=== PATIENT | male | born 1980 | race Caucasian/White ===

== ENCOUNTER 2023-08-31 09:04 | Outpatient (AMB) | payer BC, SELFPAY ==
--- NOTE | 2023-08-31 09:06 | MHC.OFFVIS ---
Intake Vital Signs 08/31/23 09:09 Height 5 ft 5 in Weight 132 lb 4.438 oz BMI 22.0 BP 125/64 Blood Pressure Location Lt brachial Position Sitting Pulse 102 H Intake Visit Reasons: Crohn's Disease Intake Note: Talon presents in the office as a new patient for Crohn's Disease. CC: He states that he is anemic - his crohns is getting worse. Bloating, Diarrhea - Everyday. he takes the Humira every 2 weeks - he was late with the last dose. He states the last few months he has been losing weight and he is not trying too. 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 Reports getting diagnosed at 19y.o when he was having a lot of abdominal pain in RLQ with nausea, diarrhea, blood in stool and weight loss. Was under care of Dr Alvaro Cristina ([facility]) for most of the duration of the disease and briefly by Dr Barber ([facility]) around pandemic years and then when he moved to [facility], he was being followed by [place] Licona ([facility] Unfortunately missed follow ups and when he called to book an appointment, not able to get in for a few months and therefore switching providers again. When he started seeing Dr Barber he was taken off the Humira and started on Naltrexone. His symptoms got significantly worse and also required a prolonged course of steroids that year. When he established care with Dr Licona he was then re-inducted with Humira in early 2020. From the notes, appears that he was checked for Ada drug and Ab post induction but we do not have those records. Assuming that he did not have antibodies as he was continued on Humira and still is on it. He does report initial improvement when he was started back on Humira, however, now for the past 7 months sx seem to be progressing with worsening of RLQ pain with bloating/distention - postprandial around 2 hours. Has also been noticing more loose BMs, used to have formed BM once a day without blood but now having [place] stool scale 5 almost 5-6 times a day. Night time sx +. No blood in stool that is noticeable to him. No tenesmus. + Urgency. Per his report when labs were checked by PCP earlier this year he was noted to have severe LUIS and Vit D deficiency. Does not smoke. Used to drink heavily in 20s now socially. Does take NSAIDs frequently, suffered a back injury recently and has been taking ibuprofen frequently for the past few weeks as tylenol not helpful and wants to avoid opiates. Last Humira dose was this morning. IBD history: Type: Crohns disease, stricturing type Location: Small intestine (jejunum, ileum) Age/year of diagnosis: 19 y.o / 1998 Previous medications: 6-MP (x8 years), Naltrexone x 1 year Steroids: Entocort EC on and off x years for flares. Most recent use was earlier this year. Current medications: Humira 40mg s/c q2w Prev surgeries: None Recent endoscopy: Colonoscopy 2020: active crohns in T.I. No CD in colon. Colonoscopy 2016: Normal T.I. Normal colon including rectum. VCE 2016: Jejunal and ileal ulcers with erythema. EIM: Joint pains primarily in small joints of the hands Radiology: 2013 DEXA: normal 2016 MRE: Distal small bowel stricture of 3 cm. [facility] Surgical History (Updated 08/31/23 @ 09:09 by RAINE Jean) History of esophagogastroduodenoscopy (EGD) Hx of colonoscopy Social History (Updated 08/31/23 @ 09:10 by RAINE Jean) Household Members: Family Alcohol intake: former Patient Tobacco Use Status: Never used Tobacco Use of substances other than those prescribed or required for medical reasons: No Review of Systems Const All systems reviewed & are unremarkable except as noted in HPI and below Physical Exam Vital Signs: Last Vital Signs Pulse 102 H 08/31/23 09:09 BP 125/64 08/31/23 09:09 BMI result Body Mass Index 22.0 Gen appear: NAD, thin appearing HEENT: nonicteric, no cervical lymphadenopathy Chest: CTA CVS: Regular S1/S2 Abd: soft, tenderness in RLQ, nondistended Ext: no peripheral edema, no obv joint deformities (? R third digit with some bowing) Neuro: A/Ox3, noted to move all extremities spontaneously Psych: interacting appropriately Assessment & Plan Assessment & Plan (1) Crohn's disease: Code(s): K50.90 - Crohn's disease, unspecified, without complications (2) Small bowel stricture: Code(s): K56.699 - Other intestinal obstruction unspecified as to partial versus complete obstruction (3) Anemia: Code(s): D64.9 - Anemia, unspecified (4) Vitamin D deficiency: Code(s): E55.9 - Vitamin D deficiency, unspecified (5) History of recent steroid use: Code(s): Z92.241 - Personal history of systemic steroid therapy Plan Reviewed with the pt that although clinically disease appears to be active despite Humira, will need biochemical and endoscopic evaluation. This will be set up today. A push enteroscopy will be set up in addition to colo given small bowel disease hx. We will also check ADA drug and Ab levels to guide the next step if indeed has active crohns still i.e dose escalation vs med switch in or out of class depending on results. Since he has had shelter exposure to steroids, we will also get a dexa scan. - Disease and therapy: Active based on clinical assessment. In clinical/biochemical/endoscopic remission. - Check CRP and Fecal calpro - Check CBC, LFTs, renal function. - Check drug and Ab level. This is to be drawn at trough i.e before next dose on 09/13. - In the meantime, cont Humira 40 q2w. - Push enteroscopy and colonoscopy to be set up in the next few weeks. Msg sent. Split PEG prep reviewed. - If inflammatory markers up and push/colo normal, low threshold to proceed with CTE as he has known small bowel disease. - Nutrition: Has evidence of ileal disease. Iron and B12 to be checked today. If low, will favor parenteral replacement. - Immunization: Encouraged to stay up to date to all immunizations EXCEPT live vaccines. - Bone Health: Check Vit D levels, will replete if low. Also overdue for DEXA scan. Orders placed. - Cancer prevention: IBD dysplasia: colonoscopy due, and to be scheduled as above. Sun safety discussed. ? - Med management: Counseled to AVOID nsaids for back pain. Tylenol up to 3g/day. Celecoxib 200 Rxed, which can be used for short term. Follow up after scopes. Pt was informed will likely be seen by different MD for follow up. ? Orders: Orders Comprehensive Met. Panel Today K50.90 - Crohn's disease, unspecified, without complications Hepatitis B Surface Antibody Today K5 - Crohn's disease, unspecified, without complications Hepatitis B Surface Antigen Today K5 - Crohn's disease, unspecified, without complications Hepatitis C Antibody Reflex Today K5 - Crohn's disease, unspecified, without complications, K74.60 - Unspecified cirrhosis of liver IRON PROFILE Today K5 - Crohn's disease, unspecified, without complications Thiopurine Methyltransferase Today K5 - Crohn's disease, unspecified, without complications T Spot TB Today K5 - Crohn's disease, unspecified, without complications TSH reflex Free T4 Today K5 - Crohn's disease, unspecified, without complications Vitamin D 25-OH Total Today K5 - Crohn's disease, unspecified, without complications HIV Ab/Ag Today K5 - Crohn's disease, unspecified, without complications Immunoglobulin A Today - Crohn's disease, unspecified, without complications Adalimumab+Ab Today K5 - Crohn's disease, unspecified, without complications Complete Blood Count no Diff Today K5 - Crohn's disease, unspecified, without complications Calprotectin, Fecal Today K5 - Crohn's disease, unspecified, without complications Ferritin Today K5 - Crohn's disease, unspecified, without complications C Reactive Protein Today K5 - Crohn's disease, unspecified, without complications Hepatitis A IgG Today - Crohn's disease, unspecified, without complications Hepatitis B Core Antibody Today K5 - Crohn's disease, unspecified, without complications Transglutaminase IgA Today K5 - Crohn's disease, unspecified, without complications Vitamin A Today - Crohn's disease, unspecified, without complications Vitamin B12 and Folate Today K5 - Crohn's disease, unspecified, without complications GI Panel Today K5 - Crohn's disease, unspecified, without complications CDiff Gene PCR Today K5 - Crohn's disease, unspecified, without complications XR DEXA axial skeleton Today K5 - Crohn's disease, unspecified, without complications Medications: New celecoxib (Celebrex) 200 mg PO DAILY PRN 30 caps 0RF pain peg 3350-electrolytes 236-22.74-6.74 -5.86 gram ([place]ol[place]) as per split prep instructions, until fecal effluent is clear 240 mL PO Q10M 4,000 mL 0RF colonoscopy Coding Level of Care Code New Pt Level 5 (27946) Diagnoses Crohn's disease K50.90 Small bowel stricture K56.699 Anemia D64.9 Vitamin D deficiency E55.9 History of recent steroid use Z92.213
[2023-08-31 09:09] VITALS: BP 125/64; PULSE 102; BMI 22.0
== END 2023-08-31 10:00 | disposition home or self-care (01) ==
PROVIDERS: PCP Hospitalist; Visit Provider Internal Medicine
DX: K50.90 Crohn's disease, unspecified, without complications (principal); K56.699 Other intestinal obstruction unspecified as to partial versus complete obstruction; D64.9 Anemia, unspecified; E55.9 Vitamin D deficiency, unspecified; Z92.241 Personal history of systemic steroid therapy
CPT/HCPCS: 99204

== ENCOUNTER → 2023-08-31 09:04 | Outpatient (BNVA) | payer BC, SELFPAY | PROVIDERS: PCP Hospitalist; Visit Provider Internal Medicine ==

== ENCOUNTER 2023-09-14 06:28 | Outpatient (REF) | payer BC, SELFPAY ==
[2023-09-14 11:17] LABS: Hematocrit 33.1 % (42.0-52.0); Hemoglobin 9.9 g/dl (14.0-18.0); Mean Corpuscular HGB Conc 29.9 g/dl (31.0-36.0); Mean Corpuscular Hemoglobin 19.7 pg (27.0-33.0); Mean Corpuscular Volume 65.9 fL (80.0-98.0); Mean Platelet Volume 9.9 fL (9.4-12.4); Platelet Count 634 X10*3/uL (160-400); Red Blood Count 5.02 X10*6/uL (4.60-5.80); Red Cell Distribution Width 16.8 % (11.0-16.0)
[2023-09-14 11:48] LABS: HBS Num1 0.99 mIU/mL (0-7.99); HBsAGNum1 0.34 S/CO (0.00-0.99); HIV AB/AG Nonreactive (Nonreactive); HIV Num 1 0.07 S/CO (0.00-0.99); Hepatitis A Antibody IgG REACTIVE (Nonreactive); Hepatitis B Core Antibody Nonreactive (Nonreactive); Hepatitis B Surface Antigen Negative (Negative); ~HepC Num1 0.12 S/CO (0.00-0.79); ~Hepatitis A Antibody IgG 1.25 S/CO (0.00-0.99); ~Hepatitis B Surface Antibody NONREACTIVE (Nonreactive); ~Hepatitis C Antibody Nonreactive (Nonreactive)
[2023-09-14 11:52] LABS: Alanine Aminotransferase 17 U/L (0-40); Albumin Level 2.2 g/dL (3.5-5.0); Alkaline Phosphatase 49 U/L (39-117); Anion Gap 12 (12-20); Aspartate Amino Transferase 21 U/L (5-37); Bilirubin Total 0.2 mg/dL (0.0-1.0); Blood Urea Nitrogen 10 mg/dL (9-16); Calcium 7.8 mg/dL (8.4-10.2); Carbon Dioxide 24 mmol/L (22-29); Chloride 104 mmol/L (96-108); Estimated Glomerular Filt Rate > 60; Glucose Random 84 mg/dL (60-115); Iron 13 mcg/dL (45-160); Percent Iron Saturation 8 % (15-50); Potassium 3.5 mmol/L (3.3-5.1); Sodium 136 mmol/L (135-145); Total Iron Binding Capacity 157 mcg/dL (228-428); Total Protein 5.1 g/dL (6.5-8.0); Unsaturated Iron Binding 144 ug/dL
[2023-09-14 11:56] LABS: Ferritin 104 ng/mL (20-250); TSH reflex Free T4 1.04 uIU/mL (0.32-4.0); Vitamin D 25-OH Total 28.9 ng/mL (>30)
[2023-09-14 11:58] LABS: Folate 15.2 ng/mL (> or = 4.0); Vitamin B12 397 pg/mL (200-900)
[2023-09-14 13:17] LABS: CDiff Gene PCR NEGATIVE (Negative)
[2023-09-16 16:08] LABS: Immunoglobulin A 356 mg/dL (47-310)
[2023-09-16 22:54] LABS: TS Negative Control Passed; TS Panel A 0; TS Panel B 1; TS Positive Control Passed; TSpotTB Negative (Negative)
[2023-09-17 23:12] LABS: Transglutaminase IgA 5.5 U/mL
[2023-09-18 21:59] LABS: Calprotectin, Fecal 6320 mcg/g
[2023-09-20 16:18] LABS: Vitamin A 29 mcg/dL (38-98)
[2023-09-21 22:54] LABS: Adalimumab Drug Level 1.1 mcg/mL; Anti-Adalimumab Antibody <10 AU (<10)
[2023-09-25 23:49] LABS: TPMT Activity 15
== END 2023-09-14 06:29 | disposition home or self-care (01) ==
LOC: HO.HMGCLDS 06:28
PROVIDERS: PCP Hospitalist; Visit Provider Internal Medicine
DX: Z11.4 Encounter for screening for human immunodeficiency virus [HIV] (principal); Z11.1 Encounter for screening for respiratory tuberculosis; K50.90 Crohn's disease, unspecified, without complications; K74.60 Unspecified cirrhosis of liver
CPT/HCPCS: 36415; 80053; 80145; 82306; 82607; 82728; 82746; 82784; 83520; 83540; 83993; 84433; 84443; 84590; 85027; 86140; 86364; 86481; 86704; 86706; 86708; 86803; 87340; 87389; 87493

== ENCOUNTER 2023-09-23 10:09 | Outpatient (REF) | payer BC, SELFPAY ==
--- NOTE | ~2023-09-23 | MM_ITS ---
EXAMINATION: BONE DENSITOMETRY CLINICAL INDICATION: Crohn's disease, unspecified, without complications. COMPARISON: This is the patient's baseline examination. TECHNIQUE: Using a [employer] DXA System (software version: 13.1) manufactured by [employer], dual-energy x-ray absorptiometry was performed of the lumbar spine and left hip. The images are of good technical quality. Based on ISCD (International Society for Clinical Densitometry) standards of reporting, Z-scores instead of T-scores are reported in this male patient younger than age 50. Summary results are attached. FINDINGS: AP SPINE L1-L4: BMD 1.186 g/cm2, T-score -0.3, Z-score 0.3, Z-score within expected range for age. LEFT FEMUR, NECK: BMD 0.957 g/cm2, T-score -0.9, Z-score -0.1, Z-score within expected range for age. LEFT FEMUR, TOTAL: BMD 0.960 g/cm2, T-score -1.0, Z-score -0.4, Z-score within expected range for age. IDENTIFIED RISK FACTORS: Secondary osteoporosis (intestinal or bowel disease). HISTORY OF FRACTURE: None listed. MEDICATIONS: Vitamin D. MM/XR DEXA axial skeleton IMPRESSION: 1. DIAGNOSIS: Based on the lowest Z-score value of -0.4 in the total femur, the patient's bone density is within the expected range for age. 2. 10-YEAR FRACTURE RISK PREDICTION, FRAX: Not performed in this patient outside the age range of 50-90 years. 3. Treatment Recommendations: NOF guidelines recommend consideration for treatment in postmenopausal women and men age 50 and older presenting with the following: -A hip or vertebral (clinical or morphometric) fracture. -T-score less than or equal to -2.5 at the femoral neck or spine after appropriate evaluation to exclude secondary causes. -Low bone mass at the hip or spine and a 10-year fracture probability by FRAX of greater than or equal to 3% for hip fracture or greater than or equal to 20% for major osteoporotic fracture based on the [place] adapted WHO algorithm. 4. Other Recommendations: All treatment decisions require clinical judgment and consideration of individual patient factors, including patient preferences, comorbidities, previous drug use, risk factors not captured in the FRAX model (e.g. frailty, falls, vitamin D deficiency, increased bone turnover, interval significant decline in bone density) and possible under or overestimation of fracture risk by FRAX. FUTURE SCAN RECOMMENDATION: People with diagnosed cases of osteoporosis or at high risk for fracture should have regular bone mineral density tests. For patients eligible for Medicare, routine testing is allowed once every 2 years. The testing frequency can be increased to one year for patients who have rapidly progressing disease, those who are receiving or discontinuing medical therapy to restore bone mass, or have additional risk factors.
== END 2023-09-23 10:10 | disposition home or self-care (01) ==
LOC: HO.MAMMO 10:09
PROVIDERS: PCP Hospitalist; Visit Provider Internal Medicine
DX: Z13.820 Encounter for screening for osteoporosis (principal); M81.0 Age-related osteoporosis without current pathological fracture; K50.90 Crohn's disease, unspecified, without complications; Z92.241 Personal history of systemic steroid therapy
CPT/HCPCS: 77080

== ENCOUNTER 2023-12-22 12:33 | Outpatient (REF) | payer BC, SELFPAY ==
[2023-12-22 16:05] LABS: Hematocrit 28.7 % (42.0-52.0); Hemoglobin 8.6 g/dl (14.0-18.0); Mean Corpuscular Hemoglobin 19.3 pg (27.0-33.0); Platelet Count 714 X10*3/uL (160-400); Red Blood Count 4.45 X10*6/uL (4.60-5.80); Red Cell Distribution Width 17.8 % (11.0-16.0); White Blood Count 8.3 X10*3/uL (4.8-10.8)
[2023-12-22 16:07] LABS: Mean Corpuscular Volume 64.5 fL (80.0-98.0)
[2023-12-22 16:17] LABS: Alanine Aminotransferase 16 U/L (0-40); Albumin Level 1.9 g/dL (3.5-5.0); Alkaline Phosphatase 51 U/L (39-117); Anion Gap 9 (12-20); Aspartate Amino Transferase 17 U/L (5-37); Bilirubin Total 0.1 mg/dL (0.0-1.0); Blood Urea Nitrogen 12 mg/dL (9-16); C Reactive Protein 4.82 mg/dL (< or = 0.50); Calcium 7.3 mg/dL (8.4-10.2); Carbon Dioxide 27 mmol/L (22-29); Chloride 104 mmol/L (96-108); Estimated Glomerular Filt Rate > 60; Glucose Random 91 mg/dL (60-115); Potassium 3.9 mmol/L (3.3-5.1); Sodium 136 mmol/L (135-145); Total Protein 4.9 g/dL (6.5-8.0)
[2023-12-28 08:28] LABS: Adalimumab Drug Level 7.3 mcg/mL; Anti-Adalimumab Antibody <10 AU (<10)
== END 2023-12-22 12:34 | disposition home or self-care (01) ==
LOC: HO.HMGCLDS 12:33
PROVIDERS: PCP Hospitalist; Visit Provider Internal Medicine
DX: K50.90 Crohn's disease, unspecified, without complications (principal)
CPT/HCPCS: 36415; 80053; 80145; 83520; 85027; 86140

== ENCOUNTER 2023-12-28 09:10 | Day surgery (SDC) | payer BC, SELFPAY ==
--- NOTE | 2023-12-27 10:35 | HO.ANESPROP2 ---
Documented by User: Amanda Roy NP 12/27/23 10:36 HPI - Anesthesia Eval Consult details Narrative: 43yo M for Colonoscopy push entero PMFSH Active Problems Active Problems: All Active Problems (Updated 08/31/23 @ 10:49 by Rea Neumann MD) History of recent steroid use (Acute) Vitamin D deficiency (Acute) Anemia (Acute) Small bowel stricture (Acute) Crohn's disease (Acute) Past Medical History Medical History (Updated 12/27/23 @ 10:35 by Amanda Roy NP) Crohn's disease Surgical History Surgical History (Updated 08/31/23 @ 09:09 by RAINE Jean) History of esophagogastroduodenoscopy (EGD) Hx of colonoscopy Social History Social History (Updated 08/31/23 @ 09:10 by RAINE Jean) Household Members: Family Alcohol intake: former Patient Tobacco Use Status: Never used Tobacco Meds Allergies Allergy/AdvReac Type Severity Reaction Status Date / Time No Known Allergies Allergy Verified 08/31/23 09:09 Home Medications Medication Instructions Recorded Confirmed Last Taken Type ferrous sulfate 15 mg iron (75 1 ml PO QDAY 08/31/23 Unknown History mg)/mL oral drops Exam Pertinent Lab Results Pertinent Lab Results: Laboratory Tests 12/22/23 13:02 WBC 8.3 Hgb 8.6 L Hct 28.7 L Plt Count 714 H Sodium 136 Potassium 3.9 Chloride 104 Carbon Dioxide 27 BUN 12 Creatinine 0.73 Assessment and Plan Assessment Anesthesia Assessment: Chart Reviewed Documented by User: Lio Chew MD 12/28/23 09:30 PMFSH Past Medical History Medical History (Updated 12/27/23 @ 10:35 by Amanda Roy NP) Crohn's disease Family History Family history of problems with anesthesia: No Surgical History Surgical History (Updated 08/31/23 @ 09:09 by RAINE Jean) History of esophagogastroduodenoscopy (EGD) Hx of colonoscopy History of Problems with Anesthesia: No Social History Social History (Updated 08/31/23 @ 09:10 by RAINE Jean) Household Members: Family Alcohol intake: former Patient Tobacco Use Status: Never used Tobacco Meds Allergies Allergy/AdvReac Type Severity Reaction Status Date / Time No Known Allergies Allergy Verified 08/31/23 09:09 Home Medications Medication Instructions Recorded Confirmed Last Taken Type ferrous sulfate 15 mg iron (75 1 ml PO QDAY 08/31/23 Unknown History mg)/mL oral drops Exam Airway Mallampati Class: I TM Dist: >3cm Neck ROM: Full Loose/Missing/Broken Teeth: No Heart: rrr Lungs: cta b/l Assessment and Plan Final Anesthetic Review Family History of Problems with Anesthesia: No History of Problems with Anesthesia: No NPO: Yes ASA Class: II Final Preanesthetic Review: No Changes in Pt Med Stat, Meds/Allgs Chart Reviewed, Consent Obtained/Reviewed and Anes Risks/Benef Reviewed Patient Risk: Intermediate Procedure Risk: Low Anesthetic Plan Anesthetic Plan: MAC: Disposition: Standard PACU
--- NOTE | ~2023-12-28 | XR_ITS ---
EXAMINATION: XR ABDOMEN KUB CLINICAL INDICATION: Location of endometrial clips. COMPARISON: None available. TECHNIQUE: AP view of the abdomen. FINDINGS: Bowel pattern is nonspecific with a few prominent left mid/upper small bowel loops. Endo clip is identified in the left upper quadrant at the 11th-12th rib interspace. Subcentimeter calcification identified in the right upper quadrant. Solid visceral outlines are obscured. Bony structures are intact. XR/XR KUB IMPRESSION: Endo clip in left upper quadrant.
[2023-12-28 09:18] VITALS: BMI 22.1
[2023-12-28] MEDS: Lactated Ringers 1,000 ML 100 ML IVCONT (09:23)
[2023-12-28 09:25] VITALS: BP 115/73; PULSE 95; RESP 18; TEMP 36.7; O2SAT 100
--- NOTE | 2023-12-28 09:48 | MHC.SHP ---
Pre-Procedural Eval Section A - 24 Hr Update-Section A only Date of Service: 12/28/23 Section B - Complete if H&P > 30 days Chief Complaint: Crohn's disease, unspecified, without complication Relevant Family History (Specify if Yes): No Relevant Social History: None Present Medications: see Short Stay Collaborative assessment Medical History: Significant History History of Previous Operations: Relevant previous surgery/procedure and date(s) Allergies: Allergies Allergy/AdvReac Type Severity Reaction Status Date / Time No Known Allergies Allergy Verified 12/28/23 09:33 Review of Systems Review of Systems Comment: 10 point ROS negative Exam Exam Comment: Gen appear: No acute distress, under nourished HEENT: no icterus, pale appearing Chest: No overt resp distress Abd: soft, nontender, nondistended Psych: Stable affect, answering questions appropriately Neuro: A/Ox3 noted to move all extremities spontaneously Ext: no peripheral edema Plan Diagnosis/Plan: Unchanged I have reviewed the history and physical and performed a pertinent physical examination on my patient. No changes have occurred unless specified. Charli for push enteroscopy with colonoscopy. Started on pred 60 on 12/21 and reports symptoms significantly better - BMs decreased from 5/day to 1-2/day and now formed. No blood. Time Spent With Patient Time: Total time managing care of this patient today ____ minutes.
--- NOTE | 2023-12-28 09:50 | P.OP_ITS ---
Operative Note Operative Note Date of Service: 12/28/23 Narrative: Procedure: Push enteroscopy and colonoscopy Indication: Crohns of small and large bowel Endoscopist: Rea Neumann MD Anesthesia Provider: Dr Lio Chew Anesthesia type: MAC Instrument: Olympus [id number] ?? Enteroscopy Procedure:?? The procedure, indications, preparation and potential complications were reviewed with the patient, who indicated understanding and gave written informed consent to proceed. A physical exam was performed. A distal attachment cap was affixed to the pediatric colonoscope which was then introduced through the mouth, and advanced to distal jejunum. The mucosa was carefully examined on slow withdrawal of the endoscope. The patient tolerated the procedure well. There were no immediate complications.? ? Enteroscopy Findings:? * Esophagus:? Normal mucosa noted in the entire esophagus. The Z line was at 38 cm. Cold forceps biopsies were taken from middle and lower esophagus. * Stomach:? Normal gastric mucosa. Random cold forceps biopsies were taken. * Duodenum:? Normal mucosa was noted in the whole of the examined duodenum. Cold forceps biopsies were taken histology. * Jejunum: A few scattered ulcers were noted the jejunum with clean white base, all measuring 5 mm or less. Cold forceps biopsies were taken for histology. An Endoclip was placed at the distal most extent of the jejunum reached by the scope as a radio-opaque marker. Colonoscopy Procedure: The patient was then turned for the colonoscopy. A digital rectal exam was performed which was annormal for hemorrhoids. The colonoscope was then inserted through the anus and advanced through the colon to the cecum at 75 cm. Appendiceal orifice and ileocecal valve were identified. Mucosa was carefully examined under high definition white light as the instrument was slowly withdrawn in a retrograde panoramic fashion. Retroflexion was performed in rectum. The procedure was not difficult. There were no immediate obvious compl ications. The quality of the prep was BBPS: 2+2+2 = adequate Withdrawal time 23 minutes. Limitations: No limitations. Colonoscopy Findings: Mucosa: The ileocecal valve was ulcerated and stenosed. The scope could not intubate the terminal ileum. Cold forceps biopsies were taken from the valve as well as from inside the valve. At least 3 small erosions were noted in the rectum. Remaining mucosa was noted to be normal. Forceps biopsies were taken every 10 cm for dysplasia screening. Protruding lesions: * Medium internal hemorrhoids without stigmata of recent bleeding. Impressions:? * Normal esophagus (biopsy) * Normal gastric mucosa ( biopsy) * Normal duodenal mucosa (biopsy) * Jejunal ulcers (biopsy) * Stenosed and ulcerated IC valve (biopsy) * Terminal ileum could not be examined * Scattered ulcers in rectum * Hemorrhoids Recommendations: - Follow path results. - Based on endoscopic evaluation and TDM, pt has non-immune mediated loss of response. Will need to switch out of class, preferably [facility]. Will request staff nuclear weapons officer to work on PA. - In the meantime, continue prednisone 60mg PO for total of 2 weeks followed by a taper of 10mg per week. - CT enterography to evaluate small bowel and ? stricture. - Office follow up within 2 weeks
[2023-12-28 11:14] VITALS: BP 94/55; PULSE 77; RESP 15; TEMP 36.6; O2SAT 100
[2023-12-28 11:29] VITALS: BP 111/76; PULSE 89; RESP 16; O2SAT 99
[2023-12-28 11:44] VITALS: BP 116/71; PULSE 87; RESP 14; O2SAT 100
[2023-12-28 11:49] VITALS: BP 118/60; PULSE 80; RESP 16; TEMP 36.3; O2SAT 100
== END 2023-12-28 12:43 | disposition home or self-care (01) ==
PROVIDERS: PCP Hospitalist; Visit Provider Internal Medicine
PROC: 0DJD8ZZ Inspection of Lower Intestinal Tract, Via Natural or Artificial Opening Endoscopic (ICD-10-PCS; CPT 45378; principal; 2023-12-28 11:10)
DX: K28.9 Gastrojejunal ulcer, unspecified as acute or chronic, without hemorrhage or perforation (principal); K50.112 Crohn's disease of large intestine with intestinal obstruction; K62.6 Ulcer of anus and rectum; K64.8 Other hemorrhoids; D64.9 Anemia, unspecified; E55.9 Vitamin D deficiency, unspecified; Z79.899 Other long term (current) drug therapy; Z92.241 Personal history of systemic steroid therapy
CPT/HCPCS: 43239; 45380; 74018; 88305; 88313; 88342; J2250; J2704

== ENCOUNTER → 2023-12-28 09:10 | Outpatient (BNV) | payer BC, SELFPAY | PROVIDERS: PCP Hospitalist; Visit Provider Internal Medicine | DX: K28.9 Gastrojejunal ulcer, unspecified as acute or chronic, without hemorrhage or perforation (principal); K50.112 Crohn's disease of large intestine with intestinal obstruction; K62.6 Ulcer of anus and rectum | CPT/HCPCS: 43239; 45380 ==

== ENCOUNTER 2024-01-10 11:40 | Outpatient (AMB) | payer BC, SELFPAY ==
--- NOTE | 2024-01-10 11:47 | A.OFFVIS_ITS ---
Intake Vital Signs 01/10/24 11:49 Height 5 ft 5.5 in Weight 126 lb BMI 20.6 BP 131/79 Blood Pressure Location Lt brachial Position Sitting Pulse 105 H Intake Visit Reasons: s/p colon/push entero Intake Note: Talon presents in the office CC: consistent abdominal pains and he is unable to eat or drink without triggering the pains. Over the last 9 months he is getting severely tired to the point where he is passing out. He states that he does not check BP at home but it is usually pretty good. Allergies No Known Allergies Allergy (Verified 01/10/24 11:49) HPI HPI Comments History of Present Illness Details This is a 43y.o M with PMH of crohns disease of small intestine that was diagnosed in his late teens in [facility] currently on Humira who is transferring care from [facility]. Reports getting diagnosed at 19y.o when he was having a lot of abdominal pain in RLQ with nausea, diarrhea, blood in stool and weight loss. Was under care of Dr Alvaro Cristina ([facility]) for most of the duration of the disease and briefly by Dr Barber ([facility]) around pandemic years and then when he moved to [facility], he was being followed by Dr Licona ([facility] Unfortunately missed follow ups and when he called to book an appointment, not able to get in for a few months and therefore switching providers again. When he started seeing Dr Barber he was taken off the Humira and started on Naltrexone. His symptoms got significantly worse and also required a prolonged course of steroids that year. When he established care with Dr Licona he was then re-inducted with Humira in early 2020. From the notes, appears that he was checked for Ada drug and Ab post induction but we do not have those records. Assuming that he did not have antibodies as he was continued on Humira and still is on it. He does report initial improvement when he was started back on Humira, however, now for the past 7 months sx seem to be progressing with worsening of RLQ pain with bloating/distention - postprandial around 2 hours. Has also been noticing more loose BMs, used to have formed BM once a day without blood but now having [place] stool scale 5 almost 5-6 times a day. Night time sx +. No blood in stool that is noticeable to him. No tenesmus. + Urgency. Per his report when labs were checked by PCP earlier this year he was noted to have severe LUIS and Vit D deficiency. Does not smoke. Used to drink heavily in 20s now socially. Does take NSAIDs frequently, suffered a back injury recently and has been taking ibuprofen frequently for the past few weeks as tylenol not helpful and wants to avoid opiates. Last Humira dose was this morning. IBD history: Type: Crohns disease, stricturing type Location: Small intestine (jejunum, ileum) Age/year of diagnosis: 19 y.o / 1998 Previous medications: 6-MP (x8 years), Naltrexone x 1 year Steroids: Entocort EC on and off x years for flares. Most recent use was earlier this year. Current medications: Humira 40mg s/c q2w Prev surgeries: None Recent endoscopy: Colonoscopy 2020: active crohns in T.I. No CD in colon. Colonoscopy 2016: Normal T.I. Normal colon including rectum. VCE 2016: Jejunal and ileal ulcers with erythema. EIM: Joint pains primarily in small joints of the hands Radiology: 2013 DEXA: normal 2016 MRE: Distal small bowel stricture o f 3 cm. 12/28/23: EGD/colo * Normal esophagus (biopsy) * Normal gastric mucosa ( biopsy) * Normal duodenal mucosa (biopsy) * Jejunal ulcers (biopsy) * Stenosed and ulcerated IC valve (biopsy) * Terminal ileum could not be examined * Scattered ulcers in rectum * Hemorrhoids A. Jejunum, biopsy: Small bowel mucosa with preserved villi and few focal neutrophils which may be from mucosa adjacent to ulcer, otherwise no specific change; no granulomas or dy splasia. B. Duodenum, biopsy: Duodenal mucosa with preserved villi and reactive lymphoid aggregates, otherwise no specific change; no granulomas or dysplasia. C. Stomach, random, biopsy: Chronic gastritis with minimal activity; negative for H pylori, intestinal metaplasia, granulomas and dysplasia. D. Esophagus, lower, biopsy: Squamous mucosa with hyperplasia, spongiosis, many intraepithelial lymphocytes, focal intraepithelial neutrophils, and few intraepithelial eosinophils (up to 2 per high-power field) consistent with esophagitis; no columnar mucosa present. E. Esophagus, middle, biopsy: Squamous mucosa with hyperplasia, spongiosis, intraepithelial lymphocytes, and rare intraepithelial neutrophils consistent with esophagitis, and detached fragment of intestinal type epithelium (? contaminant, endoscopic correlation is necessary). F. Ileocecal valve, biopsy: Chronic ileitis with moderate-severe activity and ulcer; no granulomas or dysplasia. G. Colon, at 75 cm, biopsy: Colonic mucosa with no specific change; no colitis, granulomas or dysplasia. H. Colon, at 65 cm, biopsy: Colonic mucosa with lymphoid aggregate and no specific change; no colitis, granulomas or dysplasia. I. Colon, at 55 cm, biopsy: Colonic mucosa with lymphoid aggregate and minor crypt distortion, otherwise no specific change; no colitis, granulomas or dysplasia. J. Colon, at 45 cm, biopsy: Colonic mucosa with minor crypt distortion, otherwise no specific change; no colitis, granulomas or dysplasia. K. Colon, at 35 cm, biopsy: Colonic mucosa with lymphoid aggregate and minor crypt distortion, otherwise no specific change; no colitis, granulomas or dysplasia. L. Colon, at 25 cm, biopsy: Colonic mucosa with lymphoid aggregate and minor crypt distortion, otherwise no specific change; no colitis, granulomas or dysplasia. M. Colon, at 15 cm, biopsy: Chronic colitis with mild to severe activity and focal ulcer; no granulomas or dysplasia. 01/10/24: Comes in today, accompanied by his Leona. Reports that while he initially felt much better with the prednisone, the effect has decreased over time. Thinks that symptoms returned even before he decreased the dose to 50 mg for taper. Reports significant abdominal discomfort and feeling of tension in his right lower quadrant extending to left lower quadrant, with prominent borborygmi, bloating and loss of appetite. Has had gradual weight loss with this as well. For the past 6 months, has also been noticing increased swelling in his legs, especially on standing for long hours. Also reports fatigue, and shortness of breath. Results of EGD and colonoscopy reviewed with the patient. Consistent with active Crohn's disease with possible T.I and/or ICV stenosis. No evidence of obstruction clinically. CT enterography was ordered at the time of endoscopy visit, and is pending. Currently scheduled for February at [facility]. [facility] Medical History Crohn's disease Surgical History History of esophagogastroduodenoscopy (EGD) Hx of colonoscopy Social History Household Members: Family Alcohol intake: former Patient Tobacco Use Status: Never used Tobacco Review of Systems Const All systems reviewed & are unremarkable except as noted in HPI and below Physical Exam Vital Signs: Last Vital Signs Pulse 105 H 01/10/24 11:49 BP 131/79 01/10/24 11:49 BMI result Body Mass Index 20.6 Const General: no acute distress and tired appearing Orientation/consciousness: patient oriented x3 Resp Effort & Inspection: normal respiratory effort Skin General skin exam: no rashes or lesions noted Neuro General: patient oriented x3 and gait normal Extrem General: Yes pedal edema Psych Appearance: grossly normal Assessment & Plan Assessment & Plan (1) Crohn's disease: Code(s): K50.90 - Crohn's disease, unspecified, without complications (2) Small bowel stricture: Code(s): K56.699 - Other intestinal obstruction unspecified as to partial versus complete obstruction (3) Anemia: Code(s): D64.9 - Anemia, unspecified (4) Vitamin D deficiency: Code(s): E55.9 - Vitamin D deficiency, unspecified (5) History of recent steroid use: Code(s): Z92.241 - Personal history of systemic steroid therapy (6) Malnutrition: Code(s): E46 - Unspecified protein-calorie malnutrition (7) Edema due to hypoalbuminemia: Code(s): E88.09 - Other disorders of plasma-protein metabolism, not elsewhere classified (8) Iron deficiency: Code(s): E61.1 - Iron deficiency Plan Endoscopic evaluation confirms active Crohn's disease of the small bowel, as well as rectum. Appears to have IC valve stenosis with or without TI stricture. Needs CT enterography for complete evaluation which is pending. In the meantime, since symptoms have recurred, will increase prednisone back to 60 mg once daily to be continued for another week, before tapering. PA for Stelara to be initiated. Patient aware that he will need 1 dose i nduction infusion, before injections. He is also very symptomatic from iron deficiency anemia, likely due to malabsorption from Crohn's, as well as some component of bleeding from ulcerated gut. We will prescribe IV iron at least 4 doses. Peripheral edema is likely secondary to hypoalbuminemia, again from active inflammation as well as malnutrition. High-protein shakes recommended. - Disease and therapy: Active - Fecal calpro 6320 (08/2023) - Prednisone 60mg x 1 more week (already completed x 2 weeks), followed by taper of 10mg/week - Humira and Azathioprine stopped. - Stelara to be initiated - PA awaited. Counseling for stelara including hypersensitivity reactions, risk of infections, skin cancer reviewed. - Will need levels checked 4 weeks after 1st maintenance dose along with repeat CRP and fecal calpro (reminder set) - CT enterography pending - pt encouraged to check with other hosp such as [facility] if have sooner availability. - Nutrition: Has evidence of ileal disease with severe LUIS. Venofer 200mg x 4 doses. To be rechecked February 2024. Also with severe protein malnutrition with weight loss and edema. Alb 1.9. Boost high protein Rxed. - Immunization: Encouraged to stay up to date to all immunizations EXCEPT live vaccines. - Bone Health: DEXA scan normal 2022. On Vit D supplementation for Vit D defi ciency. To be rechecked February 2024 - Cancer prevention: IBD dysplasia: None on colo 12/2023. Next colo due 2025. Sun safety discussed. Also encouraged to see Derm for yearly skin checks on UST. Follow up 4 weeks ? Medications: New prednisone 60 mg (3 x 20 mg) PO DAILY 7 days 21 tabs 0RF food supplemt, lactose-reduced (Boost High Protein) 1 ea PO BID 30 days 14,220 mL 1RF prednisone take 50mg x 1 week, then 40mg x 1 week, 30 mg x 1 week, 20 mg x 1 week and 10 mg x 1 week 10 mg PO DIRECTED 90 tabs 0RF Coding Level of Care Code Est Pt Level 5 (44395) Diagnoses Crohn's disease K50.90 Small bowel stricture K56.699 Anemia D64.9 Vitamin D deficiency E55.9 History of recent steroid use Z92.241 Malnutrition E46 Edema due to hypoalbuminemia E88.09 Iron deficiency E61.1
[2024-01-10 11:49] VITALS: BP 131/79; PULSE 105; BMI 20.6
== END 2024-01-10 13:12 | disposition home or self-care (01) ==
PROVIDERS: PCP Hospitalist; Visit Provider Internal Medicine
DX: K50.90 Crohn's disease, unspecified, without complications (principal); K56.699 Other intestinal obstruction unspecified as to partial versus complete obstruction; D64.9 Anemia, unspecified; E55.9 Vitamin D deficiency, unspecified; Z92.241 Personal history of systemic steroid therapy; E46 Unspecified protein-calorie malnutrition; E88.09 Other disorders of plasma-protein metabolism, not elsewhere classified; E61.1 Iron deficiency
CPT/HCPCS: 99214

== ENCOUNTER → 2024-01-10 11:40 | Outpatient (BNVA) | payer BC, SELFPAY | PROVIDERS: PCP Hospitalist; Visit Provider Internal Medicine ==

== ENCOUNTER 2024-02-03 07:27 | Outpatient (REF) | payer BC, SELFPAY ==
[2024-02-03 07:30] VITALS: BP 123/77; PULSE 98; RESP 20; TEMP 37.2; O2SAT 100
--- NOTE | 2024-02-03 07:30 | PC.NURSE ---
pharmacy called for guerda
[2024-02-03] MEDS: Iron Sucrose Complex 200 MG in 0.9 % Sodium Chloride 100 ML 440 MG IV (07:38)
[2024-02-03 07:55] LABS: MANUAL DIFF FLAG NO
[2024-02-03 07:59] LABS: Basophils Percent Auto 0.3 % (0-2); Eosinophils Percent Auto 0.3 % (0-4); Hematocrit 30.5 % (42.0-52.0); Imm Gran Abs Auto 0.08 X10*3/uL (0.00-0.03); Imm Gran Pct Auto 0.7 % (0.0-0.4); Lymphocytes Absolute Auto 1.5 X10*3/uL (1.2-4.9); Lymphocytes Percent Auto 12.4 % (20-40); Mean Corpuscular HGB Conc 29.5 g/dl (31.0-36.0); Mean Corpuscular Volume 67.9 fL (80.0-98.0); Mean Platelet Volume 8.3 fL (9.4-12.4); Monocytes Absolute Auto 0.8 X10*3/uL (0.1-1.2); Monocytes Percent Auto 6.9 % (2-11); Neutrophils Absolute Auto 9.5 x10*3/uL (2.0-8.3); Neutrophils Percent Auto 79.4 % (45-73); Platelet Count 569 X10*3/uL (160-400); Red Blood Count 4.49 X10*6/uL (4.60-5.80); Red Cell Distribution Width 18.9 % (11.0-16.0)
[2024-02-03 08:16] LABS: Anion Gap 10 (12-20); Blood Urea Nitrogen 14 mg/dL (9-16); C Reactive Protein 1.32 mg/dL (< or = 0.50); Calcium 8.1 mg/dL (8.4-10.2); Carbon Dioxide 26 mmol/L (22-29); Chloride 106 mmol/L (96-108); Estimated Glomerular Filt Rate > 60; Glucose Random 104 mg/dL (60-115); Potassium 4.3 mmol/L (3.3-5.1); Sodium 138 mmol/L (135-145)
[2024-02-03 08:30] VITALS: BP 120/73; PULSE 85; RESP 16
[2024-02-03 09:04] VITALS: BP 128/76; PULSE 82; RESP 18
[2024-02-03 09:31] VITALS: BP 121/75; PULSE 87; RESP 16
== END 2024-02-03 07:28 | disposition home or self-care (01) ==
LOC: HO.MDS 07:27
PROVIDERS: Visit Provider Internal Medicine
DX: K50.90 Crohn's disease, unspecified, without complications (principal); E61.1 Iron deficiency
CPT/HCPCS: 36415; 80048; 85025; 86140; 96365; 96366; J1756; J3358

== ENCOUNTER 2024-02-10 07:49 | Outpatient (REF) | payer BC, SELFPAY ==
[2024-02-10 07:51] VITALS: BP 112/65; PULSE 99; RESP 16; TEMP 37.1; O2SAT 98
[2024-02-10] MEDS: Iron Sucrose Complex 200 MG in 0.9 % Sodium Chloride 100 ML 440 MG IV (08:01)
== END 2024-02-10 07:50 | disposition home or self-care (01) ==
LOC: HO.MDS 07:49
PROVIDERS: Visit Provider Internal Medicine
DX: E61.1 Iron deficiency (principal)
CPT/HCPCS: 96365; J1756

== ENCOUNTER 2024-02-17 | Outpatient (REF) | payer BC, SELFPAY ==
--- NOTE | ~2024-02-17 | CT_ITS ---
EXAMINATION: CT ENTEROGRAPHY ABDOMEN AND PELVIS WITH CONTRAST CLINICAL INFORMATION: Rule out small bowel strictures COMPARISON: None available. TECHNIQUE: Study performed with oral VoLumen (1350 mL) and 480 mL of water to distend the abdomen. The patient was injected with 85 mL Omnipaque 350 intravenous contrast which was administered without adverse effect. Coronal and sagittal reformatted images were obtained at the technologist's workstation. This CT examination was performed using dose optimization techniques as appropriate, variously including the following: *Automated exposure control *Adjustment of mA and/or kV according to patient size (this includes techniques or standardized protocols for targeted exams where dose is matched to indication/reason for exam; i.e. extremities or head) *Use of iterative reconstruction technique DLP: 343 mGy-cm FINDINGS: GASTROINTESTINAL FINDINGS: Stomach: Well-distended and normal in appearance. Small intestine: There is circumferential thickening of small bowel loop on the right, better visualized on coronal and sagittal reconstruction, see image [id number] series 5 and another segment with circumferential wall thickening seen in the right centimeters of small bowel seen on image [id number]. There is thickening of the wall of the terminal ileum, visualized on image [id number] series 4. Large intestine: Well-distended and normal in appearance. No perirectal changes demonstrated. The appendix is normal. Additional findings: No abnormal enhancement of the vasa recta or significant mesenteric or retroperitoneal lymphadenopathy is seen. No abdominal abscess or fistulous tract demonstrated. ABDOMINAL AND PELVIC CT FINDINGS: Liver, gallbladder, biliary tract: There is cholelithiasis without cholecystitis Pancreas: Normal Spleen: Normal Adrenal glands and kidneys: Adrenal glands and kidneys are unremarkable Ureters and bladder: Ureters are not dilated. Urinary bladder is well distended without stones or masses. Lymphovascular structures: There is no lymphadenopathy. Abdominal aorta is nondilated Bones: There are no lytic or blastic lesions. Lung bases: Clear CT/CT enterography IMPRESSION: 1. Multiple segments of small bowel wall thickening and thickening of the terminal ileum. No evidence of bowel obstruction. 2. Cholelithiasis without cholecystitis.
[2024-02-17] MEDS: iohexoL 350 MG/ML 100 ML INFUS..BTL IV (10:18)
[2024-02-17] MEDS: Sorbitol/Mannit/Xanth Imaging 500 ML LIQUID 1500 ML PO (10:25)
== END 2024-02-17 00:01 | disposition home or self-care (01) ==
LOC: HO.CT
PROVIDERS: PCP Hospitalist; Visit Provider Internal Medicine
DX: K50.90 Crohn's disease, unspecified, without complications (principal)
CPT/HCPCS: 74177; Q9967

== ENCOUNTER 2024-03-15 09:07 | Outpatient (AMB) | payer BC, SELFPAY ==
--- NOTE | 2024-03-15 09:08 | A.OFFVIS_ITS ---
Vital Signs 03/15/24 09:10 Height 5 ft 5.5 in Weight 127 lb 13.89 oz BMI 21.0 BP 115/77 Blood Pressure Location Lt brachial Position Sitting Pulse 97 Intake Visit Reasons: follow up after CT Intake Note: Talon presents in the office as a follow up CT. CC: Since prednisone ran out he states he has gotten worse. He has to load himself with imodium to get through his day. He is having stomach pains and severe diarrhea. HEre today for the results. Pains in the right side of his abdomen that goes across to the left until he has a BM. 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 He had to call out of work yesterday. Wednesday he had baked chicken and it was so severe he was on the floor. Allergies No Known Allergies Allergy (Verified 03/15/24 09:11) HPI Comments Details: This is a 43y.o M with PMH of crohns disease of small intestine that was diagnosed in his late teens in [facility] currently on Humira who is transferring care from [facility]. Reports getting diagnosed at 19y.o when he was having a lot of abdominal pain in RLQ with nausea, diarrhea, blood in stool and weight loss. Was under care of Dr Alvaro Cristina ([facility]) for most of the duration of the disease and briefly by Dr Barber ([facility]) around pandemic years and then when he moved to [facility], he was being followed by Dr Licona ([facility]). Unfortunately missed follow ups and when he called to book an appointment, not able to get in for a few months and therefore switching providers again. When he started seeing Dr Barber he was taken off the Humira and started on Naltrexone. His symptoms got significantly worse and also required a prolonged course of steroids that year. When he established care with Dr Licona he was then re-inducted with Humira in early 2020. From the notes, appears that he was checked for Ada drug and Ab post induction but we do not have those records. Assuming that he did not have antibodies as he was continued on Humira and still is on it. He does report initial improvement when he was started back on Humira, however, now for the past 7 months sx seem to be progressing with worsening of RLQ pain with bloating/distention - postprandial around 2 hours. Has also been noticing more loose BMs, used to have formed BM once a day without blood but now having [place] stool scale 5 almost 5-6 times a day. Night time sx +. No blood in stool that is noticeable to him. No tenesmus. + Urgency. Per his report when labs were checked by PCP earlier this year he was noted to have severe LUIS and Vit D deficiency. Does not smoke. Used to drink heavily in 20s now socially. Does take NSAIDs frequently, suffered a back injury recently and has been taking ibuprofen frequently for the past few weeks as tylenol not helpful and wants to avoid opiates. Last Humira dose was this morning. IBD history: Type: Crohns disease, stricturing type Location: Small intestine (jejunum, ileum) Age/year of diagnosis: 19 y.o / 1997 Previous medications: 6-MP (x8 years), Naltrexone x 1 year Steroids: Entocort EC on and off x years for flares. Most recent use was earlier this year. Current medications: Humira 40mg s/c q2w Prev surgeries: None Recent endoscopy: Colonoscopy 2020: active crohns in T.I. No CD in colon. Colonoscopy 2016: Normal T.I. Normal colon including rectum. VCE 2016: Jejunal and ileal ulcers with erythema. EIM: Joint pains primarily in small joints of the hands Radiology: 2013 DEXA: normal 2016 MRE: Distal small bowel stricture of 3 cm. 12/28/23: EGD/colo * Normal esophagus (biopsy) * Normal gastric mucosa ( biopsy) * Normal duodenal mucosa (biopsy) * Jejunal ulcers (biopsy) * Stenosed and ulcerated IC valve (biopsy) * Terminal ileum could not be examined * Scattered ulcers in rectum * Hemorrhoids A. Jejunum, biopsy: Small bowel mucosa with preserved villi and few focal neutrophils which may be from mucosa adjacent to ulcer, otherwise no specific change; no granulomas or dysplasia. B. Duodenum, biopsy: Duodenal mucosa with preserved villi and reactive lymphoid aggregates, otherwise no specific change; no granulomas or dysplasia. C. Stomach, random, biopsy: Chronic gastritis with minimal activity; negative for H pylori, intestinal metaplasia, granulomas and dysplasia. D. Esophagus, lower, biopsy: Squamous mucosa with hyperplasia, spongiosis, many intraepithelial lymphocytes, focal intraepithelial neutrophils, and few intraepithelial eosinophils (up to 2 per high-power field) consistent with esophagitis; no columnar mucosa present. E. Esophagus, middle, biopsy: Squamous mucosa with hyperplasia, spongiosis, intraepithelial lymphocytes, and rare intraepithelial neutrophils consistent with esophagitis, and detached fragment of intestinal type epithelium (? contaminant, endoscopic correlation is necessary). F. Ileocecal valve, biopsy: Chronic ileitis with moderate-severe activity and ulcer; no granulomas or dysplasia. G. Colon, at 75 cm, biopsy: Colonic mucosa with no specific change; no colitis, granulomas or dysplasia. H. Colon, at 65 cm, biopsy: Colonic mucosa with lymphoid aggregate and no specific change; no colitis, granulomas or dysplasia. I. Colon, at 55 cm, biopsy: Colonic mucosa with lymphoid aggregate and minor crypt distortion, otherwise no specific change; no colitis, granulomas or dysplasia. J. Colon, at 45 cm, biopsy: Colonic mucosa with minor crypt distortion, otherwise no specific change; no colitis, granulomas or dysplasia. K. Colon, at 35 cm, biopsy: Colonic mucosa with lymphoid aggregate and minor crypt distortion, otherwise no specific change; no colitis, granulomas or dysplasia. L. Colon, at 25 cm, biopsy: Colonic mucosa with lymphoid aggregate and minor crypt distortion, otherwise no specific change; no colitis, granulomas or dysplasia. M. Colon, at 15 cm, biopsy: Chronic colitis with mild to severe activity and focal ulcer; no granulomas or dysplasia. 01/10/24: Comes in today, accompanied by his Leona. Reports that while he initially felt much better with the prednisone, the effect has decreased over time. Thinks that symptoms returned even before he decreased the dose to 50 mg for taper. Reports significant abdominal discomfort and feeling of tension in his right lower quadrant extending to left lower quadrant, with prominent borborygmi, bloating and loss of appetite. Has had gradual weight loss with this as well. For the past 6 months, has also been noticing increased swelling in his legs, especially on standing for long hours. Also reports fatigue, and shortness of breath. Results of EGD and colonoscopy reviewed with the patient. Consistent with active Crohn's disease with possible T.I and/or ICV stenosis. No evidence of obstruction clinically. CT enterography was ordered at the time of endoscopy visit, and is pending. Currently scheduled for February at [facility]. 03/15/24: Here for follow up. Received UST infusion on 02/02. Has first maintenance dose due on March 30 but has not received the inj yet. Reports sx returned as soon as decreased dose to 10mg which was around 2 weeks ago. Sx are abd pain and discomfort in RLQ which goes across to LLQ. With occ nausea and vomiting. Has 7-8 watery BMs per day. Also has to wake up at night to defecate. No overt blood but has occ noticed dark BMs. With pred was having 3 BMs per day. BMs were also formed at that time. Cont with fatigue and joint pains. Completed x3 iron infusions, missed the 4th one. In terms of nutrition, has good appetite, especially with prednisone use. However, has not been able to gain much weight due to frequent diarrhea. Does take boost shakes, but pays out of pocket, as high-protein shakes on back order. [facility] Medical History Crohn's disease Surgical History History of esophagogastroduodenoscopy (EGD) Hx of colonoscopy Social History Household Members: Family Alcohol intake: former Patient Tobacco Use Status: Never used Tobacco Review of Systems Const All systems reviewed & are unremarkable except as noted in HPI and below Physical Exam Vital Signs: Last Vital Signs Pulse 97 03/15/24 09:10 BP 115/77 03/15/24 09:10 BMI result Body Mass Index 21.0 No acute distress, thin-appearing Nonicteric No overt respiratory distress Abdomen soft, nondistended No lower extremity edema Results Reviewed Results Reviewed: CT enterography: Small intestine: There is circumferential thickening of small bowel loop on the right, better visualized on coronal and sagittal reconstruction, see image [id number] series 5 and another segment with circumferential wall thickening seen in the right centimeters of small bowel seen on image [id number]. There is thickening of the wall of the terminal ileum, visualized on image [id number] series 4. Large intestine: Well-distended and normal in appearance. No perirectal changes demonstrated. The appendix is normal. Additional findings: No abnormal enhancement of the vasa recta or significant mesenteric or retroperitoneal lymphadenopathy is seen. No abdominal abscess or fistulous tract demonstrated. Assessment & Plan Assessment & Plan (1) Crohn's disease: Code(s): K50.90 - Crohn's disease, unspecified, without complications Category: Medical (2) Anemia: Code(s): D64.9 - Anemia, unspecified Category: Medical (3) Vitamin D deficiency: Code(s): E55.9 - Vitamin D deficiency, unspecified Category: Medical (4) History of recent steroid use: Code(s): Z92.241 - Personal history of systemic steroid therapy Category: Medical (5) Malnutrition: Code(s): E46 - Unspecified protein-calorie malnutrition Category: Medical (6) Iron deficiency: Code(s): E61.1 - Iron deficiency Category: Medical Plan Endoscopic evaluation confirms active Crohn's disease of the small bowel, as well as rectum. Reviewed enterography findings with the patient that no distinct stricture noted in the terminal ileum, likely has stenosis due to inflammatory wall thickening of the small bowel. Stelara started 02/03/24. Due to return of symptoms upon prednisone taper, we will reinitiate steroids, to avoid long-term prednisone use, will prefer Entocort. Iron infusions completed, we will recheck CBC and ferritin. Also has previous history of vitamin-D deficiency, so that will be rechecked as well. We will also resend script for boost shakes to be covered by insurance. - Disease and therapy: Active - Fecal calpro 6320 (08/2023) - start Entocort 9 mg x 8 weeks, followed by 6 mg x 4 weeks and then 3 mg x 4 weeks. - Stelara initiated 02/02. Counseling for stelara including hypersensitivity reactions, risk of infections, skin cancer reviewed. - Will need levels checked 4 weeks after 1st maintenance dose along with repeat CRP and fecal calpro (reminder set) - No distinct stricture noted on CTE, likely has inflammatory bowel wall thickening. Can consider repeat CTE in 3 months. - Nutrition: Has evidence of ileal disease with severe LUIS. Venofer 200mg x 3 doses completed. Check CBC and ferritin. Also with severe protein malnutrition with weight loss. Alb 1.9. Boost Rxed. - Immunization: Encouraged to stay up to date to all immunizations EXCEPT live vaccines. - Bone Health: DEXA scan normal 2022. On Vit D supplementation for Vit D deficiency. Recheck ordered. - Cancer prevention: IBD dysplasia: None on colo 12/2023. Next colo due 2025. Sun safety discussed. Also encouraged to see Derm for yearly skin checks on UST. Follow up 6 weeks ? Orders: Orders Complete Blood Count no Diff Today E61.1 - Iron deficiency Ferritin Today E61.1 - Iron deficiency Vitamin D 25-OH Total Today E55.9 - Vitamin D deficiency, unspecified, E61.1 - Iron deficiency Medications: New budesonide DR-ER Take 9mg once daily for 8 weeks and then a taper will be Rxed. 9 mg (3 x 3 mg) PO DAILY 8 weeks 168 ea 0RF food supplemt, lactose-reduced (Boost) 1 ea PO BID 30 days 14,220 mL 2RF ustekinumab (Stelara) 90 mg subcut Q8W 2 mL 1RF K50.90 - Crohn's disease, unspecified, without complications Discontinued azathioprine Discontinued Reason: Patient no longer taking 50 mg PO DAILY 90 tabs 0RF Coding Level of Care Code Est Pt Level 5 (24227) Diagnoses Crohn's disease K50.90 Anemia D64.9 Vitamin D deficiency E55.9 History of recent steroid use Z92.241 Malnutrition E46 Iron deficiency E61.1
[2024-03-15 09:10] VITALS: BP 115/77; PULSE 97; BMI 21.0
== END 2024-03-15 10:11 | disposition home or self-care (01) ==
PROVIDERS: PCP Hospitalist; Visit Provider Internal Medicine
DX: K50.90 Crohn's disease, unspecified, without complications (principal); D64.9 Anemia, unspecified; E55.9 Vitamin D deficiency, unspecified; Z92.241 Personal history of systemic steroid therapy; E46 Unspecified protein-calorie malnutrition; E61.1 Iron deficiency
CPT/HCPCS: 99214

== ENCOUNTER → 2024-03-15 09:07 | Outpatient (BNVA) | payer BC, SELFPAY | PROVIDERS: PCP Hospitalist; Visit Provider Internal Medicine ==

== ENCOUNTER 2024-08-02 09:03 | Outpatient (REF) | payer BC, SELFPAY ==
[2024-08-02 10:24] LABS: Hematocrit 35.5 % (42.0-52.0); Hemoglobin 10.7 g/dl (14.0-18.0); Mean Corpuscular HGB Conc 30.1 g/dl (31.0-36.0); Mean Corpuscular Hemoglobin 19.9 pg (27.0-33.0); Mean Platelet Volume 9.4 fL (9.4-12.4); Platelet Count 518 X10*3/uL (160-400); Red Blood Count 5.38 X10*6/uL (4.60-5.80); Red Cell Distribution Width 16.6 % (11.0-16.0)
[2024-08-02 11:08] LABS: Alanine Aminotransferase 19 U/L (0-40); Albumin Level 2.8 g/dL (3.5-5.0); Alkaline Phosphatase 40 U/L (39-117); Anion Gap 8 (12-20); Aspartate Amino Transferase 20 U/L (5-37); Bilirubin Total 0.2 mg/dL (0.0-1.0); Blood Urea Nitrogen 11 mg/dL (9-16); Calcium 8.6 mg/dL (8.4-10.2); Carbon Dioxide 29 mmol/L (22-29); Chloride 108 mmol/L (96-108); Estimated Glomerular Filt Rate > 60; Ferritin 43 ng/mL (20-250); Glucose Random 94 mg/dL (60-115); Potassium 4.6 mmol/L (3.3-5.1); Sodium 140 mmol/L (135-145); Total Protein 5.7 g/dL (6.5-8.0); Vitamin D 25-OH Total 33.4 ng/mL (>30)
== END 2024-08-02 09:04 | disposition home or self-care (01) ==
LOC: HO.HMGCLDS 09:03
PROVIDERS: PCP Hospitalist; Visit Provider Internal Medicine
DX: K50.90 Crohn's disease, unspecified, without complications (principal); E61.1 Iron deficiency; E55.9 Vitamin D deficiency, unspecified
CPT/HCPCS: 36415; 80053; 80299; 82306; 82542; 82728; 85027; 86140

== ENCOUNTER 2025-01-22 09:12 | Outpatient (AMB) | payer BC, SELFPAY ==
[2025-01-22 09:33] VITALS: BP 120/77; PULSE 90; BMI 22.0
--- NOTE | 2025-01-22 09:33 | MHC.OFFVIS ---
Vital Signs 01/22/25 09:33 Height 5 ft 5.5 in Weight 134 lb 7.712 oz BMI 22.0 BP 120/77 Blood Pressure Location Lt brachial Position Sitting Pulse 90 Intake Visit Reasons: Chrohs disease f/u Intake Note: Talon presents in the office as a follow up for Crohns disease. CC: HE states he is going for blood after this appt - he was having an issue with insurance and missed his infusion for almost 2 weeks. He is having issues with stomach pains and gas. Pains are random - he states that he is having a lot of stress and has made it a lot worse but wants to know if there is something that can be given short term to help with the crohns pains. Insurance is taken care of now. Baggage Checker Required: No Allergies No Known Allergies Allergy (Verified 01/22/25 09:39) HPI Comments Details: This is a 43y.o M with PMH of crohns disease of small intestine that was diagnosed in his late teens in [facility] currently on Humira who is transferring care from [facility]. Reports getting diagnosed at 19y.o when he was having a lot of abdominal pain in RLQ with nausea, diarrhea, blood in stool and weight loss. Was under care of Dr Alvaro Cristina ([facility]) for most of the duration of the disease and briefly by Dr Barber ([facility]) around pandemic years and then when he moved to [facility], he was being followed by Dr Licona ([facility]). Unfortunately missed follow ups and when he called to book an appointment, not able to get in for a few months and therefore switching providers again. When he started seeing Dr Barber he was taken off the Humira and started on Naltrexone. His symptoms got significantly worse and also required a prolonged course of steroids that year. When he established care with Dr Licona he was then re-inducted with Humira in early 2020. From the notes, appears that he was checked for Ada drug and Ab post induction but we do not have those records. Assuming that he did not have antibodies as he was continued on Humira and still is on it. He does report initial improvement when he was started back on Humira, however, now for the past 7 months sx seem to be progressing with worsening of RLQ pain with bloating/distention - postprandial around 2 hours. Has also been noticing more loose BMs, used to have formed BM once a day without blood but now having [place] stool scale 5 almost 5-6 times a day. Night time sx +. No blood in stool that is noticeable to him. No tenesmus. + Urgency. Per his report when labs were checked by PCP earlier this year he was noted to have severe LUIS and Vit D deficiency. Does not smoke. Used to drink heavily in 20s now socially. Does take NSAIDs frequently, suffered a back injury recently and has been taking ibuprofen frequently for the past few weeks as tylenol not helpful and wants to avoid opiates. Last Humira dose was this morning. IBD history: Type: Crohns disease, stricturing type Location: Small intestine (jejunum, ileum) Age/year of diagnosis: 19 y.o / 1997 Previous medications: 6-MP (x8 years), Naltrexone x 1 year Steroids: Entocort EC on and off x years for flares. Most recent use was earlier this year. Current medications: Humira 40mg s/c q2w Prev surgeries: None Recent endoscopy: Colonoscopy 2020: active crohns in T.I. No CD in colon. Colonoscopy 2016: Normal T.I. Normal colon including rectum. VCE 2016: Jejunal and ileal ulcers with erythema. EIM: Joint pains primarily in small joints of the hands Radiology: 2013 DEXA: normal 2016 MRE: Distal small bowel stricture of 3 cm. 12/28/23: EGD/colo Normal esophagus (biopsy) Normal gastric mucosa ( biopsy) Normal duodenal mucosa (biopsy) Jejunal ulcers (biopsy) Stenosed and ulcerated IC valve (biopsy) Terminal ileum could not be examined Scattered ulcers in rectum Hemorrhoids A. Jejunum, biopsy: Small bowel mucosa with preserved villi and few focal neutrophils which may be from mucosa adjacent to ulcer, otherwise no specific change; no granulomas or dysplasia. B. Duodenum, biopsy: Duodenal mucosa with preserved villi and reactive lymphoid aggregates, otherwise no specific change; no granulomas or dysplasia. C. Stomach, random, biopsy: Chronic gastritis with minimal activity; negative for H pylori, intestinal metaplasia, granulomas and dysplasia. D. Esophagus, lower, biopsy: Squamous mucosa with hyperplasia, spongiosis, many intraepithelial lymphocytes, focal intraepithelial neutrophils, and few intraepithelial eosinophils (up to 2 per high-power field) consistent with esophagitis; no columnar mucosa present. E. Esophagus, middle, biopsy: Squamous mucosa with hyperplasia, spongiosis, intraepithelial lymphocytes, and rare intraepithelial neutrophils consistent with esophagitis, and detached fragment of intestinal type epithelium (? contaminant, endoscopic correlation is necessary). F. Ileocecal valve, biopsy: Chronic ileitis with moderate-severe activity and ulcer; no granulomas or dysplasia. G. Colon, at 75 cm, biopsy: Colonic mucosa with no specific change; no colitis, granulomas or dysplasia. H. Colon, at 65 cm, biopsy: Colonic mucosa with lymphoid aggregate and no specific change; no colitis, granulomas or dysplasia. I. Colon, at 55 cm, biopsy: Colonic mucosa with lymphoid aggregate and minor crypt distortion, otherwise no specific change; no colitis, granulomas or dysplasia. J. Colon, at 45 cm, biopsy: Colonic mucosa with minor crypt distortion, otherwise no specific change; no colitis, granulomas or dysplasia. K. Colon, at 35 cm, biopsy: Colonic mucosa with lymphoid aggregate and minor crypt distortion, otherwise no specific change; no colitis, granulomas or dysplasia. L. Colon, at 25 cm, biopsy: Colonic mucosa with lymphoid aggregate and minor crypt distortion, otherwise no specific change; no colitis, granulomas or dysplasia. M. Colon, at 15 cm, biopsy: Chronic colitis with mild to severe activity and focal ulcer; no granulomas or dysplasia. 01/10/24: Comes in today, accompanied by his Leona. Reports that while he initially felt much better with the prednisone, the effect has decreased over time. Thinks that symptoms returned even before he decreased the dose to 50 mg for taper. Reports significant abdominal discomfort and feeling of tension in his right lower quadrant extending to left lower quadrant, with prominent borborygmi, bloating and loss of appetite. Has had gradual weight loss with this as well. For the past 6 months, has also been noticing increased swelling in his legs, especially on standing for long hours. Also reports fatigue, and shortness of breath. Results of EGD and colonoscopy reviewed with the patient. Consistent with active Crohn's disease with possible T.I and/or ICV stenosis. No evidence of obstruction clinically. CT enterography was ordered at the time of endoscopy visit, and is pending. Currently scheduled for February at [facility]. 03/15/24: Here for follow up. Received UST infusion on 02/02. Has first maintenance dose due on March 30 but has not received the inj yet. Reports sx returned as soon as decreased dose to 10mg which was around 2 weeks ago. Sx are abd pain and discomfort in RLQ which goes across to LLQ. With occ nausea and vomiting. Has 7-8 watery BMs per day. Also has to wake up at night to defecate. No overt blood but has occ noticed dark BMs. With pred was having 3 BMs per day. BMs were also formed at that time. Cont with fatigue and joint pains. Completed x3 iron infusions, missed the 4th one. In terms of nutrition, has good appetite, especially with prednisone use. However, has not been able to gain much weight due to frequent diarrhea. Does take boost shakes, but pays out of pocket, as high-protein shakes on back order. 01/22/25: On q4w inj x August due to low drug levels. Had good response to increasing Stelara however recently has been going through a lot issues at home which are causing him to be more symptomatic than usual .Has RLQ pain which gets worse while defecating. Also more bloated these days. Avoids eating in AM so he can avoid morning diarrhea. Has 2-3 BMs per day. No blood. [place] colored and consistency. Gained 8 lbs since last year. [facility] Medical History Crohn's disease Surgical History History of esophagogastroduodenoscopy (EGD) Hx of colonoscopy Social History Household Members: Family Alcohol intake: former Patient Tobacco Use Status: Never used Tobacco Review of Systems Const All systems reviewed & are unremarkable except as noted in HPI and below Physical Exam Vital Signs: Last Vital Signs Pulse 90 01/22/25 09:33 BP 120/77 01/22/25 09:33 BMI result Body Mass Index 22.0 No apparent distress Nonicteric Abdomen soft, nondistended Alert and oriented x3, normal gait Results Reviewed Results Reviewed: Laboratory Tests 08/02/24 09:10 WBC 12.0 H Hgb 10.7 L Hct 35.5 L Plt Count 518 H Sodium 140 Potassium 4.6 Chloride 108 Carbon Dioxide 29 BUN 11 Creatinine 0.75 Random Glucose 94 Calcium 8.6 D Total Bilirubin 0.2 AST 20 ALT 19 Alkaline Phosphatase 40 C-Reactive Protein 1.80 H Total Protein 5.7 L Albumin 2.8 L Assessment & Plan Assessment & Plan (1) Crohn's disease: Code(s): K50.90 - Crohn's disease, unspecified, without complications Category: Medical (2) Anemia: Code(s): D64.9 - Anemia, unspecified Category: Medical (3) Iron deficiency: Code(s): E61.1 - Iron deficiency Category: Medical Plan Endoscopic evaluation confirms active Crohn's disease of the small bowel, as well as rectum. Stelara started 02/03/24 q8w - INCREASED to q4w in Aug 2024. Currently symptomatic but unclear if underlying IBS vs crohns flare. - Disease and therapy: Active - CBC CBC, CMP - Check CRP and Fecal calpro was 6320 (08/2023) - Start pred 40 once labs submitted. x2 weeks followed by taper. - Stelara levels to be checked before next dose (02/12) - Nutrition: Iron repleted with venofer. recheck CBC - Immunization: Encouraged to stay up to date to all immunizations EXCEPT live vaccines. - Bone Health: DEXA scan normal 2022. Most recent Vit D normal. - Cancer prevention: IBD dysplasia: None on colo 12/2023. Next colo due 2025. Follow up 3 months Medications: New prednisone 40 mg (2 x 20 mg) PO DAILY 14 days 28 tabs 0RF Coding Level of Care Code Est Pt Level 5 (79576) Complex EM visit Add On G2211 Diagnoses Crohn's disease K50.90 Anemia D64.9 Iron deficiency E61.1
--- OUTSIDE RECORDS SUMMARY | 2025-01-22 09:48 | XMS_ITS | Clinical Summary ---
Author Organization [facility] Address [address] [place] [address] Care Team Providers Care Agronomy Research Manager Name Role Phone Kendall Shoemaker MD Primary Care Provider [phone] Surgical History Surgery Date Site/Laterality Comments COLONOSCOPY PROCEDURE:COLONOSCOPY UPPER GASTROINTESTINAL ENDOSCOPY PROCEDURE:UPPER GASTROINTESTINAL ENDOSCOPY UPPER GASTROINTESTINAL ENDOSCOPY 06/05/2020 N/A PROCEDURE:UPPER GASTROINTESTINAL ENDOSCOPY;COMMENT:Procedure: UPPER ENDOSCOPY-EGD/Biopsy; Surgeon: Robert Barber MD; Location: [facility] END[facility]COPY; Service: Gastroenterology; Laterality: N/A; COLONOSCOPY 06/05/2020 N/A PROCEDURE:COLONOSCOPY;COMMENT :Procedure: COLONOSCOPY? BSF(to the terminal ileum)/Biopsy and polypectomy; Surgeon: Robert Barber MD; Location: [facility] END[facility]; Service: Gastroenterology; Laterality: N/A; Medical History Medical History Date Comments Crohn disease (CMS/HCC) DX:Crohn disease (HCC) Raynaud disease DX:Raynaud disea se Family History Medical History Relation Name Comments Heart disease Mother Suicidality Sister Relation Name Status Comments Mother Sister Social History Tobacco Use Types Packs/Day Years Used Date Smoking Tobacco: Never Smokeless Tobacco: Never Alcohol Use Standard Drinks/Week Comments Yes 5 (1 standard drink = 0.6 oz pur e alcohol) Sex and Gender Information Value Date Recorded Sex Assigned at Not on file Legal Sex Male 11:01 AM EST Gender Identity Not on file Sexual Orientation Not on file Obstetrics History Plan of Treatment Health Maintenance Due Date Last Done Comments DTaP,Tdap,and Td Vaccines (1 - Tdap) 2001 Hepatitis B Vaccines (1 of 3 - 19+ 3-dose series) 2001 COVID-19 Vaccine (2023-2 5 season) 2024 Influenza Vaccine (#1) 2024 HIB Vaccines Aged Out No longer eligi ble based on patient's age to complete this topic HPV Vaccines Aged Out No longer eligi ble based on patient's age to complete this topic Hepatitis A Vaccines Aged Out No long er eligible based on patient's age to complete this topic IPV Vaccines Aged Out No longer eligi ble based on patient's age to complete this topic MMR Vaccines Aged Out No longer eligi ble based on patient's age to complete this topic Meningococcal ACWY Vaccine Aged Out N o longer eligible based on patient's age to complete this topic Meningococcal B Vacine Aged Out No lo nger eligible based on patient's age to complete this topic Pneumococcal Vaccine: Pediat rics (0 to 5 Years) and At-Risk Patients (6 to 64 Years) Aged Out No longer eligible b ased on patient's age to complete this topic RSV Immunization Patients Un courtney 20 months Aged Out No longer eligible b ased on patient's age to complete this topic Varicella Vaccines Aged Out No longer eligible based on patient's age to complete this topic Care Teams Agronomy Research Manager Relationship Specialty Start Date End Date Kendall Shoemaker MD [address] [place] [id number] PCP - General 08/12/23
--- OUTSIDE RECORDS SUMMARY | 2025-01-22 09:48 | XMS_ITS | Clinical Summary ---
Author Organization [address] Address [address] [place] [phone] Phone Care Team Providers Care Supervisor Inventory Merchandising Name Role Phone Unavailable Primary Care Provider Unavailabl e Allergies No known active allergies Social History Tobacco Use Types Packs/Day Years Used Date Smoking Tobacco: Never Assessed Sex and Gender Information Value Date Recorded Sex Assigned at Not on file Legal Sex Male 4:38 PM EDT Gender Identity Not on file Sexual Orientation Not on file Plan of Treatment Health Maintenance Due Date Last Done Comments HIV screening 1995 Hepatitis C screening 2000 Tetanus adult (Td q 10,TDAP once) 2002 Lipid disorder screening 2022 Influenza vaccine 06/15/2024 Covid-19 vaccine series ( - 2023-25 season) 2024 RSV Discussion (1 - 1-dose 7 5+ series) 2057 Meningococcal Vaccine Aged Out No keren jesus eligible based on patient's age to complete this topic Pneumococcal Vaccine (2 - 49 years) Aged Out No longer eligible based on patient's age to complete this topic
--- OUTSIDE RECORDS SUMMARY | 2025-01-22 09:49 | XMS_ITS ---
Author Organization [facility] Address [address] [facility] [address] [place] [address] Care Team Providers Care Acquisition Associate Name Role Phone VEE KONG Primary Care Provider REASON FOR VISIT CPE Encounters Encounter Location Date Provider Diagnosis [facility] [address] [facility] [address] [place] [address] 02/02/2024 VEE KONG Plan Of Treatment No Information Progress Notes * Talon RUFFINDOB:[birth year] (44 yo M)Acc No.[id number]:02/02/2024 Progress Notes Patient:?Talon RUFFIN Provider:?VEE KONG MD :1980???Age:43 Y???Sex:Male Herbie e:02/02/2024 Address: [address] [facility] Subjective: * Chief Complaints: * ???1. CPE. * Medical History:? Objective: * Vitals:? Assessment: Plan: * Treatment: * Procedure Codes:?NOSHO NO SH OW FEE * * Electronic signature of TELLY KONG MD on 01/22/2025 at 09:49 AM EDT Sign off status: Pending * Provider:?VEE KONG MD Date:?02/01 Generated for Nicola castillo/Jose/eTransmitting on:?01/22/2025 09:49 AM EDT
--- OUTSIDE RECORDS SUMMARY | 2025-01-22 09:49 | XMS_ITS ---
Author Name [facility] Organization Unknown History of Medication Use Medication Directions Dispensed Refills Start Date End Date Stat Humira Pen 40 MG/0.4ML pen-injector kit CITRATE FREE 08/18/2023 active Problems Problem Status Onset Date Problem Type Date of Resoluti on Source Acute pain of right shoulder [facility]
--- OUTSIDE RECORDS SUMMARY | 2025-01-22 09:49 | XMS_ITS ---
Author Organization [facility] Address [address] [address] Care Team Providers Care Senior Ux Developer Name Role Phone VEE KONG Primary Care Provider REASON FOR VISIT edema Medications Medication SIG (Take, Route, Frequency, Duration) Notes Start Date End Date Status Ferrous Sulfate 325 (65 Fe) MG 1 tablet Orally Once a day 07/28/2023 A ctive Humira Pen 40 MG/0.4ML one pen Subcutane ous every 14 days for 28 days 08/16/2023 Active NIFEdipine ER 30 MG 1 tablet on an empty stomach Orally Once a day for 30 day(s) Active Humira 40 MG/0.8ML 0.8 mL Subcutaneous every two weeks for 30 days Active Encounters Encounter Location Date Provider Diagnosis [facility] [address] [address] 12/03/2023 VEE KONG Plan Of Treatment No Information Progress Notes * CAROLINATalon STAFUFERDOB:[birth year] (44 yo M)Acc No.[id number]:12/03/2023 Patient:?Talon RUFFIN Provider:?VEE KONG MD :1980???Age:43 Y???Sex:Male Herbie e:12/03/2023 Address:[address] [facility] Subjective: * Chief Complaints: * ???1. Edema. * Medical History:? * Medications:?Taking Ferrous Sulfate 325 (65 Fe) MG Tablet 1 tablet Orally Once a day , Taking NIFEdipine ER 30 MG Tablet Extended Release 24 Hour 1 tablet on an empty stomach Orally Once a day , Taking Humira 40 MG/0.8ML Prefilled Syringe Kit 0.8 mL Subcutaneous every two weeks , Taking Humira Pen 40 MG/0.4ML Pen-injector Kit one pen Subcutaneous every 14 days Objective: * Vitals:? Assessment: Plan: * Treatment: * * Electronic signature of TELLY KONG MD on 01/22/2025 at 09:49 AM EDT Sign off status: Pending * Provider:?VEE KONG MD Date:?12/03 Generated for Nicola castillo/Jose/Kurtsmlizeth on:?01/22/2025 09:49 AM EDT
--- OUTSIDE RECORDS SUMMARY | 2025-01-22 09:49 | XMS_ITS | Clinical Summary ---
Author Organization [facility] Address [address] [place], [place] [id number] Care Team Providers Care Funeral Planning Counselor Name Role Phone eKndall Shoemaker MD Primary Care Provider [phone] Allergies No known active allergies Medications Medication Sig Dispensed Refills Start Date End Date Status NIFEDIPINE PO Take by mouth daily. 0 Active MULTIPLE VITAMINS/IRON PO Take 1 tablet by mouth daily. 0 Active Naltrexone POWD Take 4.5 mg by mouth every night at bedtime. 0 Active Turmeric (CURCUMIN 95 PO) Take 400 mg by mouth 2 (two) times a day. 0 Active Niacinamide 500 MG TBCR Take 500 mg by mouth 3 (three) times a day. 0 Active Active Problems Problem Noted Date Diagnosed Date Crohn's disease of both small and large intestin e 06/05/2020 Rectal polyp 06/05/2020 Internal hemorrhoids without complication 2019 Hiatal hernia with gastroeso phageal reflux disease without esophagitis 06/05/2020 Gastric erythema 06/05/2020 Duodenal erythema 06/05/2020 Family History Medical History Relation Name Comments Heart disease Mother Suicidality Sister Relation Name Status Comments Mother Sister Social History Tobacco Use Types Packs/Day Years Used Date Smoking Tobacco: Never Smokeless Tobacco: Never Alcohol Use Standard Drinks/Week Comments Yes 5 (1 standard drink = 0.6 oz pur e alcohol) Sex and Gender Information Value Date Recorded Sex Assigned at Male 05/16/2020 10:44 AM EDT Gender Identity Not on file Sexual Orientation Not on file Job Start Date Occupation Industry Not on file Not on file Not on file Last Filed Vital Signs Vital Sign Reading Time Taken Comments Blood Pressure 139/76 06/05/2020 2:10 PM EDT Pulse 77 06/05/2020 2:10 PM EDT Temperature 36.4 ??C (97.6 ??F) 06/05/2020 2:10 PM ED T Respiratory Rate 18 06/05/2020 2:10 PM EDT Oxygen Saturation 100% 06/05/2020 2:10 PM EDT Inhaled Oxygen Concentration - - Weight 71.7 kg (158 lb) 06/05/2020 10:53 AM EDT Height 167.6 cm (5' 6 ) 06/05/2020 10:53 AM EDT Body Mass Index 25.5 06/05/2020 10:53 AM EDT Plan of Treatment Health Maintenance Due Date Last Done Comments Hepatitis B Vaccines (1 of 3 - 3-dose series) 1982 Hepatitis C Screening 1982 COVID-19 Vaccine (#1) 02/01/1983 Depression Screening 1994 BMI Counseling 2000 Preventative Health Evaluation 2000 DTap / Tdap / Td (1 - Tdap) 2001 Influenza Vaccine (#1) 2024 Pneumococcal Vaccine Aged Out No long er eligible based on patient's age to complete this topic RSV Ped < 20 months Aged Out No longe r eligible based on patient's age to complete this topic Advance Directives For more information, please contact: [phone] Latest Code Status on File Code Status Date Activated Date Inactivated Comments Full Code 06/05/2020 1:41 PM 06/05/2020 8:31 PM This code status was ascertained in the following way: discussion with patient . Care Teams Funeral Planning Counselor Relationship Specialty Start Date End Date Kendall Shoemaker MD [address] [place] [address] PCP - General Internal Medicine 08/12/23
--- OUTSIDE RECORDS SUMMARY | 2025-01-22 09:49 | XMS_ITS ---
Author Organization [facility] Address [address] [facility] [address] [place] [address] Care Team Providers Care Mud Trucker Name Role Phone VEE KONG Primary Care Provider REASON FOR VISIT callback request Medications Medication SIG (Take, Route, Fr equency, Duration) Notes Start Date End Date Status Humira Pen 40 MG/0.4ML one pen Subcutane ous every 14 days for 28 days 08/16/2023 Active Encounters Encounter Location Date Provider Diagnosis [address] [place] [address] 08/16/2023 VEE KONG Plan Of Treatment Medication Medication Name Sig Start Date Stop Date Notes Humira Pen 40 MG/0.4ML one pen Subcutane ous every 14 days for 28 days 08/16/2023 Progress Notes * Talon JENKINSDOB:[birth year] (43 yo M)Acc No.[id number]:08/16/2023 Patient:?Talon [address] :1980???Age:43 Y???Sex:Male Address:[place] [address] * Refills? Start Humira Pen Pen-injector Kit, 40 MG/0.4ML, Subcutaneous, 1, one pen, every 14 days, 28 days, Refills=3 * true * Date:? Generated for Printi ng/Faxing/eTransmitting on:?01/22/2025 09:48 AM EDT
--- OUTSIDE RECORDS SUMMARY | 2025-01-22 09:49 | XMS_ITS | Encounter Summary ---
Author Organization [facility] Address [address] [place] [address] Care Team Providers Care Narcotics Detective Name Role Phone Pcp, No Primary Care Provider Unavailabl e Encounter Details Date Type Department Care Team (Late st Contact Info) Description 05/13/2020 Scanned Document [address] [address] Gastroenterology, Scan Social History Tobacco Use Types Packs/Day Years Used Date Smoking Tobacco: Never Assessed Sex and Gender Information Value Date Recorded Sex Assigned at Not on file Gender Identity Not on file Sexual Orientation Not on file documented as of this encounter Plan of Treatment Upcoming Encounters Date Type Department Care Team (Late st Contact Info) Description 01/26/2025 9:45 AM EDT [facility] Visit [facility] [address] [place] [phone] Juan Bustamante MD [address] [facility] [address] [place] [address] documented as of this encounter Procedures Procedure Name Priority Date/Time Associated Diagnosis Comments PATHOLOGY GENERAL 06/05/2020 documented in this encounter Results * PATHOLOGY GENERAL (06/05/2020) 06/05/2020 Scan Gastroenterology [facility] HX PATH PROCED URES documented in this encounter Visit Diagnoses Not on filedocumented in this encounter Care Teams Narcotics Detective Relationship Specialty Start Date End Date Pcp, No PCP - General General Medicine 06/12/20 documented as of this encounter
--- OUTSIDE RECORDS SUMMARY | 2025-01-22 09:49 | XMS_ITS | Clinical Summary ---
Author Organization [facility] Address [address] [place] [address] Care Team Providers Care Machine Coil Assembler Name Role Phone Pcp, No Primary Care Provider Unavailabl e Allergies No known active allergies Medications Medication Sig Dispensed Refills Start Date End Date Status Humira Pen 40 MG/0.4ML pen-injector kit CITRATE FREE 08/18/2023 Active ferrous sulfate 325 (65 FE) MG tablet Take 1 tablet by mouth daily. 06/21/2023 Active lidocaine (LIDODERM) 5 % patchIndications:Thor acic myofascial strain, initial encounter Place 1 patch on the skin daily. Apply patch and leave on for 12 hours then remove. Patch may remain on skin for 12 hours per day. 10 patch 08/26/2023 Active methocarbamol (ROBAXIN) 500 MG tabletIndications:Tho racic myofascial strain, initial encounter Take 1 tablet (500 mg total) by mouth 3 (three) times a day as needed for muscle spasms. 21 tablet 08/26/2023 Active Encounters Date Type Department Care Team Description 12/14/2024 Scanned Document [facility] [address] [phone] Juan Bustamante MD 11/10/2024 Orders Only [facility] [address] [phone] Yomi Anthony MD Cervical radiculitis (Primary Dx) from Last 3 Months Social History Tobacco Use Types Packs/Day Years Used Date Smoking Tobacco: Never Assessed Sex and Gender Information Value Date Recorded Sex Assigned at Not on file Gender Identity Not on file Sexual Orientation Not on file Last Filed Vital Signs Vital Sign Reading Time Taken Comments Blood Pressure 100/68 09/07/2023 9:46 AM EDT Pulse 78 09/07/2023 9:46 AM EDT unable to read Temperature 36.8 ??C (98.2 ??F) 09/07/2023 9 :46 AM EDT Respiratory Rate - - Oxygen Saturation 98% 09/07/2023 9:4 6 AM EDT Inhaled Oxygen Concentration - - Weight 60.4 kg (133 lb 3.2 oz) 08/26/2023 9:11 AM EDT Height 152.4 cm (5') 08/26/2023 9:11 AM EDT Body Mass Index 26.01 08/26/2023 9:11 AM EDT Plan of Treatment Upcoming Encounters Date Type Department Care Team (Late st Contact Info) Description 01/26/2025 9:45 AM EDT [facility] [address] [place] [address] Juan Bustamante MD [address] [facility] [address] [place] [address] Health Maintenance Due Date Last Done Comments Hepatitis C Virus Screening 1982 COVID-19 Vaccine (#1) 1987 Quantiferon Gold TB 1992 HIV Screening 1995 DTaP/Tdap/Td Vaccines (1 - Tdap) 2001 Hepatitis B Vaccines (1 of 3 - 19+ 3-dose series) 2001 Pneumococcal Vaccine: Pediat saurav (0-5 Years) and At-Risk Patients (6 to 49 Years) (1 of 2 - PCV) 2001 Influenza Vaccine 06/15/2024 HPV Vaccines Aged Out No longer eligi ble based on patient's age to complete this topic Procedures Procedure Name Priority Date/Time Associated Diagnosis Comments MRI CERVICAL SPINE W/O CONTRAST Routine 01/19/2025 10:08 AM EST Cervical radiculitis from Last 3 Months Results * MRI Cervical spine w/o contrast (01/19/2025 10:08 AM EST) Anatomical Region Laterality Modality C-spine Magnetic Resonan ce 01/19/2025 9:45 AM EST 01/19/2025 9:45 AM EST Impressions 01/19/2025 2:27 PM EST Very mild multilevel degenerative changes. ??There is no central canal stenosis or evidence of nerve root compression. Electronically signed by: ??Justin Edwards MD ??01/19/2025 02:27 PM EST RP Thank you for referring your patient to us, Justin Edwards MD [id number] (Electronically Signed - 01/19/2025 14:27) Copy: PATIENT , ?? Narrative 01/19/2025 2:27 PM EST CLINICAL INFORMATION: ??Neck pain and right shoulder pain with weakness TECHNIQUE: MRI Cervical Spine without contrast. ?? Protocol: Routine. COMPARISON: ??X-ray October 05, 2024 FINDINGS: Alignment: ??Unremarkable. Vertebrae/Marrow: ??Benign marrow signal. Disc Spaces: ?? C2-3: ??Unremarkable. C3-4: ??Unremarkable. C4-5: ??Very mild bulge/spondylotic ridge without central canal stenosis or foraminal stenosis. C5-6: ??Very mild disc bulge/spondylotic ridge without central canal stenosis or foraminal stenosis. C6-7: ??Very mild disc bulge/spondylotic ridge without central canal stenosis or foraminal stenosis. C7-T1: ??Unremarkable Spinal Canal Contents/Cord: ??Unremarkable. ? Additional Comments: None. Procedure Note Justin Edwards MD - 01/19/2025 CLINICAL INFORMATION: Neck pain and right shoulder pain with weakness TECHNIQUE: MRI Cervical Spine without contrast. Protocol: Routine. COMPARISON: X-ray October 05, 2024 FINDINGS: Alignment: Unremarkable. Vertebrae/Marrow: Benign marrow signal. Disc Spaces: C2-3: Unremarkable. C3-4: Unremarkable. C4-5: Very mild bulge/spondylotic ridge without central canal stenosis orforaminal stenosis. C5-6: Very mild disc bulge/spondylotic ridge without central canalstenosis or foraminal stenosis. C6-7: Very mild disc bulge/spondylotic ridge without central canalstenosis or foraminal stenosis. C7-T1: Unremarkable Spinal Canal Contents/Cord: Unremarkable. Additional Comments: None. IMPRESSION: Very mild multilevel degenerative changes. There is no central canalstenosis or evidence of nerve root compression. Electronically signed by: Justin Edwards MD 01/19/2025 02:27 PM EST RPWorkstation: [id number] Thank you for referring your patient to us, Justin Edwards MD [id number] (Electronically Signed - 01/19/2025 14:27) Copy: PATIENT , Yomi Anthony MD IMG MRI ORDERABLES from Last 3 Months Care Teams Machine Coil Assembler Relationship Specialty Start Date End Date Pcp, No PCP - General General Medicine 06/12/20
--- OUTSIDE RECORDS SUMMARY | 2025-01-22 09:49 | XMS_ITS | Encounter Summary ---
Author Organization [facility] Address [address] [place] [address] Care Team Providers Care Social Media Content Specialist Name Role Phone Pcp, No Primary Care Provider Unavailabl e Encounter Details Date Type Department Care Team (Late st Contact Info) Description 12/14/2024 Scanned Document [facility] [address] [phone] Juan Bustamante MD [address] [place] [address] Social History Tobacco Use Types Packs/Day Years Used Date Smoking Tobacco: Never Assessed Sex and Gender Information Value Date Recorded Sex Assigned at Not on file Gender Identity Not on file Sexual Orientation Not on file documented as of this encounter Plan of Treatment Upcoming Encounters Date Type Department Care Team (Late st Contact Info) Description 01/26/2025 9:45 AM EDT Office Visit Orth[facility] [address] [phone] Juan Bustamante MD [address] [facility] [address] [place] [address] documented as of this encounter Visit Diagnoses Not on filedocumented in this encounter Care Teams Social Media Content Specialist Relationship Specialty Start Date End Date Pcp, No PCP - General General Medicine 06/12/20 documented as of this encounter
== END 2025-01-22 10:47 | disposition home or self-care (01) ==
PROVIDERS: PCP Hospitalist; Visit Provider Internal Medicine
DX: K50.90 Crohn's disease, unspecified, without complications (principal); D64.9 Anemia, unspecified; E61.1 Iron deficiency
CPT/HCPCS: 99214

== ENCOUNTER 2025-01-29 09:18 | Outpatient (REF) | payer BC, SELFPAY ==
--- OUTSIDE RECORDS SUMMARY | 2025-01-29 10:01 | XMS_ITS | Patient Health Record ---
Author Organization [facility] Address [address] [address] Care Team Providers Care Computer Compositor Name Role Phone VEE KONG Primary Care Provider [phone] Allergies No Known Allergies Reason For Referral No Information Medications Medication SIG (Take, Route, Frequency, Duration) [...] every two weeks for 30 days Active Immunizations Vaccine Route Administration Date Status Comme nts COVID 19 Pfizer Unknown 03/19/2021 Administered COVID 19 Pfizer Unknown 04/11/2021 Administered Social History Tobacco Use: Social History Observation Description Date Details (start date - stop date) Never Smoker NA - NA Tobacco Use/Smoking Question Answer Notes Are you a nonsmoker Alcohol Screen (Audit-C) Question Answer Notes Did you have a drink contain ing alcohol in the past year? Yes How often did you have a dri nk containing alcohol in the past year? Monthly or less (1 point) Points 1 Interpretation Negative Problems Problem Type SNOMED Code ICD Code Onset Dates Problem Status W/U Status Risk Notes Problem Crohn's disease (19047362) Crohn's disease, unspecified, with other complication (K50.918) Active confirmed Problem Anemia (022447317) Anemia, unspecified type (D64.9) Active confirmed Encounters Encounter Location Date Provider Diagnosis [facility] [address] [facility] [address] [place] [address] 02/02/2024 VEE KONG Plan Of Treatment Pending Test Test Name Order Date CBC (COMPLETE BLOOD COUNT) WITH DIFF Future Test Test Name Order Date CBC (COMPLETE BLOOD COUNT) 05/06/2022 COMPREHENSIVE METABOLIC PANEL 05/06/2022 LIPID PANEL 05/06/2022 LYME C6 ANTIBODY 07/28/2023 URIC ACID 07/28/2023 Insurance Providers Payer Name Payer Address Payer Phone Subscriber Number Group Number Insured Name Patient Relationship to Insured Coverage Start Date Coverage End Date [facility] [address] [place] [address] [phone] [id number] Talon Lazaro Self - patient is the insured Medical (General) History Medical History History ICD Code Raynaud's disease Crohn's disease and follows up with Dr. Licona Iron deficiency anemia
--- OUTSIDE RECORDS SUMMARY | 2025-01-29 10:01 | XMS_ITS | Clinical Summary ---
[facility] Address [address] [place] [address] Care Team Providers Care Cane Piler Name Role Phone Kendall Shoemaker MD Primary Care Provider [phone] Surgical History Surgery Date Site/Laterality Comments COLONOSCOPY PROCEDURE:COLONOSCOPY UPPER GASTROINTESTINAL ENDOSCOPY PROCEDURE:UPPER GASTROINTESTINAL ENDOSCOPY UPPER GASTROINTESTINAL ENDOSCOPY 06/05/2020 N/A PROCEDURE:UPPER GASTROINTESTINAL ENDOSCOPY;COMMENT:Procedure: UPPER ENDOSCOPY-EGD/Biopsy; Surgeon: Robert Barber MD; Location: [facility]; Service: Gastroenterology; Laterality: N/A; COLONOSCOPY 06/05/2020 N/A PROCEDURE:COLONOSCOPY;COMMENT :Procedure: COLONOSCOPY? BSF(to the terminal ileum)/Biopsy and polypectomy; Surgeon: Robert Barber MD; Location: [facility]; Service: Gastroenterology; Laterality: N/A; Medical History [...] age to complete this topic Care Teams Cane Piler Relationship Specialty Start Date End Date Kendall Shoemaker MD [address] [place] [phone] PCP - General 08/12/23
--- OUTSIDE RECORDS SUMMARY | 2025-01-29 10:01 | XMS_ITS ---
Author Organization [facility] Address [address] [place] [address] Care Team Providers Care Pole Truck Driver Name Role Phone VEE KONG Primary Care Provider REASON FOR VISIT callback request Medications Medication SIG (Take, Route, Fr equency, Duration) Notes Start Date End Date Status Humira Pen 40 MG/0.4ML one pen Subcutane ous every 14 days for 28 days 08/16/2023 Active Encounters Encounter Location Date Provider Diagnosis [address] [place] [address] 08/16/2023 VEE KONG Plan Of Treatment Medication Medication Name Sig Start Date Stop Date Notes Humira Pen 40 MG/0.4ML one pen Subcutane ous every 14 days for 28 days 08/16/2023 Progress Notes * Talon JENKINSDOB:[birth year] (43 yo M)Acc No.[id number]:08/16/2023 Patient:?Talon Jenkins :1980???Age:43 Y???Sex:Male Address:[place] [address] * Refills? Start Humira Pen Pen-injector Kit, 40 MG/0.4ML, Subcutaneous, 1, one pen, every 14 days, 28 days, Refills=3 * true * Date:? Generated for Printi ng/Faxing/eTransmitting on:?01/29/2025 10:01 AM EDT
--- OUTSIDE RECORDS SUMMARY | 2025-01-29 10:01 | XMS_ITS | Encounter Summary ---
Author Organization [facility] Address [address] [place] [id number] Care Team Providers Care Chocolate Molder Name Role Phone Pcp, No Primary Care Provider Unavailabl e Encounter Details Date Type Department Care Team (Late st Contact Info) Description 05/13/2020 Scanned Document [address] [place] [address] Gastroenterology, Scan Social History Tobacco Use Types Packs/Day Years Used Date Smoking Tobacco: Never Assessed Sex and Gender Information Value Date Recorded Sex Assigned at Not on file Gender Identity Not on file Sexual Orientation Not on file documented as of this encounter Plan of Treatment Upcoming Encounters Date Type Department Care Team (Late st Contact Info) Description 01/31/2025 9:30 AM EDT [facility] Visit [facility] [address] [phone] Juan Bustamante MD [address] [facility] [place] [address] documented as of this encounter Procedures Procedure Name Priority Date/Time Associated Diagnosis Comments PATHOLOGY GENERAL 06/05/2020 documented in this encounter Results * PATHOLOGY GENERAL (06/05/2020) 06/05/2020 Scan Gastroenterology [facility] HX PATH PROCED URES documented in this encounter Visit Diagnoses Not on filedocumented in this encounter Care Teams Chocolate Molder Relationship Specialty Start Date End Date Pcp, No PCP - General General Medicine 06/12/20 documented as of this encounter
--- OUTSIDE RECORDS SUMMARY | 2025-01-29 10:02 | XMS_ITS ---
Author Organization [facility] Address [address] [facility] [address] [facility] [address] [place] [address] Care Team Providers Care Office Administration Instructor Name Role Phone VEE KONG Primary Care Provider REASON FOR VISIT CPE Encounters Encounter Location Date Provider Diagnosis [facility] [address] [facility] [address] [place] [address] 02/02/2024 VEE KONG Plan Of Treatment No Information Progress Notes * Talon RUFFINDOB:[birth year] (44 yo M)Acc No.[id number]:02/02/2024 Progress Notes Patient:?Talon RUFFIN Provider:?VEE KONG MD :1980???Age:43 Y???Sex:Male Herbie e:02/02/2024 Address: [address] [facility] Subjective: * Chief Complaints: * ???1. CPE. * Medical History:? Objective: * Vitals:? Assessment: Plan: * Treatment: * Procedure Codes:?NOSHO NO SH OW FEE * * Electronic signature of TELLY KONG MD on 01/29/2025 at 10:01 AM EDT Sign off status: Pending * Provider:?VEE KONG MD Date:?02/01 Generated for Nicola castillo/Jose/eTransmitting on:?01/29/2025 10:01 AM EDT
--- OUTSIDE RECORDS SUMMARY | 2025-01-29 10:02 | XMS_ITS | Clinical Summary ---
Author Organization [facility] Address [address] [place] [address] Care Team Providers Care Lime Supervisor Name Role Phone Pcp, No Primary Care [...] Team Description 12/14/2024 Scanned Document [facility] [address] [phone] Juan Bustamante MD 11/10/2024 Orders Only [facility] [address] [phone] Yomi Anthony MD Cervical radiculitis (Primary Dx) [...] AM EDT [facility] [address] [phone] Juan Bustamante MD [address] [facility] [address] [place] [phone] Health Maintenance Due Date Last Done Comments [...] your patient to us, Justin Edwards MD [id number] (Electronically Signed - 01/19/2025 14:27) Copy: PATIENT [...] Edwards MD 01/19/2025 02:27 PM EST RPWorkstation: [id number] Thank you for referring your patient to us, Justin Edwards MD [id number] (Electronically Signed - 01/19/2025 14:27) Copy: PATIENT , Yomi Anthony MD IMG MRI ORDERABLES from Last 3 Months Care Teams Lime Supervisor Relationship Specialty Start Date End Date Pcp, No PCP - General General Medicine 06/12/20
--- OUTSIDE RECORDS SUMMARY | 2025-01-29 10:02 | XMS_ITS | Clinical Summary ---
Author Organization [facility] Address [address] [place], [place] [id number] Care Team Providers Care C.O.D. Audit Clerk Name Role Phone Kendall Shoemaker MD Primary Care Provider [phone] Allergies No known active allergies Medications Medication [...] Advance Directives For more information, please contact: [phone] Latest Code Status on File Code Status Date Activated Date Inactivated Comments Full Code 06/05/2020 1:41 PM 06/05/2020 8:31 PM This code status was ascertained in the following way: discussion with patient . Care Teams C.O.D. Audit Clerk Relationship Specialty Start Date End Date Kendall Shoemaker MD [address] [place] [address] PCP - General Internal Medicine 08/12/23
--- OUTSIDE RECORDS SUMMARY | 2025-01-29 10:02 | XMS_ITS | Encounter Summary ---
Author Organization [facility] Address [address] [place] [address] Care Team Providers Care Wall Taper Name Role Phone Pcp, No Primary Care Provider Unavailabl e Encounter Details Date Type Department Care Team (Late st Contact Info) Description 12/14/2024 Scanned Document Orth[facility] [address] [phone] Juan Bustamante MD [address] [place] [address] Social History Tobacco Use Types Packs/Day Years Used Date Smoking Tobacco: Never Assessed Sex and Gender Information Value Date Recorded Sex Assigned at Not on file Gender Identity Not on file Sexual Orientation Not on file documented as of this encounter Plan of Treatment Upcoming Encounters Date Type Department Care Team (Late st Contact Info) Description 01/31/2025 9:30 AM EDT Office Visit [facility] [address] [phone] Juan Bustamante MD [address] [place] [address] documented as of this encounter Visit Diagnoses Not on filedocumented in this encounter Care Teams Wall Taper Relationship Specialty Start Date End Date Pcp, No PCP - General General Medicine 06/12/20 documented as of this encounter
--- OUTSIDE RECORDS SUMMARY | 2025-01-29 10:02 | XMS_ITS ---
Author Organization [facility] Address [address] [address] Care Team Providers Care Packing Line Worker Name Role Phone VEE KONG Primary Care Provider [phone] REASON FOR VISIT edema Medications Medication SIG [...] Active Encounters Encounter Location Date Provider Diagnosis [facility] [address] [phone] 12/03/2023 VEE KONG Plan Of Treatment No Information Progress Notes * CAROLINATalon STAUFFERDOB:[birth year] (44 yo M)Acc No.[id number]:12/03/2023 Patient:?Talon JENKINS Provider:?VEE KONG MD :1980???Age:43 Y???Sex:Male Herbie e:12/03/2023 Address:[address] [facility] Subjective: * Chief Complaints: * ???1. Edema. [...] KONG MD Date:?12/03 Generated for Nicola castillo/Jose/Kurtsmlizeth on:?01/29/2025 10:01 AM EDT
[2025-01-29 10:37] LABS: Hemoglobin 10.2 g/dl (14.0-18.0); Mean Corpuscular Hemoglobin 19.7 pg (27.0-33.0); Mean Corpuscular Volume 65.6 fL (80.0-98.0); Mean Platelet Volume 9.5 fL (9.4-12.4); Platelet Count 546 X10*3/uL (160-400); Red Blood Count 5.18 X10*6/uL (4.60-5.80); Red Cell Distribution Width 17.9 % (11.0-16.0); White Blood Count 10.6 X10*3/uL (4.8-10.8)
[2025-01-29 12:30] LABS: Alanine Aminotransferase 16 U/L (0-40); Albumin Level 2.6 g/dL (3.5-5.0); Alkaline Phosphatase 44 U/L (39-117); Anion Gap 9 (12-20); Aspartate Amino Transferase 20 U/L (5-37); Bilirubin Total 0.2 mg/dL (0.0-1.0); Blood Urea Nitrogen 14 mg/dL (9-16); C Reactive Protein 2.04 mg/dL (< or = 0.50); Calcium 7.9 mg/dL (8.4-10.2); Carbon Dioxide 25 mmol/L (22-29); Chloride 110 mmol/L (96-108); Cholesterol 105 mg/dL (<200); Estimated Glomerular Filt Rate > 60; Glucose Random 82 mg/dL (60-115); HDL Cholesterol 29 mg/dL (>40); LDL Cholesterol Calculated 59 mg/dL (<100); Potassium 4.1 mmol/L (3.3-5.1); Sodium 140 mmol/L (135-145); Total Protein 5.8 g/dL (6.5-8.0); Triglycerides 85 mg/dL (<150)
[2025-02-03 04:18] LABS: Calprotectin, Fecal 4800 mcg/g
== END 2025-01-29 09:19 | disposition home or self-care (01) ==
LOC: HO.HMGCLDS 09:18
PROVIDERS: PCP Hospitalist; Visit Provider Internal Medicine
DX: Z13.6 Encounter for screening for cardiovascular disorders (principal); K50.90 Crohn's disease, unspecified, without complications
CPT/HCPCS: 36415; 80053; 80061; 80299; 82542; 83993; 85027; 86140

== ENCOUNTER 2025-02-23 12:24 | Outpatient (AMB) | payer BC, SELFPAY ==
--- NOTE | 2025-02-23 12:24 | A.OFFVIS_ITS ---
Intake Visit Reasons: labs [phone] Intake Note: Patient was added on due to being asked per Dr. Neumann. States that he had labs done and video is okay! No other concerns at this time. Resizer Operator Required: No Allergies No Known Allergies Allergy (Verified 02/23/25 12:24) HPI Comments Details: This is a 43y.o M with PMH of crohns disease of small intestine that was diagnosed in his late teens in [facility] currently on Humira who is transferring care from [facility]. Reports getting diagnosed at 19y.o when he was having a lot of abdominal pain in RLQ with nausea, diarrhea, blood in stool and weight loss. Was under care of Dr Alvaro Cristina ([facility]) for most of the duration of the disease and briefly by Dr Barber ([facility]) around pandemic years and then when he moved to [facility], he was being [place] Unfortunately missed follow ups and when he called to book an appointment, not able to get in for a few months and therefore switching providers again. When he started seeing Dr Barber he was taken off the Humira and started on Naltrexone. His symptoms got significantly worse and also required a prolonged course of steroids that year. When he established care with Dr Licona he was then re-inducted with Humira in early 2020. From the notes, appears that he was checked for Ada drug and Ab post induction but we do not have those records. Assuming that he did not have antibodies as he was continued on Humira and still is on it. He does report initial improvement when he was started back on Humira, however, now for the past 7 months sx seem to be progressing with worsening of RLQ pain with bloating/distention - postprandial around 2 hours. Has also been noticing more loose BMs, used to have formed BM once a day without blood but now having E[place]ka stool scale 5 almost 5-6 times a day. Night time sx +. No blood in stool that is noticeable to him. No tenesmus. + Urgency. Per his report when labs were checked by PCP earlier this year he was noted to have severe LUIS and Vit D deficiency. Does not smoke. Used to drink heavily in 20s now socially. Does take NSAIDs frequently, suffered a back injury recently and has been taking ibuprofen frequently for the past few weeks as tylenol not helpful and wants to avoid opiates. Last Humira dose was this morning. IBD history: Type: Crohns disease, stricturing type Location: Small intestine (jejunum, ileum) Age/year of diagnosis: 19 y.o / 1998 Previous medications: 6-MP (x8 years), Naltrexone x 1 year Steroids: Entocort EC on and off x years for flares. Most recent use was earlier this year. Current medications: Humira 40mg s/c q2w Prev surgeries: None Recent endoscopy: Colonoscopy 2020: active crohns in T.I. No CD in colon. Colonoscopy 2015: Normal T.I. Normal colon including rectum. VCE 2016: Jejunal and ileal ulcers with erythema. EIM: Joint pains primarily in small joints of the hands Radiology: 2013 DEXA: normal 2016 MRE: Distal small bowel stricture of 3 cm. 12/28/23: EGD/colo * Normal esophagus (biopsy) * Normal gastric mucosa ( biopsy) * Normal duodenal mucosa (biopsy) * Jejunal ulcers (biopsy) * Stenosed and ulcerated IC valve (biopsy) * Terminal ileum could not be examined * Scattered ulcers in rectum * Hemorrhoids A. Jejunum, biopsy: Small bowel mucosa with preserved villi and few focal neutrophils which may be from mucosa adjacent to ulcer, otherwise no specific change; no granulomas or dysplasia. B. Duodenum, biopsy: Duodenal mucosa with preserved villi and reactive lymphoid aggregates, otherwise no specific change; no granulomas or dysplasia. C. Stomach, random, biopsy: Chronic gastritis with minimal activity; negative for H pylori, intestinal metaplasia, granulomas and dysplasia. D. Esophagus, lower, biopsy: Squamous mucosa with hyperplasia, spongiosis, many intraepithelial lymphocytes, focal intraepithelial neutrophils, and few intraepithelial eosinophils (up to 2 per high-power field) consistent with esophagitis; no columnar mucosa present. E. Esophagus, middle, biopsy: Squamous mucosa with hyperplasia, spongiosis, intraepithelial lymphocytes, and rare intraepithelial neutrophils consistent with esophagitis, and detached fragment of intestinal type epithelium (? contaminant, endoscopic correlation is necessary). F. Ileocecal valve, biopsy: Chronic ileitis with moderate-severe activity and ulcer; no granulomas or dysplasia. G. Colon, at 75 cm, biopsy: Colonic mucosa with no specific change; no colitis, granulomas or dysplasia. H. Colon, at 65 cm, biopsy: Colonic mucosa with lymphoid aggregate and no specific change; no colitis, granulomas or dysplasia. I. Colon, at 55 cm, biopsy: Colonic mucosa with lymphoid aggregate and minor crypt distortion, otherwise no specific change; no colitis, granulomas or dysplasia. J. Colon, at 45 cm, biopsy: Colonic mucosa with minor crypt distortion, otherwise no specific change; no colitis, granulomas or dysplasia. K. Colon, at 35 cm, biopsy: Colonic mucosa with lymphoid aggregate and minor crypt distortion, otherwise no specific change; no colitis, granulomas or dysplasia. L. Colon, at 25 cm, biopsy: Colonic mucosa with lymphoid aggregate and minor crypt distortion, otherwise no specific change; no colitis, granulomas or dysplasia. M. Colon, at 15 cm, biopsy: Chronic colitis with mild to severe activity and focal ulcer; no granulomas or dysplasia. 01/10/24: Comes in today, accompanied by his Leona. Reports that while he initially felt much better with the prednisone, the effect has decreased over time. Thinks that symptoms returned even before he decreased the dose to 50 mg for taper. Reports significant abdominal discomfort and feeling of tension in his right lower quadrant extending to left lower quadrant, with prominent borborygmi, bloating and loss of appetite. Has had gradual weight loss with this as well. For the past 6 months, has also been noticing increased swelling in his legs, especially on standing for long hours. Also reports fatigue, and shortness of breath. Results of EGD and colonoscopy reviewed with the patient. Consistent with active Crohn's disease with possible T.I and/or ICV stenosis. No evidence of obstruction clinically. CT enterography was ordered at the time of endoscopy visit, and is pending. Currently scheduled for February at [facility]. 03/15/24: Here for follow up. Received UST infusion on 02/02. Has first maintenance dose due on March 30 but has not received the inj yet. Reports sx returned as soon as decreased dose to 10mg which was around 2 weeks ago. Sx are abd pain and discomfort in RLQ which goes across to LLQ. With occ nausea and vomiting. Has 7-8 watery BMs per day. Also has to wake up at night to defecate. No overt blood but has occ noticed dark BMs. With pred was having 3 BMs per day. BMs were also formed at that time. Cont with fatigue and joint pains. Completed x3 iron infusions, missed the 4th one. In terms of nutrition, has good appetite, especially with prednisone use. However, has not been able to gain much weight due to frequent diarrhea. Does take boost shakes, but pays out of pocket, as high-protein shakes on back order. 01/22/25: On q4w inj x August due to low drug levels. Had good response to increasing Stelara however recently has been going through a lot issues at home which are causing him to be more symptomatic than usual .Has RLQ pain which gets worse while defecating. Also more bloated these days. Avoids eating in AM so he can avoid morning diarrhea. Has 2-3 BMs per day. No blood. Yossi colored and consistency. Gained 8 lbs since last year. 02/23/25: Booked for urgent tele health visit due to recent results from TDM. See below. Patient reports improvement in right lower quadrant pain but continues to have 2 bowel movements every day. So formed but soft. No blood. On prednisolone 20 mg dosing. Labs also with severe anemia which is unchanged. Albumin and protein noted to be low. [facility] Medical History Crohn's disease Surgical History History of esophagogastroduodenoscopy (EGD) Hx of colonoscopy Social History Household Members: Family Alcohol intake: former Patient Tobacco Use Status: Never used Tobacco Review of Systems Const All systems reviewed & are unremarkable except as noted in HPI and below Physical Exam Vital Signs: Video visit: No acute distress No icterus noted No facial asymmetry Speaking in full sentences Telehealth Telehealth Telehealth Platform: [facility] Location of provider rendering services: practice address Location of patient: address on file Patient Identification confirmed using: Name, : Yes Telehealth method: video Patient verbally consented to treatment: Yes Patient verbally consented to billing insurance company: Yes Patient informed of any privacy concerns related to visit: Yes Minutes spent on Phone/Video with Pt.: 20 Assessment & Plan Assessment & Plan (1) Crohn's disease: Code(s): K50.90 - Crohn's disease, unspecified, without complications Category: Medical (2) Iron deficiency: Code(s): E61.1 - Iron deficiency Category: Medical (3) Anemia: Code(s): D64.9 - Anemia, unspecified Category: Medical Plan Endoscopic evaluation confirms active Crohn's disease of the small bowel, as well as rectum. Stelara started 02/03/24 q8w - INCREASED to q4w in Aug 2024. However based on TDM above, does not appear to be effective. Reviewed switching to Skyrizi, given no drug Ab. Pt agreeable. Biologic discussion done - essentially similar risk factor profile to Stelara. Patient also requests switching prednisone to Entocort, which is reasonable. - Disease and therapy: Active - start Entocort 9 mg once daily x 4weeks, followed by 6 x 4w and then 3 x 4w. - Taper off pred - reviewed will be important to taper this off t avoid sudden corticosteroid withdrawal as entocort NOT systemic - STOP stelara. Last dose 02/16. - START Skyrizi, to start 5/2 - 4w after last stelara dose. Pt aware will need x 3 IV induction doses and then injectable. - Will need Skyrizi levels checked BEFORE 2nd maintenance dose - Nutrition: LUIS - venofer 200mg x 4 doses ordered through infusion suite - Immunization: Encouraged to stay up to date to all immunizations EXCEPT live vaccines. - Bone Health: DEXA scan normal 2022. Most recent Vit D normal. - Cancer prevention: IBD dysplasia: None on colo 12/2023. Next colo due 2025. Follow up 3 months Orders: Referrals 2 Infusion Center Notification E61.1 - Iron deficiency Infusion Center Notification K50.90 - Crohn's disease, unspecified, without complications Medications: New [address]-ER 9 mg (3 x 3 mg) PO DAILY 4 weeks 84 ea 0RF Coding Level of Care Code Tele Est Pt Level 5 (00503) Complex EM visit Add On G2211 Diagnoses Crohn's disease K50.90 Iron deficiency E61.1 Anemia D64.9
--- OUTSIDE RECORDS SUMMARY | 2025-02-23 13:05 | XMS_ITS | Continuity of Care Document ---
Author Organization [facility] Address [address] [place] [address]- Care Team Providers Care Campus Coordinator Name Role Phone Kendall Shoemaker MD [id number] - 02/22/25 [facility] [address] [place] [address] Discharge Disposition: A-D/C Home Attending Physician: Twin Pérez MD Admitting Physician: Twin Pérez MD Referring Physician: Kendall Shoemaker MD Encounter Type: Disch Recurring OP Allergies, Adverse Reactions, Alerts No Known Allergies Medications Entocort EC 3 mg oral delayed release capsule 3 capsule = 9 mg, By Mouth, Daily in AM, 0 Refills, Maintenance, 09/22/21 9:26:00 AM EST, Partial fill upon patient request if the prescription is for a schedule II opioid drug. Start Date: 09/22/21 Status: Ordered Repeat number: 1 ferrous sulfate 325 mg oral tablet 1 tablet, By Mouth, Daily, # 90 tablet, 0 Refills, Maintenance, 12/12/23 12:49:00 PM EST, [id number] Start Date: 12/12/23 Status: Ordered Quantity: 90.0 Unit: tablet Repeat number: 1 Humira Pen 40 mg/0.4 mL subcutaneous kit = 40 mg, Subcutaneous Injection, Every 14 days, # 2 each, 1 Refills, Maintenance, 09/24/23 10:03:00AM EST, [facility]/pharmacy #[id number], Partial fill upon patient request if the prescription is for a scheduleII opioid drug. Start Date: 09/24/23 Status: Ordered Quantity: 2.0 Unit: each Repeat number: 2 Multivitamin Daily, 0 Refills, Maintenance, 06/20/21 10:27:00 AM EDT, Partial fill upon patient request if the prescription is for a schedule II opioid drug. Start Date: 06/20/21 Status: Ordered Repeat number: 1 NIFEdipine By Mouth, 0 Refills, Maintenance, 05/21/20 7:37:00 PM EDT Start Date: 05/21/20 Status: Ordered Repeat number: 1 NIFEdipine 30 mg oral tablet, extended release 30 mg, 1, tablet, By Mouth, Daily, # 30 tablet, Refills 2, Tot. Refills 2, Maintenance, 09/22/21 9:52:00 AM EST, Route to Pharmacy Electronically, [facility]/pharmacy #[id number], Partial fill upon patient requestif the prescription is for a schedule II opioid drug., 167.6, cm, 09/22/21 9:25:00 EST, Height, 60.7, kg, 07/14/21 14:02:00 EDT, Dry Weight Start Date: 09/22/21 Status: Ordered Quantity: 30.0 Unit: tablet Repeat number: 3 Patient Care team information Care Team Personnel Name: Kendall Shoemaker MD Position: [facility] Physician - Primary Care Member Role: PCP Address: [address] [place] [address] [address] Telecom: Care Team Related Persons Name: YASEMIN JENKINS Insurance Providers Guarantor name: AMANUEL JENKINS Health Plan Information #: 1 Payer: [employer] Member Number: [id number] Policy Number: NA Group Number: [id number] Health Plan Information #: 2 Payer: [employer] Member Number: [id number] Policy Number: NA Group Number: [id number]
--- OUTSIDE RECORDS SUMMARY | 2025-02-23 13:05 | XMS_ITS | Clinical Summary ---
Author Organization [address] Address [address] [place] [phone] Phone Care Team Providers Care Rn Hematology Name Role Phone Unavailable Primary Care Provider [...] series ( - 2023-25 season) 2024 RSV Immunization (1 - 1-dose 75+ series) 2057 Meningococcal Vaccine Aged Out No keren jesus eligible based on patient's age to complete this topic Pneumococcal Vaccine (2 - 49 years) Aged Out No longer eligible based on patient's age to complete this topic
--- OUTSIDE RECORDS SUMMARY | 2025-02-23 13:05 | XMS_ITS | Clinical Summary ---
Author Organization [facility] Address [address] [place] [address] Care Team Providers Care Chief Digital Officer Name Role Phone Kendall Shoemaker MD Primary Care Provider [phone] Surgical History Surgery Date Site/Laterality Comments COLONOSCOPY PROCEDURE:COLONOSCOPY UPPER GASTROINTESTINAL ENDOSCOPY PROCEDURE:UPPER GASTROINTESTINAL ENDOSCOPY UPPER GASTROINTESTINAL ENDOSCOPY 06/05/2020 N/A PROCEDURE:UPPER GASTROINTESTINAL ENDOSCOPY;COMMENT:Procedure: UPPER ENDOSCOPY-EGD/Biopsy; Surgeon: Robert Barber MD; Location: [facility]; Service: Gastroenterology; Laterality: N/A; COLONOSCOPY 06/05/2020 N/A PROCEDURE:COLONOSCOPY;COMMENT :Procedure: COLONOSCOPY? BSF(to the terminal ileum)/Biopsy and polypectomy; Surgeon: Robert Barber MD; Location: [facility]; Service: Gastroenterology; Laterality: N/A; Medical History Medical History Date Comments Crohn disease (CMS/HCC V24, CMS/HCC V28) DX:Crohn disease (HCC) Raynaud disease DX:Raynaud disea [...] - 19+ 3-dose series) 2001 COVID-19 Vaccine (1 - 2024-2 5 season) 2024 Influenza Vaccine (Season Ended) 2025 HIB Vaccines Aged Out No longer eligi [...] age to complete this topic Meningococcal B Vaccine Aged Out No l onger eligible based on patient's age to complete [...] age to complete this topic Care Teams Chief Digital Officer Relationship Specialty Start Date End Date Kendall Shoemaker MD [address] [place] [phone] PCP - General 08/12/23
--- OUTSIDE RECORDS SUMMARY | 2025-02-23 13:06 | XMS_ITS ---
Author Organization [facility] Address [address] [facility] [address] [place] [address] Care Team Providers Care Briquetter Operator Name Role Phone VEE KONG Primary Care Provider [phone] REASON FOR VISIT CPE Encounters Encounter Location Date Provider Diagnosis [facility] [address] [facility] [address] [place] [address] 02/02/2024 VEE KONG Plan Of Treatment No Information Progress Notes * Talon JENKINSDOB:[birth year] (44 yo M)Acc No.[id number]:02/02/2024 Progress Notes Patient:?Talon JENKINS Provider:?VEE KONG MD :1980???Age:43 Y???Sex:Male Herbie e:02/02/2024 Address:[address] [place] [address] [facility] Subjective: * Chief Complaints: * ???1. CPE. * Medical History:? Objective: * Vitals:? Assessment: Plan: * Treatment: * Procedure Codes:?NOSHO NO SH OW FEE * Images: * Electronic signature of TELLY KONG MD on 02/23/2025 at 01:05 PM EDT Sign off status: Pending * Provider:?VEE KONG MD Date:?02/01 Generated for Nicola castillo/Jose/eTransmitting on:?02/23/2025 01:05 PM EDT
--- OUTSIDE RECORDS SUMMARY | 2025-02-23 13:06 | XMS_ITS | Clinical Summary ---
Author Organization [facility] Address [address] [place], [place] [phone] Care Team Providers Care Silk Crepe Machine Operator Name Role Phone Kendall Shoemaker MD Primary Care Provider [phone] Allergies No known active allergies Medications Medication [...] Advance Directives For more information, please contact: [phone] Latest Code Status on File Code Status Date Activated Date Inactivated Comments Full Code 06/05/2020 1:41 PM 06/05/2020 8:31 PM This code status was ascertained in the following way: discussion with patient . Care Teams Silk Crepe Machine Operator Relationship Specialty Start Date End Date Kendall Shoemaker MD [address] [place] [address] PCP - General Internal Medicine 08/12/23
--- OUTSIDE RECORDS SUMMARY | 2025-02-23 13:06 | XMS_ITS | Encounter Summary ---
Author Organization [facility] Address [address] [place] [address] Care Team Providers Care Molded Grid And Parts Inspector Name Role Phone Pcp, No Primary Care Provider Unavailabl e Encounter Details Date Type Department Care Team (Late st Contact Info) Description 12/14/2024 Scanned Document [facility] [address] [phone] Juan Bustamante MD [address] [facility] [address] [place] [address] Social History Tobacco Use Types Packs/Day Years Used Date Smoking Tobacco: Never Assessed Sex and Gender Information Value Date Recorded Sex Assigned at Not on file Gender Identity Not on file Sexual Orientation Not on file documented as of this encounter Plan of Treatment Not on file documented as of this encounter Visit Diagnoses Not on filedocumented in this encounter Care Teams Molded Grid And Parts Inspector Relationship Specialty Start Date End Date Pcp, No PCP - General General Medicine 06/12/20 documented as of this encounter
--- OUTSIDE RECORDS SUMMARY | 2025-02-23 13:06 | XMS_ITS ---
Author Organization [facility] Address [address] [address] Care Team Providers Care Garland Machine Operator Name Role Phone VEE KONG Primary Care Provider [phone] REASON FOR VISIT edema Medications Medication SIG [...] Active Encounters Encounter Location Date Provider Diagnosis [facility] [address] [address] 12/03/2023 VEE KONG Plan Of Treatment No Information Progress Notes * CAROLINATalon STAUFFERDOB:[birth year] (44 yo M)Acc No.[id number]:12/03/2023 Patient:?Talon JENKINS Provider:?VEE KONG MD :1980???Age:43 Y???Sex:Male Herbie e:12/03/2023 Address:[facility] Subjective: * Chief Complaints: * ???1. [...] * Vitals:? Assessment: Plan: * Treatment: * Images: * Electronic signature of TELLY KONG MD on 02/23/2025 at 01:05 PM EDT Sign off status: Pending * Provider:?VEE KONG MD Date:?12/03 Generated for Nicola castillo/Jose/Aimeitting on:?02/23/2025 01:05 PM EDT
--- OUTSIDE RECORDS SUMMARY | 2025-02-23 13:06 | XMS_ITS | Encounter Summary ---
Author Organization [address] [address] Care Team Providers Care Project Surveyor Name Role Phone Pcp, No Primary Care Provider Unavailabl e Encounter Details Date Type Department Care Team (Late st Contact Info) Description 05/13/2020 Scanned Document [address] [place] [phone] Gastroenterology, Scan Social History Tobacco Use Types Packs/Day Years Used Date Smoking Tobacco: Never Assessed Sex and Gender Information Value Date Recorded Sex Assigned at Not on file Gender Identity Not on file Sexual Orientation Not on file documented as of this encounter Plan of Treatment Not on file documented as of this encounter Procedures Procedure Name Priority Date/Time Associated Diagnosis Comments PATHOLOGY GENERAL 06/05/2020 documented in this encounter Results * PATHOLOGY GENERAL (06/05/2020) 06/05/2020 Scan Gastroenterology [facility] HX PATH PROCED URES documented in this encounter Visit Diagnoses Not on filedocumented in this encounter Care Teams Project Surveyor Relationship Specialty Start Date End Date Pcp, No PCP - General General Medicine 06/12/20 documented as of this encounter
--- OUTSIDE RECORDS SUMMARY | 2025-02-23 13:06 | XMS_ITS | Clinical Summary ---
Author Organization [facility] Address [address] [place] [address] Care Team Providers Care Respiratory Support Technician Name Role Phone Pcp, No Primary Care [...] Team Description 12/14/2024 Scanned Document [facility] [address] [phone] Juan Bustamante MD from Last 3 Months Social History Tobacco [...] 08/26/2023 9:11 AM EDT Plan of Treatment Health Maintenance [...] ??Justin Edwards MD ??01/19/2025 02:27 PM EST Thank you for referring your patient to us, Justin Edwards MD [phone] (Electronically Signed - 01/19/2025 14:27) Copy: PATIENT [...] Edwards MD 01/19/2025 02:27 PM EST RPWorkstation: [id number] Thank you for referring your patient to us, Justin Edwards MD [phone] (Electronically Signed - 01/19/2025 14:27) Copy: PATIENT , Yomi Anthony MD IMG MRI ORDERABLES from Last 3 Months Care Teams Respiratory Support Technician Relationship Specialty Start Date End Date Pcp, No PCP - General General Medicine 06/12/20
--- OUTSIDE RECORDS SUMMARY | 2025-02-23 13:06 | XMS_ITS | Patient Health Record ---
Author Organization [facility] Address [address] [facility] [address] [place] [address] Care Team Providers Care Forge Hand Name Role Phone VEE KONG Primary Care Provider [phone] Allergies No Known Allergies Reason For [...] W/U Status Risk Notes Problem Crohn's disease (77702179) Crohn's disease, unspecified, with other complication (K50.918) Active confirmed Problem Anemia (429654463) Anemia, unspecified type (D64.9) Active confirmed Plan Of Treatment Pending Test Test Name [...] Insured Coverage Start Date Coverage End Date [facility] [address] [place] [address] [id number] Talon Lazaro Self - patient is the insured Medical (General) History Medical History History ICD Code Raynaud's disease Crohn's disease and follows up with Dr. Licona Iron deficiency anemia
== END 2025-02-23 13:40 | disposition home or self-care (01) ==
LOC: HO.HGI 12:24
PROVIDERS: PCP Hospitalist; Visit Provider Internal Medicine
DX: K50.90 Crohn's disease, unspecified, without complications (principal); E61.1 Iron deficiency; D64.9 Anemia, unspecified
CPT/HCPCS: 99214

== ENCOUNTER → 2025-03-15 11:35 | Outpatient (RCR) | payer BC, SELFPAY ==
[2024-02-17] MEDS: Iron Sucrose Complex 200 MG in 0.9 % Sodium Chloride 100 ML 440 MG IV (08:35)
[2024-02-17 08:36] VITALS: BP 112/65; PULSE 89; RESP 16; TEMP 36.6; O2SAT 99
== END | disposition home or self-care (01) ==
LOC: HO.INF 02-17 08:25
PROVIDERS: Visit Provider Internal Medicine
DX: E61.1 Iron deficiency (principal)
CPT/HCPCS: 96374; J1756

== ENCOUNTER 2025-06-04 07:45 | Outpatient (RCR) | payer BC, SELFPAY ==
[2025-03-28 11:20] VITALS: BP 111/63; PULSE 79; RESP 16; TEMP 37.1; O2SAT 98
[2025-03-28] MEDS: Risankizumab-rzaa 600 MG in Dextrose 5 % 250 ML 260 MG IV (11:56)
[2025-03-28 12:54] VITALS: BP 108/63; PULSE 98
[2025-04-25 08:44] VITALS: BP 119/71; PULSE 82; RESP 16; TEMP 37; O2SAT 98
[2025-04-25] MEDS: Risankizumab-rzaa 600 MG in Dextrose 5 % 250 ML 260 MG IV (09:29)
[2025-04-25] MEDS: 0.9 % Sodium Chloride Flush 10 ML SYRINGE 5 ML IVFLUSH (10:34)
[2025-06-04 08:02] VITALS: BP 137/77; PULSE 80; RESP 16; TEMP 36.6; O2SAT 100
[2025-06-04] MEDS: Risankizumab-rzaa 600 MG in Dextrose 5 % 250 ML 260 MG IV (08:51)
== END 2025-06-04 09:54 | disposition home or self-care (01) ==
LOC: HO.INF 07:45
PROVIDERS: Visit Provider Internal Medicine
DX: K50.90 Crohn's disease, unspecified, without complications (principal)
CPT/HCPCS: 96365; J2327

== ENCOUNTER 2025-07-05 11:07 | Outpatient (AMB) | payer BC, SELFPAY ==
--- NOTE | 2025-07-05 11:08 | A.OFFVIS_ITS ---
Vital Signs 3 07/05/25 11:11 Height 5 ft 5 in Weight 136 lb BMI 22.6 Intake Visit Reasons: f/u skyrizi / diarrhea Intake Note: Est pt for mgmt of chronic fecal abn CC; C.O. persistence of abd pain. Pt is concerned about possible constipation now. Pt had been previously experiencing frequent diarrhea and is now having more frequent constipation since having the skyrizi. Pt states that he took miralax and dulcolax overnight and has had a BM since then and is feeling a fair bit better. Purification Director Required: No Accompanied by: Self / Same As Patient Allergies No Known Allergies Allergy (Verified 02/23/25 12:24) HPI Comments Details: This is a 43y.o M with PMH of crohns disease of small intestine that was diagnosed in his late teens in [facility] currently on Humira who is transferring care from [facility]. Reports getting diagnosed at 19y.o when he was having a lot of abdominal pain in RLQ with nausea, diarrhea, blood in stool and weight loss. Was under care of Dr Alvaro Cristina ([facility]) for most of the duration of the disease and briefly by Dr Barber ([facility]) around pandemic years and then when he moved to [facility], he was being followed by Dr Licona ([facility]). Unfortunately missed follow ups and when he called to book an appointment, not able to get in for a few months and therefore switching providers again. When he started seeing Dr Barber he was taken off the Humira and started on Naltrexone. His symptoms got significantly worse and also required a prolonged course of steroids that year. When he established care with Dr Licona he was then re-inducted with Humira in early 2020. From the notes, appears that he was checked for Ada drug and Ab post induction but we do not have those records. Assuming that he did not have antibodies as he was continued on Humira and still is on it. He does report initial improvement when he was started back on Humira, however, now for the past 7 months sx seem to be progressing with worsening of RLQ pain with bloating/distention - postprandial around 2 hours. Has also been noticing more loose BMs, used to have formed BM once a day without blood but now having [place] stool scale 5 almost 5-6 times a day. Night time sx +. No blood in stool that is noticeable to him. No tenesmus. + Urgency. Per his report when labs were checked by PCP earlier this year he was noted to have severe LUIS and Vit D deficiency. Does not smoke. Used to drink heavily in 20s now socially. Does take NSAIDs frequently, suffered a back injury recently and has been taking ibuprofen frequently for the past few weeks as tylenol not helpful and wants to avoid opiates. Last Humira dose was this morning. IBD history: Type: Crohns disease, stricturing type Location: Small intestine (jejunum, ileum) Age/year of diagnosis: 19 y.o / 1998 Previous medications: 6-MP (x8 years), Naltrexone x 1 year, Humira 40mg s/c q2w Steroids: Entocort EC on and off x years for flares. Most recent use was earlier this year. Current medications: Skyrizi started 03/28 Prev surgeries: None Recent endoscopy: Colonoscopy 2020: active crohns in T.I. No CD in colon. Colonoscopy 2016: Normal T.I. Normal colon including rectum. VCE 2016: Jejunal and ileal ulcers with erythema. EIM: Joint pains primarily in small joints of the hands Radiology: 2013 DEXA: normal 2016 MRE: Distal small bowel stricture of 3 cm. 12/28/23: EGD/colo * Normal esophagus (biopsy) * Normal gastric mucosa ( biopsy) * Normal duodenal mucosa (biopsy) * Jejunal ulcers (biopsy) * Stenosed and ulcerated IC valve (biopsy) * Terminal ileum could not be examined * Scattered ulcers in rectum * Hemorrhoids A. Jejunum, biopsy: Small bowel mucosa with preserved villi and few focal neutrophils which may be from mucosa adjacent to ulcer, otherwise no specific change; no granulomas or dysplasia. B. Duodenum, biopsy: Duodenal mucosa with preserved villi and reactive lymphoid aggregates, otherwise no specific change; no granulomas or dysplasia. C. Stomach, random, biopsy: Chronic gastritis with minimal activity; negative for H pylori, intestinal metaplasia, granulomas and dysplasia. D. Esophagus, lower, biopsy: Squamous mucosa with hyperplasia, spongiosis, many intraepithelial lymphocytes, focal intraepithelial neutrophils, and few intraepithelial eosinophils (up to 2 per high-power field) consistent with esophagitis; no columnar mucosa present. E. Esophagus, middle, biopsy: Squamous mucosa with hyperplasia, spongiosis, intraepithelial lymphocytes, and rare intraepithelial neutrophils consistent with esophagitis, and detached fragment of intestinal type epithelium (? contaminant, endoscopic correlation is necessary). F. Ileocecal valve, biopsy: Chronic ileitis with moderate-severe activity and ulcer; no granulomas or dysplasia. G. Colon, at 75 cm, biopsy: Colonic mucosa with no specific change; no colitis, granulomas or dysplasia. H. Colon, at 65 cm, biopsy: Colonic mucosa with lymphoid aggregate and no specific change; no colitis, granulomas or dysplasia. I. Colon, at 55 cm, biopsy: Colonic mucosa with lymphoid aggregate and minor crypt distortion, otherwise no specific change; no colitis, granulomas or dysplasia. J. Colon, at 45 cm, biopsy: Colonic mucosa with minor crypt distortion, otherwise no specific change; no colitis, granulomas or dysplasia. K. Colon, at 35 cm, biopsy: Colonic mucosa with lymphoid aggregate and minor crypt distortion, otherwise no specific change; no colitis, granulomas or dysplasia. L. Colon, at 25 cm, biopsy: Colonic mucosa with lymphoid aggregate and minor crypt distortion, otherwise no specific change; no colitis, granulomas or dysplasia. M. Colon, at 15 cm, biopsy: Chronic colitis with mild to severe activity and focal ulcer; no granulomas or dysplasia. 01/10/24: Comes in today, accompanied by his Leona. Reports that while he initially felt much better with the prednisone, the effect has decreased over time. Thinks that symptoms returned even before he decreased the dose to 50 mg for taper. Reports significant abdominal discomfort and feeling of tension in his right lower quadrant extending to left lower quadrant, with prominent borborygmi, bloating and loss of appetite. Has had gradual weight loss with this as well. For the past 6 months, has also been noticing increased swelling in his legs, especially on standing for long hours. Also reports fatigue, and shortness of breath. Results of EGD and colonoscopy reviewed with the patient. Consistent with active Crohn's disease with possible T.I and/or ICV stenosis. No evidence of obstruction clinically. CT enterography was ordered at the time of endoscopy visit, and is pending. Currently scheduled for February at [facility]. 03/15/24: Here for follow up. Received UST infusion on 02/02. Has first maintenance dose due on March 30 but has not received the inj yet. Reports sx returned as soon as decreased dose to 10mg which was around 2 weeks ago. Sx are abd pain and discomfort in RLQ which goes across to LLQ. With occ nausea and vomiting. Has 7-8 watery BMs per day. Also has to wake up at night to defecate. No overt blood but has occ noticed dark BMs. With pred was having 3 BMs per day. BMs were also formed at that time. Cont with fatigue and joint pains. Completed x3 iron infusions, missed the 4th one. In terms of nutrition, has good appetite, especially with prednisone use. However, has not been able to gain much weight due to frequent diarrhea. Does take boost shakes, but pays out of pocket, as high-protein shakes on back order. 01/22/25: On q4w inj x August due to low drug levels. Had good response to increasing Stelara however recently has been going through a lot issues at home which are causing him to be more symptomatic than usual .Has RLQ pain which gets worse while defecating. Also more bloated these days. Avoids eating in AM so he can avoid morning diarrhea. Has 2-3 BMs per day. No blood. Yossi colored and consistency. Gained 8 lbs since last year. 02/23/25: Booked for urgent tele health visit due to recent results from TDM. See below. Patient reports improvement in right lower quadrant pain but continues to have 2 bowel movements every day. So formed but soft. No blood. On prednisolone 20 mg dosing. Labs also with severe anemia which is unchanged. Albumin and protein noted to be low. 07/05/25 Here for televisit. Skyrizi induction first dose 03/28. Skyrizi maintenance first dose 07/02. Reports character and location of abd pain has changed - more lower abd. Has formed infrequent stools with this 2-3 times a week. Stool passage is good but has to strain. No blood. No bloating. Cramping gets better with passing BM. Wonders if the pain is from constipation. Takes MiraLax occasionally which helps. Appetite is better. Energy levels are better. Weight curve is stable. [facility] Medical History Crohn's disease Surgical History History of esophagogastroduodenoscopy (EGD) Hx of colonoscopy Social History Household Members: Family Alcohol intake: former Patient Tobacco Use Status: Never used Tobacco Review of Systems Const All systems reviewed & are unremarkable except as noted in HPI and below Physical Exam Exam Exam: Video visit: No acute distress No icterus noted No facial asymmetry Speaking in full sentences Vital Signs: BMI result Body Mass Index 22.6 Telehealth Telehealth Telehealth Platform: [employer] Location of provider rendering services: practice address Location of patient: address on file Patient Identification confirmed using: Name, : Yes Telehealth method: video Patient verbally consented to treatment: Yes Patient verbally consented to billing insurance company: Yes Patient informed of any privacy concerns related to visit: Yes Minutes spent on Phone/Video with Pt.: 16 Assessment & Plan Assessment & Plan (1) Crohn's disease: Code(s): K50.90 - Crohn's disease, unspecified, without complications Category: Medical (2) Iron deficiency: Code(s): E61.1 - Iron deficiency Category: Medical (3) Anemia: Code(s): D64.9 - Anemia, unspecified Category: Medical (4) Small bowel disease: Code(s): K63.9 - Disease of intestine, unspecified Category: Medical (5) Small bowel stricture: Code(s): K56.699 - Other intestinal obstruction unspecified as to partial versus complete obstruction Category: Medical Plan Endoscopic evaluation confirms active Crohn's disease of the small bowel, as well as rectum. Stelara started 02/03/24 q8w - INCREASED to q4w in Aug 2024. However based on TDM above, does not appear to be effective. Reviewed switching to Skyrizi, given no drug Ab. Pt agreeable. Biologic discussion done - essentially similar risk factor profile to Stelara. Reviewed with the patient that current symptoms may be secondary to mild constipation. However, given known small-bowel wall thickening and narrowing, CTE has already been ordered ruled out worsening stricturing disease. - Disease and therapy: Active - Pt has been started on rizankizumab. TDM due 07/30. Reminder set. - CTE ordered to r.o further stricturing given change in bowel habits - Labs ordered. Pt plans to get these done 07/10 when he'll be in hosp to get CTE done. - Nutrition: LUIS - patient is taking multivitamin. Recommend adding a separate iron supplement as well. Ferritin ordered, and pending. - Immunization: Encouraged to stay up to date to all immunizations EXCEPT live vaccines. - Bone Health: DEXA scan normal 2022. Most recent Vit D normal. Recheck ordered. - Cancer prevention: IBD dysplasia: None on colo 12/2023. Next colo due 2025. Follow up 6 weeks Coding Level of Care Code Tele Est Pt Level 5 (22693) Complex EM visit Add On G2211 Diagnoses Crohn's disease K50.90 Iron deficiency E61.1 Anemia D64.9 Small bowel disease K63.9 Small bowel stricture K56.699
[2025-07-05 11:11] VITALS: BMI 22.6
--- OUTSIDE RECORDS SUMMARY | 2025-07-05 12:47 | XMS_ITS | Clinical Summary ---
Author Organization [address] Address [address] [place] [phone] Phone Care Team Providers Care Chimney Repairer Name Role Phone Unavailable Primary Care Provider [...] 10,TDAP once) 2002 Lipid disorder screening 2022 Covid-19 vaccine series ( - 2023-25 season) 2024 Influenza vaccine 07/16/2025 RSV Immunization (1 - 1-dose 75+ series) 2057 Meningococcal Vaccine Aged Out No keren jesus eligible based on patient's age to complete this topic Pneumococcal Vaccine (2 - 49 years) Aged Out No longer eligible based on patient's age to complete this topic
--- OUTSIDE RECORDS SUMMARY | 2025-07-05 12:47 | XMS_ITS | Clinical Summary ---
Author Organization [facility] Address [address] [place], [place] [id number] Care Team Providers Care Principal System Software Engineer Name Role Phone Kendall Shoemaker MD Primary Care Provider [phone] Allergies No known active allergies Medications Medication [...] 77 06/05/2020 2:10 PM EDT Temperature 36.4 C (97.6 F) 06/05/2020 2:10 PM EDT Respiratory Rate 18 06/05/2020 2:10 PM EDT [...] (1 - Tdap) 2001 Influenza Vaccine (#1) 2025 Pneumococcal Vaccine Aged Out No long er eligible based on patient's age to complete this topic RSV Ped < 20 months Aged Out No longe r eligible based on patient's age to complete this topic Advance Directives For more information, please contact: [phone] Latest Code Status on File Code Status Date Activated Date Inactivated Comments Full Code 06/05/2020 1:41 PM 06/05/2020 8:31 PM This code status was ascertained in the following way: discussion with patient . Care Teams Principal System Software Engineer Relationship Specialty Start Date End Date Kendall Shoemaker MD [address] [place] [address] PCP - General Internal Medicine 08/12/23
--- OUTSIDE RECORDS SUMMARY | 2025-07-05 12:47 | XMS_ITS | Encounter Summary ---
Author Organization [facility] Address [address] [place] [address] Care Team Providers Care Customer Contact Specialist Name Role Phone Pcp, No Primary Care Provider Unavailabl e Encounter Details Date Type Department Care Team (Late st Contact Info) Description 05/13/2020 Scanned Document [address] [phone] Gastroenterology, Scan Social History Tobacco Use Types Packs/Day Years Used Date Smoking Tobacco: Never Assessed Sex and Gender Information Value Date Recorded Sex Assigned at Not on file Legal Sex Male 4:58 PM EDT Gender Identity Not on file Sexual Orientation Not on file documented as of this encounter Plan of Treatment Upcoming Encounters Date Type Department Care Team (Late st Contact Info) Description 07/13/2025 9:30 AM EDT Office Visit Orthopedic [address] [address] Juan Bustamante MD [address] [place] [phone] 07/19/2025 9:15 AM EDT Office Visit Orthopedic [facility] [address] [address] Yomi Anthony MD [address] [place] [address] [phone] documented as of this encounter Procedures Procedure Name Priority Date/Time Associated Diagnosis Comments PATHOLOGY GENERAL 06/05/2020 documented in this encounter Results * PATHOLOGY GENERAL (06/05/2020) 06/05/2020 us Scan Gastroenterology [facility] HX PATH PROCEDURES Mook tank Result - Final documented in this encounter Visit Diagnoses Not on filedocumented in this encounter Care Teams Customer Contact Specialist Relationship Specialty Start Date End Date Pcp, No PCP - General General Medicine 06/12/20 documented as of this encounter
--- OUTSIDE RECORDS SUMMARY | 2025-07-05 12:47 | XMS_ITS | Clinical Summary ---
Author Organization [facility] Address [address] [place] [address] Care Team Providers Care Carpenter Repair Name Role Phone Kendall Shoemaker MD Primary Care Provider [phone] Surgical History Surgery Date Site/Laterality Comments COLONOSCOPY PROCEDURE:COLONOSCOPY UPPER GASTROINTESTINAL ENDOSCOPY PROCEDURE:UPPER GASTROINTESTINAL ENDOSCOPY UPPER GASTROINTESTINAL ENDOSCOPY 06/05/2020 N/A PROCEDURE:UPPER GASTROINTESTINAL ENDOSCOPY;COMMENT:Procedure: UPPER ENDOSCOPY-EGD/Biopsy; Surgeon: Robert Barber MD; Location: [facility] END[facility]COPY; Service: Gastroenterology; Laterality: N/A; COLONOSCOPY 06/05/2020 N/A PROCEDURE:COLONOSCOPY;COMMENT :Procedure: COLONOSCOPY B SF(to the terminal ileum)/Biopsy and polypectomy; Surgeon: Robert Barber MD; Location: [facility]; Service: Gastroenterology; Laterality: N/A; Medical History [...] - 19+ 3-dose series) 2001 COVID-19 Vaccine ( - 2023-2 5 season) 2024 Depression Screening 11/15/2024 Influenza Vaccine (#1) 2025 HIB Vaccines Aged Out No longer [...] 5 Years) and At-Risk Patients (6 to 49 Years) Aged Out No longer eligible b ased on patient's age to complete this topic RSV Immunization Patients Un courtney 20 months Aged Out No longer eligible b ased on patient's age to complete this topic Varicella Vaccines Aged Out No longer eligible based on patient's age to complete this topic Care Teams Carpenter Repair Relationship Specialty Start Date End Date Kendall Shoemaker MD [address] [place] [phone] PCP - General 08/12/23
--- OUTSIDE RECORDS SUMMARY | 2025-07-05 12:47 | XMS_ITS ---
Author Name [facility] Organization Unknown History of Medication Use Medication Directions Dispensed Refills Start Date End Date Stat us Humira Pen 40 MG/0.4ML pen-injector kit CITRATE FREE 08/18/2023 active Problems Problem Status Onset Date Problem Type Date of Resoluti on Source Acute pain of right shoulder active EncounterDiagnosisAct HHCCT Encounters Encounter Type Encounter Reason Primary Diagnosis Location Date Ambulatory [facility] 10/05/2024 Ambulatory Pain in right shoulder Pain in right shoulder [facility] 10/05/2024 Ambulatory Pain Pain [facility] 09/21/2024 Ambulatory [facility] 09/12/2024 Ambulatory Strain of muscle and tendon of unspecified wall of thorax, subsequent encounter Strain of muscle and tendon of unspecified wall of thorax, subsequent encounter [facility] 09/07/2023 Ambulatory Strain of muscle and tendon of unspecified wall of thorax, subsequent encounter Strain of muscle and tendon of unspecified wall of thorax, subsequent encounter [facility] 08/31/2023 Ambulatory Strain of muscle and tendon of unspecified wall of thorax, initial encounter Strain of muscle and tendon of unspecified wall of thorax, initial encounter [facility] 08/26/2023 Ambulatory Pain in thoracic spine Pain in thoracic spine [facility] 08/24/2023 Care Team Organization Name Specialty Phone Email Start Date End Da te [facility] 06/19/2025 [facility] 03/10/2025 [facility] Kendall Shoemaker Primary Care 06/01/2024 [facility] PCP,No Primary Care 08/26/2023 01/31/2025 [facility] NO PCP Primary Care 08/24/2023 08/26/2023 [facility] Kendall Shoemaker Primary Care 11/23/2022
--- OUTSIDE RECORDS SUMMARY | 2025-07-05 12:47 | XMS_ITS | Patient Health Record ---
Author Organization [facility] Address [address] [facility] [address] [place] [address] Care Team Providers Care Cured Meat Packing Supervisor Name Role Phone VEE KONG Primary Care Provider [phone] Allergies No Known Allergies Reason For Referral No Information Medications Medication SIG (Take, Route, Frequency, Duration) Notes Start Date End Date Status Ferrous Sulfate 325 (65 Fe) MG 1 tablet Orally Once a day 07/28/2023 A ctive Humira Pen 40 MG/0.4ML one pen Subcutane ous every 14 days; Duration: 28 days 08/16/2023 Activ e NIFEdipine ER 30 MG 1 tablet on an empty stomach Orally Once a day; Duration: 30 day(s) Active Humira 40 MG/0.8ML 0.8 mL Subcutaneous every two weeks; Duration: 30 days Active Immunizations Vaccine Route Administration [...] W/U Status Risk Notes Problem Crohn's disease (57566848) Crohn's disease, unspecified, with other complication (K50.918) Active confirmed Problem Anemia (879281083) Anemia, unspecified type (D64.9) Active confirmed Plan [...] Insured Coverage Start Date Coverage End Date [facility] [address] [place] [address] [phone] [id number] Talon Lazaro Self - patient is the insured Medical (General) History Medical History History ICD Code Raynaud's disease Crohn's disease and follows up with Dr. Licona Iron deficiency anemia
== END 2025-07-05 16:23 | disposition home or self-care (01) ==
LOC: HO.HGI 11:07
PROVIDERS: PCP Hospitalist; Visit Provider Internal Medicine
DX: K50.90 Crohn's disease, unspecified, without complications (principal); E61.1 Iron deficiency; D64.9 Anemia, unspecified; K63.9 Disease of intestine, unspecified; K56.699 Other intestinal obstruction unspecified as to partial versus complete obstruction
CPT/HCPCS: 99214

== ENCOUNTER 2025-07-10 12:32 | Outpatient (REF) | payer BC, SELFPAY ==
--- NOTE | ~2025-07-10 | CT_ITS ---
EXAMINATION: CT ABDOMEN PELVIS ENTEROGRAPHY WITHOUT IV CONTRAST HISTORY: K50.90 - Crohn's disease, unspecified, without complications COMPARISON: Comparison is made with the prior examination dated 02/17/2024. TECHNIQUE: CT scan of the abdomen and pelvis was performed following administration of 85 mL Omnipaque 350 using standard departmental protocol. Coronal and sagittal reformatted images were generated and reviewed. The patient received low-density oral contrast material for CT enterography. This CT exam was performed with one or more of the following dose reduction techniques: automated exposure control, adjustment of the mA and/or kV according to patient size, use of iterative reconstruction technique. DLP: 245 mGy-cm FINDINGS: LOWER CHEST: The visualized lung bases are clear. There is no pleural effusion. CARDIOVASCULATURE: The heart is normal in size. There is no pericardial effusion. LIVER: The liver is normal in size and contour. No liver mass is identified. The hepatic and portal veins are patent. GALLBLADDER / BILE DUCTS: There is a calculus in the gallbladder.. There is no intra or extrahepatic biliary ductal dilatation. SPLEEN: The spleen is normal in size. No focal splenic lesion is identified. PANCREAS: The pancreas is unremarkable in appearance. ADRENAL GLANDS: Within normal limits. KIDNEYS/RETROPERITONEUM: No renal calculi are identified. There is no hydronephrosis. No renal masses are identified. LYMPH NODES: There are multiple prominent lymph nodes in the mesentery which are more notable for number than size. VASCULATURE: The abdominal aorta is normal in caliber. MESENTERY/PERITONEUM: No free fluid. No masses. There is no free intraperitoneal gas. STOMACH: The stomach is unremarkable. SMALL BOWEL: There are multiple loops of abnormal small bowel in the left midabdomen and in the pelvis. These demonstrate mucosal hyperemia, wall thickening, and areas of sacculation, and are compatible with active Crohn's disease. There is tethering of small bowel loops in the left midabdomen which may indicate a fistula. There is a 1.7 x 0.9 x 1.6 cm fluid collection adjacent to an inflamed small bowel loop in the left midabdomen which may represent a small abscess (series 4, images 51-53). COLON: The colon is unremarkable. APPENDIX: The appendix is not seen, however no inflammatory changes are seen adjacent to the cecum. URINARY BLADDER/PELVIC ORGANS: The urinary bladder is unremarkable. The prostate is normal in size. BONES / SOFT TISSUES: No suspicious bony or soft tissue abnormalities. CT/CT enterography IMPRESSION: 1. Findings consistent with active Crohn's disease involving multiple small bowel loops in the pelvis and left midabdomen. There is tethering of small bowel loops in the left midabdomen and a fistula cannot be excluded. 2. 1.7 x 0.9 x 1.6 cm fluid collection in the left midabdomen adjacent tethered small bowel loops which may represent a tiny abscess. 3. Findings were communicated to Dr. Neumann by secure text message on 07/10/2025 at 3:18 PM and acknowledged at 3:19 PM. Electronically signed by: Cliff Buck MD 07/10/2025 03:20 PM EDT
--- OUTSIDE RECORDS SUMMARY | 2025-07-10 13:18 | XMS_ITS | Clinical Summary ---
Author Organization [facility] Address [address] [place] [address] Care Team Providers Care Binder And Wrapper Packer Name Role Phone Kendall Shoemaker MD Primary Care Provider [phone] Surgical History Surgery Date Site/Laterality Comments COLONOSCOPY PROCEDURE:COLONOSCOPY UPPER GASTROINTESTINAL ENDOSCOPY PROCEDURE:UPPER GASTROINTESTINAL ENDOSCOPY UPPER GASTROINTESTINAL ENDOSCOPY 06/05/2020 N/A PROCEDURE:UPPER GASTROINTESTINAL ENDOSCOPY;COMMENT:Procedure: UPPER ENDOSCOPY-EGD/Biopsy; Surgeon: Robert Barber MD; Location: [facility]; Service: Gastroenterology; Laterality: N/A; COLONOSCOPY 06/05/2020 N/A PROCEDURE:COLONOSCOPY;COMMENT :Procedure: COLONOSCOPY B SF(to the terminal ileum)/Biopsy and polypectomy; Surgeon: Robert Barber MD; Location: [facility]; Service: Gastroenterology; Laterality: N/A; Medical History [...] age to complete this topic Care Teams Binder And Wrapper Packer Relationship Specialty Start Date End Date Kendall Shoemaker MD [address] [place] [phone] PCP - General 08/12/23
--- OUTSIDE RECORDS SUMMARY | 2025-07-10 13:18 | XMS_ITS | Clinical Summary ---
Author Organization [address] Address [address] [place] [phone] Phone Care Team Providers Care Incident Response Consultant Name Role Phone Unavailable Primary Care Provider [...] (1 - 1-dose 75+ series) 2057 Meningococcal B Vaccine Aged Out No l onger eligible based on patient's age to complete this topic Meningococcal Vaccine Aged Out No keren jesus eligible based on patient's age to complete this topic Pneumococcal Vaccine (2 - 49 years) Aged Out No longer eligible based on patient's age to complete this topic
--- OUTSIDE RECORDS SUMMARY | 2025-07-10 13:18 | XMS_ITS | Encounter Summary ---
Author Organization [facility] Address [address] [place] [address] Care Team Providers Care Plastic Products Sales Representative Name Role Phone Pcp, No Primary Care Provider Unavailabl e Encounter Details Date Type Department Care Team (Late st Contact Info) Description 05/13/2020 Scanned Document [address] [phone] Gastroenterology, Scan Social History Tobacco Use Types [...] 07/13/2025 9:30 AM EDT Office Visit Orthopedic [address] [address] Juan Bustamante MD [address] [place] [phone] 07/19/2025 9:15 AM EDT Office Visit Orthopedic [facility] [address], [place] [address] Yomi Anthony MD [address] [place] [phone] documented as of this encounter Procedures Procedure Name Priority Date/Time Associated Diagnosis Comments PATHOLOGY GENERAL 06/05/2020 documented in this encounter Results * PATHOLOGY GENERAL (06/05/2020) 06/05/2020 us Scan Gastroenterology [facility] HX PATH PROCEDURES Mook tank Result - Final documented in this encounter Visit Diagnoses Not on filedocumented in this encounter Care Teams Plastic Products Sales Representative Relationship Specialty Start Date End Date Pcp, No PCP - General General Medicine 06/12/20 documented as of this encounter
--- OUTSIDE RECORDS SUMMARY | 2025-07-10 13:19 | XMS_ITS | Patient Health Record ---
Author Organization [facility] Address [address] [facility] [address] [place] [address] Care Team Providers Care Line Maintenance Supervisor Name Role Phone VEE KONG Primary Care Provider Allergies No Known Allergies Reason For Referral [...] W/U Status Risk Notes Problem Crohn's disease (21519516) Crohn's disease, unspecified, with other complication (K50.918) Active confirmed Problem Anemia ([id number]) Anemia, unspecified type (D64.9) Active confirmed Plan [...] Insured Coverage Start Date Coverage End Date [facility] [address] [place] [address] [id number] Talon Lazaro Self - patient is the insured Medical (General) History Medical History History ICD Code Raynaud's disease Crohn's disease and follows up with Dr. Licona Iron deficiency anemia
--- OUTSIDE RECORDS SUMMARY | 2025-07-10 13:19 | XMS_ITS | Encounter Summary ---
Author Organization [facility] Address [address] [place] [address] Care Team Providers Care Kitchen Clerk Name Role Phone Pcp, No Primary Care Provider Unavailabl e Encounter Details Date Type Department Care Team (Late st Contact Info) Description 12/14/2024 Scanned Document Orthopedic [address] [phone] Juan Bustamante MD [address] [phone] Social History Tobacco Use Types Packs/Day Years [...] 07/13/2025 9:30 AM EDT Office Visit Orthopedic [address] [address] Juan Bustamante MD [address] [facility] [address] [place] [phone] 07/19/2025 9:15 AM EDT Office Visit Orthopedic [address] [address] Yomi Anthony MD [address] [place] [phone] documented as of this encounter Visit Diagnoses Not on filedocumented in this encounter Care Teams Kitchen Clerk Relationship Specialty Start Date End Date Pcp, No PCP - General General Medicine 06/12/20 documented as of this encounter
--- OUTSIDE RECORDS SUMMARY | 2025-07-10 13:19 | XMS_ITS | Clinical Summary ---
Author Organization [facility] Address [address] [place], [place] [id number] Care Team Providers Care Rough Rice Grader Name Role Phone Kendall Shoemaker MD Primary Care Provider Allergies No known active allergies Medications Medication [...] Advance Directives For more information, please contact: [phone] Latest Code Status on File Code Status Date Activated Date Inactivated Comments Full Code 06/05/2020 1:41 PM 06/05/2020 8:31 PM This code status was ascertained in the following way: discussion with patient . Care Teams Rough Rice Grader Relationship Specialty Start Date End Date Kendall Shoemaker MD [address] [place] [address] PCP - General Internal Medicine 08/12/23
--- OUTSIDE RECORDS SUMMARY | 2025-07-10 13:19 | XMS_ITS | Clinical Summary ---
Author Organization [facility] Address [address] [place] [address] Care Team Providers Care Prison Guard Supervisor Name Role Phone Pcp, No Primary Care Provider Unavailabl e Allergies No known active allergies Medications Humira Pen 40 MG/0.4ML pen-injector kit CITRATE FREE 08/18/2023 Active ferrous sulfate 325 (65 FE) MG tablet Take 1 tablet by mouth daily. 06/21/2023 Active lidocaine (LIDODERM) 5 % patchIndications :Thoracic myofascial strain, initial encounter Place 1 patch on the skin daily. Apply patch and leave on for 12 hours then remove. Patch may remain on skin for 12 hours per day. 10 patch 08/26/2023 Active methocarbamol (ROBAXIN) 500 MG tabletIndication s:Thoracic myofascial strain, initial encounter Take 1 tablet (500 mg total) by mouth 3 (three) times a day as needed for muscle spasms. 21 tablet 08/26/2023 Active Social History Tobacco Use Types Packs/Day Years [...] AM EDT unable to read Temperature 36.8 C (98.2 F) 09/07/2023 9:46 AM EDT Respiratory Rate - - Oxygen [...] 07/13/2025 9:30 AM EDT Office Visit [facility] [address] [facility] [address] [place] [address] Juan Bustamante MD [address] [facility] [address] [place], [place] [phone] 07/19/2025 9:15 AM EDT Office Visit [facility] [address], [place] [phone] Yomi Anthony MD [address] [place] [phone] Health Maintenance Due Date Last Done Comments Hepatitis C Virus Screening 1982 COVID-19 Vaccine (#1) 1987 Quantiferon Gold TB 1992 HIV Screening 1995 DTaP/Tdap/Td Vaccines (1 - Tdap) 2001 Hepatitis B Vaccines (1 of 3 - 19+ 3-dose series) 07/17 Pneumococcal Vaccine: Pediat saurav (0-5 Years) and At-Risk Patients (6 to 49 Years) (1 of 2 - PCV) 2001 HPV Vaccines (1 - 3-dose SCDM series) 2009 Influenza Vaccine 06/15/2025 Insurance [facility] [employer] [address] [place] [address] [address] [place] [address] [employer] NA Care Teams Prison Guard Supervisor Relationship Specialty Start Date End Date Pcp, No PCP - General General Medicine 06/12/20
[2025-07-10 14:29] LABS: Hematocrit 36.6 % (42.0-52.0); Hemoglobin 11.0 g/dl (14.0-18.0); Mean Corpuscular HGB Conc 30.1 g/dl (31.0-36.0); Mean Corpuscular Hemoglobin 19.7 pg (27.0-33.0); Mean Corpuscular Volume 65.5 fL (80.0-98.0); NRBC Abs Auto 0.000 X10*3/uL (0.0-0.012); NRBC Pct Auto 0.0 /100WBC (0.0-0.2); Platelet Count 570 X10*3/uL (160-400); Red Blood Count 5.59 X10*6/uL (4.60-5.80); White Blood Count 11.4 X10*3/uL (4.8-10.8)
[2025-07-10] MEDS: iohexoL 350 MG/ML 100 ML INFUS..BTL IV (14:43)
[2025-07-10] MEDS: Sorbitol/Mannit/Xanth Imaging 500 ML LIQUID 1500 ML PO (14:44)
[2025-07-10 15:16] LABS: Alanine Aminotransferase 24 U/L (0-40); Albumin Level 3.4 g/dL (3.5-5.0); Alkaline Phosphatase 52 U/L (39-117); Anion Gap 9 (12-20); Aspartate Amino Transferase 22 U/L (5-37); Blood Urea Nitrogen 10 mg/dL (9-16); Calcium 8.9 mg/dL (8.4-10.2); Carbon Dioxide 29 mmol/L (22-29); Chloride 106 mmol/L (96-108); Estimated Glomerular Filt Rate > 60; Iron 13 mcg/dL (45-160); Percent Iron Saturation 6 % (15-50); Potassium 3.7 mmol/L (3.3-5.1); Sodium 140 mmol/L (135-145); Total Iron Binding Capacity 210 mcg/dL (228-428); Total Protein 6.2 g/dL (6.5-8.0); Unsaturated Iron Binding 197 ug/dL
== END 2025-07-10 12:33 | disposition home or self-care (01) ==
LOC: HO.CT 12:32
PROVIDERS: PCP Hospitalist; Visit Provider Internal Medicine
DX: K50.90 Crohn's disease, unspecified, without complications (principal)
CPT/HCPCS: 36415; 74177; 80053; 82306; 83540; 85027; 86140; Q9967

== ENCOUNTER → 2025-07-10 13:00 | Outpatient (BNV) | payer BC, SELFPAY | PROVIDERS: PCP Hospitalist; Visit Provider Radiology Diagnostic Radiology | DX: K63.0 Abscess of intestine (principal) | CPT/HCPCS: 74177 ==

== ENCOUNTER 2025-07-30 08:27 | Outpatient (REF) | payer BC, SELFPAY ==
--- OUTSIDE RECORDS SUMMARY | 2025-07-27 09:45 | XMS_ITS | Encounter Summary ---
Author Organization [facility] Address [address] [place] [address] Care Team Providers Care Avionic Technician Name Role Phone Pcp, No Primary Care Provider Unavailabl e Reason for Visit * Reason Comments Pain Encounter Details Date Type Department Care Team (Late st Contact Info) Description 07/27/2025 9:45 AM EDT [facility] [address] [phone] Juan Bustamante MD [address] [place] [address] [place] [address] 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); Occipital neuralgia of right side Social History Tobacco Use Types Packs/Day Years Used Date Smoking Tobacco: Never Assessed Comments Unknown Sex and Gender Information Value Date Recorded Sex Assigned at Choose not to disclose 10/2025 4:59 AM EDT Legal Sex Male 4:58 PM EDT Gender Identity Male 07/27/2025 4:59 AM EDT Sexual Orientation Heterosexual (straight) 07/27 4:59 AM EDT documented as of this encounter Progress Notes * Juan Bustamante MD - 07/27/2025 9:45 AM EDT Images from the original note were not included. [address] [facility] [address] [phone] Encounter Date: 07/27/2025 Assessment & Plan 1. Spondylosis of cervical region without myelopathy or radiculopathy 2. Occipital neuralgia of right side Clinically I suspect this gentleman has a greater and lesser occipital neuralgia. He may have uppercervical facet mediated pain. He had a work-related injury that occurred in August 2023. I have no medical records to attest forwhat was discussed in my office today. Based strictly on what the patient tells me, clinically I suspect mechanical neck pain. For this I have recommended a right greater and lesser occipital nerve block that can be performed here in the office. It will be both diagnostic and potentially therapeutic. Work status for cervical spine is full duty no restriction Greater than 40 minutes was spent reviewing the patient's EMR, independently reviewing outside and/or internal imaging, conducting today's history and physical exam, discussing the diagnosis and treatment options with the patient, and coordinating their follow-up care. History of Present Illness: Talon Ruffin is a 44 y.o. adult who presents today for an evaluation. Patient presents in office today for a work-related injury that occurred in August 2023. I do not have any medical records. He presents to my office today with pain along his right occipital area that extends to the posterior auricular area to his eye orbit. He works at [employer]. 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 He denies any prior injury. He indicates that in or about August 2023, he was using a drill and drilling into a brick. The drill got caught, and it forcibly jerked his right shoulder and arm forward. He has been under the care of Dr. Anthony for his right shoulder. He reinjured himself in 2023. He was out of work for a few months. He has had no therapy for cervical spine. He is working full duty. He denies upper extremity numbness or tingling or weakness. Vital Signs There were no vitals taken for this visit. Physical Exam Physical Examination of the patient reveals the following: Patient is well appearing, A&Ox3, not in acute distress. Inspection reveals no atrophy of the cervical paraspinals or upper extremity musculature. Range of Motion is restricted. Cervical paraspinals are tender to palpation. Spurling maneuver: Negative Thacker test: Negative Cervical Facet loading: Positive Motor testing: Deltoid, Biceps, Triceps, Wrist extension, Hand grasp 5/5 Sensory testing-intact Spinal reflexes- 2/2 biceps, triceps and brachioradialis. Carpal compression and Phalen testing: Negative Tinnel's sign: Negative Adson's test: Negative Right greater and lesser occipital nerve area is tender. Cervical facet loading is positive. Imaging/Data Review Pain Management PAIN: Please rate your current pain or pain with activity 0-10. 10 is pain so severe you cannot do any activity.: (Patient-Rptd) (P) 8 Improvement from Injection (if appropriate):: (Patient-Rptd) (P) NA What activities or functions have improved since treatment?: (Patient-Rptd) (P) NA What activities or functions are limited by your pain?: (Patient-Rptd) (P) Lifting, Driving Have you had any conservative treatment at least 6 weeks within the last 6 months?: (Patient-Rptd) (P) No Imaging was independently reviewed and interpreted by me. Imaging Impression: Films cervical spine including AP and lateral images obtained by Dr. Anthony on 10/05/2024 demonstrated mild scoliotic curvature otherwise normal Review of Systems Patient denies fever, unintentional weight loss. Remainder of a 10 point review of systems is otherwise negative except for pertinent positives listed above in the HPI. Past Medical History No past medical history on file. No past surgical history on file. No family history on file. Medication List Current Outpatient Medications: ??? ferrous sulfate 325 (65 FE) MG tablet, Take 1 tablet by mouth daily., Disp: , Rfl: ??? Humira Pen 40 MG/0.4ML pen-injector kit CITRATE FREE, , Disp: , Rfl: ??? lidocaine (LIDODERM) 5 % patch, Place 1 patch on the skin daily. Apply patch and leave on for 12 hours then remove. Patch may remain on skin for 12 hours per day., Disp: 10 patch, Rfl: 0 ??? methocarbamol (ROBAXIN) 500 MG tablet, Take 1 tablet (500 mg total) by mouth 3 (three) times a day as needed for muscle spasms., Disp: 21 tablet, Rfl: 0 Allergies No Known Allergies Visit Orders. No orders of the defined types were placed in this encounter. No orders of the defined types were placed in this encounter. Juan Bustamante MD documented in this encounter Plan of Treatment Upcoming Encounters Date Type Department Care Team (Late st Contact Info) Description 08/17/2025 9:30 AM EDT Office Visit [facility] [address] [facility] [address] [place] [address] Juan Bustamante MD [address] [facility] [address] [place] [address] documented as of this encounter Visit Diagnoses Diagnosis Spondylosis of cervical region without myelopathy or radiculopathy- Primary Occipital neuralgia of right side documented in this encounter Care Teams Avionic Technician Relationship Specialty Start Date End Date Pcp, No PCP - General General Medicine 06/12/20 documented as of this encounter
--- OUTSIDE RECORDS SUMMARY | 2025-07-30 09:29 | XMS_ITS | Encounter Summary ---
Author Organization [facility] Address [address] [place] [address] Care Team Providers Care Network Contract Manager Name Role Phone Pcp, No Primary Care Provider Unavailabl e Encounter Details Date Type Department Care Team (Late st Contact Info) Description 05/13/2020 Scanned Document [address] [phone] Gastroenterology, Scan Social History Tobacco Use Types Packs/Day Years Used Date Smoking Tobacco: Never Assessed Comments Unknown Sex and Gender Information Value Date Recorded Sex Assigned at Choose not to disclose 10/2025 4:59 AM EDT Legal Sex Male 4:58 PM EDT Gender Identity Male 07/27/2025 4:59 AM EDT Sexual Orientation Heterosexual (straight) 07/27 4:59 AM EDT documented as of this encounter Plan of Treatment Upcoming Encounters Date Type Department Care Team (Late st Contact Info) Description 08/17/2025 9:30 AM EDT [facility] Visit [facility] [address] [place] [phone] Juan Bustamante MD [address] [facility] [address] [place] [address] documented as of this encounter Procedures Procedure Name Priority Date/Time Associated Diagnosis Comments PATHOLOGY GENERAL 06/05/2020 documented in this encounter Results * PATHOLOGY GENERAL (06/05/2020) 06/05/2020 us Scan Gastroenterology [facility] HX PATH PROCEDURES Mook tank Result - Final documented in this encounter Visit Diagnoses Not on filedocumented in this encounter Care Teams Network Contract Manager Relationship Specialty Start Date End Date Pcp, No PCP - General General Medicine 06/12/20 documented as of this encounter
--- OUTSIDE RECORDS SUMMARY | 2025-07-30 09:29 | XMS_ITS | Clinical Summary ---
Author Organization [facility] Address [address] [place] [address] Care Team Providers Care Electronics Engineering Technician Name Role Phone Kendall Shoemaker MD Primary Care Provider [phone] Surgical History Surgery Date Site/Laterality Comments COLONOSCOPY PROCEDURE:COLONOSCOPY UPPER GASTROINTESTINAL ENDOSCOPY PROCEDURE:UPPER GASTROINTESTINAL ENDOSCOPY UPPER GASTROINTESTINAL ENDOSCOPY 06/05/2020 N/A PROCEDURE:UPPER GASTROINTESTINAL ENDOSCOPY;COMMENT:Procedure: UPPER ENDOSCOPY-EGD/Biopsy; Surgeon: Robert Barber MD; Location: [facility]; Service: Gastroenterology; Laterality: N/A; COLONOSCOPY 06/05/2020 N/A PROCEDURE:COLONOSCOPY;COMMENT :Procedure: COLONOSCOPY B SF(to the terminal ileum)/Biopsy and polypectomy; Surgeon: Robert Barber MD; Location: [facility]; Service: Gastroenterology; Laterality: N/A; Medical History [...] of 3 - 19+ 3-dose series) 2001 Depression Screening 11/15/2024 COVID-19 Vaccine (2023-2 5 season) 2025 Influenza Vaccine (#1) 2025 HIB Vaccines Aged [...] age to complete this topic Care Teams Electronics Engineering Technician Relationship Specialty Start Date End Date Kendall Shoemaker MD [address] [place] [id number] PCP - General 08/12/23
--- OUTSIDE RECORDS SUMMARY | 2025-07-30 09:29 | XMS_ITS | Clinical Summary ---
Author Organization [address] Address [address] [place] [phone] Phone Care Team Providers Care Foaming Machine Operator Name Role Phone Unavailable Primary Care Provider [...] Lipid disorder screening 2022 Covid-19 vaccine series (2023- season) 2025 Influenza vaccine 07/16/2025 RSV Immunization (1 - [...]
--- OUTSIDE RECORDS SUMMARY | 2025-07-30 09:30 | XMS_ITS | Encounter Summary ---
Author Organization [facility] Address [address] [place] [address] Care Team Providers Care Taping Foreman Name Role Phone Pcp, No Primary Care Provider Unavailabl e Encounter Details Date Type Department Care Team (Late st Contact Info) Description 12/14/2024 Scanned Document [facility] [address] [phone] Juan Bustamante MD [address] [id number] Social History Tobacco Use Types Packs/Day Years [...] 9:30 AM EDT [facility] Visit [facility] [address] [facility] [address] [place] [address] Juan Bustamante MD [address] [facility] [address] [place] [id number] documented as of this encounter Visit Diagnoses Not on filedocumented in this encounter Care Teams Taping Foreman Relationship Specialty Start Date End Date Pcp, No PCP - General General Medicine 06/12/20 documented as of this encounter
--- OUTSIDE RECORDS SUMMARY | 2025-07-30 09:30 | XMS_ITS | Clinical Summary ---
Author Organization [facility] Address [address] [place] [address] Care Team Providers Care Ice House Supervisor Name Role Phone Pcp, No Primary [...] Encounters Date Type Department Care Team Description 07/27/2025 9:45 AM EDT Office Visit [facility] [address] [phone] Juan Bustamante MD 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); Occipital neuralgia of right side 07/19/2025 9:15 AM EDT Office Visit [facility] [address] [address] Yomi Anthony MD Cervical neuralgia (Primary Dx); Crohn's disease of colon with complication (HCC) from Last 3 Months Social History Tobacco Use Types Packs/Day Years Used Date Smoking Tobacco: Never Assessed Comments Unknown Sex and Gender Information Value Date Recorded Sex Assigned at Choose not to disclose 10/2025 4:59 AM EDT Legal Sex Male 4:58 PM EDT Gender Identity Male 07/27/2025 4:59 AM EDT Sexual Orientation Heterosexual (straight) 07/27 4:59 AM EDT Last Filed Vital Signs Vital Sign Reading [...] AM EDT [facility] Visit [facility] [address] [place] [address] Juan Bustamante MD [address] [facility] [address] [place] [address] Health Maintenance Due Date Last Done Comments [...] SCDM series) 2009 Influenza Vaccine 06/15/2025 Insurance WORKER'S COMP WORKER'S COMP WORKER'S COMP GURMEETKALANI JUAN M Care Teams Ice House Supervisor Relationship Specialty Start Date End Date Pcp, No PCP - General General Medicine 06/12/20
--- OUTSIDE RECORDS SUMMARY | 2025-07-30 09:30 | XMS_ITS | Patient Health Record ---
Author Organization [facility] Address [address] [facility] [address] [place] [address] Care Team Providers Care Rehab Director Name Role Phone VEE KONG Primary Care [...] W/U Status Risk Notes Problem Crohn's disease (21500055) Crohn's disease, unspecified, with other complication (K50.918) Active confirmed Problem Anemia (211332703) Anemia, unspecified type (D64.9) Active confirmed Plan [...] Insured Coverage Start Date Coverage End Date [facility] [id number] [place] [address] [phone] [id number] Talon Lazaro Self - patient is the insured Medical (General) History Medical History History ICD Code Raynaud's disease Crohn's disease and follows up with Dr. Licona Iron deficiency anemia
--- OUTSIDE RECORDS SUMMARY | 2025-07-30 09:30 | XMS_ITS | Clinical Summary ---
Author Organization [facility] Address [address] [place], [place] [id number] Care Team Providers Care House Visitor Name Role Phone Kendall Shoemaker MD Primary Care Provider [phone] Allergies No known active allergies Medications Medication [...] Advance Directives For more information, please contact: [phone] Latest Code Status on File Code Status Date Activated Date Inactivated Comments Full Code 06/05/2020 1:41 PM 06/05/2020 8:31 PM This code status was ascertained in the following way: discussion with patient . Care Teams House Visitor Relationship Specialty Start Date End Date Kendall Shoemaker MD [address] [place] [address] PCP - General Internal Medicine 08/12/23
== END 2025-07-30 08:28 | disposition home or self-care (01) ==
LOC: HO.LAB 08:27
PROVIDERS: PCP Hospitalist; Visit Provider Internal Medicine
DX: K50.90 Crohn's disease, unspecified, without complications (principal)
CPT/HCPCS: 36415

== ENCOUNTER 2025-08-20 09:16 | Inpatient (IN) | payer BC, SELFPAY ==
--- OUTSIDE RECORDS SUMMARY | 2025-08-17 09:30 | XMS_ITS | Encounter Summary ---
Author Organization [facility] Address [address] [place] [address] Care Team Providers Care Grape Picker Name Role Phone Kendall Shoemaker MD Primary Care Provider [phone] Reason for Visit * Reason Comments Pain Encounter Details Date Type Department Care Team ([facility] st Contact Info) Description 08/17/2025 9:30 AM EDT [facility] [address] [phone] Juan Bustamante MD [address] [place] [address] [place] [address] Occipital neuralgia of right side (Primary Dx); Spondylosis of cervical region without myelopathy or radiculopathy Social History Tobacco Use Types Packs/Day Years [...] Progress Notes * Juan Bustamante MD - 08/17/2025 9:30 AM EDT Images from the original note were not included. [address] [facility] [address] [address] Encounter Date: 08/17/2025 Assessment & Plan 1. Occipital neuralgia of right side 2. Spondylosis of cervical region without myelopathy or radiculopathy Patient has right greater and lesser occipital neuralgia. Plan Procedure note: Right greater and lesser occipital nerve block. After discussing risks and benefits this procedure, verbal consent was obtained. One third the distance was measured from his mastoid process to his nuchal ridge, an additional one third a distance was measured from there to the nuchal ridge. A 27-gauge 1/2 inch needle was used to inject a total volume of 1 cc of 0.25% preservative-free Marcaine into the two areas described above. He reported 100% resolution of his pain. Coagulation achieved. No complications. Patient will follow-up for repeat greater and lesser occipital nerve block. Work status: Full duty no restriction History of Present Illness: Talon Ruffin is a 45 y.o. adult who presents today for an evaluation. Ongoing pain along his right occipital area that goes to his right eye orbit. It has not improved. Physical Exam Physical Examination of the patient reveals the following: Patient is well appearing, A&Ox3, not in acute distress. Extremity Testing; Motor testin/5 Sensory testing is intact Spinal reflexes are symmetrical With the exception of abnormal findings listed below... Pain noted along his right occipital area. Cervical facet loading is positive in the right. Imaging/Data Review Imaging was independently reviewed and interpreted by me within the boundaries of my professional education. Imaging results are reviewed and compared with radiologist professional readings. Questions or concerns regarding such imaging will be deferred to the expertise of the reading radiologist orother qualified professional. Visit Orders. No orders of the defined types were placed in this encounter. No orders of the defined types were placed in this encounter. Juan Bustamante MD documented in this encounter Plan of Treatment Upcoming Encounters Date Type Department Care Team (Late st Contact Info) Description 09/07/2025 9:30 AM EDT [facility] Visit [facility] [address] [place] [address] Juan Bustamante MD [address] [facility] [address] [place] [address] documented as of this encounter Visit Diagnoses Diagnosis Occipital neuralgia of right side- Primary Spondylosis of cervical region without myelopathy or radiculopathy documented in this encounter Care Teams Grape Picker Relationship Specialty Start Date End Date Kendall Shoemaker MD [address] [place] [address] PCP - General Internal Medicine 08/17/25 documented as of this encounter
--- NOTE | ~2025-08-20 | CT_ITS ---
EXAMINATION: CT ABDOMEN AND PELVIS WITH CONTRAST CLINICAL INFORMATION: Crohn's disease, severe left lower quadrant. COMPARISON: July 10, 2025 TECHNIQUE: Multidetector volumetric images were obtained from the superior aspect of the liver through the pubic symphysis following administration 85 mL of Omnipaque 350 intravenous contrast. Sagittal and coronal reformatted images were obtained on the technologist's workstation. Oral contrast: No This CT examination was performed using dose optimization techniques as appropriate, variously including the following: *Automated exposure control *Adjustment of mA and/or kV according to patient size (this includes techniques or standardized protocols for targeted exams where dose is matched to indication/reason for exam; i.e. extremities or head) *Use of iterative reconstruction technique FINDINGS: LUNG BASES: The visualized lung bases are unremarkable. LIVER, GALLBLADDER, AND BILIARY TREE: The liver is normal in size, shape, and attenuation. No focal hepatic lesion or biliary ductal dilatation is present. There is a calcific stone in the gallbladder. There is no gallbladder wall thickening or biliary ductal dilation. PANCREAS: Unremarkable. SPLEEN: Unremarkable. ADRENAL GLANDS: Unremarkable. KIDNEYS AND URETERS: The kidneys are normal in size, shape, and attenuation. No hydronephrosis, hydroureter, or calculi seen. No perinephric stranding. BLADDER: Unremarkable. GASTROINTESTINAL TRACT: Again seen are areas segments of small bowel wall thickening and pseudosacculations consistent with history of Crohn's disease. Area previously described as concerning for a small abscess is no longer identified and probably represented a small focal area of hyperemic bowel near short stricture. There is focally dilated 8 cm length of small bowel with an air-fluid level just cephalad to the bladder with narrowing of the lumen both distal and proximal. Mesenteric vascularity is mildly prominent and there is groundglass density in the mesentery. The terminal ileum appears to be within normal limits. There is moderate stool throughout colon. The appendix is not clearly identified. ABDOMINAL WALL: No significant hernia is appreciated. LYMPH NODES: Normal. VASCULAR: Unremarkable. PELVIC VISCERA: Unremarkable. OSSEOUS STRUCTURES: There is no sign of sacroiliitis. Bony structures are unremarkable. CT/CT abdomen pelvis w IV con IMPRESSION: Active Crohn's disease: There are short segments of small bowel wall thickening with hyperemia with probable pseudosacculations. There is an 8 cm segment of small bowel cephalad to the bladder with an air-fluid level and early signs of fecalized content raising question of the low-grade partial small bowel obstruction. Area in the mid abdomen described on the prior is a possible abscess is no longer evident. Segments of small bowel wall thickening appears more prominent on the current study suggesting progression of disease. Cholelithiasis. Fleischner guidelines were followed. Electronically signed by: Raza Driscoll MD 08/20/2025 11:14 AM EDT
[2025-08-20 09:31] VITALS: BP 125/74; PULSE 76; RESP 18; TEMP 36.7; O2SAT 100; BMI 20.4
[2025-08-20 10:13] VITALS: RESP 16
[2025-08-20 10:13] LABS: Hematocrit 34.5 % (42.0-52.0); Imm Gran Abs Auto 0.18 X10*3/uL (0.00-0.03); Imm Gran Pct Auto 1.0 % (0.0-0.4); Lymphocytes Absolute Auto 0.8 X10*3/uL (1.2-4.9); MANUAL DIFF FLAG SCAN; Mean Corpuscular HGB Conc 30.7 g/dl (31.0-36.0); Mean Corpuscular Hemoglobin 20.0 pg (27.0-33.0); Mean Corpuscular Volume 65.2 fL (80.0-98.0); NRBC Abs Auto 0.000 X10*3/uL (0.0-0.012); NRBC Pct Auto 0.0 /100WBC (0.0-0.2); Platelet Count 515 X10*3/uL (160-400); Red Blood Count 5.29 X10*6/uL (4.60-5.80); SCAN SMEAR FLAG 1; White Blood Count 18.7 X10*3/uL (4.8-10.8)
[2025-08-20] MEDS: Lactated Ringers 1,000 ML 999 ML IV (10:13)
--- NOTE | 2025-08-20 10:13 | ED_ITS ---
HPI - Abdominal Pain General Chief Complaint: Abdominal Pain Stated Complaint: severe abd pain, intestinal blockage? Time Seen by Provider: 08/20/25 09:43 Source: patient and old records reviewed Mode of arrival: ambulatory Limitations: no limitations History of Present Illness ED Provider: DONTA LY narrative: 45 yo male with PMH of anemia, Crohns no surgery in past but on current prednisone taper at 15mg daily now through Dr. Neumann. Has been having increasing abdominal pains and was admitted to [facility] a few weeks ago for possible abscess but then told his CT scan was not an abscess. He is currently working on getting his intestinal inflammation down so that he can possibly have surgery. He is not on antibiotics now. He is having worsening pain and difficulty having BM though is having 2 stools a day. No fevers, no vomiting. MD elicited complaint: abdominal pain Pertinent past history: other Onset (ago): week(s) Pain Consistency: intermittent Location: RLQ, LLQ and suprapubic Severity: severe Quality: stabbing Radiation: back Migration to: LLQ Exacerbating factors: movement Relieving factors: nothing Context: history of similar episodes Associated symptoms: nausea and constipation Related Data Previous Rx's ?Medication ?Instructions ?Recorded food supplemt, lactose-reduced 1 ea PO BID 30 days #14 ,220 mL 03/15/24 0.04 gram-1 kcal/mL oral liquid (Boost) Skyrizi 360 mg/2.4 mL (150 mg/mL) 360 mg (2.4 mL) subc ut Q8W 112 06/15/25 subcutaneous wearable injector days #4.8 mL (risankizumab-rzaa) Allergies Allergy/AdvReac Type Severity Reaction Status Date / Time No Known Allergies Allergy Verified 08/20/25 09:37 Review of Systems Review of Systems Constitutional : No Weight loss, No Fever, No Chills ENT/Mouth : No sore throat, No Rhinorrhea Eyes: No Swelling, No Redness Cardiovascular : No Chest Pain, No SOB, NoEdema Respiratory : No Cough, No Sputum, No Wheezing Gastrointestinal : Positive Nausea, Positive Vomiting, no Diarrhea, positive abdominal Pain, No Hematochezia, No Melena Genitourinary : No Dysuria, No Urinary Frequency, No Hematuria, No Urgency Musculoskeletal : No joint pain, No Myalgias, No Joint Swelling Skin : No Skin Lesions, No rash Neuro : No Weakness, No Numbness, No Dizziness, No Headache All other systems reviewed and are negative. [facility] Past Medical History Attestation statement: The following information was validated with the patient. Source: old records reviewed Medical History Crohn's disease Surgical History History of esophagogastroduodenoscopy (EGD) Hx of colonoscopy Social History Social History Household Members: Family Alcohol intake: former Patient Tobacco Use Status: Never used Tobacco Advance Directives: No Advance Directives Information Provided: Yes Physical Exam ED Vital Signs: Vital Signs - 24 hr 08/20/25 09:31 08/20/25 10:13 Temperature 98.0 F Pulse Rate 76 Respiratory Rate 18 16 Blood Pressure 125/74 Pulse Oximetry 100 Oxygen Delivery Method Room Air BMI result Body Mass Index 20.4 Appearance: Alert. Oriented X3. No acute distress. Eyes: Pupils equal, round and reactive to light. ENT: Pharynx normal. Neck: Normal inspection. Neck supple. CVS: Normal heart rate and rhythm. Pulses normal. Respiratory: No respiratory distress. Breath sounds normal. Abdomen: Soft and moderate ttp in LLQ with some guarding and mild rebound Skin: Skin warm and dry. Normal skin color. Normal skin turgor. Extremities: No lower extremity edema. No calf ttp Neuro: Oriented X 3. No motor deficit. No sensory deficit. CN2-12 intact Course Course Course Narrative: infection suspected at 1035am given WBC count of 18 DONTA 08/20/25 Medical Decision Making Medical Decision Making [facility] Narrative: 45 yo male with PMH of anemia, Crohns no surgery in past but on current prednisone taper at 15mg daily now here with worsening pain - at this time will need labs, cultures, lactic acid, CT scan for stricture, inflammation, Crohns flare, SBO Differential Diagnosis Differential Diagnoses: The differential diagnosis associated with the presentation includes Crohns Admission/Observation Consideration of admission/observation: Escalation of care including admission/observation considered admit for IVF, pain control Consult Healthcare Provider Management of the patient was discussed with: Hospitalist (will admit) and [employer] notified Dr. Neumann 1123am IV steroids, surgery consult while admitted Lab Data [facility] Lab Attestation statement: I reviewed the patient's lab results. 08/20/25 10:07 08/20/25 10:07 Labs: Lab Results 08/20/25 08/20/25 08/20/25 Range/Units 10:07 10:07 10:07 WBC Cancelled 18.7 H RBC Cancelled 5.29 Hgb Cancelled Hct MCV MCH MCHC RDW Plt Count MPV Immature Gran % (Auto) Neut % (Auto) Lymph % (Auto) [place] % (Auto) Eos % (Auto) Baso % (Auto) Lymph # (Auto) [place] # (Auto) Eos # (Auto) Baso # (Auto) Abs Immat Gran (auto) Absolute Neuts (auto) Absolute Nucleated RBC Nucleated RBC % (auto) Smear Tech's Comments Sodium (135-145) mmol/L Potassium (3.3-5.1) mmol/L Chloride (96-108) mmol/L Carbon Dioxide (22-29) mmol/L Anion Gap (12-20) BUN (9-16) mg/dL Creatinine (0.5-1.4) mg/dL Estim Creat Clear Calc Estimated GFR Random Glucose (60-115) mg/dL Lactic Acid (0.5-2.0) mmol/L Calcium (8.4-10.2) mg/dL Magnesium (1.6-2.6) mg/dL Total Bilirubin (0.0-1.0) mg/dL Direct Bilirubin (0.0-0.5) mg/dL AST (5-37) U/L ALT (0-40) U/L Alkaline Phosphatase (39-117) U/L C-Reactive Protein (< or = 0.50) mg/dL Total Protein (6.5-8.0) g/dL Albumin (3.5-5.0) g/dL Lipase (8-78) U/L 08/20/25 08/20/25 08/20/25 Range/Units 10:07 10:07 10:07 WBC RBC Hgb 10.6 L Hct Cancelled 34.5 L MCV Cancelled 65.2 L MCH Cancelled MCHC RDW Plt Count MPV Immature Gran % (Auto) Neut % (Auto) Lymph % (Auto) [place] % (Auto) Eos % (Auto) Baso % (Auto) Lymph # (Auto) [place] # (Auto) Eos # (Auto) Baso # (Auto) Abs Immat Gran (auto) Absolute Neuts (auto) Absolute Nucleated RBC Nucleated RBC % (auto) Smear Tech's Comments Sodium (135-145) mmol/L Potassium (3.3-5.1) mmol/L Chloride (96-108) mmol/L Carbon Dioxide (22-29) mmol/L Anion Gap (12-20) BUN (9-16) mg/dL Creatinine (0.5-1.4) mg/dL Estim Creat Clear Calc Estimated GFR Random Glucose (60-115) mg/dL Lactic Acid (0.5-2.0) mmol/L Calcium (8.4-10.2) mg/dL Magnesium (1.6-2.6) mg/dL Total Bilirubin (0.0-1.0) mg/dL Direct Bilirubin (0.0-0.5) mg/dL AST (5-37) U/L ALT (0-40) U/L Alkaline Phosphatase (39-117) U/L C-Reactive Protein (< or = 0.50) mg/dL Total Protein (6.5-8.0) g/dL Albumin (3.5-5.0) g/dL Lipase (8-78) U/L 08/20/25 08/20/25 08/20/25 Range/Units 10:07 10:07 10:07 WBC RBC Hgb Hct MCV MCH 20.0 L MCHC Cancelled 30.7 L RDW Cancelled 18.6 H Plt Count Cancelled MPV Immature Gran % (Auto) Neut % (Auto) Lymph % (Auto) [place] % (Auto) Eos % (Auto) Baso % (Auto) Lymph # (Auto) [place] # (Auto) Eos # (Auto) Baso # (Auto) Abs Immat Gran (auto) Absolute Neuts (auto) Absolute Nucleated RBC Nucleated RBC % (auto) Smear Tech's Comments Sodium (135-145) mmol/L Potassium (3.3-5.1) mmol/L Chloride (96-108) mmol/L Carbon Dioxide (22-29) mmol/L Anion Gap (12-20) BUN (9-16) mg/dL Creatinine (0.5-1.4) mg/dL Estim Creat Clear Calc Estimated GFR Random Glucose (60-115) mg/dL Lactic Acid (0.5-2.0) mmol/L Calcium (8.4-10.2) mg/dL Magnesium (1.6-2.6) mg/dL Total Bilirubin (0.0-1.0) mg/dL Direct Bilirubin (0.0-0.5) mg/dL AST (5-37) U/L ALT (0-40) U/L Alkaline Phosphatase (39-117) U/L C-Reactive Protein (< or = 0.50) mg/dL Total Protein (6.5-8.0) g/dL Albumin (3.5-5.0) g/dL Lipase (8-78) U/L 08/20/25 08/20/25 08/20/25 Range/Units 10:07 10:07 10:07 WBC RBC Hgb Hct MCV MCH MCHC RDW Plt Count 515 H MPV Cancelled 8.7 L Immature Gran % (Auto) Cancelled 1.0 H Neut % (Auto) Cancelled Lymph % (Auto) [place] % (Auto) Eos % (Auto) Baso % (Auto) Lymph # (Auto) [place] # (Auto) Eos # (Auto) Baso # (Auto) Abs Immat Gran (auto) Absolute Neuts (auto) Absolute Nucleated RBC Nucleated RBC % (auto) Smear Tech's Comments Sodium (135-145) mmol/L Potassium (3.3-5.1) mmol/L Chloride (96-108) mmol/L Carbon Dioxide (22-29) mmol/L Anion Gap (12-20) BUN (9-16) mg/dL Creatinine (0.5-1.4) mg/dL Estim Creat Clear Calc Estimated GFR Random Glucose (60-115) mg/dL Lactic Acid (0.5-2.0) mmol/L Calcium (8.4-10.2) mg/dL Magnesium (1.6-2.6) mg/dL Total Bilirubin (0.0-1.0) mg/dL Direct Bilirubin (0.0-0.5) mg/dL AST (5-37) U/L ALT (0-40) U/L Alkaline Phosphatase (39-117) U/L C-Reactive Protein (< or = 0.50) mg/dL Total Protein (6.5-8.0) g/dL Albumin (3.5-5.0) g/dL Lipase (8-78) U/L 08/20/25 08/20/25 08/20/25 Range/Units 10:07 10: 10:07 WBC RBC Hgb Hct MCV MCH MCHC RDW Plt Count MPV Immature Gran % (Auto) Neut % (Auto) 92.7 H Lymph % (Auto) Cancelled 4.4 L [place] % (Auto) Cancelled 1.7 L Eos % (Auto) Cancelled Baso % (Auto) Lymph # (Auto) [place] # (Auto) Eos # (Auto) Baso # (Auto) Abs Immat Gran (auto) Absolute Neuts (auto) Absolute Nucleated RBC Nucleated RBC % (auto) Smear Tech's Comments Sodium (135-145) mmol/L Potassium (3.3-5.1) mmol/L Chloride (96-108) mmol/L Carbon Dioxide (22-29) mmol/L Anion Gap (12-20) BUN (9-16) mg/dL Creatinine (0.5-1.4) mg/dL Estim Creat Clear Calc Estimated GFR Random Glucose (60-115) mg/dL Lactic Acid (0.5-2.0) mmol/L Calcium (8.4-10.2) mg/dL Magnesium (1.6-2.6) mg/dL Total Bilirubin (0.0-1.0) mg/dL Direct Bilirubin (0.0-0.5) mg/dL AST (5-37) U/L ALT (0-40) U/L Alkaline Phosphatase (39-117) U/L C-Reactive Protein (< or = 0.50) mg/dL Total Protein (6.5-8.0) g/dL Albumin (3.5-5.0) g/dL Lipase (8-78) U/L 08/20/25 08/20/25 08/20/25 Range/Units 10: 10: 10:07 WBC RBC Hgb Hct MCV MCH MCHC RDW Plt Count MPV Immature Gran % (Auto) Neut % (Auto) Lymph % (Auto) [place] % (Auto) Eos % (Auto) 0.0 Baso % (Auto) Cancelled 0.2 Lymph # (Auto) Cancelled 0.8 L [place] # (Auto) Cancelled Eos # (Auto) Baso # (Auto) Abs Immat Gran (auto) Absolute Neuts (auto) Absolute Nucleated RBC Nucleated RBC % (auto) Smear Tech's Comments Sodium (135-145) mmol/L Potassium (3.3-5.1) mmol/L Chloride (96-108) mmol/L Carbon Dioxide (22-29) mmol/L Anion Gap (12-20) BUN (9-16) mg/dL Creatinine (0.5-1.4) mg/dL Estim Creat Clear Calc Estimated GFR Random Glucose (60-115) mg/dL Lactic Acid (0.5-2.0) mmol/L Calcium (8.4-10.2) mg/dL Magnesium (1.6-2.6) mg/dL Total Bilirubin (0.0-1.0) mg/dL Direct Bilirubin (0.0-0.5) mg/dL AST (5-37) U/L ALT (0-40) U/L Alkaline Phosphatase (39-117) U/L C-Reactive Protein (< or = 0.50) mg/dL Total Protein (6.5-8.0) g/dL Albumin (3.5-5.0) g/dL Lipase (8-78) U/L 08/20/25 08/20/25 08/20/25 Range/Units 10:07 10:07 10:07 WBC RBC Hgb Hct MCV MCH MCHC RDW Plt Count MPV Immature Gran % (Auto) Neut % (Auto) Lymph % (Auto) [place] % (Auto) Eos % (Auto) Baso % (Auto) Lymph # (Auto) [place] # (Auto) 0.3 Eos # (Auto) Cancelled 0.0 Baso # (Auto) Cancelled 0.0 Abs Immat Gran (auto) Cancelled Absolute Neuts (auto) Absolute Nucleated RBC Nucleated RBC % (auto) Smear Tech's Comments Sodium (135-145) mmol/L Potassium (3.3-5.1) mmol/L Chloride (96-108) mmol/L Carbon Dioxide (22-29) mmol/L Anion Gap (12-20) BUN (9-16) mg/dL Creatinine (0.5-1.4) mg/dL Estim Creat Clear Calc Estimated GFR Random Glucose (60-115) mg/dL Lactic Acid (0.5-2.0) mmol/L Calcium (8.4-10.2) mg/dL Magnesium (1.6-2.6) mg/dL Total Bilirubin (0.0-1.0) mg/dL Direct Bilirubin (0.0-0.5) mg/dL AST (5-37) U/L ALT (0-40) U/L Alkaline Phosphatase (39-117) U/L C-Reactive Protein (< or = 0.50) mg/dL Total Protein (6.5-8.0) g/dL Albumin (3.5-5.0) g/dL Lipase (8-78) U/L 08/20/25 08/20/25 08/20/25 Range/Units 10:07 10: 10:07 WBC RBC Hgb Hct MCV MCH MCHC RDW Plt Count MPV Immature Gran % (Auto) Neut % (Auto) Lymph % (Auto) [place] % (Auto) Eos % (Auto) Baso % (Auto) Lymph # (Auto) [place] # (Auto) Eos # (Auto) Baso # (Auto) Abs Immat Gran (auto) 0.18 H Absolute Neuts (auto) Cancelled 17.3 H Absolute Nucleated RBC Cancelled 0.000 Nucleated RBC % (auto) Cancelled Smear Tech's Comments Sodium (135-145) mmol/L Potassium (3.3-5.1) mmol/L Chloride (96-108) mmol/L Carbon Dioxide (22-29) mmol/L Anion Gap (12-20) BUN (9-16) mg/dL Creatinine (0.5-1.4) mg/dL Estim Creat Clear Calc Estimated GFR Random Glucose (60-115) mg/dL Lactic Acid (0.5-2.0) mmol/L Calcium (8.4-10.2) mg/dL Magnesium (1.6-2.6) mg/dL Total Bilirubin (0.0-1.0) mg/dL Direct Bilirubin (0.0-0.5) mg/dL AST (5-37) U/L ALT (0-40) U/L Alkaline Phosphatase (39-117) U/L C-Reactive Protein (< or = 0.50) mg/dL Total Protein (6.5-8.0) g/dL Albumin (3.5-5.0) g/dL Lipase (8-78) U/L 08/20/25 08/20/25 08/20/25 Range/Units 10:07 10:07 10:07 WBC RBC Hgb Hct MCV MCH MCHC RDW Plt Count MPV Immature Gran % (Auto) Neut % (Auto) Lymph % (Auto) [place] % (Auto) Eos % (Auto) Baso % (Auto) Lymph # (Auto) [place] # (Auto) Eos # (Auto) Baso # (Auto) Abs Immat Gran (auto) Absolute Neuts (auto) Absolute Nucleated RBC Nucleated RBC % (auto) 0.0 Smear Tech's Comments VERIFIED Sodium 140 139 (135-145) mmol/L Potassium 4.5 D 4.5 (3.3-5.1) mmol/L Chloride 106 (96-108) mmol/L Carbon Dioxide (22-29) mmol/L Anion Gap (12-20) BUN (9-16) mg/dL Creatinine (0.5-1.4) mg/dL Estim Creat Clear Calc Estimated GFR Random Glucose (60-115) mg/dL Lactic Acid (0.5-2.0) mmol/L Calcium (8.4-10.2) mg/dL Magnesium (1.6-2.6) mg/dL Total Bilirubin (0.0-1.0) mg/dL Direct Bilirubin (0.0-0.5) mg/dL AST (5-37) U/L ALT (0-40) U/L Alkaline Phosphatase (39-117) U/L C-Reactive Protein (< or = 0.50) mg/dL Total Protein (6.5-8.0) g/dL Albumin (3.5-5.0) g/dL Lipase (8-78) U/L 08/20/25 08/20/25 08/20/25 Range/Units 10: 10:07 10:07 WBC RBC Hgb Hct MCV MCH MCHC RDW Plt Count MPV Immature Gran % (Auto) Neut % (Auto) Lymph % (Auto) [place] % (Auto) Eos % (Auto) Baso % (Auto) Lymph # (Auto) [place] # (Auto) Eos # (Auto) Baso # (Auto) Abs Immat Gran (auto) Absolute Neuts (auto) Absolute Nucleated RBC Nucleated RBC % (auto) Smear Tech's Comments Sodium (135-145) mmol/L Potassium (3.3-5.1) mmol/L Chloride 105 (96-108) mmol/L Carbon Dioxide 28 27 (22-29) mmol/L Anion Gap 11 L 12 (12-20) BUN 11 (9-16) mg/dL Creatinine (0.5-1.4) mg/dL Estim Creat Clear Calc Estimated GFR Random Glucose (60-115) mg/dL Lactic Acid (0.5-2.0) mmol/L Calcium (8.4-10.2) mg/dL Magnesium (1.6-2.6) mg/dL Total Bilirubin (0.0-1.0) mg/dL Direct Bilirubin (0.0-0.5) mg/dL AST (5-37) U/L ALT (0-40) U/L Alkaline Phosphatase (39-117) U/L C-Reactive Protein (< or = 0.50) mg/dL Total Protein (6.5-8.0) g/dL Albumin (3.5-5.0) g/dL Lipase (8-78) U/L 08/20/25 08/20/25 08/20/25 Range/Units 10:07 10:07 10:07 WBC RBC Hgb Hct MCV MCH MCHC RDW Plt Count MPV Immature Gran % (Auto) Neut % (Auto) Lymph % (Auto) [place] % (Auto) Eos % (Auto) Baso % (Auto) Lymph # (Auto) [place] # (Auto) Eos # (Auto) Baso # (Auto) Abs Immat Gran (auto) Absolute Neuts (auto) Absolute Nucleated RBC Nucleated RBC % (auto) Smear Tech's Comments Sodium (135-145) mmol/L Potassium (3.3-5.1) mmol/L Chloride (96-108) mmol/L Carbon Dioxide (22-29) mmol/L Anion Gap (12-20) BUN 11 (9-16) mg/dL Creatinine 0.79 0.77 (0.5-1.4) mg/dL Estim Creat Clear Calc 97.8 100.4 Estimated GFR > 60 Random Glucose (60-115) mg/dL Lactic Acid (0.5-2.0) mmol/L Calcium (8.4-10.2) mg/dL Magnesium (1.6-2.6) mg/dL Total Bilirubin (0.0-1.0) mg/dL Direct Bilirubin (0.0-0.5) mg/dL AST (5-37) U/L ALT (0-40) U/L Alkaline Phosphatase (39-117) U/L C-Reactive Protein (< or = 0.50) mg/dL Total Protein (6.5-8.0) g/dL Albumin (3.5-5.0) g/dL Lipase (8-78) U/L 08/20/25 08/20/25 08/20/25 Range/Units 10:07 10: 10:07 WBC RBC Hgb Hct MCV MCH MCHC RDW Plt Count MPV Immature Gran % (Auto) Neut % (Auto) Lymph % (Auto) [place] % (Auto) Eos % (Auto) Baso % (Auto) Lymph # (Auto) [place] # (Auto) Eos # (Auto) Baso # (Auto) Abs Immat Gran (auto) Absolute Neuts (auto) Absolute Nucleated RBC Nucleated RBC % (auto) Smear Tech's Comments Sodium (135-145) mmol/L Potassium (3.3-5.1) mmol/L Chloride (96-108) mmol/L Carbon Dioxide (22-29) mmol/L Anion Gap (12-20) BUN (9-16) mg/dL Creatinine (0.5-1.4) mg/dL Estim Creat Clear Calc Estimated GFR > 60 Random Glucose 125 H 124 H (60-115) mg/dL Lactic Acid 0.7 (0.5-2.0) mmol/L Calcium 9.1 9.0 (8.4-10.2) mg/dL Magnesium 2.2 (1.6-2.6) mg/dL Total Bilirubin 0.4 (0.0-1.0) mg/dL Direct Bilirubin (0.0-0.5) mg/dL AST (5-37) U/L ALT (0-40) U/L Alkaline Phosphatase (39-117) U/L C-Reactive Protein (< or = 0.50) mg/dL Total Protein (6.5-8.0) g/dL Albumin (3.5-5.0) g/dL Lipase (8-78) U/L 08/20/25 08/20/25 08/20/25 Range/Units 10:07 10:07 10:07 WBC RBC Hgb Hct MCV MCH MCHC RDW Plt Count MPV Immature Gran % (Auto) Neut % (Auto) Lymph % (Auto) [place] % (Auto) Eos % (Auto) Baso % (Auto) Lymph # (Auto) [place] # (Auto) Eos # (Auto) Baso # (Auto) Abs Immat Gran (auto) Absolute Neuts (auto) Absolute Nucleated RBC Nucleated RBC % (auto) Smear Tech's Comments Sodium (135-145) mmol/L Potassium (3.3-5.1) mmol/L Chloride (96-108) mmol/L Carbon Dioxide (22-29) mmol/L Anion Gap (12-20) BUN (9-16) mg/dL Creatinine (0.5-1.4) mg/dL Estim Creat Clear Calc Estimated GFR Random Glucose (60-115) mg/dL Lactic Acid (0.5-2.0) mmol/L Calcium (8.4-10.2) mg/dL Magnesium (1.6-2.6) mg/dL Total Bilirubin 0.4 (0.0-1.0) mg/dL Direct Bilirubin 0.2 (0.0-0.5) mg/dL AST 25 19 (5-37) U/L ALT 42 H 42 H (0-40) U/L Alkaline Phosphatase 71 (39-117) U/L C-Reactive Protein (< or = 0.50) mg/dL Total Protein (6.5-8.0) g/dL Albumin (3.5-5.0) g/dL Lipase (8-78) U/L 08/20/25 08/20/25 08/20/25 Range/Units 10:07 10:07 10:07 WBC RBC Hgb Hct MCV MCH MCHC RDW Plt Count MPV Immature Gran % (Auto) Neut % (Auto) Lymph % (Auto) [place] % (Auto) Eos % (Auto) Baso % (Auto) Lymph # (Auto) [place] # (Auto) Eos # (Auto) Baso # (Auto) Abs Immat Gran (auto) Absolute Neuts (auto) Absolute Nucleated RBC Nucleated RBC % (auto) Smear Tech's Comments Sodium (135-145) mmol/L Potassium (3.3-5.1) mmol/L Chloride (96-108) mmol/L Carbon Dioxide (22-29) mmol/L Anion Gap (12-20) BUN (9-16) mg/dL Creatinine (0.5-1.4) mg/dL Estim Creat Clear Calc Estimated GFR Random Glucose (60-115) mg/dL Lactic Acid (0.5-2.0) mmol/L Calcium (8.4-10.2) mg/dL Magnesium (1.6-2.6) mg/dL Total Bilirubin (0.0-1.0) mg/dL Direct Bilirubin (0.0-0.5) mg/dL AST (5-37) U/L ALT (0-40) U/L Alkaline Phosphatase 72 (39-117) U/L C-Reactive Protein 5.67 H (< or = 0.50) mg/dL Total Protein 7.0 6.9 (6.5-8.0) g/dL Albumin 3.7 3.7 (3.5-5.0) g/dL Lipase 33 (8-78) U/L Independent Interpretation I performed an independent interpretation of an: CT Scan (PSBO, crohns) Radiology Impression Discussion of test interpretation with radiology: I have reviewed the radiologist's reading. External Record Review External record reviewed: Outpatient record Medications Administered Discontinued Medications Generic Name Dose Route Start Last Admin Trade Name Freq PRN Reason Stop Dose Admin Hydromorphone HCl 1 mg 08/20/25 09:56 08/20/25 10:13 Hydromorphone Hcl 1 Mg/Ml Syringe IVPUSH 08/20/25 09:57 1 mg ONCE ONE Administration Protocol Lactated Ringer's 1,000 mls @ 999 mls/hr 08/20/25 09:56 08/20/25 10:13 Lr IV 08/20/25 10:56 999 mls/hr .Q1H1M ONE Administration Piperacillin Sod/Tazobactam 50 mls @ 100 mls/hr 08/20/25 10:24 08/20/25 11:24 Sod 3.375 gm/ Sodium Chloride IV 08/20/25 10:53 Infused ONCE ONE Infusion Iohexol 100 ml 08/20/25 10:38 08/20/25 10:39 Iohexol 350 Mg/Ml 100 Ml Infus..Btl IV 08/20/25 10:39 85 ml ONCE ONE Administration Ondansetron HCl 4 mg 08/20/25 09:56 08/20/25 10:12 Ondansetron Hcl 4 Mg/2 Ml Vial IVPUSH 08/20/25 09:57 4 mg ONCE ONE Administration Discharge Plan Discharge Clinical Impression: Partial obstruction of small intestine Crohn's disease Qualifiers: Gastrointestinal tract location: small intestine Digestive disease complication type: unspecified complication Qualified Code(s): K50.019 - Crohn's disease of small intestine with unspecified complications Elevated WBC count Qualifiers: Leukocytosis type: unspecified Qualified Code(s): D72.829 - Elevated white blood cell count, unspecified Patient Disposition: Admitted As Inpatient Print Language: Somali
[2025-08-20 10:15] LABS: Hemoglobin 10.6 g/dl (14.0-18.0)
[2025-08-20 10:29] LABS: Alanine Aminotransferase 42 U/L (0-40); Albumin Level 3.7 g/dL (3.5-5.0); Alkaline Phosphatase 72 U/L (39-117); Anion Gap 12 (12-20); Aspartate Amino Transferase 19 U/L (5-37); Blood Urea Nitrogen 11 mg/dL (9-16); Calcium 9.0 mg/dL (8.4-10.2); Carbon Dioxide 27 mmol/L (22-29); Chloride 105 mmol/L (96-108); Creatinine Clr Calc Pharmacy 100.4; Estimated Glomerular Filt Rate > 60; Lipase 33 U/L (8-78); Magnesium 2.2 mg/dL (1.6-2.6); Potassium 4.5 mmol/L (3.3-5.1); Sodium 139 mmol/L (135-145); Total Protein 6.9 g/dL (6.5-8.0)
[2025-08-20 10:30] LABS: Alanine Aminotransferase 42 U/L (0-40); Albumin Level 3.7 g/dL (3.5-5.0); Alkaline Phosphatase 71 U/L (39-117); Anion Gap 11 (12-20); Aspartate Amino Transferase 25 U/L (5-37); Blood Urea Nitrogen 11 mg/dL (9-16); Calcium 9.1 mg/dL (8.4-10.2); Carbon Dioxide 28 mmol/L (22-29); Chloride 106 mmol/L (96-108); Creatinine Clr Calc Pharmacy 97.8; Estimated Glomerular Filt Rate > 60; Potassium 4.5 mmol/L (3.3-5.1); Sodium 140 mmol/L (135-145); Total Protein 7.0 g/dL (6.5-8.0)
[2025-08-20] MEDS: iohexoL 350 MG/ML 100 ML INFUS..BTL IV (10:39)
--- OUTSIDE RECORDS SUMMARY | 2025-08-20 11:44 | XMS_ITS | Clinical Summary ---
[facility] Organization [facility] Address [address] [place] [address] Care Team Providers Care Set Making Machine Operator Name Role Phone Kendall Shoemaker MD Primary Care Provider [phone] Surgical History Surgery Date Site/Laterality Comments COLONOSCOPY PROCEDURE:COLONOSCOPY UPPER GASTROINTESTINAL ENDOSCOPY PROCEDURE:UPPER GASTROINTESTINAL ENDOSCOPY UPPER GASTROINTESTINAL ENDOSCOPY 06/05/2020 N/A PROCEDURE:UPPER GASTROINTESTINAL ENDOSCOPY;COMMENT:Procedure: UPPER ENDOSCOPY-EGD/Biopsy; Surgeon: Robert Barber MD; Location: [facility]; Service: Gastroenterology; Laterality: N/A; COLONOSCOPY 06/05/2020 N/A PROCEDURE:COLONOSCOPY;COMMENT :Procedure: COLONOSCOPY B SF(to the terminal ileum)/Biopsy and polypectomy; Surgeon: Robert Barber MD; Location: [facility]; Service: Gastroenterology; Laterality: N/A; [...] of 3 - 19+ 3-dose series) 2001 HPV Vaccines (1 - 3-dose SCD M series) 2009 Depression Screening 11/15/2024 COVID-19 Vaccine (1 - 2023-2 5 season) 2025 Influenza Vaccine (#1) 2025 RSV Immunization Adult Patie nts (1 - 1-dose 75+ series) 2057 HIB Vaccines Aged Out No longer eligi [...] age to complete this topic Care Teams Set Making Machine Operator Relationship Specialty Start Date End Date Kendall Shoemaker MD [address] [place] [id number] PCP - General 08/12/23
--- OUTSIDE RECORDS SUMMARY | 2025-08-20 11:44 | XMS_ITS | Clinical Summary ---
Author Organization [address] Address [address] [place] [phone] Phone Care Team Providers Care Spot Man Name Role Phone Unavailable Primary Care Provider [...] 2002 Lipid disorder screening 2022 Influenza vaccine 06/15/2025 Covid-19 vaccine series ( - 2023- season) 2025 RSV Immunization (1 - 1-dose 75+ series) [...]
--- OUTSIDE RECORDS SUMMARY | 2025-08-20 11:44 | XMS_ITS | Clinical Summary ---
Author Organization [facility] Address [address] [place] [address] Care Team Providers Care Warp Knitter Helper Name Role Phone Kendall Shoemaker MD Primary Care Provider [phone] Allergies No known active allergies Medications Humira [...] Encounters Date Type Department Care Team Description 08/17/2025 9:30 AM EDT Office Visit Orthopedic [address] [phone] Juan Bustamante MD Occipital neuralgia of right side (Primary Dx); Spondylosis of cervical region without myelopathy or radiculopathy 07/27/2025 9:45 AM EDT Office Visit [facility] [address] [phone] Juan Bustamante MD 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); Occipital neuralgia of right side 07/19/2025 9:15 AM EDT [facility] [address] [phone] Yomi Anthony MD Cervical neuralgia (Primary Dx); [...] 9:30 AM EDT [facility] [address] [place] [address] Juan Bustamante MD [address] [place] [address] [address] [place] [address] Health Maintenance Due Date Last Done Comments Hepatitis C Virus Screening 1982 COVID-19 Vaccine (#1) 1987 Quantiferon Gold TB 1992 HIV Screening 1995 DTaP/Tdap/Td Vaccines (1 - Tdap) 2001 Hepatitis B Vaccines (1 of 3 - 19+ 3-dose series) 07/17 Pneumococcal Vaccine: Pediat saurav (0-5 Years) and At-Risk Patients (6 to 49 Years) (1 of 2 - PCV) 2001 Pap Smear (Ages 21-65) 2003 Influenza Vaccine 06/15/2025 HPV Vaccines (No Doses Required) Completed 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
--- OUTSIDE RECORDS SUMMARY | 2025-08-20 11:44 | XMS_ITS | Patient Health Record ---
Author Organization [facility] Address [address] [facility] [address] [place] [address] Care Team Providers Care Act Tutor Name Role Phone VEE KONG Primary Care Provider [phone] Allergies No Known Allergies Reason For [...] W/U Status Risk Notes Problem Crohn's disease (33717290) Crohn's disease, unspecified, with other complication (K50.918) Active confirmed Problem Anemia (158660969) Anemia, unspecified type (D64.9) Active confirmed Plan [...] Insured Coverage Start Date Coverage End Date [facility] [address] [place] [phone] [id number] Talon Lazaro Self - patient is the insured Medical (General) History Medical History History ICD Code Raynaud's disease Crohn's disease and follows up with Dr. Licona Iron deficiency anemia
--- OUTSIDE RECORDS SUMMARY | 2025-08-20 11:44 | XMS_ITS | Encounter Summary ---
Author Organization [facility] Address [address] [place] [address] Care Team Providers Care Mental Health Consultant Name Role Phone Pcp, No Primary Care Provider Kendall Navas MD Primary Care Provider Encounter Details Date Type Department Care Team (Late st Contact Info) Description 12/14/2024 Scanned Document Orthopedic [address] [phone] Juan Bustamante MD [address] [facility] [address] [place] [address] Social History Tobacco Use Types Packs/Day Years [...] 09/07/2025 9:30 AM EDT Office Visit Orthopedic [facility] [address] [facility] [address] [place] [phone] Juan Bustamante MD [address] [facility] [address] [place] [phone] documented as of this encounter Visit Diagnoses Not on filedocumented in this encounter Care Teams Mental Health Consultant Relationship Specialty Start Date End Date Pcp, No PCP - General General Medicine 06/12/20 08/16/25 Kendall Shoemaker MD [address] [place] [address] PCP - General Internal Medicine 08/17/25 documented as of this encounter
--- OUTSIDE RECORDS SUMMARY | 2025-08-20 11:44 | XMS_ITS | Clinical Summary ---
Author Organization [facility] Address [address] [place], [place] [id number] Care Team Providers Care Undraped Artist Model Name Role Phone Kendall Shoemaker MD Primary Care Provider [phone] Allergies No known active allergies Medications Medication [...] Advance Directives For more information, please contact: [phone] Latest Code Status on File Code Status Date Activated Date Inactivated Comments Full Code 06/05/2020 1:41 PM 06/05/2020 8:31 PM This code status was ascertained in the following way: discussion with patient . Care Teams Undraped Artist Model Relationship Specialty Start Date End Date Kendall Shoemaker MD [address] [place] [address] PCP - General Internal Medicine 08/12/23
--- OUTSIDE RECORDS SUMMARY | 2025-08-20 11:44 | XMS_ITS | Encounter Summary ---
Author Organization [facility] Address [address] [place] [address] Care Team Providers Care Stone Repairer Name Role Phone Pcp, No Primary Care Provider Kendall Navas MD Primary Care Provider [phone] Encounter Details Date Type Department Care Team (Late st Contact Info) Description 05/13/2020 Scanned Document [address] [phone] Gastroenterology, Scan Social History Tobacco Use Types [...] EDT [facility] Visit [facility] [address] [place] [phone] Juan Bustamante MD [address] [facility] [address] [place] [address] documented as of this encounter Procedures Procedure Name Priority Date/Time Associated Diagnosis Comments PATHOLOGY GENERAL 06/05/2020 documented in this encounter Results * PATHOLOGY GENERAL (06/05/2020) 06/05/2020 us Scan Gastroenterology [facility] HX PATH PROCEDURES Mook tank Result - Final documented in this encounter Visit Diagnoses Not on filedocumented in this encounter Care Teams Stone Repairer Relationship Specialty Start Date End Date Pcp, No PCP - General General Medicine 06/12/20 08/16/25 Kendall Shoemaker MD [address] [place] [address] PCP - General Internal Medicine 08/17/25 documented as of this encounter
[2025-08-20] MEDS: Lactated Ringers 1,000 ML 100 ML IVCONT ×2 (11:55→23:28)
--- NOTE | 2025-08-20 12:09 | PM.IMHP ---
History of Present Illness Date of Service: 08/20/25 Attending physician on admission: Francy Harris Chief Complaint: Abd pain Pt is a 45-year-old male with a PMH significant for?Crohn's disease on [facility] follows with Dr. Neumann who presents to the ED with abdominal pain radiating to the back and diarrhea x3-4 days. Pt reports last week had URI type symptoms with sore throat, cough, and nasal congestion. Those symptoms resolved, but on Wednesday developed abdominal pain. Pt was already on prednisone taper for previous Crohn's flare, currently at 15 mg daily. On Wednesday pt transitioned to a liquid diet, but on Wednesday symptoms worsen and pain began radiating to the back. Has been having 4+ episodes of liquid diarrhea daily with last episode of diarrhea this morning. Continues to pass gas. Pt called GI office and was told to come to the hospital for imaging and possible admission. Denies nausea, vomiting. No chest pain/pressure, palpitations. Denies shortness or breath or difficulty breathing. In the ED pt's vitals were stable and WNL. Labs were significant for leukocytosis 18.7, ALT 42, and CRP 5.67. CTA of abdomen/pelvis showed active Crohn's disease worse than prior and with question of low-grade partial SBO. No evidence of abscess. Pt was treated in the ED with ondansetron, Dilaudid, IVF, Solu-Medrol 60 mg IV, and Zosyn. Pt is admitted to the hospital for treatment and further evaluation of acute Crohn's flare with question of possible SBO. Review of Systems Review of Systems: Negative except for that which is stated in the HPI. [facility] Medical History Crohn's disease Surgical History History of esophagogastroduodenoscopy (EGD) Hx of colonoscopy Social History Household Members: Family Alcohol intake: former Patient Tobacco Use Status: Never used Tobacco Advance Directives: No Advance Directives Information Provided: Yes Meds Allergies Allergy/AdvReac Type Severity Reaction Status Date / Time No Known Allergies Allergy Verified 08/20/25 09:37 Active Medications: Current Medications Lactated Ringer's (Lr) 1,000 mls @ 100 mls/hr IVCONT .Q10H MARILIA Last Admin: 08/20/25 11:55 Dose: 100 mls/hr Home Medications ?Medication ?Instructions ?Recorded ?Confirmed ?Last Taken ?Type multivitamin 1 tab PO DAILY 08/20/25 08/20/25 08/19/25 History prednisone 5 mg tablet See Taper PO DAILY 08/20/25 08/20/25 08/19/25 History vitamin B complex 1 tab PO DAILY 08/20/25 08/20/25 08/19/25 History Physical Exam Vital Signs and Narrative: Vital Signs: Last Vital Signs Temp 98.0 F 08/20/25 09:31 Pulse 76 08/20/25 09:31 Resp 16 08/20/25 10:13 BP 125/74 08/20/25 09:31 Pulse Ox 100 08/20/25 09:31 O2 Del Method Room Air 08/20/25 09:31 BMI result Body Mass Index 20.4 General: AOx3, no acute distress Resp: CTA bilaterally CVS: S1, S2, RRR GI: +BS, no distention, with suprapubic tenderness Skin: Warm, dry Neuro: Cranial nerves II-XII grossly intact bilaterally. Motor grossly intact bilaterally Extremities: No edema Psych: Appropriate affect Results Labs 08/20/25 10:07 08/20/25 10:07 Labs: Laboratory Results - last 24 hr 08/20/25 08/20/25 08/20/25 10:07 10:07 10:07 MCV Cancelled 65.2 L MCH Cancelled 20.0 L MCHC Cancelled RDW Plt Count MPV Immature Gran % (Auto) Neut % (Auto) Lymph % (Auto) [place] % (Auto) Eos % (Auto) Baso % (Auto) Lymph # (Auto) [place] # (Auto) Eos # (Auto) Baso # (Auto) Abs Immat Gran (auto) Absolute Neuts (auto) Absolute Nucleated RBC Nucleated RBC % (auto) Smear Tech's Comments Anion Gap Estim Creat Clear Calc Estimated GFR Random Glucose Lactic Acid Calcium Magnesium Total Bilirubin Direct Bilirubin AST ALT Alkaline Phosphatase C-Reactive Protein Total Protein Albumin Lipase 08/20/25 08/20/25 08/20/25 10:07 10:07 10:07 MCV MCH MCHC 30.7 L RDW Cancelled 18.6 H Plt Count Cancelled 515 H MPV Cancelled Immature Gran % (Auto) Neut % (Auto) Lymph % (Auto) [place] % (Auto) Eos % (Auto) Baso % (Auto) Lymph # (Auto) [place] # (Auto) Eos # (Auto) Baso # (Auto) Abs Immat Gran (auto) Absolute Neuts (auto) Absolute Nucleated RBC Nucleated RBC % (auto) Smear Tech's Comments Anion Gap Estim Creat Clear Calc Estimated GFR Random Glucose Lactic Acid Calcium Magnesium Total Bilirubin Direct Bilirubin AST ALT Alkaline Phosphatase C-Reactive Protein Total Protein Albumin Lipase 08/20/25 08/20/25 08/20/25 10:07 10:07 10:07 MCV MCH MCHC RDW Plt Count MPV 8.7 L Immature Gran % (Auto) Cancelled 1.0 H Neut % (Auto) Cancelled 92.7 H Lymph % (Auto) Cancelled [place] % (Auto) Eos % (Auto) Baso % (Auto) Lymph # (Auto) [place] # (Auto) Eos # (Auto) Baso # (Auto) Abs Immat Gran (auto) Absolute Neuts (auto) Absolute Nucleated RBC Nucleated RBC % (auto) Smear Tech's Comments Anion Gap Estim Creat Clear Calc Estimated GFR Random Glucose Lactic Acid Calcium Magnesium Total Bilirubin Direct Bilirubin AST ALT Alkaline Phosphatase C-Reactive Protein Total Protein Albumin Lipase 08/20/25 08/20/25 08/20/25 10:07 10:07 10:07 MCV MCH MCHC RDW Plt Count MPV Immature Gran % (Auto) Neut % (Auto) Lymph % (Auto) 4.4 L [place] % (Auto) Cancelled 1.7 L Eos % (Auto) Cancelled 0.0 Baso % (Auto) Cancelled Lymph # (Auto) [place] # (Auto) Eos # (Auto) Baso # (Auto) Abs Immat Gran (auto) Absolute Neuts (auto) Absolute Nucleated RBC Nucleated RBC % (auto) Smear Tech's Comments Anion Gap Estim Creat Clear Calc Estimated GFR Random Glucose Lactic Acid Calcium Magnesium Total Bilirubin Direct Bilirubin AST ALT Alkaline Phosphatase C-Reactive Protein Total Protein Albumin Lipase 08/20/25 08/20/25 08/20/25 10:07 10:07 10:07 MCV MCH MCHC RDW Plt Count MPV Immature Gran % (Auto) Neut % (Auto) Lymph % (Auto) [place] % (Auto) Eos % (Auto) Baso % (Auto) 0.2 Lymph # (Auto) Cancelled 0.8 L [place] # (Auto) Cancelled 0.3 Eos # (Auto) Cancelled Baso # (Auto) Abs Immat Gran (auto) Absolute Neuts (auto) Absolute Nucleated RBC Nucleated RBC % (auto) Smear Tech's Comments Anion Gap Estim Creat Clear Calc Estimated GFR Random Glucose Lactic Acid Calcium Magnesium Total Bilirubin Direct Bilirubin AST ALT Alkaline Phosphatase C-Reactive Protein Total Protein Albumin Lipase 08/20/25 08/20/25 08/20/25 10:07 10:07 10:07 MCV MCH MCHC RDW Plt Count MPV Immature Gran % (Auto) Neut % (Auto) Lymph % (Auto) [place] % (Auto) Eos % (Auto) Baso % (Auto) Lymph # (Auto) [place] # (Auto) Eos # (Auto) 0.0 Baso # (Auto) Cancelled 0.0 Abs Immat Gran (auto) Cancelled 0.18 H Absolute Neuts (auto) Cancelled Absolute Nucleated RBC Nucleated RBC % (auto) Smear Tech's Comments Anion Gap Estim Creat Clear Calc Estimated GFR Random Glucose Lactic Acid Calcium Magnesium Total Bilirubin Direct Bilirubin AST ALT Alkaline Phosphatase C-Reactive Protein Total Protein Albumin Lipase 08/20/25 08/20/25 08/20/25 10:07 10:07 10:07 MCV MCH MCHC RDW Plt Count MPV Immature Gran % (Auto) Neut % (Auto) Lymph % (Auto) [place] % (Auto) Eos % (Auto) Baso % (Auto) Lymph # (Auto) [place] # (Auto) Eos # (Auto) Baso # (Auto) Abs Immat Gran (auto) Absolute Neuts (auto) 17.3 H Absolute Nucleated RBC Cancelled 0.000 Nucleated RBC % (auto) Cancelled 0.0 Smear Tech's Comments VERIFIED Anion Gap 11 L Estim Creat Clear Calc Estimated GFR Random Glucose Lactic Acid Calcium Magnesium Total Bilirubin Direct Bilirubin AST ALT Alkaline Phosphatase C-Reactive Protein Total Protein Albumin Lipase 08/20/25 08/20/25 08/20/25 10:07 10:07 10:07 MCV MCH MCHC RDW Plt Count MPV Immature Gran % (Auto) Neut % (Auto) Lymph % (Auto) [place] % (Auto) Eos % (Auto) Baso % (Auto) Lymph # (Auto) [place] # (Auto) Eos # (Auto) Baso # (Auto) Abs Immat Gran (auto) Absolute Neuts (auto) Absolute Nucleated RBC Nucleated RBC % (auto) Smear Tech's Comments Anion Gap 12 Estim Creat Clear Calc 97.8 100.4 Estimated GFR > 60 > 60 Random Glucose 125 H Lactic Acid Calcium Magnesium Total Bilirubin Direct Bilirubin AST ALT Alkaline Phosphatase C-Reactive Protein Total Protein Albumin Lipase 08/20/25 08/20/25 08/20/25 10:07 10:07 10:07 MCV MCH MCHC RDW Plt Count MPV Immature Gran % (Auto) Neut % (Auto) Lymph % (Auto) [place] % (Auto) Eos % (Auto) Baso % (Auto) Lymph # (Auto) [place] # (Auto) Eos # (Auto) Baso # (Auto) Abs Immat Gran (auto) Absolute Neuts (auto) Absolute Nucleated RBC Nucleated RBC % (auto) Smear Tech's Comments Anion Gap Estim Creat Clear Calc Estimated GFR Random Glucose 124 H Lactic Acid 0.7 Calcium 9.1 9.0 Magnesium 2.2 Total Bilirubin 0.4 0.4 Direct Bilirubin 0.2 AST 25 ALT Alkaline Phosphatase C-Reactive Protein Total Protein Albumin Lipase 08/20/25 08/20/25 08/20/25 10:07 10:07 10:07 MCV MCH MCHC RDW Plt Count MPV Immature Gran % (Auto) Neut % (Auto) Lymph % (Auto) [place] % (Auto) Eos % (Auto) Baso % (Auto) Lymph # (Auto) [place] # (Auto) Eos # (Auto) Baso # (Auto) Abs Immat Gran (auto) Absolute Neuts (auto) Absolute Nucleated RBC Nucleated RBC % (auto) Smear Tech's Comments Anion Gap Estim Creat Clear Calc Estimated GFR Random Glucose Lactic Acid Calcium Magnesium Total Bilirubin Direct Bilirubin AST 19 ALT 42 H 42 H Alkaline Phosphatase 71 72 C-Reactive Protein 5.67 H Total Protein 7.0 Albumin Lipase 08/20/25 08/20/25 10:07 10:07 MCV MCH MCHC RDW Plt Count MPV Immature Gran % (Auto) Neut % (Auto) Lymph % (Auto) [place] % (Auto) Eos % (Auto) Baso % (Auto) Lymph # (Auto) [place] # (Auto) Eos # (Auto) Baso # (Auto) Abs Immat Gran (auto) Absolute Neuts (auto) Absolute Nucleated RBC Nucleated RBC % (auto) Smear Tech's Comments Anion Gap Estim Creat Clear Calc Estimated GFR Random Glucose Lactic Acid Calcium Magnesium Total Bilirubin Direct Bilirubin AST ALT Alkaline Phosphatase C-Reactive Protein Total Protein 6.9 Albumin 3.7 3.7 Lipase 33 Imaging Radiologist's Impressions: Impressions Abdomen/Pelvis CT 08/20/25 10:36 IMPRESSION: Active Crohn's disease: There are short segments of small bowel wall thickening with hyperemia with probable pseudosacculations. There is an 8 cm segment of small bowel cephalad to the bladder with an air-fluid level and early signs of fecalized content raising question of the low-grade partial small bowel obstruction. Area in the mid abdomen described on the prior is a possible abscess is no longer evident. Segments of small bowel wall thickening appears more prominent on the current study suggesting progression of disease. Cholelithiasis. Fleischner guidelines were followed. Electronically signed by: Raza Driscoll MD 08/20/2025 11:14 AM EDT RP Assessment and Plan (1) Crohn's disease: Qualifiers: Digestive disease complication type: unspecified complication Gastrointestinal tract location: small intestine Qualified Code(s): K50.019 - Crohn's disease of small intestine with unspecified complications Status: Acute Plan Pt is a 45-year-old male with a PMH significant for?Crohn's disease on [facility] follows with Dr. Neumann who presents to the ED with abdominal pain radiating to the back and diarrhea x3-4 days. Pt is admitted to the hospital for treatment and further evaluation of acute Crohn's flare with question of possible SBO. Acute Crohn's flare Abd pain and non-bloody diarrhea x4 days CT abd/pelvis worse than prior Solu-Medrol 60 mg IV daily Analgesics for pain management Clear liquid diet, advance as tolerated GI consult, follows with Dr. Neumann Question of SBO As seen on imaging Seems less likely as pt without N/V Genearal surgery consult Clear liquid diet for now Full Code Attending:?Dr. Harris DVT Prophylaxis: Lovenox Pt will require a hospitalization of at least two nights for treatment of?acute Crohn's flare with question of SBO that requires IV steroids, IV analgesics, and specialist consult with both GI and General surgery. Quality Stroke Does the patient have a stroke diagnosis?: No VTE Prior VTE?: No VTE Risk Level:: Medical - moderate - high VTE Device Contraindication: Treatment Not Indicated VTE Drug Contraindication: N/A - Med Ordered
--- NOTE | 2025-08-20 12:11 | P.CNGI_ITS ---
History of Present Illness Data of Consult Service Date: 08/20/25 Requesting physician: Kaia Hunter Primary Care Provider: Destiney Shoemaker MD [facility] Reason for consult: Crohns flare SBO This is a 45y.o M with PMH of crohns disease of small intestine that was diagnosed in his late teens in [facility] on Skyrizi who is admitted to the hospital for crohns flare. Patient well known to me for small-bowel Crohn's. Has been difficult to manage with medical therapy so far Humira --> Ustekinumab (secondary non-response) --> Rizankizumab (started 03/2025). Has been having ongoing symptoms for the last 3 months at the very least. Most recent CT June 2025 suspicious for intra-abdominal abscess. He was advised to go to emergency room, was admitted in [facility] for 2 days. Seen by Colorectal surgery as well. Low suspicion for abscess per their assessment. Was started on high dose prednisone course. He is actually still on the taper from that admission, was taking 15 mg p.o. daily. Over the weekend, developed sudden onset of lower abdominal pain that radiated to his back associated with increased abdominal bloating, low volume of liquid stool and increased flatulence. No fevers, slight chills. Of note, patient recently recovered from a flu-like illness the week before. Due to sudden onset of symptoms, patient presented to the emergency room where he had a CT scan that shows worsening small-bowel disease with possible partial SBO. Terminal ileum appears normal. Last dose of Skyrizi was 07/31. IBD history: Type: Crohns disease, stricturing type Location: Small intestine (jejunum, ileum) Age/year of diagnosis: 19 y.o / 1997 Previous medications: 6-MP (x8 years), Naltrexone x 1 year, Humira 40mg s/c q2w, UST 03/2024-06/2025 Steroids: [place] [facility] [place] - currently on 15 mg taper dosing. Entocort EC on and off x years for flares. Most recent use was earlier this year. Current medications: Skyrizi started 03/28/25, increased to q6w 08/03/25 based on TDM. Prev surgeries: None Recent endoscopy: EGD/colonoscopy 2023: Jejunitis, proctoileitis. Stenosed IC valve Colonoscopy 2020: active crohns in T.I. No CD in colon. Colonoscopy 2016: Normal T.I. Normal colon including rectum. VCE 2016: Jejunal and ileal ulcers with erythema. EIM: Joint pains primarily in small joints of the hands Radiology: 2024 CTE: Active Crohn's involving multiple small bowel loops in the pelvis and left mid abdomen. It is likely not be excluded. 1.7 cm fluid collection in left mid abdomen question abscess. 2016 MRE: Distal small bowel stricture of 3 cm. 2013 DEXA: normal Review of Systems 2 Review of Systems: Yes all other systems are reviewed and are negative PMFSH Past Medical History Medical History Crohn's disease Surgical History Surgical History History of esophagogastroduodenoscopy (EGD) Hx of colonoscopy Social History Social History Household Members: Family Alcohol intake: former Patient Tobacco Use Status: Never used Tobacco Advance Directives: No Advance Directives Information Provided: Yes Meds Allergies Allergy/AdvReac Type Severity Reaction Status Date / Time No Known Allergies Allergy Verified 08/20/25 09:37 Active Medications: Current Medications Lactated Ringer's (Lr) 1,000 mls @ 100 mls/hr IVCONT .Q10H MARILIA Last Admin: 08/20/25 11:55 Dose: 100 mls/hr Home Medications ?Medication ?Instructions ?Recorded ?Confirmed ?Last Taken ?Type multivitamin 1 tab PO DAILY 08/20/2505/0908/19/25 History prednisone 5 mg tablet See Taper PO DAILY 08/20/25 08/20/25 08/19/25 History vitamin B complex 1 tab PO DAILY 08/20/2505/0908/19/25 History Physical Exam 2 Exam: Exam: Middle aged male Undernourished Nonicteric Abd soft, tender in suprapubic region, nondistended No MILDRED Vital Signs: Vital Signs: Last Vital Signs Temp 98.0 F 08/20/25 09:31 Pulse 76 08/20/25 09:31 Resp 16 08/20/25 10:13 BP 125/74 08/20/25 09:31 Pulse Ox 100 08/20/25 09:31 O2 Del Method Room Air 08/20/25 09:31 BMI result Body Mass Index 20.4 Results Labs 08/20/25 10:07 08/20/25 10:07 Labs: Short CBC 08/20/25 08/20/25 08/20/25 Range/Units 10:07 10:07 10:07 WBC Cancelled 18.7 H Hgb Cancelled 10.6 L Hct Cancelled Plt Count 08/20/25 08/20/25 Range/Units 10:07 10:07 WBC Hgb Hct 34.5 L Plt Count Cancelled 515 H BMP 08/20/25 08/20/25 08/20/25 10:07 10:07 10:07 Sodium 140 139 Potassium 4.5 D 4.5 Chloride 106 Carbon Dioxide BUN Creatinine Calcium 08/20/25 08/20/25 08/20/25 10:07 10:07 10:07 Sodium Potassium Chloride 105 Carbon Dioxide 28 27 BUN 11 11 Creatinine 0.79 Calcium 08/20/25 08/20/25 10:07 10:07 Sodium Potassium Chloride Carbon Dioxide BUN Creatinine 0.77 Calcium 9.1 9.0 Liver Function 08/20/25 08/20/25 08/20/25 Range/Units 10:07 10:07 10:07 Total Bilirubin 0.4 0.4 (0.0-1.0) mg/dL Direct Bilirubin 0.2 (0.0-0.5) mg/dL AST 25 19 (5-37) U/L ALT 42 H (0-40) U/L Alkaline Phosphatase (39-117) U/L Albumin (3.5-5.0) g/dL 08/20/25 08/20/25 08/20/25 Range/Units 10:07 10:07 10:07 Total Bilirubin (0.0-1.0) mg/dL Direct Bilirubin (0.0-0.5) mg/dL AST (5-37) U/L ALT 42 H (0-40) U/L Alkaline Phosphatase 71 72 (39-117) U/L Albumin 3.7 3.7 (3.5-5.0) g/dL Assessment and Plan (1) Crohn's disease: Qualifiers: Digestive disease complication type: unspecified complication G astrointestinal tract location: small intestine Qualified Code(s): K50.019 - Crohn's disease of small intestine with unspecified complications Status: Acute (2) Small bowel stricture: Status: Acute (3) Small bowel disease: Status: Acute (4) Partial obstruction of small intestine: Status: Acute (5) Anemia: Status: Acute (6) Iron deficiency: Status: Acute Plan Patient with high-risk penetrating Crohn's disease of small bowel. Currently with partial SBO likely 2/2 inflammatory process, mechanical/anatomical obstruction less likely. Unfortunately, has demonstrated poor response to anti-TNFs and interleukin therapy - albeit, have not gotten to Skyrizi to q6w schedule yet. Last dose 07/31 - next dose due 09/11 (first dose on q6w schedule). Plan: - Keep NPO - Check CRP, fecal calpro - Would recommend methylpred 60 IV x 3 days - Daily CBC and CRP to monitor response - Serial abd exam - Surgical consultation - If has clinical improvement will switch to prednisone 60 PO x 14 days with slow taper of 10 mg per week. - Would also recommend Skyrizi q4w in that case - Venofer 200 mg IV once while pt is admitted Thank you for allowing me to participate in his care. Please do not hesitate to reach out for any questions or concerns Procedures Date of Service Date of Service: 08/20/25
--- NOTE | 2025-08-20 13:28 | PHA.MEDREC ---
Addendum entered by Dakota Adams PharmD 08/20/25 13:32: reviewed Original Note: Pharmacy Consult ? Medication Reconciliation Pharmacy has completed the medication reconciliation. Spoke with pt and he confirmed his medications. Pt confirmed hes taking Skyrizi once every 8 weeks; pt got it last 07/31 and is due for it 08/28. Pt also confirmed he is on a Prednisone 5mg taper regimen and pt is taking 3 tabs (15mg) until Wednesday then he is taking 2 tabs (10mg) for 7 days then 1 tab (5mg) for 7 days and then he is done.
[2025-08-20 13:50] VITALS: BP 113/69; PULSE 70; RESP 18; TEMP 36.7; O2SAT 97
[2025-08-20 14:05] LABS: Appearance Urine Clear; Glucose Urine UA Negative (Negative); PH 7.5 (5.0-9.0); Specific Gravity - Urine >= 1.030 (1.005-1.025)
--- NOTE | 2025-08-20 14:31 | PM.CNGS ---
History of Present Illness Consult details Consult date: 08/20/25 <Talon Cummins PA-C - Last Filed: 08/20/25 14:46> Reason for consult: other (? Small-bowel obstruction, Crohn's) <Talon Cummins PA-C - Last Filed: 08/20/25 14:46> Narrative: 45-year-old male with a history of Crohn's currently on a steroid taper, on Skyrizi, following Dr. Neumann with GI presented to the ED with abdominal pain that radiated to the back for the last 3 or 4 days. Additionally he has had multiple episodes of diarrhea daily. He has had multiple flares, states that this flare has been present for a year plus at this point. Has tried multiple biologics, various steroid tapers. He was seen by Dr. Neumann, who recommend he get a 2nd opinion from another [employer] to try and get these flares under control. He plans to do this. Dr. Neumann had recommended that eventually he will likely need surgery to remove part of the bowel once the inflammation has reduced. He had a CT in the ED showing active Crohn's disease with a question of partial SBO. Additionally there was leukocytosis 18.7, elevated inflammatory markers, CRP 5.6 he was started on pain control, IV fluids, Solu-Medrol IV, and Zosyn. He states he transitioned himself to a clear liquid diet over the weekend because he is familiar with these flare-ups and knows that when he is here in pain he should reduce his oral intake to clears. Currently his pain is improved a bit, although he has had Dilaudid in the ED. He denies nausea or vomiting, bloating, fevers or chills. Currently feels well. Reports passing gas just prior to evaluation. He denies any abdominal surgical history. Very occasional alcohol use. Denies smoking or other drug use. Denies allergies. Current medications include Skyrizi, daily vitamin-B, current prednisone taper. <Talon Cummins PA-C - Last Filed: 08/20/25 14:46> Review of Systems Review of Systems: Yes all other systems are reviewed and are negative <Talon Cummins PA-C - Last Filed: 08/20/25 14:46> [facility] Past Medical History Medical History: Medical History Crohn's disease <Talon Cummins PA-C - Last Filed: 08/20/25 14:46> Surgical History Surgical History: Surgical History History of esophagogastroduodenoscopy (EGD) Hx of colonoscopy <Talon Cummins PA-C - Last Filed: 08/20/25 14:46> Social History Social History: Social History Household Members: Family Alcohol intake: former Patient Tobacco Use Status: Never used Tobacco Advance Directives: No Advance Directives Information Provided: Yes <Talon Cummins PA-C - Last Filed: 08/20/25 14:46> Meds Allergies/Adverse reactions: Allergies Allergy/AdvReac Type Severity Reaction Status Date / Time No Known Allergies Allergy Verified 08/20/25 09:37 <Talon Cummins PA-C - Last Filed: 08/20/25 14:46> Active Medications: Current Medications Acetaminophen (Acetaminophen 325 Mg Tablet) 650 mg PO Q6H PRN PRN Reason: Pain, Mild 1-3,fever,headache Calcium Carbonate (Calcium Carbonate 750 Mg Tab.Chew) 750 mg PO Q4H PRN PRN Reason: Heartburn Hydromorphone HCl (Hydromorphone Hcl 1 Mg/Ml Syringe) 1 mg IVPUSH Q4H PRN; Protocol PRN Reason: Pain, Severe (Pain Scale 7-10) Lactated Ringer's (Lr) 1,000 mls @ 100 mls/hr IVCONT .Q10H [facility] Last Admin: 08/20/25 11:55 Dose: 100 mls/hr Piperacillin Sod/Tazobactam (Sod 3.375 gm/ Sodium Chloride) 50 mls @ 100 mls/hr IV Q6H [facility] Lactated Ringer's (Lr) 1,000 mls @ 100 mls/hr IVCONT .Q10H [facility] Last Admin: 08/20/25 13:36 Dose: Not Given Magnesium Hydroxide (Milk Of Magnesia 30 Ml Oral.Susp) 30 ml PO DAILY PRN PRN Reason: Constipation Melatonin (Melatonin 3 Mg Tablet) 6 mg PO BEDTIME PRN PRN Reason: Insomnia Methylprednisolone Sodium Succinate (Methylprednisolone Sod Succ 125 Mg/2 Ml Vial) 60 mg IVPUSH DAILY [facility] Multivitamins/Vitamin C (Multivitamin Tablet) 1 tab PO DAILY [facility] Sodium Chloride (0.9 % Sodium Chloride Flush 3 Ml Syringe) 3 ml IVFLUSH QSHIFT [facility] Trazodone HCl (Trazodone Hcl 25 Mg Halftab) 25 mg PO BEDTIME PRN PRN Reason: Insomnia <YVONNE Marshall Last Filed: 08/20/25 14:46> Home medications: Home Medications ?Medication ?Instructions ?Recorded ?Confirmed ?Last Taken ?Type multivitamin 1 tab PO DAILY 08/20/25 08/20/25 08/19/25 History prednisone 5 mg tablet See Taper PO DAILY 08/20/25 08/20/25 08/19/25 History vitamin B complex 1 tab PO DAILY 08/20/25 08/20/25 08/19/25 History <YVONNE Marshall Last Filed: 08/20/25 14:46> Physical Exam Vital Signs: Vital Signs: Last Vital Signs Temp 98.1 F 08/20/25 13:50 Pulse 70 08/20/25 13:50 Resp 18 08/20/25 13:50 BP 113/69 08/20/25 13:50 Pulse Ox 97 08/20/25 13:50 O2 Del Method Room Air 08/20/25 13:50 BMI result Body Mass Index 20.4 <YVONNE Marshall Last Filed: 08/20/25 14:46> Const: General: comfortable and no acute distress <YVONNE Marshall Last Filed: 08/20/25 14:46> Orientation/consciousness: patient oriented x3 <YVONNE Marshall Last Filed: 08/20/25 14:46> Resp: Effort & Inspection: normal respiratory effort and able to speak in complete sentences <YVONNE Marshall Last Filed: 08/20/25 14:46> GI: Inspection: No distended <YVONNE Marshall Last Filed: 08/20/25 14:46> Palpation (GI): Soft to palpation, Tenderness to palpation present (GI) in the LLQ and suprapubicly and no guarding <YVONNE Marshall Last Filed: 08/20/25 14:46> Percussion: Yes normal to percussion <Talon Cummins PA-C - Last Filed: 08/20/25 14:46> Neuro: General: patient oriented x3 <YVONNE Marshall Last Filed: 08/20/25 14:46> Results Labs Result diagrams: 08/20/25 10:07 08/20/25 10:07 <YVONNE Marshall Last Filed: 08/20/25 14:46> Labs: Abnormal lab results 08/20/25 08/20/25 08/20/25 Range/Units 10:07 10:07 10:07 WBC 18.7 H (4.8-10.8) X10*3/uL Hgb 10.6 L (14.0-18.0) g/dl Hct 34.5 L (42.0-52.0) % MCV 65.2 L (80.0-98.0) fL MCH 20.0 L (27.0-33.0) pg MCHC 30.7 L (31.0-36.0) g/dl RDW 18.6 H (11.0-16.0) % Plt Count 515 H (160-400) X10*3/uL MPV 8.7 L (9.4-12.4) fL Immature Gran % (Auto) 1.0 H (0.0-0.4) % Neut % (Auto) 92.7 H (45-73) % Lymph % (Auto) 4.4 L (20-40) % [place] % (Auto) 1.7 L (2-11) % Lymph # (Auto) 0.8 L (1.2-4.9) X10*3/uL Abs Immat Gran (auto) 0.18 H (0.00-0.03) X10*3/uL Absolute Neuts (auto) 17.3 H (2.0-8.3) x10*3/uL Anion Gap 11 L (12-20) Random Glucose 125 H 124 H (60-115) mg/dL ALT 42 H 42 H (0-40) U/L C-Reactive Protein 5.67 H (< or = 0.50) mg/dL Ur Specific [place] (1.005-1.025) 08/20/25 Range/Units 13:50 WBC (4.8-10.8) X10*3/uL Hgb (14.0-18.0) g/dl Hct (42.0-52.0) % MCV (80.0-98.0) fL MCH (27.0-33.0) pg MCHC (31.0-36.0) g/dl RDW (11.0-16.0) % Plt Count (160-400) X10*3/uL MPV (9.4-12.4) fL Immature Gran % (Auto) (0.0-0.4) % Neut % (Auto) (45-73) % Lymph % (Auto) (20-40) % [place] % (Auto) (2-11) % Lymph # (Auto) (1.2-4.9) X10*3/uL Abs Immat Gran (auto) (0.00-0.03) X10*3/uL Absolute Neuts (auto) (2.0-8.3) x10*3/uL Anion Gap (12-20) Random Glucose (60-115) mg/dL ALT (0-40) U/L C-Reactive Protein (< or = 0.50) mg/dL Ur Specific [place] >= 1.030 H (1.005-1.025) Short CBC 08/20/25 08/20/25 08/20/25 Range/Units 10: 10:07 10:07 WBC Cancelled 18.7 H Hgb Cancelled 10.6 L Hct Cancelled Plt Count 08/20/25 08/20/25 Range/Units 10:07 10:07 WBC Hgb Hct 34.5 L Plt Count Cancelled 515 H BMP 08/20/25 08/20/25 08/20/25 10:07 10:07 10:07 Sodium 140 139 Potassium 4.5 D 4.5 Chloride 106 Carbon Dioxide BUN Creatinine Calcium 08/20/25 08/20/25 08/20/25 10:07 10:07 10:07 Sodium Potassium Chloride 105 Carbon Dioxide 28 27 BUN 11 11 Creatinine 0.79 Calcium 08/20/25 08/20/25 10:07 10:07 Sodium Potassium Chloride Carbon Dioxide BUN Creatinine 0.77 Calcium 9.1 9.0 Liver Function 08/20/25 08/20/25 08/20/25 Range/Units 10:07 10:07 10:07 Total Bilirubin 0.4 0.4 (0.0-1.0) mg/dL Direct Bilirubin 0.2 (0.0-0.5) mg/dL AST 25 19 (5-37) U/L ALT 42 H (0-40) U/L Alkaline Phosphatase (39-117) U/L Albumin (3.5-5.0) g/dL 08/20/25 08/20/25 08/20/25 Range/Units 10:07 10:07 10:07 Total Bilirubin (0.0-1.0) mg/dL Direct Bilirubin (0.0-0.5) mg/dL AST (5-37) U/L ALT 42 H (0-40) U/L Alkaline Phosphatase 71 72 (39-117) U/L Albumin 3.7 3.7 (3.5-5.0) g/dL Urine 08/20/25 Range/Units 13:50 Urine Color Yellow Urine Appearance Clear Urine pH 7.5 (5.0-9.0) Ur Specific [place] >= 1.030 H (1.005-1.025) Urine Protein Negative (Neg-Trace) mg/dL Urine Glucose (UA) Negative (Negative) mg/dL All other labs normal. <Talon Cummins PA-C - Last Filed: 08/20/25 14:46> Assessment and Plan (1) Crohn's disease: Qualifiers: Digestive disease complication type: unspecified complication Gastrointestinal tract location: small intestine Qualified Code(s): K50.019 - Crohn's disease of small intestine with unspecified complications <Talon Cummins PA-C - Last Filed: 08/20/25 14:46> Status: Acute <Talon Cummins PA-C - Last Filed: 08/20/25 14:46> 45-year-old male with known Crohn's disease, on Skyrizi Admitted because of abdominal pain also has diarrhea No vomiting CAT scan shows segment of fecalization in the small bowel in the lower abdomen Good amounts of air in the colon distally Abdomen is soft and benign He looks comfortable currently Continue current care for Crohn's flare up Bowel rest GI follow up We will follow while he is in the hospital Seen and examined independently <Chris Gastelum MD - Last Filed: 08/20/25 16:54> 45-year-old male with a history of Crohn's currently on a steroid taper, on Skyrizi, following Dr. Neumann with GI presented to the ED with abdominal pain that radiated to the back for the last 3 or 4 days with associated diarrhea. He has had multiple flares in the past And has been struggling to find a regimen that controls the frequency of his flare-ups. CT scan of the abdomen in the ED was suggestive of a partial small bowel obstruction. There was a 8 cm segment of small bowel. There was no abscess evident. There was evidence of fecal material and air distal to this area and in the colon which is less suggestive of a obstruction at this point. Additionally he is passing gas, stools which further suggests he is not obstructed. At this point I do not think there is need for urgent surgical intervention. However he may need to have surgery in the future to remove this section of small bowel. However it would be best to control this flare prior to any surgical intervention. He agrees with this plan. While inpatient would recommend continuing IV steroids, with steroid taper after discharge. We will continue to follow him during this admission for acute deterioration requiring surgical intervention. <Talon Cummins PA-C - Last Filed: 08/20/25 14:46> Procedures Date of Service Date of Service: 08/20/25 <Talon Cummins PA-C - Last Filed: 08/20/25 14:46> 08/20/25 <Chris Gastelum MD - Last Filed: 08/20/25 16:54>
--- NOTE | 2025-08-20 15:14 | PC.NURSE ---
Pt reports having a bout of moderate diarrhea at this time. arrives at bedside and requests to speak with provider. Attending made aware of request via [employer].
--- NOTE | 2025-08-20 15:29 | HO.NURTONUR ---
45 yr male admitted for acute Crohn's flare up and possible small bowel obstruction. Pt comes to ED from home with c/o abd pain with radiation to his back and diarrhea x3-4 days. PMH include Crohns with a flare up and concern for abscess recently. Pt having diarrhea today and passing gas. CT scans show flare up and concerns for SBO. Clear liquids diet GI and Surgery consults A&Ox3 VSS, afebrile. Independent ambulation Bilat 20g IV access to AC's LR running at 100ml/hrs.
[2025-08-20 16:35] VITALS: BP 112/73; PULSE 66; RESP 18; TEMP 36.6; O2SAT 98
--- NOTE | 2025-08-20 16:47 | PC.NURSE ---
Pt will proceed to ED Overflow unit. RN to RN report completed with OLIVIA Colon.
[2025-08-20 19:50] VITALS: BP 121/74; PULSE 71; RESP 16; TEMP 36.4; O2SAT 100
--- NOTE | 2025-08-20 19:59 | PC.NURSE ---
ambulates steadily without assistance ad oly
--- NOTE | 2025-08-21 03:16 | PC.NURSE ---
ambulated steadily without assistance to bathroom, urinated
[2025-08-21 04:17] VITALS: RESP 18
[2025-08-21 04:48] LABS: Hematocrit 30.4 % (42.0-52.0); Hemoglobin 9.6 g/dl (14.0-18.0); Mean Corpuscular HGB Conc 31.6 g/dl (31.0-36.0); Mean Corpuscular Hemoglobin 20.1 pg (27.0-33.0); NRBC Abs Auto 0.000 X10*3/uL (0.0-0.012); NRBC Pct Auto 0.0 /100WBC (0.0-0.2); Platelet Count 531 X10*3/uL (160-400); Red Blood Count 4.78 X10*6/uL (4.60-5.80); White Blood Count 19.2 X10*3/uL (4.8-10.8)
[2025-08-21 04:49] LABS: Mean Corpuscular Volume 63.6 fL (80.0-98.0)
[2025-08-21 05:08] LABS: Anion Gap 14 (12-20); Blood Urea Nitrogen 9 mg/dL (9-16); Calcium 8.4 mg/dL (8.4-10.2); Carbon Dioxide 24 mmol/L (22-29); Chloride 108 mmol/L (96-108); Creatinine Clr Calc Pharmacy 112.0; Estimated Glomerular Filt Rate > 60; Potassium 4.0 mmol/L (3.3-5.1); Sodium 142 mmol/L (135-145)
[2025-08-21 05:54] VITALS: BP 115/68; PULSE 80; RESP 18; TEMP 36.4; O2SAT 99
--- NOTE | 2025-08-21 07:46 | HO.PM.IMPN ---
Subjective Subjective Date of Service: 08/21/25 Interval History: Feeling much better, abd pain greatly improved No N/V Has been tolerating clears, would like to advance diet Some diarrhea, though last stool beginning to be formed Pt would also like to be discahrged on budesonide rather than prednisone Review of Systems Review of Systems: Yes all other systems are reviewed and are negative Physical Exam Exam: Exam: General: AOx3, no acute distress Resp: CTA bilaterally CVS: S1, S2, RRR GI: +BS, NT, no distention Skin: Warm, dry Neuro: Cranial nerves II-XII grossly intact bilaterally. Motor grossly intact bilaterally Extremities: No edema Psych: Appropriate affect Vital Signs: Vital Signs: Last Vital Signs Temp 97.6 F 08/21/25 05:54 Pulse 80 08/21/25 05:54 Resp 18 08/21/25 05:54 BP 115/68 08/21/25 05:54 Pulse Ox 99 08/21/25 05:54 O2 Del Method Room Air 08/21/25 05:54 BMI result Body Mass Index 20.4 Objective Data Active Medications Acetaminophen (Acetaminophen 325 Mg Tablet) 650 mg PO Q6H PRN PRN Reason: Pain, Mild 1-3,fever,headache Last Admin: 08/21/25 03:17 Dose: 650 mg Documented By: MASSIEL Calcium Carbonate (Calcium Carbonate 750 Mg Tab.Chew) 750 mg PO Q4H PRN PRN Reason: Heartburn Hydromorphone HCl (Hydromorphone Hcl 1 Mg/Ml Syringe) 1 mg IVPUSH Q4H PRN; Protocol PRN Reason: Pain, Severe (Pain Scale 7-10) Lactated Ringer's (Lr) 1,000 mls @ 100 mls/hr IVCONT .Q10H [facility] Last Admin: 08/20/25 23:28 Dose: 100 mls/hr Documented By: MASSIEL Piperacillin Sod/Tazobactam (Sod 3.375 gm/ Sodium Chloride) 50 mls @ 100 mls/hr IV Q6H [facility] Last Infusion: 08/21/25 06:15 Dose: Infused Documented By: MASSIEL Iron Sucrose 200 mg/ Sodium (Chloride) 110 mls @ 440 mls/hr IV ONCE ONE Stop: 08/21/25 07:54 Magnesium Hydroxide (Milk Of Magnesia 30 Ml Oral.Susp) 30 ml PO DAILY PRN PRN Reason: Constipation Melatonin (Melatonin 3 Mg Tablet) 6 mg PO BEDTIME PRN PRN Reason: Insomnia Methylprednisolone Sodium Succinate (Methylprednisolone Sod Succ 125 Mg/2 Ml Vial) 60 mg IVPUSH DAILY MARILIA Stop: 08/22/25 09:01 Multivitamins/Vitamin C (Multivitamin Tablet) 1 tab PO DAILY MARILIA Sodium Chloride (0.9 % Sodium Chloride Flush 3 Ml Syringe) 3 ml IVFLUSH QSHIFT MARILIA Last Admin: 08/21/25 00:00 Dose: Not Given Documented By: MASSIEL Non-Admin Reason: Previously Administered Trazodone HCl (Trazodone Hcl 25 Mg Halftab) 25 mg PO BEDTIME PRN PRN Reason: Insomnia Labs 08/21/25 03:46 08/21/25 03:46 Labs: Laboratory Results - last 24 hr 08/20/25 08/20/25 08/20/25 10:07 10:07 10:07 MCV Cancelled 65.2 L MCH Cancelled 20.0 L MCHC Cancelled RDW Plt Count MPV Immature Gran % (Auto) Neut % (Auto) Lymph % (Auto) [place] % (Auto) Eos % (Auto) Baso % (Auto) Lymph # (Auto) [place] # (Auto) Eos # (Auto) Baso # (Auto) Abs Immat Gran (auto) Absolute Neuts (auto) Absolute Nucleated RBC Nucleated RBC % (auto) Smear Tech's Comments Anion Gap Estim Creat Clear Calc Estimated GFR Random Glucose Lactic Acid Calcium Magnesium Total Bilirubin Direct Bilirubin AST ALT Alkaline Phosphatase C-Reactive Protein Total Protein Albumin Lipase Urine Color Urine Appearance Urine pH Ur Specific [place] Urine Protein Urine Glucose (UA) Urine Ketones Urine Blood Urine Nitrite Ur Leukocyte Esterase Urine RBC Urine WBC Ur Squamous Epith Cells Urine Bacteria Hyaline Casts 08/20/25 08/20/25 08/20/25 10:07 10:07 10:07 MCV MCH MCHC 30.7 L RDW Cancelled 18.6 H Plt Count Cancelled 515 H MPV Cancelled Immature Gran % (Auto) Neut % (Auto) Lymph % (Auto) [place] % (Auto) Eos % (Auto) Baso % (Auto) Lymph # (Auto) [place] # (Auto) Eos # (Auto) Baso # (Auto) Abs Immat Gran (auto) Absolute Neuts (auto) Absolute Nucleated RBC Nucleated RBC % (auto) Smear Tech's Comments Anion Gap Estim Creat Clear Calc Estimated GFR Random Glucose Lactic Acid Calcium Magnesium Total Bilirubin Direct Bilirubin AST ALT Alkaline Phosphatase C-Reactive Protein Total Protein Albumin Lipase Urine Color Urine Appearance Urine pH Ur Specific [place] Urine Protein Urine Glucose (UA) Urine Ketones Urine Blood Urine Nitrite Ur Leukocyte Esterase Urine RBC Urine WBC Ur Squamous Epith Cells Urine Bacteria Hyaline Casts 08/20/25 08/20/25 08/20/25 10:07 10:07 10:07 MCV MCH MCHC RDW Plt Count MPV 8.7 L Immature Gran % (Auto) Cancelled 1.0 H Neut % (Auto) Cancelled 92.7 H Lymph % (Auto) Cancelled [place] % (Auto) Eos % (Auto) Baso % (Auto) Lymph # (Auto) [place] # (Auto) Eos # (Auto) Baso # (Auto) Abs Immat Gran (auto) Absolute Neuts (auto) Absolute Nucleated RBC Nucleated RBC % (auto) Smear Tech's Comments Anion Gap Estim Creat Clear Calc Estimated GFR Random Glucose Lactic Acid Calcium Magnesium Total Bilirubin Direct Bilirubin AST ALT Alkaline Phosphatase C-Reactive Protein Total Protein Albumin Lipase Urine Color Urine Appearance Urine pH Ur Specific [place] Urine Protein Urine Glucose (UA) Urine Ketones Urine Blood Urine Nitrite Ur Leukocyte Esterase Urine RBC Urine WBC Ur Squamous Epith Cells Urine Bacteria Hyaline Casts 08/20/25 08/20/25 08/20/25 10:07 10:07 10:07 MCV MCH MCHC RDW Plt Count MPV Immature Gran % (Auto) Neut % (Auto) Lymph % (Auto) 4.4 L [place] % (Auto) Cancelled 1.7 L Eos % (Auto) Cancelled 0.0 Baso % (Auto) Cancelled Lymph # (Auto) [place] # (Auto) Eos # (Auto) Baso # (Auto) Abs Immat Gran (auto) Absolute Neuts (auto) Absolute Nucleated RBC Nucleated RBC % (auto) Smear Tech's Comments Anion Gap Estim Creat Clear Calc Estimated GFR Random Glucose Lactic Acid Calcium Magnesium Total Bilirubin Direct Bilirubin AST ALT Alkaline Phosphatase C-Reactive Protein Total Protein Albumin Lipase Urine Color Urine Appearance Urine pH Ur Specific [place] Urine Protein Urine Glucose (UA) Urine Ketones Urine Blood Urine Nitrite Ur Leukocyte Esterase Urine RBC Urine WBC Ur Squamous Epith Cells Urine Bacteria Hyaline Casts 08/20/25 08/20/25 08/20/25 10:07 10:07 10:07 MCV MCH MCHC RDW Plt Count MPV Immature Gran % (Auto) Neut % (Auto) Lymph % (Auto) [place] % (Auto) Eos % (Auto) Baso % (Auto) 0.2 Lymph # (Auto) Cancelled 0.8 L [place] # (Auto) Cancelled 0.3 Eos # (Auto) Cancelled Baso # (Auto) Abs Immat Gran (auto) Absolute Neuts (auto) Absolute Nucleated RBC Nucleated RBC % (auto) Smear Tech's Comments Anion Gap Estim Creat Clear Calc Estimated GFR Random Glucose Lactic Acid Calcium Magnesium Total Bilirubin Direct Bilirubin AST ALT Alkaline Phosphatase C-Reactive Protein Total Protein Albumin Lipase Urine Color Urine Appearance Urine pH Ur Specific [place] Urine Protein Urine Glucose (UA) Urine Ketones Urine Blood Urine Nitrite Ur Leukocyte Esterase Urine RBC Urine WBC Ur Squamous Epith Cells Urine Bacteria Hyaline Casts 08/20/25 08/20/25 08/20/25 10:07 10:07 10:07 MCV MCH MCHC RDW Plt Count MPV Immature Gran % (Auto) Neut % (Auto) Lymph % (Auto) [place] % (Auto) Eos % (Auto) Baso % (Auto) Lymph # (Auto) [place] # (Auto) Eos # (Auto) 0.0 Baso # (Auto) Cancelled 0.0 Abs Immat Gran (auto) Cancelled 0.18 H Absolute Neuts (auto) Cancelled Absolute Nucleated RBC Nucleated RBC % (auto) Smear Tech's Comments Anion Gap Estim Creat Clear Calc Estimated GFR Random Glucose Lactic Acid Calcium Magnesium Total Bilirubin Direct Bilirubin AST ALT Alkaline Phosphatase C-Reactive Protein Total Protein Albumin Lipase Urine Color Urine Appearance Urine pH Ur Specific [place] Urine Protein Urine Glucose (UA) Urine Ketones Urine Blood Urine Nitrite Ur Leukocyte Esterase Urine RBC Urine WBC Ur Squamous Epith Cells Urine Bacteria Hyaline Casts 08/20/25 08/20/25 08/20/25 10:07 10:07 10:07 MCV MCH MCHC RDW Plt Count MPV Immature Gran % (Auto) Neut % (Auto) Lymph % (Auto) [place] % (Auto) Eos % (Auto) Baso % (Auto) Lymph # (Auto) [place] # (Auto) Eos # (Auto) Baso # (Auto) Abs Immat Gran (auto) Absolute Neuts (auto) 17.3 H Absolute Nucleated RBC Cancelled 0.000 Nucleated RBC % (auto) Cancelled 0.0 Smear Tech's Comments VERIFIED Anion Gap 11 L Estim Creat Clear Calc Estimated GFR Random Glucose Lactic Acid Calcium Magnesium Total Bilirubin Direct Bilirubin AST ALT Alkaline Phosphatase C-Reactive Protein Total Protein Albumin Lipase Urine Color Urine Appearance Urine pH Ur Specific [place] Urine Protein Urine Glucose (UA) Urine Ketones Urine Blood Urine Nitrite Ur Leukocyte Esterase Urine RBC Urine WBC Ur Squamous Epith Cells Urine Bacteria Hyaline Casts 08/20/25 08/20/25 08/20/25 10:07 10:07 10:07 MCV MCH MCHC RDW Plt Count MPV Immature Gran % (Auto) Neut % (Auto) Lymph % (Auto) [place] % (Auto) Eos % (Auto) Baso % (Auto) Lymph # (Auto) [place] # (Auto) Eos # (Auto) Baso # (Auto) Abs Immat Gran (auto) Absolute Neuts (auto) Absolute Nucleated RBC Nucleated RBC % (auto) Smear Tech's Comments Anion Gap 12 Estim Creat Clear Calc 97.8 100.4 Estimated GFR > 60 > 60 Random Glucose 125 H Lactic Acid Calcium Magnesium Total Bilirubin Direct Bilirubin AST ALT Alkaline Phosphatase C-Reactive Protein Total Protein Albumin Lipase Urine Color Urine Appearance Urine pH Ur Specific [place] Urine Protein Urine Glucose (UA) Urine Ketones Urine Blood Urine Nitrite Ur Leukocyte Esterase Urine RBC Urine WBC Ur Squamous Epith Cells Urine Bacteria Hyaline Casts 08/20/25 08/20/25 08/20/25 10:07 10:07 10:07 MCV MCH MCHC RDW Plt Count MPV Immature Gran % (Auto) Neut % (Auto) Lymph % (Auto) [place] % (Auto) Eos % (Auto) Baso % (Auto) Lymph # (Auto) [place] # (Auto) Eos # (Auto) Baso # (Auto) Abs Immat Gran (auto) Absolute Neuts (auto) Absolute Nucleated RBC Nucleated RBC % (auto) Smear Tech's Comments Anion Gap Estim Creat Clear Calc Estimated GFR Random Glucose 124 H Lactic Acid 0.7 Calcium 9.1 9.0 Magnesium 2.2 Total Bilirubin 0.4 0.4 Direct Bilirubin 0.2 AST 25 ALT Alkaline Phosphatase C-Reactive Protein Total Protein Albumin Lipase Urine Color Urine Appearance Urine pH Ur Specific [place] Urine Protein Urine Glucose (UA) Urine Ketones Urine Blood Urine Nitrite Ur Leukocyte Esterase Urine RBC Urine WBC Ur Squamous Epith Cells Urine Bacteria Hyaline Casts 08/20/25 08/20/25 08/20/25 10:07 10:07 10:07 MCV MCH MCHC RDW Plt Count MPV Immature Gran % (Auto) Neut % (Auto) Lymph % (Auto) [place] % (Auto) Eos % (Auto) Baso % (Auto) Lymph # (Auto) [place] # (Auto) Eos # (Auto) Baso # (Auto) Abs Immat Gran (auto) Absolute Neuts (auto) Absolute Nucleated RBC Nucleated RBC % (auto) Smear Tech's Comments Anion Gap Estim Creat Clear Calc Estimated GFR Random Glucose Lactic Acid Calcium Magnesium Total Bilirubin Direct Bilirubin AST 19 ALT 42 H 42 H Alkaline Phosphatase 71 72 C-Reactive Protein 5.67 H Total Protein 7.0 Albumin Lipase Urine Color Urine Appearance Urine pH Ur Specific [place] Urine Protein Urine Glucose (UA) Urine Ketones Urine Blood Urine Nitrite Ur Leukocyte Esterase Urine RBC Urine WBC Ur Squamous Epith Cells Urine Bacteria Hyaline Casts 08/20/25 08/20/25 08/20/25 10:07 10:07 13:50 MCV MCH MCHC RDW Plt Count MPV Immature Gran % (Auto) Neut % (Auto) Lymph % (Auto) [place] % (Auto) Eos % (Auto) Baso % (Auto) Lymph # (Auto) [place] # (Auto) Eos # (Auto) Baso # (Auto) Abs Immat Gran (auto) Absolute Neuts (auto) Absolute Nucleated RBC Nucleated RBC % (auto) Smear Tech's Comments Anion Gap Estim Creat Clear Calc Estimated GFR Random Glucose Lactic Acid Calcium Magnesium Total Bilirubin Direct Bilirubin AST ALT Alkaline Phosphatase C-Reactive Protein Total Protein 6.9 Albumin 3.7 3.7 Lipase 33 Urine Color Yellow Urine Appearance Clear Urine pH 7.5 Ur Specific [place] >= 1.030 H Urine Protein Negative Urine Glucose (UA) Negative Urine Ketones Trace Urine Blood Negative Urine Nitrite Negative Ur Leukocyte Esterase Negative Urine RBC 0-2 Urine WBC 0-5 Ur Squamous Epith Cells 0-2 Urine Bacteria None Seen Hyaline Casts 0-2 08/21/25 03:46 MCV 63.6 L MCH 20.1 L MCHC 31.6 RDW 17.8 H Plt Count 531 H MPV 9.8 Immature Gran % (Auto) Neut % (Auto) Lymph % (Auto) [place] % (Auto) Eos % (Auto) Baso % (Auto) Lymph # (Auto) [place] # (Auto) Eos # (Auto) Baso # (Auto) Abs Immat Gran (auto) Absolute Neuts (auto) Absolute Nucleated RBC 0.000 Nucleated RBC % (auto) 0.0 Smear Tech's Comments Anion Gap 14 Estim Creat Clear Calc 112.0 Estimated GFR > 60 Random Glucose 127 H Lactic Acid Calcium 8.4 D Magnesium Total Bilirubin Direct Bilirubin AST ALT Alkaline Phosphatase C-Reactive Protein Total Protein Albumin Lipase Urine Color Urine Appearance Urine pH Ur Specific [place] Urine Protein Urine Glucose (UA) Urine Ketones Urine Blood Urine Nitrite Ur Leukocyte Esterase Urine RBC Urine WBC Ur Squamous Epith Cells Urine Bacteria Hyaline Casts Assessment and Plan (1) Crohn's disease: Status: Acute Plan Pt is a 45-year-old male with a PMH significant for?Crohn's disease on Skyrizi follows with Dr. Neumann who presents to the ED with abdominal pain radiating to the back and diarrhea x3-4 days. Pt is admitted to the hospital for treatment and further evaluation of acute Crohn's flare with question of possible SBO. Acute Crohn's flare Abd pain and non-bloody diarrhea x4 days CT abd/pelvis worse than prior Symptoms better today Solu-Medrol 60 mg IV daily x1 more day Analgesics for pain management Tolerating clears, would like to advance diet GI consult, follows with Dr. Neumann Wishes to be more aggressive with Skyrizi, increasing to q4 weeks Wishes to be discharged on budesonide rather than prednisone Check CRP, fecal calprotectin Question of SBO As seen on imaging Seems less likely as pt without N/V General surgery consult Tolerating clears, will advance diet Chronic iron-deficiency anemia Stable, around baseline Will give Venofer 200 mg IV x1 per GI recommendations Full Code Attending:?Dr. Harris DVT Prophylaxis: [employer] Quality Stroke Does the patient have a stroke diagnosis?: No VTE Prior VTE?: No VTE Risk Level:: Medical - moderate - high VTE Device Contraindication: Treatment Not Indicated VTE Drug Contraindication: N/A - Med Ordered
--- NOTE | 2025-08-21 07:55 | P.PNGS_ITS ---
Subjective Subjective Date of Service: 08/21/25 <Talon Cummins PA-C - Last Filed: 08/21/25 07:59> 08/21/25 <Chris Gastelum MD - Last Filed: 08/21/25 15:02> Interval history: Doing well. Pain improved. Passing more gas, this morning passed a bowel movement mostly liquid with some chunks. Denies nausea or vomiting. <Talon Cummins PA-C - Last Filed: 08/21/25 07:59> Physical Exam 2 Vital Signs: Vital Signs: Last Vital Signs Temp 97.6 F 08/21/25 05:54 Pulse 80 08/21/25 05:54 Resp 18 08/21/25 05:54 BP 115/68 08/21/25 05:54 Pulse Ox 99 08/21/25 05:54 O2 Del Method Room Air 08/21/25 05:54 BMI result Body Mass Index 20.4 <Talon Cummins PA-C - Last Filed: 08/21/25 07:59> Const: General: comfortable and no acute distress <Talon Cummins PA-C - Last Filed: 08/21/25 07:59> Orientation/consciousness: patient oriented x3 <Talon Cummins PA-C - Last Filed: 08/21/25 07:59> Resp: Effort & Inspection: normal respiratory effort and able to speak in complete sentences <Talon Cummins PA-C - Last Filed: 08/21/25 07:59> GI: Inspection: No distended <Talon Cummins PA-C - Last Filed: 08/21/25 07:59> Palpation (GI): Soft to palpation and nontender <Talon Cummins PA-C - Last Filed: 08/21/25 07:59> Neuro: General: patient oriented x3 <YVONNE Marshall Last Filed: 08/21/25 07:59> Objective Data Active Medications Acetaminophen (Acetaminophen 325 Mg Tablet) 650 mg PO Q6H PRN PRN Reason: Pain, Mild 1-3,fever,headache Last Admin: 08/21/25 03:17 Dose: 650 mg Documented By: MASSIEL Calcium Carbonate (Calcium Carbonate 750 Mg Tab.Chew) 750 mg PO Q4H PRN PRN Reason: Heartburn Hydromorphone HCl (Hydromorphone Hcl 1 Mg/Ml Syringe) 1 mg IVPUSH Q4H PRN; Protocol PRN Reason: Pain, Severe (Pain Scale 7-10) Lactated Ringer's (Lr) 1,000 mls @ 100 mls/hr IVCONT .Q10H [facility] [place] Last Admin: 08/20/25 23:28 Dose: 100 mls/hr Documented By: MASSIEL Piperacillin Sod/Tazobactam (Sod 3.375 gm/ Sodium Chloride) 50 mls @ 100 mls/hr IV Q6H [facility] [place] Last Infusion: 08/21/25 06:15 Dose: Infused Documented By: MASSIEL Magnesium Hydroxide (Milk Of Magnesia 30 Ml Oral.Susp) 30 ml PO DAILY PRN PRN Reason: Constipation Melatonin (Melatonin 3 Mg Tablet) 6 mg PO BEDTIME PRN PRN Reason: Insomnia Methylprednisolone Sodium Succinate (Methylprednisolone Sod Succ 125 Mg/2 Ml Vial) 60 mg IVPUSH DAILY MARILIA Stop: 08/22/25 09:01 Multivitamins/Vitamin C (Multivitamin Tablet) 1 tab PO DAILY [facility] [place] Sodium Chloride (0.9 % Sodium Chloride Flush 3 Ml Syringe) 3 ml IVFLUSH QSHIFT [facility] [place] Last Admin: 08/21/25 00:00 Dose: Not Given Documented By: MASSIEL Non-Admin Reason: Previously Administered Trazodone HCl (Trazodone Hcl 25 Mg Halftab) 25 mg PO BEDTIME PRN PRN Reason: Insomnia <Talon Cummins PA-C - Last Filed: 08/21/25 07:59> Labs CBC & Chem 7: 08/21/25 03:46 08/21/25 03:46 <Talon Cummins PA-C - Last Filed: 08/21/25 07:59> Labs: Laboratory Results - last 24 hr 08/20/25 08/20/25 08/20/25 10:07 10:07 10:07 MCV Cancelled 65.2 L MCH Cancelled 20.0 L MCHC Cancelled RDW Plt Count MPV Immature Gran % (Auto) Neut % (Auto) Lymph % (Auto) [place] % (Auto) Eos % (Auto) Baso % (Auto) Lymph # (Auto) [place] # (Auto) Eos # (Auto) Baso # (Auto) Abs Immat Gran (auto) Absolute Neuts (auto) Absolute Nucleated RBC Nucleated RBC % (auto) Smear Tech's Comments Anion Gap Estim Creat Clear Calc Estimated GFR Random Glucose Lactic Acid Calcium Magnesium Total Bilirubin Direct Bilirubin AST ALT Alkaline Phosphatase C-Reactive Protein Total Protein Albumin Lipase Urine Color Urine Appearance Urine pH Ur Specific [place] Urine Protein Urine Glucose (UA) Urine Ketones Urine Blood Urine Nitrite Ur Leukocyte Esterase Urine RBC Urine WBC Ur Squamous Epith Cells Urine Bacteria Hyaline Casts 08/20/25 08/20/25 08/20/25 10:07 10:07 10:07 MCV MCH MCHC 30.7 L RDW Cancelled 18.6 H Plt Count Cancelled 515 H MPV Cancelled Immature Gran % (Auto) Neut % (Auto) Lymph % (Auto) [place] % (Auto) Eos % (Auto) Baso % (Auto) Lymph # (Auto) [place] # (Auto) Eos # (Auto) Baso # (Auto) Abs Immat Gran (auto) Absolute Neuts (auto) Absolute Nucleated RBC Nucleated RBC % (auto) Smear Tech's Comments Anion Gap Estim Creat Clear Calc Estimated GFR Random Glucose Lactic Acid Calcium Magnesium Total Bilirubin Direct Bilirubin AST ALT Alkaline Phosphatase C-Reactive Protein Total Protein Albumin Lipase Urine Color Urine Appearance Urine pH Ur Specific [place] Urine Protein Urine Glucose (UA) Urine Ketones Urine Blood Urine Nitrite Ur Leukocyte Esterase Urine RBC Urine WBC Ur Squamous Epith Cells Urine Bacteria Hyaline Casts 08/20/25 08/20/25 08/20/25 10:07 10:07 10:07 MCV MCH MCHC RDW Plt Count MPV 8.7 L Immature Gran % (Auto) Cancelled 1.0 H Neut % (Auto) Cancelled 92.7 H Lymph % (Auto) Cancelled [place] % (Auto) Eos % (Auto) Baso % (Auto) Lymph # (Auto) [place] # (Auto) Eos # (Auto) Baso # (Auto) Abs Immat Gran (auto) Absolute Neuts (auto) Absolute Nucleated RBC Nucleated RBC % (auto) Smear Tech's Comments Anion Gap Estim Creat Clear Calc Estimated GFR Random Glucose Lactic Acid Calcium Magnesium Total Bilirubin Direct Bilirubin AST ALT Alkaline Phosphatase C-Reactive Protein Total Protein Albumin Lipase Urine Color Urine Appearance Urine pH Ur Specific [place] Urine Protein Urine Glucose (UA) Urine Ketones Urine Blood Urine Nitrite Ur Leukocyte Esterase Urine RBC Urine WBC Ur Squamous Epith Cells Urine Bacteria Hyaline Casts 10/06/25 10/06/25 10/06/25 10:07 10:07 10:07 MCV MCH MCHC RDW Plt Count MPV Immature Gran % (Auto) Neut % (Auto) Lymph % (Auto) 4.[address] [place] % (Auto) Cancelled 1.7 L Eos % (Auto) Cancelled 0.0 Baso % (Auto) Cancelled Lymph # (Auto) [place] # (Auto) Eos # (Auto) Baso # (Auto) Abs Immat Gran (auto) Absolute Neuts (auto) Absolute Nucleated RBC Nucleated RBC % (auto) Smear Tech's Comments Anion Gap Estim Creat Clear Calc Estimated GFR Random Glucose Lactic Acid Calcium Magnesium Total Bilirubin Direct Bilirubin AST ALT Alkaline Phosphatase C-Reactive Protein Total Protein Albumin Lipase Urine Color Urine Appearance Urine pH Ur Specific [place] Urine Protein Urine Glucose (UA) Urine Ketones Urine Blood Urine Nitrite Ur Leukocyte Esterase Urine RBC Urine WBC Ur Squamous Epith Cells Urine Bacteria Hyaline Casts 08/20/25 08/20/25 08/20/25 10:07 10:07 10:07 MCV MCH MCHC RDW Plt Count MPV Immature Gran % (Auto) Neut % (Auto) Lymph % (Auto) [place] % (Auto) Eos % (Auto) Baso % (Auto) 0.2 Lymph # (Auto) Cancelled 0.[address] # (Auto) Cancelled 0.3 Eos # (Auto) Cancelled Baso # (Auto) Abs Immat Gran (auto) Absolute Neuts (auto) Absolute Nucleated RBC Nucleated RBC % (auto) Smear Tech's Comments Anion Gap Estim Creat Clear Calc Estimated GFR Random Glucose Lactic Acid Calcium Magnesium Total Bilirubin Direct Bilirubin AST ALT Alkaline Phosphatase C-Reactive Protein Total Protein Albumin Lipase Urine Color Urine Appearance Urine pH Ur Specific [place] Urine Protein Urine Glucose (UA) Urine Ketones Urine Blood Urine Nitrite Ur Leukocyte Esterase Urine RBC Urine WBC Ur Squamous Epith Cells Urine Bacteria Hyaline Casts 08/20/25 08/20/25 08/20/25 10:07 10:07 10:07 MCV MCH MCHC RDW Plt Count MPV Immature Gran % (Auto) Neut % (Auto) Lymph % (Auto) [place] % (Auto) Eos % (Auto) Baso % (Auto) Lymph # (Auto) [place] # (Auto) Eos # (Auto) 0.0 Baso # (Auto) Cancelled 0.0 Abs Immat Gran (auto) Cancelled 0.18 H Absolute Neuts (auto) Cancelled Absolute Nucleated RBC Nucleated RBC % (auto) Smear Tech's Comments Anion Gap Estim Creat Clear Calc Estimated GFR Random Glucose Lactic Acid Calcium Magnesium Total Bilirubin Direct Bilirubin AST ALT Alkaline Phosphatase C-Reactive Protein Total Protein Albumin Lipase Urine Color Urine Appearance Urine pH Ur Specific [place] Urine Protein Urine Glucose (UA) Urine Ketones Urine Blood Urine Nitrite Ur Leukocyte Esterase Urine RBC Urine WBC Ur Squamous Epith Cells Urine Bacteria Hyaline Casts 08/20/25 08/20/25 08/20/25 10:07 10:07 10:07 MCV MCH MCHC RDW Plt Count MPV Immature Gran % (Auto) Neut % (Auto) Lymph % (Auto) [place] % (Auto) Eos % (Auto) Baso % (Auto) Lymph # (Auto) [place] # (Auto) Eos # (Auto) Baso # (Auto) Abs Immat Gran (auto) Absolute Neuts (auto) 17.3 H Absolute Nucleated RBC Cancelled 0.000 Nucleated RBC % (auto) Cancelled 0.0 Smear Tech's Comments VERIFIED Anion Gap 11 L Estim Creat Clear Calc Estimated GFR Random Glucose Lactic Acid Calcium Magnesium Total Bilirubin Direct Bilirubin AST ALT Alkaline Phosphatase C-Reactive Protein Total Protein Albumin Lipase Urine Color Urine Appearance Urine pH Ur Specific [place] Urine Protein Urine Glucose (UA) Urine Ketones Urine Blood Urine Nitrite Ur Leukocyte Esterase Urine RBC Urine WBC Ur Squamous Epith Cells Urine Bacteria Hyaline Casts 08/20/25 08/20/25 08/20/25 10:07 10:07 10:07 MCV MCH MCHC RDW Plt Count MPV Immature Gran % (Auto) Neut % (Auto) Lymph % (Auto) [place] % (Auto) Eos % (Auto) Baso % (Auto) Lymph # (Auto) [place] # (Auto) Eos # (Auto) Baso # (Auto) Abs Immat Gran (auto) Absolute Neuts (auto) Absolute Nucleated RBC Nucleated RBC % (auto) Smear Tech's Comments Anion Gap 12 Estim Creat Clear Calc 97.8 100.4 Estimated GFR > 60 > 60 Random Glucose 125 H Lactic Acid Calcium Magnesium Total Bilirubin Direct Bilirubin AST ALT Alkaline Phosphatase C-Reactive Protein Total Protein Albumin Lipase Urine Color Urine Appearance Urine pH Ur Specific [place] Urine Protein Urine Glucose (UA) Urine Ketones Urine Blood Urine Nitrite Ur Leukocyte Esterase Urine RBC Urine WBC Ur Squamous Epith Cells Urine Bacteria Hyaline Casts 08/20/25 08/20/25 08/20/25 10:07 10:07 10:07 MCV MCH MCHC RDW Plt Count MPV Immature Gran % (Auto) Neut % (Auto) Lymph % (Auto) [place] % (Auto) Eos % (Auto) Baso % (Auto) Lymph # (Auto) [place] # (Auto) Eos # (Auto) Baso # (Auto) Abs Immat Gran (auto) Absolute Neuts (auto) Absolute Nucleated RBC Nucleated RBC % (auto) Smear Tech's Comments Anion Gap Estim Creat Clear Calc Estimated GFR Random Glucose 124 H Lactic Acid 0.7 Calcium 9.1 9.0 Magnesium 2.2 Total Bilirubin 0.4 0.4 Direct Bilirubin 0.2 AST 25 ALT Alkaline Phosphatase C-Reactive Protein Total Protein Albumin Lipase Urine Color Urine Appearance Urine pH Ur Specific [place] Urine Protein Urine Glucose (UA) Urine Ketones Urine Blood Urine Nitrite Ur Leukocyte Esterase Urine RBC Urine WBC Ur Squamous Epith Cells Urine Bacteria Hyaline Casts 08/20/25 08/20/25 08/20/25 10:07 10:07 10:07 MCV MCH MCHC RDW Plt Count MPV Immature Gran % (Auto) Neut % (Auto) Lymph % (Auto) [place] % (Auto) Eos % (Auto) Baso % (Auto) Lymph # (Auto) [place] # (Auto) Eos # (Auto) Baso # (Auto) Abs Immat Gran (auto) Absolute Neuts (auto) Absolute Nucleated RBC Nucleated RBC % (auto) Smear Tech's Comments Anion Gap Estim Creat Clear Calc Estimated GFR Random Glucose Lactic Acid Calcium Magnesium Total Bilirubin Direct Bilirubin AST 19 ALT 42 H 42 H Alkaline Phosphatase 71 72 C-Reactive Protein 5.67 H Total Protein 7.0 Albumin Lipase Urine Color Urine Appearance Urine pH Ur Specific [place] Urine Protein Urine Glucose (UA) Urine Ketones Urine Blood Urine Nitrite Ur Leukocyte Esterase Urine RBC Urine WBC Ur Squamous Epith Cells Urine Bacteria Hyaline Casts 08/20/25 08/20/25 08/20/25 10:07 10:07 13:50 MCV MCH MCHC RDW Plt Count MPV Immature Gran % (Auto) Neut % (Auto) Lymph % (Auto) [place] % (Auto) Eos % (Auto) Baso % (Auto) Lymph # (Auto) [place] # (Auto) Eos # (Auto) Baso # (Auto) Abs Immat Gran (auto) Absolute Neuts (auto) Absolute Nucleated RBC Nucleated RBC % (auto) Smear Tech's Comments Anion Gap Estim Creat Clear Calc Estimated GFR Random Glucose Lactic Acid Calcium Magnesium Total Bilirubin Direct Bilirubin AST ALT Alkaline Phosphatase C-Reactive Protein Total Protein 6.9 Albumin 3.7 3.7 Lipase 33 Urine Color Yellow Urine Appearance Clear Urine pH 7.5 Ur Specific [place] >= 1.030 H Urine Protein Negative Urine Glucose (UA) Negative Urine Ketones Trace Urine Blood Negative Urine Nitrite Negative Ur Leukocyte Esterase Negative Urine RBC 0-2 Urine WBC 0-5 Ur Squamous Epith Cells 0-2 Urine Bacteria None Seen Hyaline Casts 0-2 08/21/25 03:46 MCV 63.6 L MCH 20.1 L MCHC 31.6 RDW 17.8 H Plt Count 531 H MPV 9.8 Immature Gran % (Auto) Neut % (Auto) Lymph % (Auto) [place] % (Auto) Eos % (Auto) Baso % (Auto) Lymph # (Auto) [place] # (Auto) Eos # (Auto) Baso # (Auto) Abs Immat Gran (auto) Absolute Neuts (auto) Absolute Nucleated RBC 0.000 Nucleated RBC % (auto) 0.0 Smear Tech's Comments Anion Gap 14 Estim Creat Clear Calc 112.0 Estimated GFR > 60 Random Glucose 127 H Lactic Acid Calcium 8.4 D Magnesium Total Bilirubin Direct Bilirubin AST ALT Alkaline Phosphatase C-Reactive Protein Total Protein Albumin Lipase Urine Color Urine Appearance Urine pH Ur Specific [place] Urine Protein Urine Glucose (UA) Urine Ketones Urine Blood Urine Nitrite Ur Leukocyte Esterase Urine RBC Urine WBC Ur Squamous Epith Cells Urine Bacteria Hyaline Casts <Talon Cummins PA-C - Last Filed: 08/21/25 07:59> Procedures Date of Service Date of Service: 08/21/25 <Talon Cummins PA-C - Last Filed: 08/21/25 07:59> 08/21/25 <Chris Gastelum MD - Last Filed: 08/21/25 15:02> Progress Note: A&P Assessment and plan (1) Crohn's disease: Status: Acute <Talon Cummins PA-C - Last Filed: 08/21/25 07:59> Assessment and Plan: Feels well Denies abdominal pain Tolerating oral intake Abdomen is soft, benign and nontender Diet as tolerated Care as per Gastroenterology recommendations Seen and examined independently <Chris Gastelum MD - Last Filed: 08/21/25 15:02> (2) Partial obstruction of small intestine: Status: Acute <YVONNE Marshall Last Filed: 08/21/25 07:59> Assessment and Plan: 45-year-old male with a history of Crohn's, admitted for management of an acute flare follow up with General surgery for possible small-bowel obstruction. Clinically patient doing well, nonobstructed at this point. Pain resolved. Denies nausea or vomiting. Passing gas, now bowel movements this morning. Abdomen is soft and benign. No plan for surgical intervention at this time. I did recommend that he remain for additional days of IV steroids, as he seemed like his bags were packed and ready to go. He seemed agreeable to staying for at least another day. Would continue clear liquid diet for now, can likely advance later this afternoon or tomorrow <Talon Cummins PA-C - Last Filed: 08/21/25 07:59> Time Spent With Patient Time: Total time managing care of this patient today ____ minutes. <Talon Cummins PA-C - Last Filed: 08/21/25 07:59> Quality Stroke Does the patient have a stroke diagnosis?: No <YVONNE Marshall Last Filed: 08/21/25 07:59> VTE Prior VTE?: No <YVONNE Marshall Last Filed: 08/21/25 07:59> VTE Risk Level:: Medical - moderate - high <YVONNE Marshall Last Filed: 08/21/25 07:59> VTE Device Contraindication: Treatment Not Indicated <YVONNE Marshall Last Filed: 08/21/25 07:59> VTE Drug Contraindication: N/A - Med Ordered <YVONNE Marshall Last Filed: 08/21/25 07:59>
[2025-08-21] MEDS: Lactated Ringers 1,000 ML 100 ML IVCONT ×2 (10:20→18:37)
--- NOTE | 2025-08-21 12:50 | P.PNGI_ITS ---
Subjective Subjective Date of Service: 08/21/25 Interval History: Seen at bedside. Reports significant improvement in lower abdominal pain. Has better energy today. Tolerated solid food without any worsening of abdominal pain. Has passed a semi-solid bowel movement today. Critical Care Time (minutes): 0 Physical Exam 2 Exam: Exam: Young male Nonicteric Under nourished Abdomen soft, mildly distended, nontender Vital Signs: Vital Signs: Last Vital Signs Temp 97.6 F 08/21/25 05:54 Pulse 80 08/21/25 05:54 Resp 18 08/21/25 05:54 BP 115/68 08/21/25 05:54 Pulse Ox 99 08/21/25 05:54 O2 Del Method Room Air 08/21/25 05:54 BMI result Body Mass Index 20.4 Objective Data Labs 08/21/25 03:46 08/21/25 03:46 Labs: Laboratory Results - last 24 hr 08/20/25 08/21/25 13:50 03:46 WBC 19.2 H RBC 4.78 Hgb 9.6 L Hct 30.4 L MCV 63.6 L MCH 20.1 L MCHC 31.6 RDW 17.8 H Plt Count 531 H MPV 9.8 Absolute Nucleated RBC 0.000 Nucleated RBC % (auto) 0.0 Sodium 142 Potassium 4.0 Chloride 108 Carbon Dioxide 24 Anion Gap 14 BUN 9 Creatinine 0.69 Estim Creat Clear Calc 112.0 Estimated GFR > 60 Random Glucose 127 H Calcium 8.4 D C-Reactive Protein 4.65 H Urine Color Yellow Urine Appearance Clear Urine pH 7.5 Ur Specific [place] >= 1.030 H Urine Protein Negative Urine Glucose (UA) Negative Urine Ketones Trace Urine Blood Negative Urine Nitrite Negative Ur Leukocyte Esterase Negative Urine RBC 0-2 Urine WBC 0-5 Ur Squamous Epith Cells 0-2 Urine Bacteria None Seen Hyaline Casts 0-2 Microbiology Microbiology Results: Microbiology 08/20/25 10:07 Blood - Venous Blood Culture - Preliminary No growth after 24 hours. 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 With significant clinical improvement on methylprednisolone. Plan: - continue IV methylprednisone 60 mg till 08/22. - switch to PO prednisone 60 on 08/23. Would recommend monitoring inpatient on first oral dose to ensure no clinical deterioration once he transitions off from IV to PO steroids. - Serial abd exams - Defer repeat scan inpatient unless has any clinical change. Outpt enterography booked 09/03. - were also working on increasing Skyrizi to q4w as outpt - next dose due 08/28. - pls ensure fecal calpro collected while pt is here to help monitor disease activity - low residue diet Time Spent With Patient Time: Total time managing care of this patient today ____ minutes. Quality Stroke Does the patient have a stroke diagnosis?: No VTE Prior VTE?: No VTE Risk Level:: Medical - moderate - high VTE Device Contraindication: Treatment Not Indicated VTE Drug Contraindication: N/A - Med Ordered
[2025-08-21 14:00] VITALS: BP 103/59; PULSE 79; RESP 16; TEMP 36.1; O2SAT 100
--- NOTE | 2025-08-21 14:30 | MHC.CM.PN ---
pt lives with family is working and independent will not need servixes when dcd has a ride
--- NOTE | 2025-08-21 17:15 | MHC.EDTECH ---
Assumed care of pt at 1500. Pt ate 100% of dinner tray, call pereira within reach, no other needs at this time. RN aware
[2025-08-21] MEDS: 0.9 % Sodium Chloride Flush 3 ML SYRINGE IVFLUSH (17:17)
[2025-08-21 20:30] VITALS: BP 136/70; PULSE 71; RESP 18; TEMP 36.4; O2SAT 99
[2025-08-22] MEDS: Lactated Ringers 1,000 ML 100 ML IVCONT (05:09)
[2025-08-22 05:34] LABS: Hematocrit 31.5 % (42.0-52.0); Hemoglobin 9.8 g/dl (14.0-18.0); Mean Corpuscular HGB Conc 31.1 g/dl (31.0-36.0); Mean Corpuscular Hemoglobin 20.0 pg (27.0-33.0); NRBC Abs Auto 0.000 X10*3/uL (0.0-0.012); NRBC Pct Auto 0.0 /100WBC (0.0-0.2); Platelet Count 604 X10*3/uL (160-400); Red Blood Count 4.90 X10*6/uL (4.60-5.80); White Blood Count 20.6 X10*3/uL (4.8-10.8)
[2025-08-22 05:36] LABS: Mean Corpuscular Volume 64.3 fL (80.0-98.0)
[2025-08-22 05:49] LABS: Anion Gap 12 (12-20); Blood Urea Nitrogen 9 mg/dL (9-16); Calcium 8.9 mg/dL (8.4-10.2); Carbon Dioxide 28 mmol/L (22-29); Chloride 108 mmol/L (96-108); Creatinine Clr Calc Pharmacy 89.9; Estimated Glomerular Filt Rate > 60; Potassium 4.4 mmol/L (3.3-5.1); Sodium 144 mmol/L (135-145)
[2025-08-22 07:08] VITALS: BP 138/76; PULSE 76; RESP 16; TEMP 36.6; O2SAT 100
--- NOTE | 2025-08-22 11:09 | P.PNGI_ITS ---
Subjective Subjective Date of Service: 08/22/25 Interval History: CRP has decreased from 5.6 on admission to 1.5 today. Fecal calpro pending. Pt otherwise feels well. Wondering if he can get discharged today with outpatient labs for close follow up. Critical Care Time (minutes): 0 Physical Exam 2 Exam: Exam: No apparent distress Undernourished Nonicteric Abdomen soft, nondistended Alert and oriented x3, normal gait Vital Signs: Vital Signs: Last Vital Signs Temp 97.9 F 08/22/25 07:08 Pulse 76 08/22/25 07:08 Resp 16 08/22/25 07:08 BP 138/76 08/22/25 07:08 Pulse Ox 100 08/22/25 07:08 O2 Del Method Room Air 08/22/25 07:08 BMI result Body Mass Index 20.4 Objective Data Labs 08/22/25 05:19 08/22/25 05:19 Labs: Laboratory Results - last 24 hr 08/22/25 05:19 WBC 20.6 H RBC 4.90 Hgb 9.8 L Hct 31.5 L MCV 64.3 L MCH 20.0 L MCHC 31.1 RDW 18.2 H Plt Count 604 H MPV 9.1 L Absolute Nucleated RBC 0.000 Nucleated RBC % (auto) 0.0 Sodium 144 Potassium 4.4 Chloride 108 Carbon Dioxide 28 Anion Gap 12 BUN 9 Creatinine 0.86 Estim Creat Clear Calc 89.9 Estimated GFR > 60 Random Glucose 80 Calcium 8.9 C-Reactive Protein 1.51 H Laboratory Tests 08/20/25 08/21/25 10:07 03:46 C-Reactive Protein 5.67 H 4.65 H Microbiology Microbiology Results: Microbiology 08/20/25 10:45 Blood - Venous Blood Culture - Preliminary No growth after 24 hours. 08/20/25 10:07 Blood - Venous Blood Culture - Preliminary No growth after 24 hours. 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 With significant clinical improvement on methylprednisolone. Plan: - switch to PO prednisone 60 on 08/23. Cont for 14 days followed by taper of 10 mg per week. - Repeat labs within 3 days - Outpt enterography booked 09/03. - Increase Skyrizi to q4w - next dose due 08/28. - low residue diet Office follow up scheduled Time Spent With Patient Time: Total time managing care of this patient today ____ minutes. Quality Stroke Does the patient have a stroke diagnosis?: No VTE Prior VTE?: No VTE Risk Level:: Medical - moderate - high VTE Device Contraindication: Treatment Not Indicated VTE Drug Contraindication: N/A - Med Ordered
--- NOTE | 2025-08-22 11:33 | MHC.CLN ---
CONSULT VISITED WITH PATIENT PER HIS REQUEST FOR NUTRITION INFO. PROVIDED SEPARATE HANDOUTS FROM CLINICAL NUTRITION MANUAL ABOUT CROHN'S DISEASE NUTRITION AND LOW FIBER DIETS. PATIENT WITH CROHN'S DX X 25 YEARS. 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 ADVISED TO FOLLOW GI MD GUIDANCE CONCERNING DIET/TREATMENT.
[2025-08-22 11:50] VITALS: BP 138/76; PULSE 76; RESP 16; TEMP 36.6; O2SAT 100
--- NOTE | 2025-08-22 12:00 | P.DS_ITS ---
DS: Providers Provider Date of Service: 08/22/25 Date of admission: 08/20/25 12:07 Date of discharge: 08/22/25 Primary care physician: Destiney Shoemaker MD Consults: 08/20/25 12:50 Consult to Gastroenterology Routine Consulting Provider: Rea Neumann Reason for consultation: Crohn's Flare 08/20/25 12:52 Consult to General Surgery Routine Consulting Provider: [facility] Reason for consultation: Crohn's flare with possible SBO DS: Diagnosis Discharge Diagnosis (1) Crohn's disease: Status: Acute (2) Partial obstruction of small intestine: Status: Acute DS: Summary Hospital Course Hospital Course: From admission HPI: Date of Service: 08/20/25 Attending physician on admission: Francy Harris Chief Complaint: Abd pain Pt is a 45-year-old male with a PMH significant for?Crohn's disease on [facility] follows with Dr. Neumann who presents to the ED with abdominal pain radiating to the back and diarrhea x3-4 days. Pt reports last week had URI type symptoms with sore throat, cough, and nasal congestion. Those symptoms resolved, but on Wednesday developed abdominal pain. Pt was already on prednisone taper for previous Crohn's flare, currently at 15 mg daily. On Wednesday pt transitioned to a liquid diet, but on Wednesday symptoms worsen and pain began radiating to the back. Has been having 4+ episodes of liquid diarrhea daily with last episode of diarrhea this morning. Continues to pass gas. Pt called GI office and was told to come to the hospital for imaging and possible admission. Denies nausea, vomiting. No chest pain/pressure, palpitations. Denies shortness or breath or difficulty breathing. In the ED pt's vitals were stable and WNL. Labs were significant for leukocytosis 18.7, ALT 42, and CRP 5.67. CTA of abdomen/pelvis showed active Crohn's disease worse than prior and with question of low-grade partial SBO. No evidence of abscess. Pt was treated in the ED with ondansetron, Dilaudid, IVF, Solu-Medrol 60 mg IV, and Zosyn. Pt is admitted to the hospital for treatment and further evaluation of acute Crohn's flare with question of possible SBO. Hospital course: Pt was admitted to the hospital for abdominal pain and diarrhea in the setting of acute Crohn's flare concerning for possible SBO. pt was seen and evaluated by General surgery where his abdominal exam was relatively benign and clinically did not appear to be obstructed. Pt was treated with IV antiemetics, analgesics, and initially NPO. Was seen and evaluated GI where he was treated with Solu-Medrol 60 mg IV x3 doses and started on clear liquid diet where diet was slowly advanced. Pt was also given Venofer 200mg IV x1 dose for iron- deficiency anemia. GI initially recommended monitoring for an additional day to monitor for regression of symptoms while transitioning to p.o. steroids, but pt elected to be discharged home as he was feeling well and had resolution of symptoms. Pt has been tolerating solid diet x3 meals at that point. Pt was treated empirically with Zosyn while in the hospital, though antibiotics will be discontinued on discharge per GI recommendation. Pt is being discharged on a high dose and assisted prednisone taper: Starting at 60 mg daily x2 weeks, from 09/02-09/05, then decreasing by 10 mg every 7 days. Patient's Skyrizi dosing will also be increased to every 4 weeks with next dose on 08/28. pt should follow up with GI in 1-2 weeks, and also should attend appointment on 09/03 for Outpatient enterography. Pt should continue all other home medications. Time Attestation Discharge Coordination Time (in mins): 35 Quality: Safe Use of Opioids Does Pt have an Active Cancer Diagnosis on the Problem List?: No Quality: Stroke Does the patient have a stroke diagnosis?: No Physical Exam Exam: Exam: General: AOx3, no acute distress Resp: CTA bilaterally CVS: S1, S2, RRR GI: +BS, NT, no distention Skin: Warm, dry Neuro: Cranial nerves II-XII grossly intact bilaterally. Motor grossly intact bilaterally Extremities: No edema Psych: Appropriate affect Vital Signs: Vital Signs: Last Vital Signs Temp 97.9 F 08/22/25 11:50 Pulse 76 08/22/25 11:50 Resp 16 08/22/25 11:50 BP 138/76 08/22/25 11:50 Pulse Ox 100 08/22/25 11:50 O2 Del Method Room Air 08/22/25 11:50 BMI result Body Mass Index 20.4 DS: Data Data Completed and Pending Labs on day of discharge: Laboratory Results - last 24 hr 08/22/25 05:19 WBC 20.6 H RBC 4.90 Hgb 9.8 L Hct 31.5 L MCV 64.3 L MCH 20.0 L MCHC 31.1 RDW 18.2 H Plt Count 604 H MPV 9.1 L Absolute Nucleated RBC 0.000 Nucleated RBC % (auto) 0.0 Sodium 144 Potassium 4.4 Chloride 108 Carbon Dioxide 28 Anion Gap 12 BUN 9 Creatinine 0.86 Estim Creat Clear Calc 89.9 Estimated GFR > 60 Random Glucose 80 Calcium 8.9 C-Reactive Protein 1.51 H Preliminary micro results at discharge 08/20/25 10:45 Blood Culture - Preliminary Blood - Venous No growth after 24 hours. 08/20/25 10:07 Blood Culture - Preliminary Blood - Venous No growth after 24 hours. Discharge Plan Discharge Anticipated Discharge Date/Time: 08/22/25 11:37 Patient Disposition: Home, Self-Care Discharge Diagnosis: Acute Crohn's disease flare Referrals: Destiney Shoemaker MD [Primary Care Provider, Primary Care] - 1 Week Discharge Medications: New prednisone 20 mg tablet 60 mg PO DAILY 14 Days Qty: 42 0RF Rx Instructions: Take 3 tablets (for a total of 60mg) daily for the next 2 weeks. You will then continue taper with 10mg tablets prednisone 10 mg tablet 10 mg PO DIRECTED Qty: 75 0RF Rx Instructions: see taper instructions Begin prednisone taper on 09/06 after completing initial 60mg dose x2 weeks Take 50mg daily (5 tablets) for 7 days, then Take 40mg daily (4 tablets) for 7 days, then Take 30mg daily (3 tablets) for 7 days, then Take 20mg daily (2 tablets) for 7 days, then Take 10mg daily (1 tablet) for 7 days Continued Skyrizi 360 mg/2.4 mL (150 mg/mL) wearable injector 360 mg subcut Q4W 90 Days Qty: 9.6 1RF multivitamin Tablet 1 tab PO DAILY vitamin B complex Tablet 1 tab PO DAILY Discontinued prednisone 5 mg tablet See Taper PO DAILY Taper: Prednisone 15 mg daily for 6 Days and 0 Hour 10 mg daily for 7 Days and 0 Hour 5 mg daily for 7 Days and 0 Hour Discharge Orders: Discharge Order (Routine); Ordered 08/22/25 Ordered By: Tonny Flores Activity on Discharge: As tolerated Stand Alone Forms: Patient Portal Discharge page, Work/School Release Print Language: Spanish Care Plan Goals: See below Health Concerns: Acute Crohn's flare Small-bowel obstruction Abdominal pain, diarrhea Electrolyte abnormalities Plan of Treatment: You were admitted to the hospital for abdominal pain and diarrhea in the setting acute Crohn's disease flare with a question of possible SBO. You were seen and evaluated by General surgery where you did not clinically appear to be obstructed. Your nausea and abdominal pain were controlled, and you were seen and evaluated by GI who treated you with Solu-Medrol 60 mg IV x3 doses. Your symptoms greatly improved while on the IV steroids, and your diet was advanced to full which you have been tolerating for the past 24 hours. Gi recommended monitoring you for an additional day while you were transitioned to oral steroids, with due to family, job, and financial obligations you elected to go home today you were treated with empiric antibiotics while in the hospital, but will not need any upon discharge. You will be discharged on a high dose and long prednisone taper as detailed below. -- you will be discharged on a prednisone taper starting at 60 mg daily for 2 weeks, from 09/02-09/05. On 09/06 you will take 50mg daily for 7 days, then decrease dosage by 10mg every 7 days. See prescription bottle for additional dosing details -- your Skyrizi dosing will be increased to every 4 weeks with next dose due on 08/28 -- follow up with GI as previously scheduled. Reschedule him outpatient enterography on 09/03 -- you were also given IV iron while in the hospital for iron deficiency anemia. Follow up outpatient with PCP and GI for continued monitoring -- resume all other home medications Assessment: See discharge summary
--- NOTE | 2025-08-22 12:19 | MHC.CM.PN ---
PT DCD HIM SELF CARE
== END 2025-08-22 12:11 | disposition home or self-care (01) | DRG 245 ==
LOC: HO.ED 11:23 → HO.EDOVER 12:25
PROVIDERS: Admitting Provider Student in an Organized Health Care Education/Training Program; Emergency Provider Emergency Medicine; PCP Hospitalist; Visit Provider Student in an Organized Health Care Education/Training Program
DX: K50.012 Crohn's disease of small intestine with intestinal obstruction (principal); Z79.620 Long term (current) use of immunosuppressive biologic; Z79.899 Other long term (current) drug therapy
CPT/HCPCS: 36415; 74177; 80048; 80053; 80076; 81001; 83605; 83690; 83735; 83993; 85025; 85027; 86140; 87040; 99285; J1171; J1756; J2405; J2543; J2919; J7120; Q9967

== ENCOUNTER → 2025-08-20 09:56 | Outpatient (BNV) | payer BC, SELFPAY | PROVIDERS: Emergency Provider Emergency Medicine; PCP Hospitalist; Visit Provider Radiology Diagnostic Radiology | DX: R10.84 Generalized abdominal pain (principal); K80.20 Calculus of gallbladder without cholecystitis without obstruction | CPT/HCPCS: 74177 ==

== ENCOUNTER → 2025-08-20 12:07 | Outpatient (BNV) | payer BC, SELFPAY | PROVIDERS: Admitting Provider Student in an Organized Health Care Education/Training Program; Emergency Provider Emergency Medicine; PCP Hospitalist; Visit Provider Internal Medicine | DX: K50.019 Crohn's disease of small intestine with unspecified complications (principal); K56.600 Partial intestinal obstruction, unspecified as to cause; D64.9 Anemia, unspecified; E61.1 Iron deficiency | CPT/HCPCS: 99232; 99233 ==

== ENCOUNTER → 2025-08-20 12:07 | Outpatient (BNV) | payer BC, SELFPAY | PROVIDERS: Admitting Provider Student in an Organized Health Care Education/Training Program; Emergency Provider Emergency Medicine; PCP Hospitalist; Visit Provider Student in an Organized Health Care Education/Training Program | DX: K50.019 Crohn's disease of small intestine with unspecified complications (principal) | CPT/HCPCS: 99233 ==

== ENCOUNTER → 2025-08-20 12:07 | Outpatient (BNV) | payer BC, SELFPAY | PROVIDERS: Admitting Provider Student in an Organized Health Care Education/Training Program; Emergency Provider Emergency Medicine; PCP Hospitalist | DX: K50.019 Crohn's disease of small intestine with unspecified complications (principal); K56.600 Partial intestinal obstruction, unspecified as to cause | CPT/HCPCS: 99232; 99254 ==

== ENCOUNTER 2025-08-28 08:12 | Outpatient (REF) | payer BC, SELFPAY ==
--- OUTSIDE RECORDS SUMMARY | 2025-08-28 08:20 | XMS_ITS | Clinical Summary ---
Author Organization [facility] Address [address] [place] [address] Care Team Providers Care Transaction Advisory Services Manager Name Role Phone Kendall Shoemaker MD Primary Care Provider [phone] Surgical History Surgery Date Site/Laterality Comments COLONOSCOPY PROCEDURE:COLONOSCOPY UPPER GASTROINTESTINAL ENDOSCOPY PROCEDURE:UPPER GASTROINTESTINAL ENDOSCOPY UPPER GASTROINTESTINAL ENDOSCOPY 06/05/2020 N/A PROCEDURE:UPPER GASTROINTESTINAL ENDOSCOPY;COMMENT:Procedure: UPPER ENDOSCOPY-EGD/Biopsy; Surgeon: Robert Barber MD; Location: [facility] ENDOSCOPY; Service: Gastroenterology; Laterality: N/A; COLONOSCOPY 06/05/2020 N/A PROCEDURE:COLONOSCOPY;COMMENT :Procedure: COLONOSCOPY B SF(to the terminal ileum)/Biopsy and polypectomy; Surgeon: Robert Barber MD; Location: [facility] ENDOSCOPY; Service: Gastroenterology; Laterality: N/A; Medical [...] age to complete this topic Care Teams Transaction Advisory Services Manager Relationship Specialty Start Date End Date Kendall Shoemaker MD [address] [place] [address] PCP - General 08/12/23
--- OUTSIDE RECORDS SUMMARY | 2025-08-28 08:20 | XMS_ITS | Encounter Summary ---
Author Organization [facility] Address [address] [place] [address] Care Team Providers Care Records Management Specialist Name Role Phone Pcp, No Primary Care Provider Kendall Navas MD Primary Care Provider [phone] Encounter Details Date Type Department Care Team (Late st Contact Info) Description 05/13/2020 Scanned Document [address] [phone] Gastroenterology, Scan Social History Tobacco Use Types [...] AM EDT [facility] [address] [place] [phone] Juan Bustamante MD [address] [facility] [address] [place] [address] documented as of this encounter Procedures Procedure Name Priority Date/Time Associated Diagnosis Comments PATHOLOGY GENERAL 06/05/2020 documented in this encounter Results * PATHOLOGY GENERAL (06/05/2020) 06/05/2020 us Scan Gastroenterology [facility] HX PATH PROCEDURES Mook tank Result - Final documented in this encounter Visit Diagnoses Not on filedocumented in this encounter Care Teams Records Management Specialist Relationship Specialty Start Date End Date Pcp, No PCP - General General Medicine 06/12/20 08/16/25 Kendall Shoemaker MD [address] [place] [address] PCP - General Internal Medicine 08/17/25 documented as of this encounter
--- OUTSIDE RECORDS SUMMARY | 2025-08-28 08:20 | XMS_ITS | Clinical Summary ---
Author Organization [address] Address [address] [place] [phone] Phone Care Team Providers Care Hardware Manager Name Role Phone Unavailable Primary Care Provider [...]
--- OUTSIDE RECORDS SUMMARY | 2025-08-28 08:21 | XMS_ITS | Patient Health Record ---
Author Organization [facility] Address [address] [facility] [address] [place] [address] Care Team Providers Care Pin Cleaner Name Role Phone VEE KONG Primary Care [...] W/U Status Risk Notes Problem Crohn's disease (52321081) Crohn's disease, unspecified, with other complication (K50.918) Active confirmed Problem Anemia (487967707) Anemia, unspecified type (D64.9) Active confirmed Plan Of Treatment Pending Test Test Name Order Date CBC (COMPLETE BLOOD COUNT) WITH DIFF Future Test Test Name Order Date CBC (COMPLETE BLOOD COUNT) 05/06/2022 COMPREHENSIVE METABOLIC PANEL 05/06/2022 LIPID PANEL 05/06/2022 LYME C6 ANTIBODY 07/28/2023 URIC ACID 07/28/2023 Next Appt Details Provider Name:VEE KONG , 09/10/2025 08:45:00 AM, [address] [place] [address], [phone], Insurance Providers Payer Name Payer Address Payer Phone Subscriber Number Group Number Insured Name Patient Relationship to Insured Coverage Start Date Coverage End Date [facility] [address] [place] [phone] [id number] Talon Lazaro Self - patient is the insured Medical (General) History Medical History History ICD Code Raynaud's disease Crohn's disease and follows up with Dr. Licona Iron deficiency anemia
--- OUTSIDE RECORDS SUMMARY | 2025-08-28 08:21 | XMS_ITS | Clinical Summary ---
Author Organization [facility] Address [address] [place], [place] [id number] Care Team Providers Care Vice President Name Role Phone Kendall Shoemaker MD Primary Care Provider [phone] Allergies No known active allergies Medications Medication [...] Advance Directives For more information, please contact: [phone] Latest Code Status on File Code Status Date Activated Date Inactivated Comments Full Code 06/05/2020 1:41 PM 06/05/2020 8:31 PM This code status was ascertained in the following way: discussion with patient . Care Teams Vice President Relationship Specialty Start Date End Date Kendall Shoemaker MD [address] [place] [address] PCP - General Internal Medicine 08/12/23
--- OUTSIDE RECORDS SUMMARY | 2025-08-28 08:21 | XMS_ITS | Clinical Summary ---
Author Organization [facility] Address [address] [place] [address] Care Team Providers Care Commercial Announcer Name Role Phone Kendall Shoemaker MD Primary Care Provider [phone] Allergies No known active allergies Medications Humira [...] 08/17/2025 9:30 AM EDT Office Visit Orthopedic [address] [phone] Juan Bustamante MD Occipital neuralgia of right side (Primary Dx); Spondylosis of cervical region without myelopathy or radiculopathy 07/27/2025 9:45 AM EDT Office Visit Orthopedic [address] [phone] Juan Bustamante MD 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); Occipital neuralgia of right side 07/19/2025 9:15 AM EDT [facility] [address] [address] Yomi Anthony MD Cervical neuralgia (Primary Dx); [...] 9:30 AM EDT [facility] [address] [place] [address] Juan Bustamante MD [address] [place] [address] [address] [place] [address] Health Maintenance Due Date Last Done Comments [...] Insurance WORKER'S COMP WORKER'S COMP WORKER'S COMP [facility] Care Teams Commercial Announcer Relationship Specialty Start Date End Date Kendall Shoemaker MD [address] [place] [address] PCP - General Internal Medicine 08/17/25
--- OUTSIDE RECORDS SUMMARY | 2025-08-28 08:21 | XMS_ITS | Encounter Summary ---
Author Organization [facility] Address [address] [place] [address] Care Team Providers Care Warp Tying Machine Tender Name Role Phone Pcp, No Primary Care Provider Kendall Navas MD Primary Care Provider [phone] Encounter Details Date Type Department Care Team (Late st Contact Info) Description 12/14/2024 Scanned Document Orthopedic [address] [phone] Juan Bustamante MD [address] [facility] [address] [place] [address] Social History Tobacco Use Types Packs/Day Years [...] 09/07/2025 9:30 AM EDT Office Visit [facility] [address] [facility] [place] [address] [place] [phone] Juan Bustamante MD [address] [facility] [address] [place] [phone] documented as of this encounter Visit Diagnoses Not on filedocumented in this encounter Care Teams Warp Tying Machine Tender Relationship Specialty Start Date End Date Pcp, No PCP - General General Medicine 06/12/20 08/16/25 Kendall Shoemaker MD [address] [place] [address] PCP - General Internal Medicine 08/17/25 documented as of this encounter
[2025-08-28 08:54] LABS: Hematocrit 33.5 % (42.0-52.0); Hemoglobin 10.3 g/dl (14.0-18.0); Mean Corpuscular HGB Conc 30.7 g/dl (31.0-36.0); Mean Corpuscular Hemoglobin 20.3 pg (27.0-33.0); Mean Corpuscular Volume 66.1 fL (80.0-98.0); NRBC Abs Auto 0.000 X10*3/uL (0.0-0.012); NRBC Pct Auto 0.0 /100WBC (0.0-0.2); Platelet Count 622 X10*3/uL (160-400); Red Blood Count 5.07 X10*6/uL (4.60-5.80); White Blood Count 23.5 X10*3/uL (4.8-10.8)
[2025-08-28 10:45] LABS: Iron 21 mcg/dL (45-160); Percent Iron Saturation 10 % (15-50); Total Iron Binding Capacity 216 mcg/dL (228-428); Unsaturated Iron Binding 195 ug/dL
[2025-08-28 11:07] LABS: Ferritin 73 ng/mL (20-250)
[2025-08-28 11:14] LABS: Folate 11.0 ng/mL (> or = 4.0); Vitamin B12 371 pg/mL (200-900)
== END 2025-08-28 08:13 | disposition home or self-care (01) ==
LOC: HO.LAB 08:12
PROVIDERS: PCP Hospitalist; Visit Provider Internal Medicine
DX: E61.1 Iron deficiency (principal); K50.019 Crohn's disease of small intestine with unspecified complications; D64.9 Anemia, unspecified
CPT/HCPCS: 36415; 82607; 82728; 82746; 83540; 85027; 86140

== ENCOUNTER 2025-09-03 13:42 | Outpatient (REF) | payer BC, SELFPAY ==
--- NOTE | ~2025-09-03 | CT_ITS ---
EXAMINATION: CT ABDOMEN PELVIS ENTEROGRAPHY WITHOUT IV CONTRAST HISTORY: K56.699 - Other intestinal obstruction unspecified as to partial versus ... COMPARISON: Comparison is made with the prior examination dated 08/20/2025. TECHNIQUE: CT enterography of the abdomen and pelvis was performed following administration of 85 mL Omnipaque 350 using standard departmental protocol. Coronal and sagittal reformatted images were generated and reviewed. The patient received low-density oral contrast material for CT enterography. This CT exam was performed with one or more of the following dose reduction techniques: automated exposure control, adjustment of the mA and/or kV according to patient size, use of iterative reconstruction technique. DLP: 287 mGy-cm FINDINGS: LOWER CHEST: The visualized lung bases are clear. There is no pleural effusion. CARDIOVASCULATURE: The heart is normal in size. There is no pericardial effusion. LIVER: The liver is normal in size and contour. No liver mass is identified. The hepatic and portal veins are patent. GALLBLADDER / BILE DUCTS: There is cholelithiasis. There is no intra or extrahepatic biliary ductal dilatation. SPLEEN: The spleen is normal in size. No focal splenic lesion is identified. PANCREAS: The pancreas is unremarkable in appearance. ADRENAL GLANDS: Within normal limits. KIDNEYS/RETROPERITONEUM: No renal calculi are identified. There is no hydronephrosis. No renal masses are identified. LYMPH NODES: No abdominal or pelvic lymphadenopathy. VASCULATURE: The abdominal aorta is normal in caliber. MESENTERY/PERITONEUM: No free fluid. There is no free intraperitoneal gas. STOMACH: The stomach is unremarkable. SMALL BOWEL: There are multiple mildly dilated, fluid-filled loops of small bowel throughout the abdomen and pelvis. Areas of pseudosacculation are again noted, compatible with the patient's known history of Crohn's disease. There is an area of tethering and spiculation in the midabdomen to the right of midline with an associated fluid collection measuring approximately 6.8 x 2.6 x 3.6 cm, highly suspicious for an abscess. A fistula in this location is not excluded. (Series 3, images [id number]). COLON: The colon is unremarkable. APPENDIX: The appendix is not seen, however no inflammatory changes are seen adjacent to the cecum. URINARY BLADDER/PELVIC ORGANS: The urinary bladder is unremarkable. The prostate is normal in size. BONES / SOFT TISSUES: No suspicious bony or soft tissue abnormalities. CT/CT enterography IMPRESSION: Multiple fluid filled small bowel loops. There is a pseudosacculation, compatible with the patient's known history of Crohn's disease. Area of tethering of small bowel loops and spiculation in the midabdomen to the right of midline with an associated 6.8 x 2.6 x 3.6 cm fluid collection, highly suspicious for an abscess. A fistula in this location is not excluded. These findings were discussed with Dr. Neumann on 09/03/2025 at 3:30 PM. Electronically signed by: Cliff Buck MD 09/03/2025 03:33 PM EDT
[2025-09-03] MEDS: iohexoL 350 MG/ML 100 ML INFUS..BTL IV (14:51)
[2025-09-03] MEDS: Sorbitol/Mannit/Xanth Imaging 500 ML LIQUID 1500 ML PO (14:53)
--- OUTSIDE RECORDS SUMMARY | 2025-09-03 16:53 | XMS_ITS | Clinical Summary ---
Author Organization [address] Address [address] [place] [phone] Phone Care Team Providers Care Chicken Vaccinator Name Role Phone Unavailable Primary Care Provider [...] vaccine 06/15/2025 Covid-19 vaccine series ( - 2024- season) 2025 RSV Immunization (1 - 1-dose [...]
--- OUTSIDE RECORDS SUMMARY | 2025-09-03 16:53 | XMS_ITS | Encounter Summary ---
Author Organization [facility] Address [address] [place] [address] Care Team Providers Care Marketing Campaign Analyst Name Role Phone Pcp, No Primary Care Provider Kendall Navas MD Primary Care Provider [phone] Encounter Details Date Type Department Care Team (Late st Contact Info) Description 05/13/2020 Scanned Document [address] [phone] Gastroenterology, Scan Social History Tobacco Use Types [...] AM EDT [facility] [address] [place] [phone] Juan Bustamante MD [address] [facility] [address] [place] [address] documented as of this encounter Procedures Procedure Name Priority Date/Time Associated Diagnosis Comments PATHOLOGY GENERAL 06/05/2020 documented in this encounter Results * PATHOLOGY GENERAL (06/05/2020) 06/05/2020 us Scan Gastroenterology [facility] HX PATH PROCEDURES Mook tank Result - Final documented in this encounter Visit Diagnoses Not on filedocumented in this encounter Care Teams Marketing Campaign Analyst Relationship Specialty Start Date End Date Pcp, No PCP - General General Medicine 06/12/20 08/16/25 Kendall Shoemaker MD [address] [place] [address] PCP - General Internal Medicine 08/17/25 documented as of this encounter
--- OUTSIDE RECORDS SUMMARY | 2025-09-03 16:54 | XMS_ITS | Clinical Summary ---
Author Organization [facility] Address [address] [place] [address] Care Team Providers Care Tai Chi Instructor Name Role Phone Kendall Shoemaker MD Primary Care Provider [phone] Allergies No known active allergies Medications Humira [...] 08/17/2025 9:30 AM EDT Office Visit Orthopedic [address] [phone] Juan Bustamante MD Occipital neuralgia of right side (Primary Dx); Spondylosis of cervical region without myelopathy or radiculopathy 07/27/2025 9:45 AM EDT Office Visit [facility] [address] [address] Juan Bustamante MD 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); Occipital neuralgia of right side 07/19/2025 9:15 AM EDT [facility] [address] [phone] Yomi Anthony MD Cervical neuralgia (Primary Dx); [...] 9:30 AM EDT [facility] [address] [place] [address] Juan Bustamante MD [address] [place] [address] [address] [place] [address] Health Maintenance Due Date Last Done Comments [...] Insurance WORKER'S COMP WORKER'S COMP WORKER'S COMP [facility] Care Teams Tai Chi Instructor Relationship Specialty Start Date End Date Kendall Shoemaker MD [address] [place] [address] PCP - General Internal Medicine 08/17/25
--- OUTSIDE RECORDS SUMMARY | 2025-09-03 16:54 | XMS_ITS | Clinical Summary ---
Author Organization [facility] Address [address] [place], [place] [address] Care Team Providers Care Sawmill Supervisor Name Role Phone Kendall Shoemaker MD Primary Care Provider [phone] Allergies No known active allergies Medications Medication [...] Advance Directives For more information, please contact: [phone] Latest Code Status on File Code Status Date Activated Date Inactivated Comments Full Code 06/05/2020 1:41 PM 06/05/2020 8:31 PM This code status was ascertained in the following way: discussion with patient . Care Teams Sawmill Supervisor Relationship Specialty Start Date End Date Kendall Shoemaker MD [address] [place] [address] PCP - General Internal Medicine 08/12/23
--- OUTSIDE RECORDS SUMMARY | 2025-09-03 16:54 | XMS_ITS | Encounter Summary ---
Author Organization [facility] Address [address] [place] [address] Care Team Providers Care Shank Breaker Name Role Phone Pcp, No Primary Care Provider Kendall Navas MD Primary Care Provider [phone] Encounter Details Date Type Department Care Team (Late st Contact Info) Description 12/14/2024 Scanned Document Orthopedic [address] [phone] Juan Bustamante MD [address] [facility] [address] [place] [address] Social History Tobacco Use Types Packs/Day Years [...] 09/07/2025 9:30 AM EDT Office Visit [facility] [address] [facility] [address] [phone] Juan Bustamante MD [address] [facility] [address] [place] [phone] documented as of this encounter Visit Diagnoses Not on filedocumented in this encounter Care Teams Shank Breaker Relationship Specialty Start Date End Date Pcp, No PCP - General General Medicine 06/12/20 08/16/25 Kendall Shoemaker MD [address] [place] [address] PCP - General Internal Medicine 08/17/25 documented as of this encounter
--- OUTSIDE RECORDS SUMMARY | 2025-09-03 16:54 | XMS_ITS | Patient Health Record ---
Author Organization [facility] Address [address] [facility] [address] [place] [address] Care Team Providers Care Stain Applicator Name Role Phone VEE KONG Primary Care [...] W/U Status Risk Notes Problem Crohn's disease (91076141) Crohn's disease, unspecified, with other complication (K50.918) Active confirmed Problem Anemia (446908134) Anemia, unspecified type (D64.9) Active confirmed Plan Of Treatment Pending Test Test Name Order Date CBC (COMPLETE BLOOD COUNT) WITH DIFF Future Test Test Name Order Date CBC (COMPLETE BLOOD COUNT) 05/06/2022 COMPREHENSIVE METABOLIC PANEL 05/06/2022 LIPID PANEL 05/06/2022 LYME C6 ANTIBODY 07/28/2023 URIC ACID 07/28/2023 Next Appt Details Provider Name:VEE KONG , 09/10/2025 08:45:00 AM, [address] [place] [address], [phone], Insurance Providers Payer Name Payer Address Payer Phone Subscriber Number Group Number Insured Name Patient Relationship to Insured Coverage Start Date Coverage End Date [facility] [address] [place] [address] [phone] [id number] Talon Lazaro Self - patient is the insured Medical (General) History Medical History History ICD Code Raynaud's disease Crohn's disease and follows up with Dr. Licona Iron deficiency anemia
== END 2025-09-03 13:43 | disposition home or self-care (01) ==
LOC: HO.CT 13:42
PROVIDERS: PCP Hospitalist; Visit Provider Internal Medicine
DX: K56.699 Other intestinal obstruction unspecified as to partial versus complete obstruction (principal); K50.019 Crohn's disease of small intestine with unspecified complications
CPT/HCPCS: 74177; Q9967

== ENCOUNTER → 2025-09-03 13:44 | Outpatient (BNV) | payer BC, SELFPAY | PROVIDERS: PCP Hospitalist; Visit Provider Radiology Diagnostic Radiology | DX: K56.699 Other intestinal obstruction unspecified as to partial versus complete obstruction (principal) | CPT/HCPCS: 74177 ==

== ENCOUNTER 2025-09-03 17:11 | Inpatient (IN) | payer BC, SELFPAY ==
[2025-09-03] VITALS (8 sets, daily range): BP systolic 98–142; BP diastolic 53–81; PULSE 59–78; RESP 18; TEMP 36.3–36.6; O2SAT 98–100; BMI 22.5
--- NOTE | 2025-09-03 17:34 | ED.GENADULT ---
HPI - General Adult General Chief complaint: Abdominal Pain Stated complaint: abscess PCP called ahead Time Seen by Provider: 09/03/25 17:41 Source: patient Mode of arrival: ambulatory Limitations: no limitations History of Present Illness ED Provider: HPI narrative: 45-year-old male with Crohn's disease, was having increased abdominal pain, had outpatient CT ordered by motor builder assembler Dr. Abrams, and was called into come to the ER for intra-abdominal abscess. Patient reports pain no fevers or chills. He has been having diarrhea after having constipation a few days ago. Pain is in the right lower quadrant. Related Data Home Medications ?Medication ?Instructions ?Recorded ?Confirmed multivitamin 1 tab PO DAILY 08/20/25 08/20/25 vitamin B complex 1 tab PO DAILY 08/20/25 08/20/25 prednisone 10 mg tablet See Taper PO DIRECTED 09/03/25 Previous Rx's ?Medication ?Instructions ?Recorded Skyrizi 360 mg/2.4 mL (150 mg/mL) 360 mg (2.4 mL) subcut Q4W 90 days 08/21/25 subcutaneous wearable injector #9.6 mL (risankizumab-rzaa) prednisone 20 mg tablet 60 mg (3 x 20 mg) PO DAILY 2 weeks 08/22/25 #42 tabs Allergies Allergy/AdvReac Type Severity Reaction Status Date / Time No Known Allergies Allergy Verified 09/03/25 17:21 Review of Systems Constitutional: Constitutional: Reports as per HPI [facility] Past Medical History Medical History Crohn's disease Surgical History History of esophagogastroduodenoscopy (EGD) Hx of colonoscopy Social History Social History Household Members: Family Alcohol intake: former Patient Tobacco Use Status: Never used Tobacco Advance Directives: No Advance Directives Information Provided: Yes Do you have a plan to hurt others: No Plan service: No Physical Exam ED Vital Signs: Vital Signs - 24 hr 09/03/25 17:19 Temperature 97.3 F Pulse Rate 78 Respiratory Rate 18 Blood Pressure 142/80 H Pulse Oximetry 98 Oxygen Delivery Method Room Air BMI result Body Mass Index 22.5 Const Other: General: ?Appears of stated age ? ?PERRLA, EOMI, MMM, ? Neck: Supple, no LAD ? ?CV: RRR, no obvious murmurs appreciated ? ?Resp: ?No wheezing rales rhonchi no stridor moving air well ? Abd: ?Bowel sounds are present, right lower quadrant tenderness no rebound or rigidity ? ?MSK: FROM, strength 5/5 all extremities ? Skin: Warm, dry, intact, ? ?Neuro: ?Alert and oriented x3, moving upper and lower extremities symmetrically, no obvious facial asymmetry noted, cranial nerves 2-12 intact Course Course Course Narrative: RME, this is a rapid medical exam performed by Dwayne Mahan please refer to primary provider for complete H&P- 45-year-old male presents for evaluation of intra-abdominal abscess. His primary to called ahead due to an outpatient CT scan showing and intra-abdominal fluid collection consistent with an abscess. Plan for labs including blood cultures and lactic acid. Medications Administered Generic Name Dose Route Start Last Admin Trade Name Freq PRN Reason Stop Dose Admin Piperacillin Sod/Tazobactam 50 mls @ 100 mls/hr 09/03/25 18:26 09/03/25 18:44 Sod 3.375 gm/ Sodium Chloride IV 09/03/25 18:55 100 mls/hr ONCE ONE Administration Discontinued Medications Generic Name Dose Route Start Last Admin Trade Name Freq PRN Reason Stop Dose Admin Morphine Sulfate 4 mg 09/03/25 18:26 09/03/25 18:44 Morphine Sulfate 4 Mg/Ml Cartridge IVPUSH 09/03/25 18:27 4 mg ONCE ONE Administration Protocol Medical Decision Making Medical Decision Making [facility] Narrative: 6:29 PM 09/03/2025 (Dr. Maximus Camp): Code sepsis activated, patient has a sepsis, elevated lactic, leukocytosis, we will order blood cultures, antibiotics, and IV fluids , communicated with Dr. Gastelum from general surgery, stated patient needs to be admitted to medical service for management of Crohn's, he will arrange for abscess drainage tomorrow Differential Diagnosis Differential Diagnoses: The differential diagnosis associated with the presentation includes (SBO, abscess, perforation, volvulus) Admission/Observation Consideration of admission/observation: Escalation of care including admission/observation considered Consult Healthcare Provider Management of the patient was discussed with: Hospitalist and Social Worker Psychiatric (Dr. Gastelum general surgery) Lab Data MDM Lab Attestation statement: I reviewed the patient's lab results. 09/03/25 17:47 09/03/25 17:47 Labs: Lab Results 09/03/25 Range/Units 17:47 WBC 19.7 H (4.8-10.8) X10*3/uL RBC 5.46 (4.60-5.80) X10*6/uL Hgb 10.9 L (14.0-18.0) g/dl Hct 35.6 L (42.0-52.0) % MCV 65.2 L (80.0-98.0) fL MCH 20.0 L (27.0-33.0) pg MCHC 30.6 L (31.0-36.0) g/dl RDW 19.2 H (11.0-16.0) % Plt Count 501 H (160-400) X10*3/uL MPV 9.4 (9.4-12.4) fL Immature Gran % (Auto) 0.5 H (0.0-0.4) % Neut % (Auto) 85.5 H (45-73) % Lymph % (Auto) 9.5 L (20-40) % [place] % (Auto) 4.2 (2-11) % Eos % (Auto) 0.1 (0-4) % Baso % (Auto) 0.2 (0-2) % Lymph # (Auto) 1.9 (1.2-4.9) X10*3/uL [place] # (Auto) 0.8 (0.1-1.2) X10*3/uL Eos # (Auto) 0.0 (0.0-0.4) X10*3/uL Baso # (Auto) 0.0 (0.0-0.2) X10*3/uL Abs Immat Gran (auto) 0.09 H (0.00-0.03) X10*3/uL Absolute Neuts (auto) 16.8 H (2.0-8.3) x10*3/uL Absolute Nucleated RBC 0.000 (0.0-0.012) X10*3/uL Nucleated RBC % (auto) 0.0 (0.0-0.2) /100WBC ESR 23 H (0-15) MM/HR Sodium 140 (135-145) mmol/L Potassium 3.6 (3.3-5.1) mmol/L Chloride 103 (96-108) mmol/L Carbon Dioxide 29 (22-29) mmol/L Anion Gap 12 (12-20) BUN 11 (9-16) mg/dL Creatinine 0.70 (0.5-1.4) mg/dL Estim Creat Clear Calc 117.8 Estimated GFR > 60 Random Glucose 131 H (60-115) mg/dL Lactic Acid 2.5 H* (0.5-2.0) mmol/L Calcium 9.1 (8.4-10.2) mg/dL Total Bilirubin 0.2 (0.0-1.0) mg/dL AST 14 (5-37) U/L ALT 21 (0-40) U/L Alkaline Phosphatase 55 (39-117) U/L C-Reactive Protein 2.49 H (< or = 0.50) mg/dL Total Protein 6.7 (6.5-8.0) g/dL Albumin 3.9 (3.5-5.0) g/dL Lipase 55 (8-78) U/L Radiology Impression Discussion of test interpretation with radiology: I have reviewed the radiologist's reading. External Record Review External record reviewed: Office record Critical Care Time Critical Care Time Critical Care Time: Yes Total Critical Care Time: 35 Attestation: Time is exclusive of separately billable procedures. Time includes: direct patient care, patient reassessment, coordination of patient care, interpretation of data (laboratory data, pulse oximetry, arterial blood gases and chest xrays), review of patient's medical records, medical consultation and documentation of patient care. Procedures excluded from critical care time: central intravenous line placement and electrocardiography. Discharge Plan Discharge Clinical Impression: Intra-abdominal abscess Crohn's disease Qualifiers: Gastrointestinal tract location: small intestine Digestive disease complication type: unspecified complication Qualified Code(s): K50.019 - Crohn's disease of small intestine with unspecified complications Prescriptions: No Action Skyrizi 360 mg/2.4 mL (150 mg/mL) wearable injector 360 mg subcut Q4W 90 Days Qty: 9.6 1RF prednisone 10 mg tablet See Taper PO DIRECTED Taper: Prednisone 50 mg daily for 7 Days and 0 Hour 40 mg daily for 7 Days and 0 Hour 30 mg daily for 7 Days and 0 Hour 20 mg daily for 7 Days and 0 Hour 10 mg daily for 7 Days and 0 Hour Rx Instructions: see taper instructions Begin prednisone taper on 09/06 after completing initial 60mg dose x2 weeks Take 50mg daily (5 tablets) for 7 days, then Take 40mg daily (4 tablets) for 7 days, then Take 30mg daily (3 tablets) for 7 days, then Take 20mg daily (2 tablets) for 7 days, then Take 10mg daily (1 tablet) for 7 days multivitamin Tablet 1 tab PO DAILY vitamin B complex Tablet 1 tab PO DAILY prednisone 20 mg tablet 60 mg PO DAILY 14 Days Qty: 42 0RF Rx Instructions: Take 3 tablets (for a total of 60mg) daily for the next 2 weeks. You will then continue taper with 10mg tablets Print Language: Korean
[2025-09-03 17:53] LABS: MANUAL DIFF FLAG NO
[2025-09-03 17:57] LABS: Hematocrit 35.6 % (42.0-52.0); Hemoglobin 10.9 g/dl (14.0-18.0); Imm Gran Abs Auto 0.09 X10*3/uL (0.00-0.03); Imm Gran Pct Auto 0.5 % (0.0-0.4); Lymphocytes Absolute Auto 1.9 X10*3/uL (1.2-4.9); Mean Corpuscular HGB Conc 30.6 g/dl (31.0-36.0); Mean Corpuscular Hemoglobin 20.0 pg (27.0-33.0); Mean Corpuscular Volume 65.2 fL (80.0-98.0); NRBC Abs Auto 0.000 X10*3/uL (0.0-0.012); NRBC Pct Auto 0.0 /100WBC (0.0-0.2); Platelet Count 501 X10*3/uL (160-400); Red Blood Count 5.46 X10*6/uL (4.60-5.80); White Blood Count 19.7 X10*3/uL (4.8-10.8)
[2025-09-03 18:18] LABS: Alanine Aminotransferase 21 U/L (0-40); Albumin Level 3.9 g/dL (3.5-5.0); Alkaline Phosphatase 55 U/L (39-117); Anion Gap 12 (12-20); Aspartate Amino Transferase 14 U/L (5-37); Blood Urea Nitrogen 11 mg/dL (9-16); Calcium 9.1 mg/dL (8.4-10.2); Carbon Dioxide 29 mmol/L (22-29); Chloride 103 mmol/L (96-108); Creatinine Clr Calc Pharmacy 117.8; Estimated Glomerular Filt Rate > 60; Lipase 55 U/L (8-78); Potassium 3.6 mmol/L (3.3-5.1); Sodium 140 mmol/L (135-145); Total Protein 6.7 g/dL (6.5-8.0)
[2025-09-03] MEDS: 0.9 % Sodium Chloride 1,837.05 ML 1837.05 ML IV (18:55)
--- NOTE | 2025-09-03 19:13 | PHA.MEDREC ---
Addendum entered by Jaclyn Khan [facility] 09/03/25 19:34: REVIEWED BY PHARMACIST Original Note: Pharmacy Consult ? Medication Reconciliation Pharmacy has completed the medication reconciliation. Spoke with pt and he confirmed his medications. Pt taking Prednisone 20mg regimen; 3 tabs (60mg) for 14 days (pt suppose to finish 09/06) and then starting Prednisone 10mg regimen (50mg for 7 days, 40mg for 7 days, 30mg for 7 days, 20mg for 7 days and 10 mg for 7 days) but states he has not been getting any relief using Prednisone 20mg tabs. Pt confirmed his Skyrizi once every 4 weeks and states he was due for it last Wednesday but his insurance wont pay for it and he has not been able to take it since last month.
--- NOTE | 2025-09-03 19:14 | HO.NURTONUR ---
Pt has pmhx of chrons x 25 years. Was here 1 1/2 weeks ago for flare up, was admitted x 4 days, now return for pain and ?abscess. CT + for abd abscess. Plan for OR in am
--- NOTE | 2025-09-03 19:20 | P.HPHOSP_ITS ---
History of Present Illness Date of Service: 09/03/25 Chief Complaint: Abdominal pain 45-year-old male with a past medical history of Crohn's disease on Skyrizi presented to the hospital today with a chief complaint of abdominal pain. Patient mentioned that he has been having severe Crohn's disease and has been on methylprednisone which was switched to prednisone with Q weekly taper on 08/23/2025. His supervisor mechanic boilermaking Dr. Abrams booked him for CT enterography for 09/03/2025 which showed intra-abdominal abscess subsequently asked him to go to the ER for further evaluation. Patient reports that over the past few days he has been having increased abdominal pain. Denies any fevers. Denies any nausea vomiting. Reports having diarrhea. Review of all other systems is negative except mentioned above ER course: Per ER physician, patient reported right lower quadrant abdominal pain; noted have mild tenderness; no guarding or rigidity; CT abdomen pelvis showed 6.8x 2.6 X3.6 cm fluid collection in the mid abdomen. Discussed with Dr. Gastelum from General surgery who reviewed the images and mentioned no acute surgical intervention needed for now and will plan for IR guided drainage in the morning. Patient was given antibiotics. [facility] Medical History Crohn's disease Surgical History History of esophagogastroduodenoscopy (EGD) Hx of colonoscopy Social History Household Members: Spouse and Children Housing: House Do you presently have visiting nurse or other home services: No Alcohol intake: former Patient Tobacco Use Status: Never used Tobacco service: No Meds Allergies Allergy/AdvReac Type Severity Reaction Status Date / Time No Known Allergies Allergy Verified 09/03/25 17:21 Active Medications: Current Medications Acetaminophen (Acetaminophen 325 Mg Tablet) 650 mg PO Q6H PRN PRN Reason: Pain, Mild 1-3,fever,headache Calcium Carbonate (Calcium Carbonate 750 Mg Tab.Chew) 750 mg PO Q4H PRN PRN Reason: Heartburn Enoxaparin Sodium (Enoxaparin Sodium 40 Mg/0.4 Ml Syringe) 40 mg SUBCUT Q24H MARILIA Hydromorphone HCl (Hydromorphone Hcl 0.5 Mg/0.5 Ml Syringe) 0.5 mg IVPUSH Q4H PRN; Protocol PRN Reason: Pain, Severe (Pain Scale 7-10) Vancomycin HCl 1,500 mg/ (Sodium Chloride) 500 mls @ 333.333 mls/hr IV ONCE ONE Stop: 09/03/25 19:55 Sodium Chloride (Ns) 1,837.05 mls @ 1,837.05 mls/hr 30 ml/kg infuse over 1 hr (1837.05 ml) IV .Q1H STA Stop: 09/03/25 19:25 Last Admin: 09/03/25 18:55 Dose: 1,837.05 mls/hr Dextrose/Sodium Chloride (D51/2ns) 1,000 mls @ 100 mls/hr IVCONT .Q10H MARILIA Magnesium Hydroxide (Milk Of Magnesia 30 Ml Oral.Susp) 30 ml PO DAILY PRN PRN Reason: Constipation Melatonin (Melatonin 3 Mg Tablet) 6 mg PO BEDTIME PRN PRN Reason: Insomnia Sodium Chloride (0.9 % Sodium Chloride Flush 3 Ml Syringe) 3 ml IVFLUSH QSHIFT MARILIA Home Medications ?Medication ?Instructions ?Recorded ?Confirmed ?Last Taken ?Type multivitamin 1 tab PO DAILY 08/20/2508/1609/03/25 History vitamin B complex 1 tab PO DAILY 08/20/2508/1609/03/25 History Physical Exam 2 Vital Signs and Narrative: Vital Signs: Last Vital Signs Temp 97.3 F 09/03/25 17:19 Pulse 78 09/03/25 17:19 Resp 18 09/03/25 17:19 BP 142/80 H 09/03/25 17:19 Pulse Ox 98 09/03/25 17:19 O2 Del Method Room Air 09/03/25 17:19 BMI result Body Mass Index 22.5 Gen: Appears be in no acute distress HEENT: NCAT, Moist mucosa. Pulmonary: Vesicular breath sounds, fair air entry CVS: Normal S1-S2 Abdomen: BS+, Soft, Nontender Extremities: Warm well perfused Neuro: Alert and awake. Results Labs 09/04/25 04:37 09/04/25 04:37 Labs: Laboratory Results - last 24 hr 09/03/25 17:47 MCV 65.2 L MCH 20.0 L MCHC 30.6 L RDW 19.2 H Plt Count 501 H MPV 9.4 Immature Gran % (Auto) 0.5 H Neut % (Auto) 85.5 H Lymph % (Auto) 9.5 L [place] % (Auto) 4.2 Eos % (Auto) 0.1 Baso % (Auto) 0.2 Lymph # (Auto) 1.9 [place] # (Auto) 0.8 Eos # (Auto) 0.0 Baso # (Auto) 0.0 Abs Immat Gran (auto) 0.09 H Absolute Neuts (auto) 16.8 H Absolute Nucleated RBC 0.000 Nucleated RBC % (auto) 0.0 ESR 23 H Anion Gap 12 Estim Creat Clear Calc 117.8 Estimated GFR > 60 Random Glucose 131 H Lactic Acid 2.5 H* Calcium 9.1 Total Bilirubin 0.2 AST 14 ALT 21 Alkaline Phosphatase 55 C-Reactive Protein 2.49 H Total Protein 6.7 Albumin 3.9 Lipase 55 Assessment and Plan (1) Intra-abdominal abscess: Status: Acute Plan 45-year-old male with a past medical history of Crohn's disease on Skyrizi presented to the hospital today with a chief complaint of abdominal pain. Noted to have intra-abdominal abscess on CT enterography. Severe Crohn's disease: Intra-abdominal abscess: CT enterography showed multiple fluid-filled small bowel loops, 6.8 X2.66 3.66 cm abscess. Abdominal exam is non peritoneal General surgery was notified-recommended medicine admission and will plan for IR guided drainage in the morning. Continue Zosyn NPO Gentle IV fluids Pain control Patient on monthly Skyrizi. Patient also on prednisone 60 mg started on 08/23/2025 with Q weekly taper. For now continued on 40 mg of prednisone p.o.. DVT prophylaxis: Lovenox Code status: Full code Quality Stroke Does the patient have a stroke diagnosis?: No VTE Prior VTE?: No VTE Risk Level:: Medical - moderate - high VTE Device Contraindication: Treatment Not Indicated VTE Drug Contraindication: N/A - Med Ordered
[2025-09-03 19:52] LABS: Reflex Lactate? Lactic Acid Added
[2025-09-03 19:54] LABS: Appearance Urine Clear; Glucose Urine UA Negative (Negative); PH 7.0 (5.0-9.0); Specific Gravity - Urine 1.025 (1.005-1.025)
--- NOTE | 2025-09-03 19:55 | P.CONGS_ITS ---
History of Present Illness Consult details Consult date: 09/03/25 Narrative: 45-year-old male with known Crohn's disease, sent to the ER by Dr. MEJIA because of a CT enterography done as an outpatient showing an abscess He actually denies any significant abdominal pain. He says that he definitely feels much better compared to when he was here almost 2 weeks ago. He denies any nausea or vomiting. He says he actually feels well overall. He denies any fever or chills. He has good oral intake. Denies any vomiting. Review of Systems 2 Constitutional: Constitutional: Denies chills and Denies fever(s) Cardiovascular: Cardiovascular: Denies chest pain, Denies dyspnea and Denies dyspnea on exertion Respiratory: Respiratory: Denies cough, Denies dyspnea and Denies dyspnea on exertion Gastrointestinal: Gastrointestinal: Denies hematochezia and Denies change in bowel habits Genitourinary: Genitourinary: Denies hematuria and Denies difficulty urinating Musculoskeletal: Musculoskeletal: Denies back pain and Denies limited range of motion Neurologic: Denies focal weakness and Denies convulsions Psychiatric: Psychiatric: Denies depression and Denies mood swings [facility] Past Medical History Medical History Crohn's disease Surgical History Surgical History History of esophagogastroduodenoscopy (EGD) Hx of colonoscopy Social History Social History Household Members: Spouse and Children Housing: House Do you presently have visiting nurse or other home services: No Alcohol intake: former Patient Tobacco Use Status: Never used Tobacco service: No Meds Allergies Allergy/AdvReac Type Severity Reaction Status Date / Time No Known Allergies Allergy Verified 09/03/25 17:21 Active Medications: Current Medications Acetaminophen (Acetaminophen 325 Mg Tablet) 650 mg PO Q6H PRN PRN Reason: Pain, Mild 1-3,fever,headache Calcium Carbonate (Calcium Carbonate 750 Mg Tab.Chew) 750 mg PO Q4H PRN PRN Reason: Heartburn Enoxaparin Sodium (Enoxaparin Sodium 40 Mg/0.4 Ml Syringe) 40 mg SUBCUT Q24H MARILIA Hydromorphone HCl (Hydromorphone Hcl 0.5 Mg/0.5 Ml Syringe) 0.5 mg IVPUSH Q4H PRN; Protocol PRN Reason: Pain, Severe (Pain Scale 7-10) Vancomycin HCl 1,500 mg/ (Sodium Chloride) 500 mls @ 333.333 mls/hr IV ONCE ONE Stop: 09/03/25 19:55 Dextrose/Sodium Chloride (D51/2ns) 1,000 mls @ 100 mls/hr IVCONT .Q10H MARILIA Piperacillin Sod/Tazobactam (Sod 3.375 gm/ Sodium Chloride) 50 mls @ 100 mls/hr IV Q6H MARILIA Magnesium Hydroxide (Milk Of Magnesia 30 Ml Oral.Susp) 30 ml PO DAILY PRN PRN Reason: Constipation Melatonin (Melatonin 3 Mg Tablet) 6 mg PO BEDTIME PRN PRN Reason: Insomnia Prednisone (Prednisone 20 Mg Tablet) 40 mg PO DAILY MARILIA Sodium Chloride (0.9 % Sodium Chloride Flush 3 Ml Syringe) 3 ml IVFLUSH QSHIFT MARILIA Home Medications ?Medication ?Instructions ?Recorded ?Confirmed ?Last Taken ?Type multivitamin 1 tab PO DAILY 08/20/2508/1609/03/25 History vitamin B complex 1 tab PO DAILY 08/20/2508/1609/03/25 History Physical Exam 2 Vital Signs: Vital Signs: Last Vital Signs Temp 97.9 F 09/03/25 19:20 Pulse 76 09/03/25 19:20 Resp 18 09/03/25 19:20 BP 122/76 09/03/25 19:20 Pulse Ox 100 09/03/25 19:20 O2 Del Method Room Air 09/03/25 19:20 BMI result Body Mass Index 22.5 Const: General: comfortable and no acute distress O rientation/consciousness: patient oriented x3 Neck: Neck: Yes no lymphadenopathy Resp: Auscultation: clear to auscultation bilaterally Cardio: Rhythm: regular rhythm GI: Other: Minimal tenderness diffusely Inspection: No distended Palpation (GI): Soft to palpation, Tenderness to palpation present (GI) and no guarding Neuro: General: patient oriented x3 Results Labs 09/04/25 04:37 09/04/25 04:37 Labs: Abnormal lab results 09/03/25 Range/Units 17:47 WBC 19.7 H (4.8-10.8) X10*3/uL Hgb 10.9 L (14.0-18.0) g/dl Hct 35.6 L (42.0-52.0) % MCV 65.2 L (80.0-98.0) fL MCH 20.0 L (27.0-33.0) pg MCHC 30.6 L (31.0-36.0) g/dl RDW 19.2 H (11.0-16.0) % Plt Count 501 H (160-400) X10*3/uL Immature Gran % (Auto) 0.5 H (0.0-0.4) % Neut % (Auto) 85.5 H (45-73) % Lymph % (Auto) 9.5 L (20-40) % Abs Immat Gran (auto) 0.09 H (0.00-0.03) X10*3/uL Absolute Neuts (auto) 16.8 H (2.0-8.3) x10*3/uL ESR 23 H (0-15) MM/HR Random Glucose 131 H (60-115) mg/dL Lactic Acid 2.5 H* (0.5-2.0) mmol/L C-Reactive Protein 2.49 H (< or = 0.50) mg/dL Short CBC 09/03/25 Range/Units 17:47 WBC 19.7 H (4.8-10.8) X10*3/uL Hgb 10.9 L (14.0-18.0) g/dl Hct 35.6 L (42.0-52.0) % Plt Count 501 H (160-400) X10*3/uL BMP 09/03/25 17:47 Sodium 140 Potassium 3.6 Chloride 103 Carbon Dioxide 29 BUN 11 Creatinine 0.70 Calcium 9.1 Liver Function 09/03/25 Range/Units 17:47 Total Bilirubin 0.2 (0.0-1.0) mg/dL AST 14 (5-37) U/L ALT 21 (0-40) U/L Alkaline Phosphatase 55 (39-117) U/L Albumin 3.9 (3.5-5.0) g/dL Urine 09/03/25 Range/Units 19:43 Urine Color Yellow Urine Appearance Clear Urine pH 7.0 (5.0-9.0) Ur Specific [place] 1.025 (1.005-1.025) Urine Protein Negative (Neg-Trace) mg/dL Urine Glucose (UA) Negative (Negative) mg/dL All other labs normal. Assessment and Plan (1) Intra-abdominal abscess: Status: Acute He had an outpatient enterography suggesting an intra-abdominal abscess. The reading seems to be a little equivocal so I will review his CAT scan images with the radiologist tomorrow and see if he will benefit from any IR drain. He looks well overall. He is abdomen is very soft and benign. He does not appear septic. He has good GI functions. He has leukocytosis maybe secondary to his indurated use. Procedures Date of Service Date of Service: 09/05/25
[2025-09-03 20:26] LABS: ~Lactic Acid-LAB USE ONLY 1.4 mmol/L (0.5-2.0)
[2025-09-03] MEDS: Dextrose 5 % and 0.45 % NaCl 1,000 ML 100 ML IVCONT (23:28)
[2025-09-04] VITALS (7 sets, daily range): BP systolic 122–138; BP diastolic 63–93; PULSE 77–97; RESP 12–18; TEMP 36.6–37; O2SAT 97–100; BMI 21.8
--- NOTE | 2025-09-04 00:33 | PC.NURSE ---
2231 and 2236 BP measured on right upper arm in left lateral position
[2025-09-04 05:08] LABS: Hematocrit 30.7 % (42.0-52.0); Hemoglobin 9.1 g/dl (14.0-18.0); Mean Corpuscular HGB Conc 29.6 g/dl (31.0-36.0); Mean Corpuscular Hemoglobin 20.0 pg (27.0-33.0); Mean Corpuscular Volume 67.5 fL (80.0-98.0); NRBC Abs Auto 0.000 X10*3/uL (0.0-0.012); NRBC Pct Auto 0.0 /100WBC (0.0-0.2); Platelet Count 369 X10*3/uL (160-400); Red Blood Count 4.55 X10*6/uL (4.60-5.80); White Blood Count 14.7 X10*3/uL (4.8-10.8)
[2025-09-04 05:25] LABS: Alanine Aminotransferase 18 U/L (0-40); Albumin Level 2.9 g/dL (3.5-5.0); Alkaline Phosphatase 48 U/L (39-117); Anion Gap 9 (12-20); Aspartate Amino Transferase 16 U/L (5-37); Blood Urea Nitrogen 9 mg/dL (9-16); Calcium 7.7 mg/dL (8.4-10.2); Carbon Dioxide 27 mmol/L (22-29); Chloride 111 mmol/L (96-108); Creatinine Clr Calc Pharmacy 109.9; Estimated Glomerular Filt Rate > 60; Potassium 3.8 mmol/L (3.3-5.1); Sodium 143 mmol/L (135-145); Total Protein 5.3 g/dL (6.5-8.0)
--- NOTE | 2025-09-04 07:57 | HO.PM.IMPN ---
Subjective Subjective Date of Service: 09/04/25 Interval History: f/u abdominal pain concern for intraabdominal abscess, crohn's disease Physical Exam Exam: Exam: General: AO X 3, no acute distress Resp: CTA bilateral CVS: S1,S2,RRR GI: focal abd tenderness Skin: No rash Neuro: motor grossly intact Psych: appropriate affect Vital Signs: Vital Signs: Last Vital Signs Temp 98.5 F 09/04/25 06:12 Pulse 90 09/04/25 07:54 Resp 12 09/04/25 07:54 BP 122/65 09/04/25 07:54 Pulse Ox 99 09/04/25 07:54 O2 Del Method Room Air 09/04/25 07:54 BMI result Body Mass Index 22.5 Objective Data Active Medications Acetaminophen (Acetaminophen 325 Mg Tablet) 650 mg PO Q6H PRN PRN Reason: Pain, Mild 1-3,fever,headache Calcium Carbonate (Calcium Carbonate 750 Mg Tab.Chew) 750 mg PO Q4H PRN PRN Reason: Heartburn Enoxaparin Sodium (Enoxaparin Sodium 40 Mg/0.4 Ml Syringe) 40 mg SUBCUT Q24H [facility] Last Admin: 09/03/25 23:28 Dose: 40 mg Documented By: MASSIEL Hydromorphone HCl (Hydromorphone Hcl 0.5 Mg/0.5 Ml Syringe) 0.5 mg IVPUSH Q4H PRN; Protocol PRN Reason: Pain, Severe (Pain Scale 7-10) Dextrose/Sodium Chloride (D51/2ns) 1,000 mls @ 100 mls/hr IVCONT .Q10H [facility] Last Admin: 09/04/25 05:29 Dose: Not Given Documented By: MASSIEL Non-Admin Reason: IV Running Piperacillin Sod/Tazobactam (Sod 3.375 gm/ Sodium Chloride) 50 mls @ 100 mls/hr IV Q6H [facility] Last Infusion: 09/04/25 06:00 Dose: Infused Documented By: MASSIEL Magnesium Hydroxide (Milk Of Magnesia 30 Ml Oral.Susp) 30 ml PO DAILY PRN PRN Reason: Constipation Melatonin (Melatonin 3 Mg Tablet) 6 mg PO BEDTIME PRN PRN Reason: Insomnia Prednisone (Prednisone 20 Mg Tablet) 40 mg PO DAILY [facility] Sodium Chloride (0.9 % Sodium Chloride Flush 3 Ml Syringe) 3 ml IVFLUSH QSHIFT [facility] Last Admin: 09/04/25 07:24 Dose: Not Given Documented By: LIBERTAD Non-Admin Reason: See Note Labs 09/04/25 04:37 09/04/25 04:37 Labs: Laboratory Results - last 24 hr 09/03/25 09/03/25 09/03/25 17:47 19:43 20:06 MCV 65.2 L MCH 20.0 L MCHC 30.6 L RDW 19.2 H Plt Count 501 H MPV 9.4 Immature Gran % (Auto) 0.5 H Neut % (Auto) 85.5 H Lymph % (Auto) 9.5 L [place] % (Auto) 4.2 Eos % (Auto) 0.1 Baso % (Auto) 0.2 Lymph # (Auto) 1.9 [place] # (Auto) 0.8 Eos # (Auto) 0.0 Baso # (Auto) 0.0 Abs Immat Gran (auto) 0.09 H Absolute Neuts (auto) 16.8 H Absolute Nucleated RBC 0.000 Nucleated RBC % (auto) 0.0 ESR 23 H Anion Gap 12 Estim Creat Clear Calc 117.8 Estimated GFR > 60 Random Glucose 131 H Lactic Acid 2.5 H* Lactic Acid F/U @ 2Hr 1.4 Calcium 9.1 Total Bilirubin 0.2 AST 14 ALT 21 Alkaline Phosphatase 55 C-Reactive Protein 2.49 H Total Protein 6.7 Albumin 3.9 Lipase 55 Urine Color Yellow Urine Appearance Clear Urine pH 7.0 Ur Specific [place] 1.025 Urine Protein Negative Urine Glucose (UA) Negative Urine Ketones Negative Urine Blood Negative Urine Nitrite Negative Ur Leukocyte Esterase Negative Urine RBC 0-2 Urine WBC 0-5 Ur Squamous Epith Cells 0-2 Urine Bacteria None Seen Hyaline Casts 0-2 09/04/25 04:37 MCV 67.5 L MCH 20.0 L MCHC 29.6 L RDW 18.6 H Plt Count 369 D MPV 9.6 Immature Gran % (Auto) Neut % (Auto) Lymph % (Auto) [place] % (Auto) Eos % (Auto) Baso % (Auto) Lymph # (Auto) [place] # (Auto) Eos # (Auto) Baso # (Auto) Abs Immat Gran (auto) Absolute Neuts (auto) Absolute Nucleated RBC 0.000 Nucleated RBC % (auto) 0.0 ESR Anion Gap 9 L Estim Creat Clear Calc 109.9 Estimated GFR > 60 Random Glucose 82 Lactic Acid Lactic Acid F/U @ 2Hr Calcium 7.7 L D Total Bilirubin 0.3 AST 16 ALT 18 Alkaline Phosphatase 48 C-Reactive Protein Total Protein 5.3 L Albumin 2.9 L Lipase Urine Color Urine Appearance Urine pH Ur Specific [place] Urine Protein Urine Glucose (UA) Urine Ketones Urine Blood Urine Nitrite Ur Leukocyte Esterase Urine RBC Urine WBC Ur Squamous Epith Cells Urine Bacteria Hyaline Casts Assessment and Plan (1) Crohn's disease: Status: Acute (2) Intra-abdominal abscess: Status: Acute Plan 45-year-old male with Crohn?s disease and new intra-abdominal abscess. ?Intra-abdominal abscess (Crohn?s disease flare): Continue IV antibiotics (Zosyn) IR-guided drainage planned Prednisone jordyn 60 mg daily now GI and Surgery consults Surgery doesn't think it is organized abscess, so holding off IR drainage and advancing diet Monitor for signs of sepsis or peritonitis Abdominal pain: Dilaudid as needed for pain control Monitor pain level and response to therapy DVT prophylaxis:Lovenox Disposition: Continue inpatient management with close monitoring. Await IR drainage. Coordinate care with GI and surgery. He's interested in second gi opinion Quality Stroke Does the patient have a stroke diagnosis?: No VTE Prior VTE?: No VTE Risk Level:: Medical - moderate - high VTE Device Contraindication: Treatment Not Indicated VTE Drug Contraindication: N/A - Med Ordered
--- NOTE | 2025-09-04 08:09 | PM.GICN ---
History of Present Illness Data of Consult Service Date: 09/04/25 Requesting physician: Wojciech Muir Primary Care Provider: MD ALIYAH Larose Reason for consult: Intra-abdominal abscess This is a 45y.o M with PMH of crohns disease of small intestine that was diagnosed in his late teens [place] currently on Skyrizi who is admitted to the hospital for intra-abdominal abscess. Patient well known to me for small-bowel Crohn's. Has been difficult to manage with medical therapy so far Humira --> Ustekinumab (secondary non-response) --> Rizankizumab (started 03/2025). Last dose of Skyrizi was 07/31. Has been having ongoing symptoms for the last 3 months at the very least. This is his 3rd hospital admission since Jun 2025. CT June 2025 suspicious for LEFT sided intra-abdominal abscess and was advised to go to emergency room, was admitted in [facility] for 2 days. Seen by Colorectal surgery as well. Low suspicion for abscess per their assessment. Was started on high dose prednisone course. Then admitted early Oct for sudden onset of lower abdominal pain with increased abdominal distention, low volume of liquid stool and increased flatulence. CT scan that showed worsening small-bowel disease with possible partial SBO. He was again managed with IV methylpred with good return of bowel function and resolution of abdominal symptoms. He had a routine CTE done yest which now shows 6.8 cm x 3.6 collection just RIGHT to mid abdomen. Pt himself denies any fevers, has mild R sided pain but no N/V, chills, no change in bowel habits. Has been taking pred as per taper. Review of Systems Review of Systems: Yes all other systems are reviewed and are negative [facility] Past Medical History Medical History Crohn's disease Surgical History Surgical History History of esophagogastroduodenoscopy (EGD) Hx of colonoscopy Social History Social History Household Members: Family Alcohol intake: former Patient Tobacco Use Status: Never used Tobacco Smoked in Last 30 Days: No Use of substances other than those prescribed or required for medical reasons: No Advance Directives: No Advance Directives Information Provided: Yes Do you have a plan to hurt others: No Plan service: No Meds Allergies Allergy/AdvReac Type Severity Reaction Status Date / Time No Known Allergies Allergy Verified 09/03/25 17:21 Active Medications: Current Medications Acetaminophen (Acetaminophen 325 Mg Tablet) 650 mg PO Q6H PRN PRN Reason: Pain, Mild 1-3,fever,headache Last Admin: 09/04/25 08:03 Dose: 650 mg Calcium Carbonate (Calcium Carbonate 750 Mg Tab.Chew) 750 mg PO Q4H PRN PRN Reason: Heartburn Enoxaparin Sodium (Enoxaparin Sodium 40 Mg/0.4 Ml Syringe) 40 mg SUBCUT Q24H [facility] Last Admin: 09/03/25 23:28 Dose: 40 mg Hydromorphone HCl (Hydromorphone Hcl 0.5 Mg/0.5 Ml Syringe) 0.5 mg IVPUSH Q4H PRN; Protocol PRN Reason: Pain, Severe (Pain Scale 7-10) Dextrose/Sodium Chloride (D51/2ns) 1,000 mls @ 100 mls/hr IVCONT .Q10H [facility] Last Admin: 09/04/25 05:29 Dose: Not Given Piperacillin Sod/Tazobactam (Sod 3.375 gm/ Sodium Chloride) 50 mls @ 100 mls/hr IV Q6H [facility] Last Infusion: 09/04/25 06:00 Dose: Infused Magnesium Hydroxide (Milk Of Magnesia 30 Ml Oral.Susp) 30 ml PO DAILY PRN PRN Reason: Constipation Melatonin (Melatonin 3 Mg Tablet) 6 mg PO BEDTIME PRN PRN Reason: Insomnia Prednisone (Prednisone 20 Mg Tablet) 40 mg PO DAILY [facility] Sodium Chloride (0.9 % Sodium Chloride Flush 3 Ml Syringe) 3 ml IVFLUSH QSHIFT [facility] Last Admin: 09/04/25 07:24 Dose: Not Given Home Medications ?Medication ?Instructions ?Recorded ?Confirmed ?Last Taken ?Type multivitamin 1 tab PO DAILY 08/20/25 09/03/25 09/03/25 History vitamin B complex 1 tab PO DAILY 08/20/25 09/03/25 09/03/25 History Physical Exam Exam: Exam: thin male NAD Nonicteric abd soft, tender in RLQ and RUQ, nondistended no peripheral edema Vital Signs: Vital Signs: Last Vital Signs Temp 98.5 F 09/04/25 06:12 Pulse 90 09/04/25 07:54 Resp 12 09/04/25 07:54 BP 122/65 09/04/25 07:54 Pulse Ox 99 09/04/25 07:54 O2 Del Method Room Air 09/04/25 07:54 BMI result Body Mass Index 22.5 Results Labs 09/04/25 04:37 09/04/25 04:37 Labs: Short CBC 09/03/25 09/04/25 Range/Units 17:47 04:37 WBC 19.7 H 14.7 H (4.8-10.8) X10*3/uL Hgb 10.9 L 9.1 L (14.0-18.0) g/dl Hct 35.6 L 30.7 L (42.0-52.0) % Plt Count 501 H 369 D (160-400) X10*3/uL BMP 09/03/25 09/04/25 17:47 04:37 Sodium 140 143 Potassium 3.6 3.8 Chloride 103 111 H Carbon Dioxide 29 27 BUN 11 9 Creatinine 0.70 0.75 Calcium 9.1 7.7 L D Liver Function 09/03/25 09/04/25 Range/Units 17:47 04:37 Total Bilirubin 0.2 0.3 (0.0-1.0) mg/dL AST 14 16 (5-37) U/L ALT 21 18 (0-40) U/L Alkaline Phosphatase 55 48 (39-117) U/L Albumin 3.9 2.9 L (3.5-5.0) g/dL Urine 09/03/25 Range/Units 19:43 Urine Color Yellow Urine Appearance Clear Urine pH 7.0 (5.0-9.0) Ur Specific [place] 1.025 (1.005-1.025) Urine Protein Negative (Neg-Trace) mg/dL Urine Glucose (UA) Negative (Negative) mg/dL Assessment and Plan (1) Intra-abdominal abscess: Status: Acute (2) Crohn's disease: Qualifiers: Digestive disease complication type: unspecified complication Gastrointestinal tract location: small intestine Qualified Code(s): K50.019 - Crohn's disease of small intestine with unspecified complications Status: Acute (3) Small bowel disease: Status: Inactive (4) Anemia: Status: Acute (5) Iron deficiency: Status: Inactive Plan Patient with high-risk penetrating Crohn's disease of small bowel. Currently with question of intra-abdominal abscess though clinically appears well. ?inflammatory phelgmon. Of note- he has not been able to get his Skyrizi from specialty pharmacy yet. Was due for repeat dose 08/28. Plan: - Keep NPO - Surgery consultation - May need CT guided drainage if this is truly an abscess. Pls also sent for C&S in that case. - HOLD off IV steroids. Cont PO pred dosing as per taper schedule - Cont IV Zosyn Thank you for allowing me to participate in his care. Please do not hesitate to reach out for questions or concerns. Procedures Date of Service Date of Service: 09/04/25
--- NOTE | 2025-09-04 09:17 | P.PNGS_ITS ---
Subjective Subjective Date of Service: 09/04/25 <Talon Cummins PA-C - Last Filed: 09/04/25 09:22> 09/04/25 <Chris Gastelum MD - Last Filed: 09/04/25 11:47> Interval history: He is doing okay, sleeping comfortably. Denies significant abdominal pain. Describes this more as a discomfort on the lower right side. Denies nausea or vomiting, fever or chills. Past bowel movements yesterday. Denies nausea or vomiting <Talon Cummins PA-C - Last Filed: 09/04/25 09:22> Physical Exam 2 Vital Signs: Vital Signs: Last Vital Signs Temp 98.5 F 09/04/25 06:12 Pulse 90 09/04/25 07:54 Resp 12 09/04/25 07:54 BP 122/65 09/04/25 07:54 Pulse Ox 99 09/04/25 07:54 O2 Del Method Room Air 09/04/25 07:54 BMI result Body Mass Index 22.5 <Talon Cummins PA-C - Last Filed: 09/04/25 09:22> Const: General: comfortable and no acute distress <Talon Cummins PA-C - Last Filed: 09/04/25 09:22> Orientation/consciousness: patient oriented x3 <YVONNE Marshall Last Filed: 09/04/25 09:22> Resp: Effort & Inspection: normal respiratory effort and able to speak in complete sentences <Talon Cummins PA-C - Last Filed: 09/04/25 09:22> GI: Inspection: No distended <Talon Cummins PA-C - Last Filed: 09/04/25 09:22> Palpation (GI): Soft to palpation, Tenderness to palpation present (GI) in the RLQ and suprapubicly and no guarding <YVONNE Marshall Last Filed: 09/04/25 09:22> Neuro: General: patient oriented x3 <YVONNE Marshall Last Filed: 09/04/25 09:22> Objective Data Active Medications Acetaminophen (Acetaminophen 325 Mg Tablet) 650 mg PO Q6H PRN PRN Reason: Pain, Mild 1-3,fever,headache Last Admin: 09/04/25 08:03 Dose: 650 mg Documented By: LIBERTAD Calcium Carbonate (Calcium Carbonate 750 Mg Tab.Chew) 750 mg PO Q4H PRN PRN Reason: Heartburn Enoxaparin Sodium (Enoxaparin Sodium 40 Mg/0.4 Ml Syringe) 40 mg SUBCUT Q24H [facility] Last Admin: 09/03/25 23:28 Dose: 40 mg Documented By: MASSIEL Hydromorphone HCl (Hydromorphone Hcl 0.5 Mg/0.5 Ml Syringe) 0.5 mg IVPUSH Q4H PRN; Protocol PRN Reason: Pain, Severe (Pain Scale 7-10) Dextrose/Sodium Chloride (D51/2ns) 1,000 mls @ 100 mls/hr IVCONT .Q10H [facility] Last Admin: 09/04/25 05:29 Dose: Not Given Documented By: MASSIEL Non-Admin Reason: IV Running Piperacillin Sod/Tazobactam (Sod 3.375 gm/ Sodium Chloride) 50 mls @ 100 mls/hr IV Q6H [facility] Last Infusion: 09/04/25 06:00 Dose: Infused Documented By: MASSIEL Magnesium Hydroxide (Milk Of Magnesia 30 Ml Oral.Susp) 30 ml PO DAILY PRN PRN Reason: Constipation Melatonin (Melatonin 3 Mg Tablet) 6 mg PO BEDTIME PRN PRN Reason: Insomnia Prednisone (Prednisone 20 Mg Tablet) 40 mg PO DAILY [facility] Sodium Chloride (0.9 % Sodium Chloride Flush 3 Ml Syringe) 3 ml IVFLUSH QSHIFT [facility] Last Admin: 09/04/25 07:24 Dose: Not Given Documented By: LIBERTAD Non-Admin Reason: See Note <Talon Cummins PA-C - Last Filed: 09/04/25 09:22> Labs CBC & Chem 7: 09/04/25 04:37 09/04/25 04:37 <Talon Cummins PA-C - Last Filed: 09/04/25 09:22> Labs: Laboratory Results - last 24 hr 09/03/25 09/03/25 09/03/25 17:47 19:43 20:06 MCV 65.2 L MCH 20.0 L MCHC 30.6 L RDW 19.2 H Plt Count 501 H MPV 9.4 Immature Gran % (Auto) 0.5 H Neut % (Auto) 85.5 H Lymph % (Auto) 9.5 L [place] % (Auto) 4.2 Eos % (Auto) 0.1 Baso % (Auto) 0.2 Lymph # (Auto) 1.9 [place] # (Auto) 0.8 Eos # (Auto) 0.0 Baso # (Auto) 0.0 Abs Immat Gran (auto) 0.09 H Absolute Neuts (auto) 16.8 H Absolute Nucleated RBC 0.000 Nucleated RBC % (auto) 0.0 ESR 23 H Anion Gap 12 Estim Creat Clear Calc 117.8 Estimated GFR > 60 Random Glucose 131 H Lactic Acid 2.5 H* Lactic Acid F/U @ 2Hr 1.4 Calcium 9.1 Total Bilirubin 0.2 AST 14 ALT 21 Alkaline Phosphatase 55 C-Reactive Protein 2.49 H Total Protein 6.7 Albumin 3.9 Lipase 55 Urine Color Yellow Urine Appearance Clear Urine pH 7.0 Ur Specific [place] 1.025 Urine Protein Negative Urine Glucose (UA) Negative Urine Ketones Negative Urine Blood Negative Urine Nitrite Negative Ur Leukocyte Esterase Negative Urine RBC 0-2 Urine WBC 0-5 Ur Squamous Epith Cells 0-2 Urine Bacteria None Seen Hyaline Casts 0-2 09/04/25 04:37 MCV 67.5 L MCH 20.0 L MCHC 29.6 L RDW 18.6 H Plt Count 369 D MPV 9.6 Immature Gran % (Auto) Neut % (Auto) Lymph % (Auto) [place] % (Auto) Eos % (Auto) Baso % (Auto) Lymph # (Auto) [place] # (Auto) Eos # (Auto) Baso # (Auto) Abs Immat Gran (auto) Absolute Neuts (auto) Absolute Nucleated RBC 0.000 Nucleated RBC % (auto) 0.0 ESR Anion Gap 9 L Estim Creat Clear Calc 109.9 Estimated GFR > 60 Random Glucose 82 Lactic Acid Lactic Acid F/U @ 2Hr Calcium 7.7 L D Total Bilirubin 0.3 AST 16 ALT 18 Alkaline Phosphatase 48 C-Reactive Protein Total Protein 5.3 L Albumin 2.9 L Lipase Urine Color Urine Appearance Urine pH Ur Specific [place] Urine Protein Urine Glucose (UA) Urine Ketones Urine Blood Urine Nitrite Ur Leukocyte Esterase Urine RBC Urine WBC Ur Squamous Epith Cells Urine Bacteria Hyaline Casts <Talon Cummins PA-C - Last Filed: 09/04/25 09:22> Procedures Date of Service Date of Service: 09/04/25 <Talon Cummins PA-C - Last Filed: 09/04/25 09:22> 09/04/25 <Chris Gastelum MD - Last Filed: 09/04/25 11:47> Progress Note: A&P Assessment and plan (1) Intra-abdominal abscess: Status: Acute <Talon Cummins PA-C - Last Filed: 09/04/25 09:22> Assessment and Plan: Minimal pain and tenderness No fever Abdomen is soft and benign I have reviewed his CAT scan with the radiologists - they do not feel that the patient has not abscess Likely to have inflamed loop of small bowel with thickening of the wall I have talked to Dr. Neumann We will hold off on IR drainage for now Seen and examined independently I have discussed the above with Dr Neumann <Chris Gastelum MD - Last Filed: 09/04/25 11:47> (2) Crohn's disease: Status: Acute <Talon Cummins PA-C - Last Filed: 09/04/25 09:22> Assessment and Plan: 45-year-old male with a history of Crohn's who was admitted for intra- abdominal abscess found on follow-up CT, was recommended by Dr. Neumann to return to the emergency department for drainage of the abscess. Patient overall doing well, denying significant abdominal pain, nausea, vomiting. On exam abdomen is soft mildly tender in the right lower quadrant and suprapubic area. Clinically unobstructed, nondistended, passing bowel movements. Patient is scheduled for IR drainage of abscess today. No plan for current surgical intervention. He is on empiric Zosyn, prednisone taper, monthly Skyrizi. IR drain today IV fluids Continue IV Zosyn Prednisone taper <Talon Cummins PA-C - Last Filed: 09/04/25 09:22> Time Spent With Patient Time: Total time managing care of this patient today ____ minutes. <Talon Cummins PA-C - Last Filed: 09/04/25 09:22> Quality Stroke Does the patient have a stroke diagnosis?: No <YVONNE Marshall Last Filed: 09/04/25 09:22> VTE Prior VTE?: No <Talon Cummins PA-C - Last Filed: 09/04/25 09:22> VTE Risk Level:: Medical - moderate - high <Talon Cummins PA-C - Last Filed: 09/04/25 09:22> VTE Device Contraindication: Treatment Not Indicated <Talon Cummins PA-C - Last Filed: 09/04/25 09:22> VTE Drug Contraindication: N/A - Med Ordered <Talon Cummins PA-C - Last Filed: 09/04/25 09:22>
--- NOTE | 2025-09-04 09:30 | PC.NURSE ---
assumed care of patient at 0700, patient is awake and alert, resp even and unlabored. patient has D5 .45 NS running at 100ml/hr. patient requested information regarding IV vs po prednisone and inpatient attending was notified, OK for po steroid. medicated pt per JAN, patient now requesting to speak to GI Dr Neumann regarding his prednisone taper, provider tiger texted by this RN with patients request. IR plans to drain patient around 1130.
[2025-09-04] MEDS: Dextrose 5 % and 0.45 % NaCl 1,000 ML 100 ML IVCONT ×2 (10:26→20:55)
--- NOTE | 2025-09-04 10:34 | MHC.CM.PN ---
Pt. lives with his , he does not use home health services or DME. He was here early Aug. PCP confirmed: Destiney Shoemaker MD. HCP is on file and confirmed: , Mahesh. Pt. can arrange a ride home at [place], DCP: home, self care, CM to follow for DC needs.
--- NOTE | 2025-09-04 11:45 | PC.NURSE ---
Pt has multiple questions related to his admission and is requesting to speak with his hospitalist. Dr. Trujillo made aware, awaiting arrival to bedside.
--- NOTE | 2025-09-04 13:03 | PM.EVENT ---
Event Note Date of Service: 09/04/25 Event Note: Case reviewed with Dr Gastelum - CT appearance not convincing for abscess based on radiology re-read. Likely extensive tethering of small bowel loops causing this appearance. Pt already on pred 60 - would avoid re-pulsing with methylpred and cont to monitor serial abd exam for now. Would still favor Abx as being on high dose steroids could have masked any infectious sx such as fevers, worsening pain etc. Can cont zosyn IV while pt admitted If no interval worsening over next 1-2 days can potentially be discharged on PO Abx cipro+flagyl or levaquin x 14 days. Reviewed with pt that if minimal response to trial of Skyrizi q4w, next step would be small molecule + referral to dedicated IBD center in [place]. (pt non-responder to anti-TNF and UST. Vedo with limited effect on this pt with penetrating dz who is not anti-TNF naive). Time Spent With Patient Time: Total time managing care of this patient today ____ minutes.
--- NOTE | 2025-09-04 14:02 | HO.NURTONUR ---
Addendum entered by Elena Bocanegra RN 09/04/25 14:02: Pt arrived c/o worsening abd pain and outpt CT showing abscess. Hx Chron's. Pt already completing prednisone course. Originally plan was for IR drainage and possible surgery, but GI and surgeon stated he did not need either. Continue w/abx and steroids. Pt ambulatory/independent, aaox4. D51/2NSS running @ 100mL/hr. Original Note: Pt arrived c/o worsening abd pain and outpt CT showing abscess. Pt already completing prednisone course. Originally plan was for IR drainage and possible surgery, but GI and surgeon stated he did not need either. Continue w/abx and steroids. Pt ambulatory/independent, aaox4. D51/2NSS running @ 100mL/hr.
[2025-09-04] MEDS: Flu Vacc TS2025-26(6mo up)/PF 0.5 ML SYRINGE IM (17:59)
[2025-09-04 19:13] LABS: CDiff Gene PCR POSITIVE (Negative)
[2025-09-04 19:18] LABS: CDIFF Internal ctrl Dots and bkg OK (V)
[2025-09-04 19:19] LABS: CDiff Toxin Negative (Negative)
[2025-09-05 03:29] VITALS: BP 128/75; PULSE 79; RESP 18; TEMP 36.3; O2SAT 100
[2025-09-05] MEDS: Dextrose 5 % and 0.45 % NaCl 1,000 ML 100 ML IVCONT (06:53)
[2025-09-05 07:42] VITALS: BP 147/91; PULSE 72; RESP 16; TEMP 36.4; O2SAT 100
--- NOTE | 2025-09-05 09:01 | P.PNGS_ITS ---
Subjective Subjective Date of Service: 09/05/25 <Talon Cummins PA-C - Last Filed: 09/05/25 09:18> 09/05/25 <Chris Gastelum MD - Last Filed: 09/05/25 10:26> Interval history: Doing well today, feels as though he is improving. Passing multiple bowel movements. Denies nausea or vomiting. Denies fevers or chills. He is tolerating diet <Talon Cummins PA-C - Last Filed: 09/05/25 09:18> Physical Exam 2 Vital Signs: Vital Signs: Last Vital Signs Temp 97.5 F 09/05/25 07:42 Pulse 72 09/05/25 07:42 Resp 16 09/05/25 07:42 BP 147/91 H 09/05/25 07:42 Pulse Ox 100 09/05/25 07:42 O2 Del Method Room Air 09/05/25 07:42 BMI result Body Mass Index 21.8 <Talon Cummins PA-C - Last Filed: 09/05/25 09:18> Const: General: comfortable and no acute distress <Talon Cummins PA-C - Last Filed: 09/05/25 09:18> Orientation/consciousness: patient oriented x3 <Talon Cummins PA-C - Last Filed: 09/05/25 09:18> Resp: Effort & Inspection: normal respiratory effort and able to speak in complete sentences <Talon Cummins PA-C - Last Filed: 09/05/25 09:18> GI: Inspection: No distended <Talon Cummins PA-C - Last Filed: 09/05/25 09:18> Palpation (GI): Soft to palpation and Tenderness to palpation present (GI) in the RLQ and suprapubicly <Tlaon Cummins PA-C - Last Filed: 09/05/25 09:18> Neuro: General: patient oriented x3 <YVONNE Marshall Last Filed: 09/05/25 09:18> Objective Data Active Medications Acetaminophen (Acetaminophen 325 Mg Tablet) 650 mg PO Q6H PRN PRN Reason: Pain, Mild 1-3,fever,headache Last Admin: 09/04/25 08:03 Dose: 650 mg Documented By: LIBERTAD Calcium Carbonate (Calcium Carbonate 750 Mg Tab.Chew) 750 mg PO Q4H PRN PRN Reason: Heartburn Enoxaparin Sodium (Enoxaparin Sodium 40 Mg/0.4 Ml Syringe) 40 mg SUBCUT Q24H [facility] Last Admin: 09/04/25 19:25 Dose: Not Given Documented By: SUZETTE Non-Admin Reason: Patient Refused Comments: pt ambulates independently Hydromorphone HCl (Hydromorphone Hcl 0.5 Mg/0.5 Ml Syringe) 0.5 mg IVPUSH Q4H PRN; Protocol PRN Reason: Pain, Severe (Pain Scale 7-10) Dextrose/Sodium Chloride (D51/2ns) 1,000 mls @ 100 mls/hr IVCONT .Q10H [facility] Last Admin: 09/05/25 06:53 Dose: 100 mls/hr Documented By: SUZETTE Piperacillin Sod/Tazobactam (Sod 3.375 gm/ Sodium Chloride) 50 mls @ 100 mls/hr IV Q6H [facility] Last Infusion: 09/05/25 06:52 Dose: Infused Documented By: SUZETTE Magnesium Hydroxide (Milk Of Magnesia 30 Ml Oral.Susp) 30 ml PO DAILY PRN PRN Reason: Constipation Melatonin (Melatonin 3 Mg Tablet) 6 mg PO BEDTIME PRN PRN Reason: Insomnia Multivitamins/Vitamin C (Multivitamin Tablet) 1 tab PO DAILY [facility] Last Admin: 09/05/25 08:22 Dose: 1 tab Documented By: BENSON Prednisone (Prednisone 20 Mg Tablet) 60 mg PO DAILY [facility] Last Admin: 09/05/25 08:22 Dose: 60 mg Documented By: BENSON Sodium Chloride (0.9 % Sodium Chloride Flush 3 Ml Syringe) 3 ml IVFLUSH QSHIFT [facility] Last Admin: 09/05/25 08:21 Dose: Not Given Documented By: BENSON Non-Admin Reason: IV Running <Talon Cummins PA-C - Last Filed: 09/05/25 09:18> Labs CBC & Chem 7: 09/04/25 04:37 09/04/25 04:37 <Talon Cummins PA-C - Last Filed: 09/05/25 09:18> Labs: Laboratory Results - last 24 hr 09/04/25 15:26 C. difficile Tox B Gene POSITIVE A* C. difficile Toxin A&B Negative C. difficile Interpret SEE NOTE <Talon Cummins PA-C - Last Filed: 09/05/25 09:18> Microbiology Microbiology Results: Microbiology 09/03/25 18:49 Blood Culture - Preliminary Blood - Venous No growth after 24 hours. 09/03/25 17:47 Blood Culture - Preliminary Blood - Venous No growth after 24 hours. <Talon Cummins PA-C - Last Filed: 09/05/25 09:18> Procedures Date of Service Date of Service: 09/05/25 <Talon Cummins PA-C - Last Filed: 09/05/25 09:18> 09/05/25 <Chris Gastelum MD - Last Filed: 09/05/25 10:26> Progress Note: A&P Assessment and plan (1) Intra-abdominal abscess: Status: Acute <Talon Cummins PA-C - Last Filed: 09/05/25 09:18> Assessment and Plan: He feels she is much better He denies any abdominal pain Tolerating regular diet Good BMs Abdomen is soft and benign I have reviewed his CAT scan images with the radiologists - they did not think that this has an abscess that needs to be drained Continue current care Follow up with Dr. Logan seen and examined independently <Chris Gastelum MD - Last Filed: 09/05/25 10:26> (2) Crohn's disease: Status: Acute <Talon Cummins PA-C - Last Filed: 09/05/25 09:18> Assessment and Plan: 45-year-old male with a history of Crohn's who was admitted for possible intra-abdominal abscess found on follow-up CT, reviewed of CT suggestive of therefore IR drain canceled. Patient overall doing well, denying significant abdominal pain, nausea, vomiting. Tolerating regular diet. On exam abdomen is soft mildly tender in the right lower quadrant and suprapubic area. Clinically unobstructed, nondistended, passing bowel movements. No plan for current surgical intervention. He is on empiric Zosyn, prednisone taper, monthly Skyrizi, which he says was just delivered to his house. General surgery will sign off, we will continue to follow up peripherally throughout this admission, please reconsult as needed. Continue IV Zosyn Prednisone taper <Talon Cummins PA-C - Last Filed: 09/05/25 09:18> Time Spent With Patient Time: Total time managing care of this patient today ____ minutes. <Talon Cummins PA-C - Last Filed: 09/05/25 09:18> Quality Stroke Does the patient have a stroke diagnosis?: No <Talon Cummins PA-C - Last Filed: 09/05/25 09:18> VTE Prior VTE?: No <Talon Cummins PA-C - Last Filed: 09/05/25 09:18> VTE Risk Level:: Medical - moderate - high <Talon Cummins PA-C - Last Filed: 09/05/25 09:18> VTE Device Contraindication: Treatment Not Indicated <Talon Cummins PA-C - Last Filed: 09/05/25 09:18> VTE Drug Contraindication: N/A - Med Ordered <Talon Cummins PA-C - Last Filed: 09/05/25 09:18>
--- NOTE | 2025-09-05 09:42 | P.DS_ITS ---
DS: Providers Provider Date of Service: 09/05/25 Date of admission: 09/03/25 19:14 Date of discharge: 09/05/25 Primary care physician: Destiney Shoemaker MD Consults: 09/03/25 19:14 Consult to Gastroenterology Routine Consulting Provider: [facility] Reason for consultation: intra-abdominal abscess;crohns dz Consult to General Surgery Routine Consulting Provider: [facility] Reason for consultation: intra-abdominal abscess DS: Diagnosis Discharge Diagnosis (1) Intra-abdominal abscess: Status: Acute (2) Crohn's disease: Status: Acute DS: Summary Hospital Course Hospital Course: admission hpi Chief Complaint: Abdominal pain 45-year-old male with a past medical history of Crohn's disease on Skyrizi p resented to the hospital today with a chief complaint of abdominal pain. Patient mentioned that he has been having severe Crohn's disease and has been on methylprednisone which was switched to prednisone with Q weekly taper on 08/23/2025. His non destructive testing scientist Dr. Abrams booked him for CT enterography for 09/03/2025 which showed intra-abdominal abscess subsequently asked him to go to the ER for further evaluation. Patient reports that over the past few days he has been having increased abdominal pain. Denies any fevers. Denies any nausea vomiting. Reports having diarrhea. Review of all other systems is negative except mentioned above ER course: Per ER physician, patient reported right lower quadrant abdominal pain; noted have mild tenderness; no guarding or rigidity; CT abdomen pelvis showed 6.8x 2.6 X3.6 cm fluid collection in the mid abdomen. Discussed with Dr. Gastelum from General surgery who reviewed the images and mentioned no acute surgical intervention needed for now and will plan for IR guided drainage in the morning. Patient was given antibiotics. Hospital course: patient presented with abdominal pain in the setting of Crohn disease and found to have CT finding concerning for possible abscess as stated above. He was admitted and treated with IV Zosyn and oral prednisone. GI evaluated him and determined that the CT findings likely do not represent an abscess, so no intervention was needed. GI recommended continuing the prednisone taper and other maintenance medications. He will require regular follow-up with a GI specialist. Given the initial concern for abscess and his clinical improvement, he will be transitioned to oral Flagyl 500 mg three times daily for 4 weeks and oral Cipro 500 mg bid x 4 weeks Final diagnoses: Crohn's flare possible intra-abdominal abscess Time Attestation Discharge Coordination Time (in mins): 35 Quality: Safe Use of Opioids Does Pt have an Active Cancer Diagnosis on the Problem List?: No Quality: Stroke Does the patient have a stroke diagnosis?: No Physical Exam Exam: Exam: General: AO X 3, no acute distress Resp: CTA bilateral CVS: S1,S2,RRR GI: +BS, mild right lower quadrant tenderness, no distention Skin: No rash Neuro: motor grossly intact Psych: appropriate affect Vital Signs: Vital Signs: Last Vital Signs Temp 97.5 F 09/05/25 07:42 Pulse 72 09/05/25 07:42 Resp 16 09/05/25 07:42 BP 147/91 H 09/05/25 07:42 Pulse Ox 100 09/05/25 07:42 O2 Del Method Room Air 09/05/25 07:42 BMI result Body Mass Index 21.8 DS: Data Data Completed and Pending Labs on day of discharge: Laboratory Results - last 24 hr 09/04/25 15:26 C. difficile Tox B Gene POSITIVE A* C. difficile Toxin A&B Negative C. difficile Interpret SEE NOTE Preliminary micro results at discharge 09/03/25 18:49 Blood Culture - Preliminary Blood - Venous No growth after 24 hours. 09/03/25 17:47 Blood Culture - Preliminary Blood - Venous No growth after 24 hours. Discharge Plan Discharge Anticipated Discharge Date/Time: 09/05/25 09:32 Patient Disposition: Home, Self-Care Discharge Diagnosis: Crohn's colitis and exacerbation Referrals: Destiney Shoemaker MD [Primary Care Provider, Primary Care] - 1 Week Discharge Medications: New ciprofloxacin HCl [Cipro] 500 mg tablet 500 mg PO BID 28 Days Qty: 56 0RF metronidazole 500 mg tablet 500 mg PO TID 28 Days Qty: 84 0RF Continued Skyrizi 360 mg/2.4 mL (150 mg/mL) wearable injector 360 mg subcut Q4W 90 Days Qty: 9.6 1RF multivitamin Tablet 1 tab PO DAILY vitamin B complex Tablet 1 tab PO DAILY prednisone 20 mg tablet 60 mg PO DAILY 14 Days Qty: 42 0RF Rx Instructions: Take 3 tablets (for a total of 60mg) daily for the next 2 weeks. You will then continue taper with 10mg tablets Discharge Orders: Discharge Order (Routine); Ordered 09/05/25 Ordered By: Catrachito Trujillo Diet: Advance to usual diet Activity on Discharge: As tolerated Stand Alone Forms: Patient Portal Discharge page, Work/School Release Print Language: Bruneian Care Plan Goals: recovery from croh's flare and exacerbation Health Concerns: cron's flare, concernc for abscesss Plan of Treatment: Take Flagyl and Cipro as recommended and follow up with your Doctor in a week continue Prednisone jordyn per previous instruction follow-up with your primary care doctor within a week, call for appointment follow-up with your GI doctor called for primary Assessment: see above Patient Instructions: Crohn Disease (DC) Discharge Date/Time: 09/05/25 11:55
--- NOTE | 2025-09-05 10:59 | MHC.CM.PN ---
Patient discharged to home self care. He has arranged for his to provide transportation home. Patient will follow up with his doctor in 1 week.
[2025-09-05 11:35] VITALS: BP 134/75; PULSE 78; RESP 16; TEMP 36.6; O2SAT 99
--- NOTE | 2025-09-05 11:52 | P.PNGI_ITS ---
Subjective Subjective Date of Service: 09/05/25 Interval History: Patient seen and evaluated bedside. Again, reports minimal GI symptoms apart from right lower pain. Reports that stools are now formed. No further diarrhea. To note, no change was made to steroids, but antibiotics were added. Critical Care Time (minutes): 0 Physical Exam 2 Exam: Exam: No apparent distress Nonicteric Abdomen soft, tender in RLQ, nondistended Alert and oriented x3, normal gait Vital Signs: Vital Signs: Last Vital Signs Temp 97.8 F 09/05/25 11:35 Pulse 78 09/05/25 11:35 Resp 16 09/05/25 11:35 BP 134/75 09/05/25 11:35 Pulse Ox 99 09/05/25 11:35 O2 Del Method Room Air 09/05/25 11:35 BMI result Body Mass Index 21.8 Objective Data Labs 09/04/25 04:37 09/04/25 04:37 Labs: Laboratory Results - last 24 hr 09/04/25 15:26 C. difficile Tox B Gene POSITIVE A* C. difficile Toxin A&B Negative C. difficile Interpret SEE NOTE Microbiology Microbiology Results: Microbiology 09/03/25 18:49 Blood - Venous Blood Culture - Preliminary No growth after 24 hours. 09/03/25 17:47 Blood - Venous Blood Culture - Preliminary No growth after 24 hours. Procedures Date of Service Date of Service: 09/05/25 Progress Note: A&P Assessment and plan (1) Crohn's disease: Status: Acute (2) Anemia: Status: Acute Plan Again reviewed with the patient, that based on the response to antibiotics, would favor continuing these for at least 14 days. We will repeat CT abdomen and pelvis at that time, to determine any interval change. Continue prednisone as per taper, patient is scheduled to decrease to 50 mg tomorrow. He also tells me that he has now received his Skyrizi, and plans to take the medication when he gets home. Recommend catch up with next dose of Skyrizi i.e pt to take it early in 3 weeks. He is also aware that a referral will be made to dedicated IBD center in [place] as outpatient. Time Spent With Patient Time: Total time managing care of this patient today ____ minutes. Quality Stroke Does the patient have a stroke diagnosis?: No VTE Prior VTE?: No VTE Risk Level:: Medical - moderate - high VTE Device Contraindication: Treatment Not Indicated VTE Drug Contraindication: N/A - Med Ordered
== END 2025-09-05 11:55 | disposition home or self-care (01) | DRG 245 ==
LOC: HO.ED 18:08 → HO.EDOVER 19:20 → HO.S3 09-04 13:39
PROVIDERS: Physician Assistant; Admitting Provider Hospitalist; Emergency Provider Emergency Medicine; PCP Hospitalist; Visit Provider Internal Medicine
DX: K50.014 Crohn's disease of small intestine with abscess (principal); Z79.52 Long term (current) use of systemic steroids; Z79.620 Long term (current) use of immunosuppressive biologic; Z79.899 Other long term (current) drug therapy
CPT/HCPCS: 36415; 80053; 81001; 83605; 83690; 85025; 85027; 85652; 86140; 87040; 87324; 87493; 90656; 99285; J1650; J2270; J2543; J3374

== ENCOUNTER → 2025-09-03 19:14 | Outpatient (BNV) | payer BC, SELFPAY | PROVIDERS: Admitting Provider Hospitalist; Emergency Provider Emergency Medicine; PCP Hospitalist | DX: K50.019 Crohn's disease of small intestine with unspecified complications (principal); K65.1 Peritoneal abscess | CPT/HCPCS: 99232; 99253 ==

== ENCOUNTER → 2025-09-03 19:14 | Outpatient (BNV) | payer BC, SELFPAY | PROVIDERS: Admitting Provider Hospitalist; Emergency Provider Emergency Medicine; PCP Hospitalist; Visit Provider Internal Medicine | DX: K65.1 Peritoneal abscess (principal); K50.019 Crohn's disease of small intestine with unspecified complications | CPT/HCPCS: 99239 ==

== ENCOUNTER → 2025-09-03 19:14 | Outpatient (BNV) | payer BC, SELFPAY | PROVIDERS: Admitting Provider Hospitalist; Emergency Provider Emergency Medicine; PCP Hospitalist; Visit Provider Internal Medicine | DX: K50.019 Crohn's disease of small intestine with unspecified complications (principal); K65.1 Peritoneal abscess; K63.9 Disease of intestine, unspecified; D64.9 Anemia, unspecified; E61.1 Iron deficiency | CPT/HCPCS: 99232; 99253; 99499 ==

== ENCOUNTER 2025-09-24 11:00 | Outpatient (REF) | payer BC, SELFPAY ==
--- NOTE | ~2025-09-24 | CT_ITS ---
EXAMINATION: CT ABDOMEN AND PELVIS WITH CONTRAST CLINICAL INFORMATION: K65.1 - Peritoneal abscess follow-up, Crohn's disease COMPARISON: September 03, 2025 TECHNIQUE: Multidetector volumetric images were obtained from the superior aspect of the liver through the pubic symphysis following administration 85 mL of Omnipaque 350 intravenous contrast. Sagittal and coronal reformatted images were obtained on the technologist's workstation. Oral contrast: No This CT examination was performed using dose optimization techniques as appropriate, variously including the following: *Automated exposure control *Adjustment of mA and/or kV according to patient size (this includes techniques or standardized protocols for targeted exams where dose is matched to indication/reason for exam; i.e. extremities or head) *Use of iterative reconstruction technique FINDINGS: LUNG BASES: The visualized lung bases are unremarkable. LIVER, GALLBLADDER, AND BILIARY TREE: Mildly decreased attenuation is present throughout the liver. There is a calcified stone in the gallbladder without gallbladder wall thickening or biliary duct dilation. PANCREAS: Unremarkable. SPLEEN: Unremarkable. ADRENAL GLANDS: Unremarkable. KIDNEYS AND URETERS: The kidneys are normal in size, shape, and attenuation. No hydronephrosis, hydroureter, or calculi seen. No perinephric stranding. BLADDER: Unremarkable. GASTROINTESTINAL TRACT: Again seen is tethering and spiculation of fat in the right mid abdomen involving small bowel likely with pseudosacculation. Small bowel loops appear thick walled through this region. There is hypervascularity. Small bowel loops remain fluid-filled and mildly distended in the central and right lower quadrant, but overall improved compared to the prior. No definite abscess is identified. No free air is evident. ABDOMINAL WALL: No significant hernia is appreciated. LYMPH NODES: Normal. VASCULAR: Unremarkable. PELVIC VISCERA: Unremarkable. OSSEOUS STRUCTURES: Unremarkable. No evidence of sacroiliitis. CT/CT abdomen pelvis w IV con IMPRESSION: Overall, improvement from the prior examination. There is persistent tethering bowel wall thickening in the right lower abdomen with decreased mild dilation of small bowel proximal to this region and pseudoarticulations as previously discussed consistent with patient's known history of Crohn's disease. Fluid filled thick walled areas in the right midabdomen are favored to represent abnormal small bowel loops rather than an abscess. Cholelithiasis. Mild hepatic steatosis. Fleischner guidelines were followed. Electronically signed by: Raza Driscoll MD 09/24/2025 12:12 PM DEWAYNE RP
[2025-09-24] MEDS: iohexoL 350 MG/ML 100 ML INFUS..BTL IV (11:42)
--- OUTSIDE RECORDS SUMMARY | 2025-09-24 13:17 | XMS_ITS | Clinical Summary ---
Author Organization [address] Address [address] [place] [phone] Phone Care Team Providers Care Shop Router Name Role Phone Unavailable Primary Care Provider [...]
--- OUTSIDE RECORDS SUMMARY | 2025-09-24 13:17 | XMS_ITS | Encounter Summary ---
Author Organization [facility] Address [address] [place] [id number] Care Team Providers Care Field Captain Name Role Phone Pcp, No Primary Care Provider Kendall Navas MD Primary Care Provider [phone] Encounter Details Date Type Department Care Team (Late st Contact Info) Description 05/13/2020 Scanned Document [address] [phone] Gastroenterology, Scan Social History Tobacco Use Types [...] PATHOLOGY GENERAL (06/05/2020) 06/05/2020 us Scan Gastroenterology [facility] HX PATH PROCEDURES Mook tank Result - Final documented in this encounter Visit Diagnoses Not on filedocumented in this encounter Care Teams Field Captain Relationship Specialty Start Date End Date Pcp, No PCP - General General Medicine 06/12/20 08/16/25 Kendall Shoemaker MD [address] [place] [address] PCP - General Internal Medicine 08/17/25 documented as of this encounter
--- OUTSIDE RECORDS SUMMARY | 2025-09-24 13:17 | XMS_ITS | Encounter Summary ---
Author Organization [facility] Address [address] [place] [address] Care Team Providers Care Rural Carrier Name Role Phone Pcp, No Primary Care Provider Kendall Navas MD Primary Care Provider [phone] Encounter Details Date Type Department Care Team (Late st Contact Info) Description 12/14/2024 Scanned Document [facility] [address] [phone] Juan Bustamante MD [address] [facility] [address] [place] [address] Social History Tobacco Use Types Packs/Day Years [...] on filedocumented in this encounter Care Teams Rural Carrier Relationship Specialty Start Date End Date Pcp, No PCP - General General Medicine 06/12/20 08/16/25 Kendall Shoemaker MD [address] [place] [address] PCP - General Internal Medicine 08/17/25 documented as of this encounter
--- OUTSIDE RECORDS SUMMARY | 2025-09-24 13:17 | XMS_ITS | Clinical Summary ---
Author Organization [facility] Address [address] [place] [address] Care Team Providers Care Latin American Studies Director Name Role Phone Kendall Shoemaker MD Primary Care Provider [phone] Allergies No known active allergies Medications Humira [...] Encounters Date Type Department Care Team Description 09/07/2025 9:30 AM EDT Office Visit Orthopedic [address] [phone] Juan Bustamante MD Occipital neuralgia of right side (Primary Dx); Spondylosis of cervical region without myelopathy or radiculopathy 08/17/2025 9:30 AM EDT Office Visit Orthopedic [address] [phone] Juan Bustamante MD Occipital neuralgia of right side (Primary Dx); Spondylosis of cervical region without myelopathy or radiculopathy 07/27/2025 9:45 AM EDT [facility] Visit [facility] [address] [place] [phone] Juan Bustamante MD 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); Occipital neuralgia of right side 07/19/2025 9:15 AM EDT [facility] [address] [place] [address] Yomi Anthony MD Cervical neuralgia (Primary Dx); [...] Insurance WORKER'S COMP WORKER'S COMP WORKER'S COMP JASPER NA Care Teams Latin American Studies Director Relationship Specialty Start Date End Date Kendall Shoemaker MD [address] [place] [address] PCP - General Internal Medicine 08/17/25
--- OUTSIDE RECORDS SUMMARY | 2025-09-24 13:17 | XMS_ITS | Clinical Summary ---
Author Organization [facility] Address [address] [place] [address] Care Team Providers Care Cigarette Making Machine Operator Name Role Phone Kendall Shoemaker MD Primary Care Provider [phone] Surgical History Surgery Date Site/Laterality Comments COLONOSCOPY PROCEDURE:COLONOSCOPY UPPER GASTROINTESTINAL ENDOSCOPY PROCEDURE:UPPER GASTROINTESTINAL ENDOSCOPY UPPER GASTROINTESTINAL ENDOSCOPY 06/05/2020 N/A PROCEDURE:UPPER GASTROINTESTINAL ENDOSCOPY;COMMENT:Procedure: UPPER ENDOSCOPY-EGD/Biopsy; Surgeon: Robert Barber MD; Location: [facility]; Service: Gastroenterology; Laterality: N/A; COLONOSCOPY 06/05/2020 N/A PROCEDURE:COLONOSCOPY;COMMENT :Procedure: COLONOSCOPY B SF(to the terminal ileum)/Biopsy and polypectomy; Surgeon: Robert Barber MD; Location: [facility]; Service: Gastroenterology; Laterality: N/A; Medical History [...] age to complete this topic Care Teams Cigarette Making Machine Operator Relationship Specialty Start Date End Date Kendall Shoemaker MD [address] [place] [phone] PCP - General 08/12/23
--- OUTSIDE RECORDS SUMMARY | 2025-09-24 13:17 | XMS_ITS | Clinical Summary ---
Author Organization [facility] Address [address] [place], [place] [id number] Care Team Providers Care Public Transit Bus Driver Name Role Phone Kendall Shoemaker MD Primary Care Provider [phone] Allergies No known active allergies Medications Medication [...] Advance Directives For more information, please contact: [phone] Latest Code Status on File Code Status Date Activated Date Inactivated Comments Full Code 06/05/2020 1:41 PM 06/05/2020 8:31 PM This code status was ascertained in the following way: discussion with patient . Care Teams Public Transit Bus Driver Relationship Specialty Start Date End Date Kendall Shoemaker MD [address] [place] [address] PCP - General Internal Medicine 08/12/23
== END 2025-09-24 11:01 | disposition home or self-care (01) ==
LOC: HO.CT 11:00
PROVIDERS: PCP Hospitalist; Visit Provider Internal Medicine
DX: K65.1 Peritoneal abscess (principal)
CPT/HCPCS: 74177; Q9967

== ENCOUNTER → 2025-09-24 11:01 | Outpatient (BNV) | payer BC, SELFPAY | PROVIDERS: PCP Hospitalist; Visit Provider Radiology Diagnostic Radiology | DX: K65.1 Peritoneal abscess (principal); K80.20 Calculus of gallbladder without cholecystitis without obstruction; K76.0 Fatty (change of) liver, not elsewhere classified | CPT/HCPCS: 74177 ==